=== PATIENT | female | born 1950 | race Caucasian/White ===

== ENCOUNTER → 2017-10-30 10:49 | Outpatient (CLI) | payer MEDICARE, OTHER, SELFPAY ==
[2017-10-30 11:11] LABS: Add Manual Diff / Slide Review NO; Basophils Percent Auto 0.6 % (0-2); Eosinophils Percent Auto 1.8 % (2-4); Hematocrit 43.2 % (36-46); Hemoglobin 14.2 g/dL (12.0-16.0); Lymphocytes Percent Auto 25.4 % (25-40); Mean Corpuscular HGB Conc 32.9 % (30-36); Mean Corpuscular Hemoglobin 26.5 PG (26-34); Mean Corpuscular Volume 80.7 fL (80-100); Monocytes Percent Auto 4.3 % (3-14); Neutrophils Absolute Auto 9300 /uL (3000-5900); Neutrophils Percent Auto 67.9 % (50-75); Platelet Count 244 X10^3/uL (150-400); Red Blood Cell Count 5.36 X10^6/uL (4.0-5.2); Red Cell Distribution Width 13.9 % (11.6-14.8); White Blood Cell Count 13.7 X10^3/uL (4.5-11.0)
[2017-10-30 11:20] LABS: Hemoglobin A1C% w Est Avg Glu 10.7 % (4.0-6.0)
[2017-10-30 11:24] LABS: Alanine Aminotransferase 26 IU/L (9-52); Albumin 3.9 g/dL (3.5-5.0); Albumin Globulin Ratio 1.1 (1.0-2.8); Alkaline Phosphatase 135 U/L (38-126); Aspartate Aminotransferase 17 IU/L (14-36); Bilirubin Total 0.4 mg/dL (0.2-1.3); Calcium 9.1 mg/dL (8.4-10.2); Cholesterol 207 mg/dL (140-199); Estimated Glomerular Filt Rate > 60.0 mL/min (>60); Globulin 3.6 g/dL (1.7-4.1); Glucose 328 mg/dL (80-110); HDL Cholesterol 51 mg/dL (40-60); HEMOLYSIS < 15 (0-50); LDL Cholesterol Calculated 128 mg/dL (<100); Potassium 4.1 mmol/L (3.4-5.1); Sodium 139 mmol/L (137-145); Total Protein 7.5 g/dL (6.3-8.2); Triglycerides 139 mg/dL (35-150)
== END ==
PROVIDERS: PCP Physician Assistant; Visit Provider Physician Assistant
DX: E11.9 Type 2 diabetes mellitus without complications (principal); E78.5 Hyperlipidemia, unspecified; I10 Essential (primary) hypertension
CPT/HCPCS: 36415; 80053; 80061; 83036; 85025

== ENCOUNTER → 2019-01-08 10:22 | Outpatient (CLI) | payer MEDICARE, OTHER, SELFPAY ==
[2019-01-08 11:06] LABS: Hemoglobin A1C% w Est Avg Glu 10.8 % (4.0-6.0)
[2019-01-08 11:11] LABS: Add Manual Diff / Slide Review NO; Basophils Absolute Auto 0 /uL (0-100); Basophils Percent Auto 0.3 % (0-2); Eosinophils Absolute Auto 200 /uL (0-450); Eosinophils Percent Auto 1.4 % (2-4); Hematocrit 44.5 % (36-46); Hemoglobin 14.3 g/dL (12.0-16.0); Lymphocytes Absolute Auto 3500 /uL (1100-4500); Lymphocytes Percent Auto 23.5 % (25-40); Mean Corpuscular HGB Conc 32.2 % (30-36); Mean Corpuscular Hemoglobin 26.5 PG (26-34); Mean Corpuscular Volume 82.3 fL (80-100); Monocytes Absolute Auto 600 /uL (0-900); Monocytes Percent Auto 4.2 % (3-14); Neutrophils Absolute Auto 10400 /uL (1500-7000); Neutrophils Percent Auto 70.6 % (50-75); Platelet Count 289 X10^3/uL (150-400); Red Blood Cell Count 5.41 X10^6/uL (4.0-5.2); Red Cell Distribution Width 14.1 % (11.6-14.8); White Blood Cell Count 14.7 X10^3/uL (4.5-11.0)
[2019-01-08 11:37] LABS: Alanine Aminotransferase 15 IU/L (9-52); Albumin 3.8 g/dL (3.5-5.0); Albumin Globulin Ratio 1.2 (1.0-2.8); Alkaline Phosphatase 150 U/L (38-126); Aspartate Aminotransferase 17 IU/L (14-36); Bilirubin Total 0.4 mg/dL (0.2-1.3); Blood Urea Nitrogen 18 mg/dL (7-17); Calcium 9.5 mg/dL (8.4-10.2); Carbon Dioxide 29 mmol/L (22-32); Chloride 98 mmol/L (98-107); Cholesterol 211 mg/dL (140-199); Estimated Glomerular Filt Rate > 60.0 mL/min (>60); Globulin 3.3 g/dL (1.7-4.1); Glucose 366 mg/dL (80-110); HDL Cholesterol 50 mg/dL (40-60); HEMOLYSIS < 15 (0-50); LDL Cholesterol Calculated 129 mg/dL (<100); Potassium 4.3 mmol/L (3.4-5.1); Sodium 137 mmol/L (137-145); Total Protein 7.1 g/dL (6.3-8.2); Triglycerides 159 mg/dL (35-150)
== END ==
PROVIDERS: PCP Physician Assistant; Visit Provider Physician Assistant
DX: E11.9 Type 2 diabetes mellitus without complications (principal); I10 Essential (primary) hypertension; E78.5 Hyperlipidemia, unspecified
CPT/HCPCS: 36415; 80053; 80061; 83036; 85025

== ENCOUNTER → 2019-03-15 08:24 | Outpatient (CLI) | payer MEDICARE, OTHER, SELFPAY ==
[2019-03-15 10:18] LABS: Alanine Aminotransferase 17 IU/L (9-52); Albumin 3.7 g/dL (3.5-5.0); Albumin Globulin Ratio 1.2 (1.0-2.8); Alkaline Phosphatase 125 U/L (38-126); Aspartate Aminotransferase 19 IU/L (14-36); BUN Creatinine Ratio 31.7 (6-22); Bilirubin Total 0.6 mg/dL (0.2-1.3); Blood Urea Nitrogen 19 mg/dL (7-17); Calcium 9.5 mg/dL (8.4-10.2); Carbon Dioxide 30 mmol/L (22-32); Chloride 98 mmol/L (98-107); Estimated Glomerular Filt Rate > 60.0 mL/min (>60); Globulin 3.2 g/dL (1.7-4.1); Glucose 302 mg/dL (80-110); HEMOLYSIS 27 (0-50); Potassium 4.8 mmol/L (3.4-5.1); Sodium 136 mmol/L (137-145); Total Protein 6.9 g/dL (6.3-8.2)
[2019-03-15 10:47] LABS: Cortisol AM (Before 10AM) 13.5 ug/dL (4.46-22.7)
[2019-03-17 13:48] LABS: Insulin Level Total 74.2 uIU/mL (2.0-19.6)
== END ==
PROVIDERS: PCP Physician Assistant; Visit Provider Internal Medicine
DX: E11.9 Type 2 diabetes mellitus without complications (principal); E66.01 Morbid (severe) obesity due to excess calories
CPT/HCPCS: 36415; 80053; 82533; 83525

== ENCOUNTER → 2019-03-23 08:31 | Outpatient (CLI) | payer MEDICARE, OTHER, SELFPAY ==
[2019-03-23 10:26] LABS: Cortisol Random 16.9 ug/dL
== END ==
PROVIDERS: PCP Internal Medicine; Visit Provider Internal Medicine
DX: E66.01 Morbid (severe) obesity due to excess calories (principal)
CPT/HCPCS: 36415; 82533

== ENCOUNTER → 2019-03-24 08:25 | Outpatient (CLI) | payer MEDICARE, OTHER, SELFPAY ==
[2019-03-24 09:42] LABS: Cortisol AM (Before 10AM) 1.17 ug/dL (4.46-22.7)
== END ==
PROVIDERS: PCP Internal Medicine; Visit Provider Internal Medicine
DX: E66.01 Morbid (severe) obesity due to excess calories (principal)
CPT/HCPCS: 36415; 82533

== ENCOUNTER 2019-04-30 10:46 | Emergency (ER) | payer MEDICARE, OTHER, SELFPAY ==
[2019-04-30 10:46] VITALS: BP 157/121; PULSE 181; RESP 24; TEMP 36.7; O2SAT 94
--- NOTE | 2019-04-30 10:57 | DI.RAD.S_ITS ---
PROCEDURE: XR CHEST 1V INDICATIONS: syncope TECHNIQUE: One view of the chest was acquired. COMPARISON: [facility], RG, XR CXR 2 VIEW, 08/25/2002, 7:59. [facility], CR, CHEST 1 VIEW, 11/30/2012, 14:31. [facility], , CHEST 2 VIEW, 08/10/2015, 10:30. FINDINGS: Surgical changes and devices: None. Lungs and pleura: Lungs are clear. No pleural effusions or pneumothorax. Mediastinum: The cardiac contours are within normal limits. The aorta demonstrates calcification and tortuosity. Bones and chest wall: No suspicious bony lesions. Age-appropriate bony degenerative changes are seen. Overlying soft tissues appear unremarkable. IMPRESSION: No significant portable chest abnormality is seen for age. Dictated by: Amadou Dubose M.D. on 04/30/2019 at 10:22 Approved by: Amadou Dubose M.D. on 04/30/2019 at 10:22
--- NOTE | 2019-04-30 11:01 | ED_ITS ---
HPI - Arrhythmia/Palpitations General Chief Complaint: Arrhythmia/Palpitations Stated Complaint: fainting feeling Time Seen by Provider: 04/30/19 10:46 Source: patient Mode of arrival: Ambulatory Limitations: no limitations History of Present Illness HPI narrative: 69F nonsmoker with history of anxiety in SVT presents with a chief complaint of rapid heart rate and palpitations which started this morning. She states she went to bed feeling fine and admits to being under significant stress. Patient admits to some nausea and some epigastric discomfort and pressure. She denies any significant alcohol, street drugs or nicotine use. She denies any caffeine. She denies recent travel and is otherwise well and f ree of complaint. MD complaint: rapid heart beat, skipped beats and palpitations Duration: constant Severity: moderate Context: occurred during rest Arrhythmia history: SVT Treatments prior to arrival: vagal maneuvers Related Data Home Medications Medication Instructions Recorded Confirmed ASPIRIN (Aspirin EC) 81 mg PO Q DAY #0 11/13/10 POLYETHYLENE GLYCOL 3350 17 gm PO QDAYP #0 02/28/12 ALUM HYD/MAG CARB (#GAVISCON) 1 tab PO BLD #0 09/09/12 [SHANNEN TEA] 1 - 2 Q DAY #0 09/09/12 losartan 25 mg PO QDAY #0 01/25/16 Allergies Allergy/AdvReac Type Severity Reaction Status Date / Time Penicillins Allergy Severe HIVES Verified 04/30/19 10:58 naproxen Allergy Mild HIVES Verified 04/30/19 10:58 rosuvastatin Allergy Mild Verified 04/30/19 10:58 sulfamethoxazole Allergy Unknown Verified 04/30/19 10:58 [From BACTRIM] trimethoprim [From BACTRIM] Allergy Unknown Verified 04/30/19 10:58 simvastatin AdvReac Severe MYALGIA, Verified 04/30/19 10:58 MUSCLE WEAKNESS Sulfa (Sulfonamide AdvReac Severe [place]IA, Verified 04/30/19 10:58 Antibiotics) MUSCLE WEAKNESS metoclopramide AdvReac Intermediate tremors, Verified 04/30/19 10:58 anxiety gets worse atorvastatin AdvReac Mild NAUSEA, Verified 04/30/19 10:58 FLU LIKE SYMPTOMS metoprolol [METOPROLOL] AdvReac Unknown NAUSEA Verified 04/30/19 10:58 VOMITING Review of Systems Constitutional Constitutional: Denies chills, Denies fatigue, Denies fever(s), Denies frequent falls, Denies lethargy and Denies weakness Eyes Eyes: Denies change in vision, Denies eye discharge, Denies irritation and Denies loss of vision ENT Ears, Nose, Mouth, and Throat: Denies change in voice, Denies dizziness, Denies neck pain, Denies sore throat and Denies throat swelling Cardiovascular Cardiovascular: Reports chest pain, Denies irregular heart rhythm, Denies lightheadedness, Reports palpitations, Denies dyspnea, Denies dyspnea on exertion and Denies orthopnea Respiratory Respiratory: Denies cough, Denies dyspnea, Denies dyspnea on exertion and Denies wheezing Gastrointestinal Gastrointestinal: Denies abdominal pain, Denies change in bowel habits, Denies diarrhea, Denies nausea and Denies vomiting Genitourinary Genitourinary: Denies hematuria, Denies flank pain, Denies urinary incontinence and Denies urinary urgency Musculoskeletal Musculoskeletal: Denies back pain, Denies muscle weakness, Denies neck pain, Denies numbness and Denies tingling Integumentary/Breasts Skin/Breast: Denies pruritus, Denies erythema, Denies rash and Denies wounds Neurologic Neurologic: Denies behavioral changes, Denies confusion, Denies dizziness, Denies frequent falls, Denies loss of vision, Denies numbness, Denies tingling and Denies weakness Psychiatric Psychiatric: Denies anxiety, Denies behavioral changes, Denies confusion, Denies depression, Denies homicidal ideation and Denies suicidal ideation Endocrine Endocrine: Denies fatigue, Denies flushing and Reports palpitations Hematologic/Lymphatic Hematologic/Lymphatic: Denies easy bruising Allergic/Immunologic Allergic/Immunologic: Denies urticaria, Denies throat swelling and Denies wheezing Patient History Surgical History History of third molar tooth extraction Status post hernia repair (05/14/16) Status post hysterectomy (05/14/16) Status post laparoscopic cholecystectomy Social History Smoking Status: Never smoker alcohol intake frequency: 0-2 drinks per day Substance Use Type: does not use Exam Narrative Exam Narrative: GENERAL: [69] year old patient appears stated age. Well- nourished, well-developed patient, in mild distress. Anxious HEAD: Atraumatic. Normocephalic. EYES: Pupils equal round and reactive. Extraocular motions intact. No scleral icterus. No injection or drainage. ENT: Nose without bleeding, purulent drainage. Throat without erythema, tonsillar hypertrophy or exudate. Airway patent. NECK: Trachea midline. Non tender CARDIOVASCULAR: Tachycardic and irregular rhythm without murmurs, gallops, or rubs. RESPIRATORY: Clear to auscultation. Breath sounds equal bilaterally. No wheezes, rales, or rhonchi. GASTROINTESTINAL: Abdomen soft, non-tender, nondistended. EXTREMITIES: No edema or joint tenderness. BACK: Nontender without deformity or crepitance. No flank tenderness. NEURO: AOx3. SKIN: No rash or erythema of visible areas Initial Vital Signs Initial Vital Signs: Vital Signs Temperature 98.1 F 04/30/19 10:46 Pulse Rate 181 H 04/30/19 10:46 Respiratory Rate 24 04/30/19 10:46 Blood Pressure 157/121 H 04/30/19 10:46 Pulse Oximetry 94 04/30/19 10:46 Course Orders Ordered: ED Orders 04/30/19 10:55 Complete Blood Count AUTO DIFF Stat Comprehensive Metabolic Panel Stat Lipase Stat Thyroid Stimulating Hormone Stat Troponin & CK Cardiac Panel Stat 04/30/19 10:57 XR chest 1V Stat EKG-12 Lead Stat 04/30/19 12:52 EKG-12 Lead Routine Discontinued Medications Aspirin (Aspirin Chew) 324 mg PO NOW ONE Stop: 04/30/19 10:58 Last Admin: 04/30/19 11:32 Dose: 243 mg Documented by: DAVI Diltiazem HCl (Cardizem) 10 mg IV NOW ONE Stop: 04/30/19 11:11 Last Admin: 04/30/19 12:32 Dose: 10 mg Documented by: DAVI Sodium Chloride (Normal Saline 0.9%) 1,000 mls @ 150 mls/hr IV CONT TRICIA Last Infusion: 04/30/19 13:20 Dose: 0 mls/hr Documented by: Admin: 04/30/19 11:32 Dose: 150 mls/hr Documented by: DAVI Consultations Consultation #1: Discussion with on-call Cardiology regarding the progression of this case. She requested we send her EKGs. She has reviewed them and I thinks these are likely SVT as opposed to AFib, recommends Cardizem 3 kg. Vital Signs Vital signs: Vital Signs - 8 hr 04/30/19 13:07 Pulse Rate 110 H Respiratory Rate 11 L Blood Pressure [Left Arm] 189/95 H Pulse Oximetry 99 MDM - Arrhythmia/Palpitations Lab Data Result diagrams: 04/30/19 10:55 04/30/19 10:55 Labs: Lab Results 04/30/19 04/30/19 04/30/19 Range/Units 10:55 10:55 10:55 WBC 17.5 H (4.5-11.0) X10^3/uL RBC 5.76 H (4.0-5.2) X10^6/uL Hgb 15.3 (12.0-16.0) g/dL Hct 46.7 H (36-46) % MCV 81.1 (80-100) fL MCH 26.6 (26-34) PG MCHC 32.8 (30-36) % RDW 13.9 (11.6-14.8) % Plt Count 309 (150-400) X10^3/uL Neut % (Auto) 72.0 (50-75) % Lymph % (Auto) 21.7 L (25-40) % [place] % (Auto) 4.0 (3-14) % Eos % (Auto) 1.1 L (2-4) % Baso % (Auto) 1.2 (0-2) % Neut # (Auto) 91361 H (1751-1712) /uL Lymph # (Auto) 3800 (8295-2447) /uL [place] # (Auto) 700 (0-900) /uL Eos # (Auto) 200 (0-450) /uL Baso # (Auto) 200 H (0-100) /uL Sodium 138 (137-145) mmol/L Potassium 3.6 (3.4-5.1) mmol/L Chloride 101 (98-107) mmol/L Carbon Dioxide 21 L (22-32) mmol/L BUN 17 (7-17) mg/dL Creatinine 0.70 (0.52-1.04) mg/dL Estimated GFR > 60.0 (>60) mL/min BUN/Creatinine Ratio 24.3 H (6-22) Glucose 365 H (80-110) mg/dL Calcium 9.9 (8.4-10.2) mg/dL Total Bilirubin 0.6 (0.2-1.3) mg/dL AST 24 (14-36) IU/L ALT 22 (<35) IU/L Alkaline Phosphatase 147 H (38-126) U/L Total Creatine Kinase 43 (30-135) U/L CK-MB (CK-2) TNP CK-MB (CK-2) Rel Index TNP Troponin I < 0.012 (0.01-0.034) ng/mL Total Protein 8.0 (6.3-8.2) g/dL Albumin 4.4 (3.5-5.0) g/dL Globulin 3.6 (1.7-4.1) g/dL Albumin/Globulin Ratio 1.2 (1.0-2.8) Lipase 90 (23-300) U/L TSH 2.58 (0.47-4.68) uIU/mL Urine Dip Bedside Urine Glucose 1000 mg/dl Bedside Urine Bilirubin - Negative Bedside Urine Ketone - Negative Urine Specific [place] 1.005 Bedside Urine Occult Blood - Negative Bedside Urine pH 6.0 Bedside Urine Protein + 30 Bedside Urine Urobilinogen - Negative Bedside Urine Nitrite - Negative Bedside Urine Leukocytes - Negative Esterase MDM Narrative Medical decision making narrative: 69-year-old female presents with tachycardia chest pain and anxiety that started this morning. EKGs no SVT[place] [address] and normal sinus rhythm, all symptoms resolved. Labs are very reassuring. Patient has been given return precautions and has had questions answered to her apparent satisfaction. 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 Discharge Plan Departure Patient Disposition: Home Clinical Impression: Supraventricular tachycardia Discharge Date/Time: 04/30/19 13:24 Instructions: Paroxysmal Supraventricular Tachycardia Activity Restrictions/Additional Instructions: *You have been diagnosed with [resolved tachyarrhythmia, likely SVT. 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 Let them know you were seen in the Emergency Department and that we ask that you be seen in follow up *Return to ER if you should have any new, worsening or concerning symptoms Prescriptions: No Action ASPIRIN (Aspirin EC) 81 mg PO Q DAY Qty: 0 RF: 0 POLYETHYLENE GLYCOL 3350 17 gm PO QDAYP Qty: 0 RF: 0 ALUM HYD/MAG CARB (#GAVISCON) 1 tab PO BLD Qty: 0 RF: 0 [SHANNEN TEA] 1 - 2 Q DAY Qty: 0 RF: 0 losartan 25 MG tablet 25 mg PO QDAY Qty: 0 RF: 0 Referrals: Mami David MD [Primary Care Provider] -
[2019-04-30 11:06] LABS: Add Manual Diff / Slide Review NO; Basophils Absolute Auto 200 /uL (0-100); Basophils Percent Auto 1.2 % (0-2); Eosinophils Absolute Auto 200 /uL (0-450); Eosinophils Percent Auto 1.1 % (2-4); Hematocrit 46.7 % (36-46); Hemoglobin 15.3 g/dL (12.0-16.0); Lymphocytes Absolute Auto 3800 /uL (1100-4500); Lymphocytes Percent Auto 21.7 % (25-40); Mean Corpuscular HGB Conc 32.8 % (30-36); Mean Corpuscular Hemoglobin 26.6 PG (26-34); Mean Corpuscular Volume 81.1 fL (80-100); Monocytes Absolute Auto 700 /uL (0-900); Neutrophils Absolute Auto 12600 /uL (1500-7000); Platelet Count 309 X10^3/uL (150-400); Red Blood Cell Count 5.76 X10^6/uL (4.0-5.2); Red Cell Distribution Width 13.9 % (11.6-14.8); White Blood Cell Count 17.5 X10^3/uL (4.5-11.0)
[2019-04-30 11:16] LABS: Albumin 4.4 g/dL (3.5-5.0); Albumin Globulin Ratio 1.2 (1.0-2.8); Alkaline Phosphatase 147 U/L (38-126); Aspartate Aminotransferase 24 IU/L (14-36); BUN Creatinine Ratio 24.3 (6-22); Bilirubin Total 0.6 mg/dL (0.2-1.3); Blood Urea Nitrogen 17 mg/dL (7-17); Calcium 9.9 mg/dL (8.4-10.2); Carbon Dioxide 21 mmol/L (22-32); Chloride 101 mmol/L (98-107); Creatine Kinase 43 U/L (30-135); Estimated Glomerular Filt Rate > 60.0 mL/min (>60); Globulin 3.6 g/dL (1.7-4.1); Glucose 365 mg/dL (80-110); HEMOLYSIS < 15 (0-50); Lipase 90 U/L (23-300); Potassium 3.6 mmol/L (3.4-5.1); Sodium 138 mmol/L (137-145)
[2019-04-30 11:23] LABS: Alanine Aminotransferase 22 IU/L (<35)
[2019-04-30 11:28] LABS: Troponin I < 0.012 ng/mL (0.01-0.034)
[2019-04-30] MEDS: SODIUM CHLORIDE 0.9% 1,000 ML 150 ML IV (11:32)
[2019-04-30] MEDS: ASPIRIN 81 MG CHEW TAB 324 MG PO (11:32)
--- NOTE | 2019-04-30 11:36 | PC.NURSE ---
Pt would like to speak with provider more before receiving cardizem. Dr. Diaz aware.
[2019-04-30] MEDS: dilTIAZem 5 MG/ML SDV 10 MG IV (12:32)
[2019-04-30 13:07] VITALS: BP 189/95; PULSE 110; RESP 11; O2SAT 99
[2019-04-30 13:59] LABS: Thyroid Stimulating Hormone 2.58 uIU/mL (0.47-4.68)
== END 2019-04-30 13:24 | disposition home or self-care (01) ==
PROVIDERS: Emergency Provider Emergency Medicine; PCP Internal Medicine
DX: I47.1 Supraventricular tachycardia (principal)
CPT/HCPCS: 36415; 71045; 80053; 81003; 82550; 83690; 84443; 84484; 85025; 93005; 96361; 96374; 99283; 99285

== ENCOUNTER → 2019-05-04 13:21 | Outpatient (ROUT) | payer MEDICARE, OTHER, SELFPAY ==
[2019-05-04 13:40] LABS: Add Manual Diff / Slide Review NO; Basophils Absolute Auto 0 /uL (0-100); Basophils Percent Auto 0.3 % (0-2); Eosinophils Absolute Auto 100 /uL (0-450); Eosinophils Percent Auto 0.8 % (2-4); Hematocrit 44.7 % (36-46); Hemoglobin 14.5 g/dL (12.0-16.0); Lymphocytes Absolute Auto 3100 /uL (1100-4500); Lymphocytes Percent Auto 17.8 % (25-40); Mean Corpuscular HGB Conc 32.5 % (30-36); Mean Corpuscular Hemoglobin 26.6 PG (26-34); Monocytes Absolute Auto 600 /uL (0-900); Monocytes Percent Auto 3.6 % (3-14); Neutrophils Absolute Auto 13400 /uL (1500-7000); Neutrophils Percent Auto 77.5 % (50-75); Platelet Count 296 X10^3/uL (150-400); Red Blood Cell Count 5.45 X10^6/uL (4.0-5.2); Red Cell Distribution Width 13.8 % (11.6-14.8); White Blood Cell Count 17.3 X10^3/uL (4.5-11.0)
[2019-05-04 13:44] LABS: Alanine Aminotransferase 20 IU/L (<35); Albumin Globulin Ratio 1.3 (1.0-2.8); Alkaline Phosphatase 132 U/L (38-126); Amylase 54 U/L (30-110); Aspartate Aminotransferase 22 IU/L (14-36); BUN Creatinine Ratio 26.7 (6-22); Bilirubin Total 0.4 mg/dL (0.2-1.3); Blood Urea Nitrogen 16 mg/dL (7-17); Calcium 10.1 mg/dL (8.4-10.2); Carbon Dioxide 28 mmol/L (22-32); Chloride 100 mmol/L (98-107); Estimated Glomerular Filt Rate > 60.0 mL/min (>60); Globulin 3.2 g/dL (1.7-4.1); Glucose 296 mg/dL (80-110); HEMOLYSIS < 15 (0-50); Lipase 86 U/L (23-300); Potassium 3.9 mmol/L (3.4-5.1); Sodium 140 mmol/L (137-145); Total Protein 7.2 g/dL (6.3-8.2)
== END ==
PROVIDERS: PCP Internal Medicine; Visit Provider Internal Medicine
DX: R10.9 Unspecified abdominal pain (principal); R11.2 Nausea with vomiting, unspecified
CPT/HCPCS: 80053; 82150; 83690; 85025

== ENCOUNTER → 2019-05-28 13:35 | Outpatient (CLI) | payer MEDICARE, OTHER, SELFPAY ==
[2019-05-28 14:04] LABS: Hematocrit 43.5 % (36-46); Hemoglobin 14.5 g/dL (12.0-16.0); Mean Corpuscular HGB Conc 33.2 % (30-36); Mean Corpuscular Volume 81.2 fL (80-100); Platelet Count 254 X10^3/uL (150-400); Red Blood Cell Count 5.36 X10^6/uL (4.0-5.2); Red Cell Distribution Width 14.3 % (11.6-14.8); White Blood Cell Count 16.4 X10^3/uL (4.5-11.0)
[2019-05-28 14:19] LABS: Neutrophils Absolute Manual 12136 /uL (3000-5900); Platelet Estimate Adequate on smear; Platelet Morphology Comment NOTE; Total Cells Counted 100
[2019-05-28 14:21] LABS: RBC Morphology Normal Morphology
== END ==
PROVIDERS: PCP Internal Medicine; Visit Provider Internal Medicine
DX: D72.829 Elevated white blood cell count, unspecified (principal); R10.9 Unspecified abdominal pain
CPT/HCPCS: 36415; 85025

== ENCOUNTER → 2019-06-04 11:54 | Outpatient (CLI) | payer MEDICARE, OTHER, SELFPAY | PROVIDERS: PCP Internal Medicine; Visit Provider Internal Medicine | DX: D72.829 Elevated white blood cell count, unspecified (principal); R10.9 Unspecified abdominal pain | CPT/HCPCS: 86677; 87329 ==

== ENCOUNTER → 2019-07-16 10:42 | Outpatient (CLI) | payer MEDICARE, OTHER, SELFPAY | PROVIDERS: PCP Internal Medicine; Visit Provider Internal Medicine | DX: D72.829 Elevated white blood cell count, unspecified (principal); R51 Headache; I10 Essential (primary) hypertension; E78.00 Pure hypercholesterolemia, unspecified; E11.9 Type 2 diabetes mellitus without complications ==

== ENCOUNTER → 2019-07-19 11:47 | Outpatient (CLI) | payer MEDICARE, OTHER, SELFPAY ==
[2019-07-19 13:36] LABS: Hematocrit 45.3 % (36-46); Hemoglobin 14.6 g/dL (12.0-16.0); Mean Corpuscular HGB Conc 32.3 % (30-36); Mean Corpuscular Hemoglobin 26.2 PG (26-34); Mean Corpuscular Volume 80.9 fL (80-100); Platelet Count 336 X10^3/uL (150-400); Red Cell Distribution Width 13.7 % (11.6-14.8); White Blood Cell Count 13.7 X10^3/uL (4.5-11.0)
[2019-07-19 13:47] LABS: Hemoglobin A1C% w Est Avg Glu 10.3 % (4.0-6.0)
[2019-07-19 13:55] LABS: Erythrocyte Sedimentation Rate 6 MM/HR (0-20)
[2019-07-19 14:11] LABS: Neutrophils Absolute Manual 9590 /uL (3000-5900); Total Cells Counted 100
[2019-07-19 14:12] LABS: Anisocytosis 1+; Poikilocytosis 1+
[2019-07-19 15:41] LABS: Alanine Aminotransferase 18 IU/L (<35); Albumin Globulin Ratio 1.1 (1.0-2.8); Alkaline Phosphatase 134 U/L (38-126); Aspartate Aminotransferase 19 IU/L (14-36); BUN Creatinine Ratio 28.3 (6-22); Bilirubin Total 0.3 mg/dL (0.2-1.3); Blood Urea Nitrogen 17 mg/dL (7-17); Calcium 10.1 mg/dL (8.4-10.2); Carbon Dioxide 29 mmol/L (22-32); Chloride 95 mmol/L (98-107); Cholesterol 211 mg/dL (140-199); Estimated Glomerular Filt Rate > 60.0 mL/min (>60); Globulin 3.5 g/dL (1.7-4.1); Glucose 309 mg/dL (80-110); HDL Cholesterol 50 mg/dL (40-60); HEMOLYSIS < 15 (0-50); LDL Cholesterol Calculated 133 mg/dL (<100); Potassium 5.1 mmol/L (3.4-5.1); Sodium 136 mmol/L (137-145); Total Protein 7.5 g/dL (6.3-8.2); Triglycerides 141 mg/dL (35-150)
== END ==
PROVIDERS: PCP Internal Medicine; Referring Provider Internal Medicine; Visit Provider Internal Medicine
DX: E11.9 Type 2 diabetes mellitus without complications (principal); D72.829 Elevated white blood cell count, unspecified; R51 Headache; I10 Essential (primary) hypertension; E78.00 Pure hypercholesterolemia, unspecified
CPT/HCPCS: 36415; 80053; 80061; 83036; 85025; 85651

== ENCOUNTER → 2019-08-11 15:45 | Outpatient (CLI) | payer MEDICARE, OTHER, SELFPAY ==
--- NOTE | 2019-08-11 15:47 | DI.RAD.S_ITS ---
PROCEDURE: XR HIP W PEL IF DONE RT 2V INDICATIONS: right hip pain TECHNIQUE: 2 views of the hip were acquired. COMPARISON: None. FINDINGS: Bones: No fractures or dislocations. No suspicious bony lesions. The visualized pelvic ring appears intact. Soft tissues: No suspicious soft tissue calcifications or masses. IMPRESSION: No trauma found. Slight hip joint osteoarthritis bilaterally. Dictated by: Vern Ford M.D. on 08/11/2019 at 16:17 Approved by: Vern Ford M.D. on 08/11/2019 at 16:17
== END ==
PROVIDERS: PCP Internal Medicine
DX: M25.551 Pain in right hip (principal)
CPT/HCPCS: 73502

== ENCOUNTER → 2019-08-12 10:32 | Outpatient (CLI) | payer MEDICARE, OTHER, SELFPAY ==
[2019-08-12 11:06] LABS: Albumin 4.2 g/dL (3.5-5.0); Blood Urea Nitrogen 15 mg/dL (7-17); Calcium 9.8 mg/dL (8.4-10.2); Carbon Dioxide 31 mmol/L (22-32); Chloride 98 mmol/L (98-107); Estimated Glomerular Filt Rate > 60.0 mL/min (>60); Glucose 281 mg/dL (80-110); HEMOLYSIS < 15 (0-50); Phosphorous 4.2 mg/dL (2.8-4.1); Potassium 4.1 mmol/L (3.4-5.1); Sodium 138 mmol/L (137-145)
--- NOTE | 2019-08-12 11:43 | DI.CT.S_ITS ---
PROCEDURE: CT ANGIO HEAD INDICATIONS: Third [oculomotor] nerve palsy, left eye TECHNIQUE: Precontrast 4.5 mm thick angled axial sections acquired from the foramen magnum to the vertex. After the administration of intravenous contrast, 1 mm thick sections acquired through the [place] of [place]. Postcontrast 4.5 mm thick sections then re-acquired from the foramen magnum to the vertex. 10 mm thick zyqxaoq-vhqgrdbwq-vguprizoce (MIP) reformats were acquired of the central intracranial vasculature. For radiation dose reduction, the following was used: automated exposure control, adjustment of mA and/or kV according to patient size. COMPARISON: [facility], CT, HEAD WITHOUT CONTRAST, 11/30/2012, 11:07. [facility], CT, HEAD WITHOUT CONTRAST, 08/28/2015, 11:32. FINDINGS: Image quality: Diagnostic, with note made of motion artifact. In this patient with this given history, scrutiny is given to aneurysms involving the course of the right oculomotor nerve. No aneurysms can be seen. To the limits of this CT study, no masses are seen along the course of the right oculomotor nerve. Anterior circulation: Intracranial internal carotid arteries are normal in size and flow, with note made of atherosclerotic calcification within the cavernous internal carotid arteries. There is a diminutive left A1 segment, with a corresponding robust right A1 segment. This is considered to be a normal developmental variant of the [place], of typically no clinical consequence. The flow within the paired anterior cerebral arteries is otherwise normal and symmetric. The flow within the middle cerebral arteries is normal and symmetric. The anterior communicating artery is seen. No aneurysms are seen. Posterior circulation: Visualized portions of the vertebral arteries demonstrate normal caliber, and join to form a normal appearing basilar artery. Flow within the posterior cerebral arteries is normal and symmetric. No aneurysms are seen. CSF spaces: Ventricles are normal in size and shape. Basal cisterns are patent. No extra-axial fluid collections. Brain: No midline shift. No intracranial bleeds or masses. Becker-white matter interface appears intact. Skull and face: Calvarium and facial bones appear intact, without suspicious lesions. Incidental note is made of hyperostosis frontalis. This is not considered to be pathologic in a woman of this age. Sinuses: Visualized sinuses and mastoids are clear. IMPRESSION: No masses or aneurysms can be seen along the course of the right oculomotor nerve to account for the patient's presentation. If not contraindicated, please consider a dedicated followup brain MRI with and without contrast for further evaluation. Dictated by: Amadou Dubose M.D. on 08/12/2019 at 11:12 Approved by: Amadou Dubose M.D. on 08/12/2019 at 11:16
== END ==
PROVIDERS: PCP Internal Medicine; Referring Provider Ophthalmology; Visit Provider Ophthalmology
DX: H49.02 Third [oculomotor] nerve palsy, left eye (principal); H49.22 Sixth [abducent] nerve palsy, left eye
CPT/HCPCS: 36415; 70496; 80069; Q9967

== ENCOUNTER → 2019-11-01 11:14 | Outpatient (CLI) | payer MEDICARE, OTHER, SELFPAY ==
[2019-11-01 13:13] LABS: Add Manual Diff / Slide Review NO; Basophils Absolute Auto 0 /uL (0-100); Basophils Percent Auto 0.3 % (0-2); Eosinophils Absolute Auto 200 /uL (0-450); Eosinophils Percent Auto 1.4 % (2-4); Hematocrit 43.6 % (36-46); Hemoglobin 14.5 g/dL (12.0-16.0); Lymphocytes Absolute Auto 2800 /uL (1100-4500); Lymphocytes Percent Auto 20.7 % (25-40); Mean Corpuscular HGB Conc 33.4 % (30-36); Mean Corpuscular Hemoglobin 26.7 PG (26-34); Mean Corpuscular Volume 80.1 fL (80-100); Monocytes Absolute Auto 500 /uL (0-900); Monocytes Percent Auto 3.5 % (3-14); Neutrophils Absolute Auto 10000 /uL (1500-7000); Neutrophils Percent Auto 74.1 % (50-75); Platelet Count 278 X10^3/uL (150-400); Red Blood Cell Count 5.44 X10^6/uL (4.0-5.2); Red Cell Distribution Width 14.6 % (11.6-14.8); White Blood Cell Count 13.5 X10^3/uL (4.5-11.0)
[2019-11-01 14:19] LABS: Thyroid Stimulating Hormone 2.68 uIU/mL (0.47-4.68)
[2019-11-03 11:21] LABS: Acetylcholine Receptor Bind AB 0.14 nmol/L (0.00-0.24)
[2019-11-04 18:53] LABS: TPMT Genotype *1/*1 (.)
[2019-11-07 13:36] LABS: MuSK Antibodies <1.0 U/mL (.)
[2019-11-11 09:36] LABS: Acetylcholine Rec Blocking AB 24 % (0-25)
== END ==
PROVIDERS: PCP Internal Medicine; Referring Provider Psychiatry & Neurology Neurology; Visit Provider Psychiatry & Neurology Neurology
DX: H53.2 Diplopia (principal)
CPT/HCPCS: 36415; 81335; 83519; 84443; 85025

== ENCOUNTER → 2020-01-31 14:06 | Outpatient (CLI) | payer MEDICARE, OTHER, SELFPAY ==
[2020-01-31 14:41] LABS: Hemoglobin A1C% w Est Avg Glu 9.6 % (4.0-6.0)
[2020-01-31 14:43] LABS: Alanine Aminotransferase 28 IU/L (<35); Albumin 3.9 g/dL (3.5-5.0); Albumin Globulin Ratio 1.1 (1.0-2.8); Alkaline Phosphatase 124 U/L (38-126); Aspartate Aminotransferase 29 IU/L (14-36); Bilirubin Total 0.5 mg/dL (0.2-1.3); Blood Urea Nitrogen 13 mg/dL (7-17); C-Reactive Protein Quant 3.7 mg/dL (<1.0); Calcium 9.9 mg/dL (8.4-10.2); Carbon Dioxide 29 mmol/L (22-32); Chloride 101 mmol/L (98-107); Estimated Glomerular Filt Rate > 60.0 mL/min (>60); Globulin 3.7 g/dL (1.7-4.1); Glucose 235 mg/dL (80-110); HEMOLYSIS < 15 (0-50); Potassium 4.1 mmol/L (3.4-5.1); Sodium 138 mmol/L (137-145); Total Protein 7.6 g/dL (6.3-8.2)
[2020-01-31 14:45] LABS: Erythrocyte Sedimentation Rate 19 MM/HR (0-20)
[2020-01-31 15:22] LABS: Free T4, Direct Thyroxine 1.45 ng/dL (0.78-2.19)
[2020-01-31 15:36] LABS: Thyroid Stimulating Hormone 2.36 uIU/mL (0.47-4.68)
== END ==
PROVIDERS: PCP Internal Medicine; Referring Provider Internal Medicine; Visit Provider Internal Medicine
DX: E11.65 Type 2 diabetes mellitus with hyperglycemia (principal); E78.2 Mixed hyperlipidemia; G70.00 Myasthenia gravis without (acute) exacerbation; I10 Essential (primary) hypertension
CPT/HCPCS: 36415; 80053; 83036; 84439; 84443; 85651; 86140

== ENCOUNTER → 2020-04-01 12:17 | Outpatient (CLI) | payer MEDICARE, OTHER, SELFPAY ==
[2020-04-12 06:36] LABS: Acetylcholine Blocking AB 29 % (0-25); Acetylcholine Modulating AB <12 % (0-20)
[2020-04-17 18:36] LABS: MuSK Antibodies <1.0 U/mL (.)
== END ==
PROVIDERS: PCP Internal Medicine; Referring Provider Internal Medicine; Visit Provider Internal Medicine
DX: H53.2 Diplopia (principal)
CPT/HCPCS: 36415; 83519

== ENCOUNTER → 2020-06-21 13:37 | Outpatient (CLI) | payer MEDICARE, OTHER, SELFPAY ==
[2020-06-21 15:04] LABS: Add Manual Diff / Slide Review NO; Basophils Absolute Auto 100 /uL (0-100); Basophils Percent Auto 0.3 % (0-2); Eosinophils Absolute Auto 100 /uL (0-450); Eosinophils Percent Auto 0.2 % (2-4); Hemoglobin 14.4 g/dL (12.0-16.0); Lymphocytes Absolute Auto 2500 /uL (1100-4500); Lymphocytes Percent Auto 9.9 % (25-40); Mean Corpuscular HGB Conc 32.8 % (30-36); Mean Corpuscular Hemoglobin 27.2 PG (26-34); Mean Corpuscular Volume 82.9 fL (80-100); Monocytes Absolute Auto 600 /uL (0-900); Monocytes Percent Auto 2.2 % (3-14); Neutrophils Absolute Auto 21800 /uL (1500-7000); Neutrophils Percent Auto 87.4 % (50-75); Platelet Count 263 X10^3/uL (150-400); Red Cell Distribution Width 14.2 % (11.6-14.8); White Blood Cell Count 24.9 X10^3/uL (4.5-11.0)
[2020-06-21 15:39] LABS: Alanine Aminotransferase 23 IU/L (<35); Albumin 3.7 g/dL (3.5-5.0); Albumin Globulin Ratio 1.4 (1.0-2.8); Alkaline Phosphatase 130 U/L (38-126); Aspartate Aminotransferase 20 IU/L (14-36); BUN Creatinine Ratio 31.1 (6-22); Bilirubin Total 0.2 mg/dL (0.2-1.3); Blood Urea Nitrogen 23 mg/dL (7-17); Calcium 9.5 mg/dL (8.4-10.2); Carbon Dioxide 32 mmol/L (22-32); Chloride 96 mmol/L (98-107); Estimated Glomerular Filt Rate > 60.0 mL/min (>60); Globulin 2.6 g/dL (1.7-4.1); Glucose 304 mg/dL (80-110); HEMOLYSIS < 15 (0-50); Potassium 4.1 mmol/L (3.4-5.1); Sodium 135 mmol/L (137-145); Total Protein 6.3 g/dL (6.3-8.2)
== END ==
PROVIDERS: PCP Internal Medicine; Referring Provider Internal Medicine; Visit Provider Internal Medicine
DX: Z51.81 Encounter for therapeutic drug level monitoring (principal); G70.00 Myasthenia gravis without (acute) exacerbation
CPT/HCPCS: 36415; 80053; 85025

== ENCOUNTER → 2020-06-29 14:41 | Outpatient (CLI) | payer MEDICARE, OTHER, SELFPAY ==
[2020-06-29 15:44] LABS: Add Manual Diff / Slide Review NO; Basophils Absolute Auto 100 /uL (0-100); Basophils Percent Auto 0.3 % (0-2); Eosinophils Absolute Auto 0 /uL (0-450); Eosinophils Percent Auto 0.1 % (2-4); Hematocrit 44.4 % (36-46); Hemoglobin 14.2 g/dL (12.0-16.0); Lymphocytes Absolute Auto 1200 /uL (1100-4500); Lymphocytes Percent Auto 5.5 % (25-40); Mean Corpuscular HGB Conc 31.9 % (30-36); Mean Corpuscular Hemoglobin 26.7 PG (26-34); Mean Corpuscular Volume 83.7 fL (80-100); Monocytes Absolute Auto 300 /uL (0-900); Monocytes Percent Auto 1.4 % (3-14); Neutrophils Absolute Auto 19900 /uL (1500-7000); Neutrophils Percent Auto 92.7 % (50-75); Platelet Count 277 X10^3/uL (150-400); Red Blood Cell Count 5.31 X10^6/uL (4.0-5.2); Red Cell Distribution Width 14.6 % (11.6-14.8); White Blood Cell Count 21.5 X10^3/uL (4.5-11.0)
[2020-06-30 05:13] LABS: Immunoglobulin A 275 mg/dL (87-352)
== END ==
PROVIDERS: PCP Internal Medicine; Referring Provider Internal Medicine; Visit Provider Internal Medicine
DX: G70.00 Myasthenia gravis without (acute) exacerbation (principal); D72.829 Elevated white blood cell count, unspecified
CPT/HCPCS: 36415; 82784; 85025

== ENCOUNTER → 2020-08-25 11:47 | Outpatient (CLI) | payer MEDICARE, OTHER, SELFPAY ==
[2020-08-25 12:14] LABS: Add Manual Diff / Slide Review NO; Basophils Absolute Auto 200 /uL (0-100); Basophils Percent Auto 0.8 % (0-2); Eosinophils Absolute Auto 100 /uL (0-450); Eosinophils Percent Auto 0.3 % (2-4); Hematocrit 43.1 % (36-46); Hemoglobin 13.9 g/dL (12.0-16.0); Lymphocytes Absolute Auto 2600 /uL (1100-4500); Lymphocytes Percent Auto 11.4 % (25-40); Mean Corpuscular HGB Conc 32.3 % (30-36); Mean Corpuscular Hemoglobin 27.2 PG (26-34); Mean Corpuscular Volume 84.3 fL (80-100); Monocytes Absolute Auto 700 /uL (0-900); Monocytes Percent Auto 3.1 % (3-14); Neutrophils Absolute Auto 19000 /uL (1500-7000); Neutrophils Percent Auto 84.4 % (50-75); Platelet Count 268 X10^3/uL (150-400); Red Blood Cell Count 5.12 X10^6/uL (4.0-5.2); White Blood Cell Count 22.6 X10^3/uL (4.5-11.0)
[2020-08-25 12:22] LABS: Alanine Aminotransferase 23 IU/L (<35); Albumin 3.8 g/dL (3.5-5.0); Albumin Globulin Ratio 1.3 (1.0-2.8); Alkaline Phosphatase 103 U/L (38-126); Aspartate Aminotransferase 20 IU/L (14-36); BUN Creatinine Ratio 25.3 (6-22); Bilirubin Total 0.3 mg/dL (0.2-1.3); Blood Urea Nitrogen 20 mg/dL (7-17); Calcium 9.5 mg/dL (8.4-10.2); Carbon Dioxide 31 mmol/L (22-32); Chloride 100 mmol/L (98-107); Estimated Glomerular Filt Rate > 60.0 mL/min (>60); Globulin 2.9 g/dL (1.7-4.1); Glucose 261 mg/dL (80-110); HEMOLYSIS < 15 (0-50); Potassium 3.9 mmol/L (3.4-5.1); Sodium 135 mmol/L (137-145); Total Protein 6.7 g/dL (6.3-8.2)
== END ==
PROVIDERS: PCP Internal Medicine; Referring Provider Internal Medicine; Visit Provider Internal Medicine
DX: Z51.81 Encounter for therapeutic drug level monitoring (principal)
CPT/HCPCS: 36415; 80053; 85025

== ENCOUNTER → 2020-08-25 12:30 | Outpatient (CLI) | payer MEDICARE, OTHER, SELFPAY ==
[2020-08-25] MEDS: COVID-19 VACC, Ad26(JANSSEN)/PF 0.5 ML IM (12:47)
== END ==
PROVIDERS: PCP Internal Medicine; Visit Provider Internal Medicine
DX: Z23 Encounter for immunization (principal)
CPT/HCPCS: 0031A; 91303

== ENCOUNTER → 2020-09-14 15:05 | Outpatient (CLI) | payer MEDICARE, OTHER, SELFPAY ==
[2020-09-14 15:33] LABS: COVID19 -Nasal RAPID Negative (Negative)
== END ==
PROVIDERS: PCP Internal Medicine; Visit Provider Family Medicine
DX: R06.02 Shortness of breath (principal); Z20.822 Contact with and (suspected) exposure to COVID-19
CPT/HCPCS: 87635

== ENCOUNTER → 2020-09-20 14:02 | Outpatient (CLI) | payer MEDICARE, OTHER, SELFPAY ==
[2020-09-20 15:02] LABS: Add Manual Diff / Slide Review NO; Basophils Absolute Auto 100 /uL (0-100); Basophils Percent Auto 0.3 % (0-2); Eosinophils Absolute Auto 0 /uL (0-450); Eosinophils Percent Auto 0.2 % (2-4); Hematocrit 45.1 % (36-46); Lymphocytes Absolute Auto 2000 /uL (1100-4500); Mean Corpuscular HGB Conc 33.2 % (30-36); Mean Corpuscular Volume 84.3 fL (80-100); Monocytes Absolute Auto 500 /uL (0-900); Monocytes Percent Auto 1.9 % (3-14); Neutrophils Absolute Auto 21900 /uL (1500-7000); Neutrophils Percent Auto 89.6 % (50-75); Platelet Count 262 X10^3/uL (150-400); Red Blood Cell Count 5.35 X10^6/uL (4.0-5.2); White Blood Cell Count 24.4 X10^3/uL (4.5-11.0)
[2020-09-20 15:47] LABS: Hemoglobin A1C% w Est Avg Glu 11.1 % (4.0-6.0)
[2020-09-20 18:01] LABS: Alanine Aminotransferase 26 IU/L (<35); Albumin 3.7 g/dL (3.5-5.0); Albumin Globulin Ratio 1.2 (1.0-2.8); Alkaline Phosphatase 122 U/L (38-126); Aspartate Aminotransferase 24 IU/L (14-36); Bilirubin Total 0.3 mg/dL (0.2-1.3); Blood Urea Nitrogen 24 mg/dL (7-17); Calcium 9.6 mg/dL (8.4-10.2); Carbon Dioxide 25 mmol/L (22-32); Chloride 98 mmol/L (98-107); Estimated Glomerular Filt Rate > 60.0 mL/min (>60); Globulin 3.1 g/dL (1.7-4.1); Glucose 344 mg/dL (80-110); HEMOLYSIS 16 (0-50); Potassium 4.3 mmol/L (3.4-5.1); Sodium 133 mmol/L (137-145); Total Protein 6.8 g/dL (6.3-8.2)
[2020-09-20 18:09] LABS: NT-proBNP (BNP-Adult 18+) 68 pg/mL (<125)
== END ==
PROVIDERS: Family Medicine; PCP Internal Medicine; Referring Provider Internal Medicine; Visit Provider Internal Medicine
DX: Z51.81 Encounter for therapeutic drug level monitoring (principal); R06.02 Shortness of breath; E11.65 Type 2 diabetes mellitus with hyperglycemia; G70.00 Myasthenia gravis without (acute) exacerbation
CPT/HCPCS: 36415; 80053; 83036; 83880; 85025

== ENCOUNTER → 2020-09-26 14:37 | Outpatient (CLI) | payer MEDICARE, OTHER, SELFPAY ==
--- NOTE | 2020-09-26 14:40 | DI.RAD.S_ITS ---
PROCEDURE: XR CHEST 2V INDICATIONS: Shortness of breath TECHNIQUE: 2 views of the chest were acquired. COMPARISON: [facility], MYA, XR CHEST 1V, 04/30/2019, 11:02. [facility], MYA, CHEST 2 VIEW, 08/10/2015, 10:30. FINDINGS: Surgical changes and devices: None. Lungs and pleura: Lungs are clear. No pleural effusions or pneumothorax. Mediastinum: Mediastinal contours are normal. Heart size is normal. Bones and chest wall: No suspicious bony abnormalities. Soft tissues appear unremarkable. IMPRESSION: Normal for age, source of current shortness of breath symptoms is not seen. Dictated by: Vern Ford M.D. on 09/26/2020 at 15:31 Approved by: Vern Ford M.D. on 09/26/2020 at 15:32
== END ==
PROVIDERS: PCP Family Medicine; Referring Provider Family Medicine; Visit Provider Family Medicine
DX: R06.02 Shortness of breath (principal)
CPT/HCPCS: 71046

== ENCOUNTER → 2020-10-05 12:17 | Outpatient (CLI) | payer MEDICARE, OTHER, SELFPAY ==
--- NOTE | 2020-10-05 12:19 | DI.ECHO.S_ITS ---
[facility] +---------+ : : [address] : [place] : : : : [id number] : : : : Phone: [phone] Echocardiogram Report + + :Name: VÍCTOR GRAF Study Date: 10/05/2020 Height: 65 in : :[facility] ReadingLocation: Weight: 240 lb : : Gender: Female BSA: 2.1 m2 : :: 1950 Age: 70 yrs BP: 172/87 mmHg: :Reason For Study: SOB : :Ordering Physician: BROOKE, : :SEPIDEH Performed By: Cleve Adhikari : :Referring: SEPIDEH COX : + + Interpretation Summary Technically difficult study. 1) Grossly, normal left ventricular size, wall motion, and systolic function (EF 65-70%). 2) Grossly, normal right ventricular size and function. 3) There is mild aortic stenosis (valve area 1.9cm2, mean gradient 18mmHg). 4) Hypertension present during the study (BP 172/87mmHg). 5) Compared to the Echo done 05/11/2019, no significant change. Procedure: A two-dimensional transthoracic echocardiogram with color flow and Doppler was performed. The study quality was technically difficult. Comparison is made with the echocardiogram of 05/11/2019. Pt. refused definity. The patient was in sinus rhythm with heart rates between 93-101 bpm during the exam. Left Ventricle: The left ventricle is not well visualized. The left ventricle is grossly normal size. The left ventricular ejection fraction is grossly normal. The ejection fraction is estimated to be 65-70%. There are no obvious focal wall motion abnormalities noted but poor endocardial definition reduces the sensitivity for the detection of such. Diastolic function could not be accurately assessed due to unobtainable data. Right Ventricle: The right ventricle is normal in size and function. Atria: Both atria are normal in size. There is no Doppler evidence for an interatrial shunt. Mitral Valve: There is mild mitral annular calcification. There is no mitral regurgitation noted. Aortic Valve: The aortic valve is not well visualized. There is mild aortic stenosis. The calculated aortic valve area is 1.9 cm2. The aortic valve mean gradient is 18 mmHg. No aortic regurgitation is present. Tricuspid Valve: The tricuspid valve is not well visualized. There is a trace or physiologic amount of tricuspid regurgitation. Pulmonary artery pressures cannot be estimated because of the lack of a measurable TR jet velocity but the IVC suggests a CVP of around 3 mmHg. Pulmonic Valve: The pulmonic valve is not well visualized. Great Vessels: The aortic root is normal size. The IVC is of normal diameter and collapses greater than 50% with a sniff. This suggests a low right atrial pressure of 3 mm Hg. Pericardium/ Pleura There is no pericardial effusion. There is no pleural effusion. MMode/2D Measurements & Calculations LVIDd: 4.6 cm LVOT diam: 1.9 cm LVIDs: 2.9 cm Ao root diam: 2.7 cm FS: 37.5 % asc Aorta Diam: 3.3 cm IVSd: 1.1 cm LVPWd: 1.1 cm LV [place]. diameter/BSA (cm/m^2): 2.1 LV sys. diameter/BSA (cm/m^2): 1.3 LA A2 area: 11.2 cm2 RA area: 13.4 cm2 LA A4 area: 15.4 cm2 LA length (vol): 4.8 cm LA vol: 30.3 ml LA vol index: 14.2 ml/m2 RVD1 (basal): 3.5 cm TAPSE: 2.1 cm Doppler Measurements & Calculations Ao V2 max: 287.7 cm/sec LVOT Max Yordan: 163.6 cm/sec Ao V2 mean: 197.9 cm/sec LV V1 max P.7 mmHg Ao max P.1 mmHg LV V1 VTI: 29.4 cm Ao mean P.9 mmHg TERRY(I,D): 1.9 cm2 Ao V2 VTI: 44.3 cm TERRY(V,D): 1.7 cm2 sev ratio: 0.66 TERRY indexed to BSA (cm^2/m^2): 0.91 MV E max yordan: 76.1 cm/sec SV(LVOT): 85.8 ml MV A max yordan: 116.3 cm/sec MV E/A: 0.65 Med Peak E' Yordan: 5.7 cm/sec E/E' med: 13.4 Lat Peak E' Yordan: 8.2 cm/sec E/E' lat: 9.3 E/e' average: 11.3 MV dec time: 0.33 sec Reading Physician:02:56 PM
== END ==
PROVIDERS: PCP Family Medicine; Referring Provider Family Medicine; Visit Provider Family Medicine
DX: I35.0 Nonrheumatic aortic (valve) stenosis (principal); R06.02 Shortness of breath; E11.65 Type 2 diabetes mellitus with hyperglycemia
CPT/HCPCS: 93306

== ENCOUNTER → 2021-05-23 12:37 | Outpatient (CLI) | payer MEDICARE, OTHER, SELFPAY ==
[2021-05-23 13:11] LABS: Add Manual Diff / Slide Review NO; Basophils Absolute Auto 100 /uL (0-100); Basophils Percent Auto 0.4 % (0-2); Eosinophils Absolute Auto 0 /uL (0-450); Eosinophils Percent Auto 0.2 % (2-4); Hematocrit 43.2 % (36-46); Hemoglobin 14.1 g/dL (12.0-16.0); Lymphocytes Absolute Auto 1700 /uL (1100-4500); Lymphocytes Percent Auto 7.2 % (25-40); Mean Corpuscular HGB Conc 32.6 % (30-36); Mean Corpuscular Hemoglobin 27.3 PG (26-34); Mean Corpuscular Volume 83.5 fL (80-100); Monocytes Absolute Auto 800 /uL (0-900); Monocytes Percent Auto 3.4 % (3-14); Neutrophils Absolute Auto 21500 /uL (1500-7000); Neutrophils Percent Auto 88.8 % (50-75); Platelet Count 254 X10^3/uL (150-400); Red Blood Cell Count 5.18 X10^6/uL (4.0-5.2); Red Cell Distribution Width 14.6 % (11.6-14.8); White Blood Cell Count 24.2 X10^3/uL (4.5-11.0)
[2021-05-23 14:33] LABS: Alanine Aminotransferase 25 IU/L (<35); Albumin 3.7 g/dL (3.5-5.0); Albumin Globulin Ratio 1.5 (1.0-2.8); Alkaline Phosphatase 115 U/L (38-126); Aspartate Aminotransferase 21 IU/L (14-36); BUN Creatinine Ratio 30.5 (6-22); Bilirubin Total 0.4 mg/dL (0.2-1.3); Blood Urea Nitrogen 25 mg/dL (7-17); Calcium 9.8 mg/dL (8.4-10.2); Carbon Dioxide 28 mmol/L (22-32); Chloride 98 mmol/L (98-107); Estimated Glomerular Filt Rate > 60.0 mL/min (>60); Globulin 2.5 g/dL (1.7-4.1); Glucose 320 mg/dL (80-110); HEMOLYSIS < 15 (0-50); Potassium 4.1 mmol/L (3.4-5.1); Sodium 136 mmol/L (137-145); Total Protein 6.2 g/dL (6.3-8.2)
[2021-06-03 10:07] LABS: TPMT Genotype *1/*1 (.)
== END ==
PROVIDERS: PCP Family Medicine; Referring Provider Psychiatry & Neurology Neurology; Visit Provider Psychiatry & Neurology Neurology
DX: G70.00 Myasthenia gravis without (acute) exacerbation (principal)
CPT/HCPCS: 36415; 80053; 81335; 85025

== ENCOUNTER 2022-03-03 13:56 | Emergency (ER) | payer MEDICARE, OTHER, SELFPAY ==
[2022-03-03 14:36] VITALS: BP 207/83; PULSE 120; RESP 18; TEMP 36.8; O2SAT 97; BMI 46.5
--- NOTE | 2022-03-03 15:29 | ED.GENADULT ---
HPI - General Adult General Chief complaint: Dental/Oral Stated complaint: Infection in Face, Myasthenia Gravis Time Seen by Provider: 03/03/22 15:00 Source: patient Mode of arrival: Family Vehicle History of Present Illness HPI narrative: Patient is a 71-year-old female. She does have a history of myasthenia gravis. Also has a history of anxiety and also SVT. Is here for evaluation of approximately 1 week of discomfort to the left side of her face. She states that she thought maybe was a dental infection has it does seem to get worse when she is chewing and also specifically chewing with the left side of her mouth. She also states that she can reproduce the pain occasionally when she hits the teeth in the left side of her mouth with a metal fork. She is switched to using plastic utensils because of this. She does have some baseline myasthenia gravis symptoms to include swelling around her left eye and some breathing issues specifically when she lays down but she feels that all of her known myasthenia symptoms have not changed. She was concerned that the discomfort that she was having was either a dental infection or maybe worsening of her myasthenia. She is no ear pain. No sore throat. Related Data Home Medications Medication Instructions Recorded Confirmed ASPIRIN (Aspirin EC) 81 mg PO Q DAY ##0 11/13/10 08/02/21 [SHANNEN TEA] 1 - 2 Q DAY ##0 09/09/12 08/02/21 ALUM HYD/MAG CARB (#GAVISCON) See Rx Instructions PO DAILY PRN 07/30/19 08/02/21 diltiazem HCl 120 mg tablet 120 mg PO DAILY PRN 08/20/19 02/13/21 prednisone 20 mg tablet 40 mg PO DAILY 09/29/20 08/02/21 Previous Rx's Medication Instructions Recorded Disabled Parking #1 ea 01/31/20 NovaFine Pen Tips 32G x 6mm #3 ea 11/29/20 lancets (Lancets,Thin) #200 ea 11/29/20 losartan 100 mg tablet 50 mg PO BID #90 tabs 03/28/21 metoprolol succinate 100 mg 100 mg PO BID #180 tabs 11/12/21 tablet,extended release 24 hr (Toprol XL) insulin aspart U-100 100 unit/mL 10 - 30 unit (0.1 - 0.3 mL) SUBCUT 12/20/21 (3 mL) subcutaneous pen (Novolog TIDWMEAL #15 mL Flexpen U-100 Insulin aspart) insulin glargine 100 unit/mL (3 See Rx Instructions .Route 01/09/22 mL) subcutaneous pen (Lantus .COMPLEX #15 mL Solostar U-100 Insulin) alprazolam 0.5 mg tablet See Rx Instructions .Route 02/12/22 .COMPLEX #60 tabs blood sugar diagnostic (Blood #800 ea 02/28/22 Glucose Test strips) gabapentin 600 mg tablet 600 mg PO Q8H PRN nerve pain #90 02/28/22 tabs clindamycin HCl 300 mg capsule 300 mg PO QID 7 days #28 caps 03/03/22 Allergies Allergy/AdvReac Type Severity Reaction Status Date / Time Penicillins Allergy Severe HIVES Verified 02/13/21 15:01 naproxen Allergy Mild HIVES Verified 02/13/21 15:01 rosuvastatin Allergy Mild Verified 02/13/21 15:01 sulfamethoxazole Allergy Unknown Verified 02/13/21 15:01 [From BACTRIM] trimethoprim [From BACTRIM] Allergy Unknown Verified 02/13/21 15:01 simvastatin AdvReac Severe MYALGIA, Verified 02/13/21 15:01 MUSCLE WEAKNESS Sulfa (Sulfonamide AdvReac Severe MYALGIA, Verified 02/13/21 15:01 Antibiotics) MUSCLE WEAKNESS citalopram AdvReac Intermediate Tachycardia Verified 02/13/21 15:01 at night metoclopramide AdvReac Intermediate tremors, Verified 02/13/21 15:01 anxiety gets worse atorvastatin AdvReac Mild NAUSEA, Verified 02/13/21 15:01 FLU LIKE SYMPTOMS metoprolol [METOPROLOL] AdvReac Unknown NAUSEA Verified 02/13/21 15:01 VOMITING Review of Systems Review of Systems ROS Unobtainable: All systems reviewed & are unremarkable except as noted in HPI and below 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) Hyperlipidemia, mixed (11/13/10) Morbid obesity (11/13/10) Myasthenia gravis Panic disorder (11/13/10) SVT (supraventricular tachycardia) Tachycardia Unspecified essential hypertension (11/13/10) Surgical History History of third molar tooth extraction Status post hernia repair (05/14/16) Status post hysterectomy (05/14/16) Status post laparoscopic cholecystectomy Social History Smoking Status: Former smoker Smoking Status: Former smoker tobacco type: cigarettes alcohol intake frequency: 0-2 drinks per day Substance Use Type: does not use Exam Initial Vital Signs Initial Vital Signs: Vital Signs Temperature 98.2 F 03/03/22 14:36 Pulse Rate 120 H 03/03/22 14:36 Respiratory Rate 18 03/03/22 14:36 Blood Pressure 207/83 H 03/03/22 14:36 Pulse Oximetry 97 03/03/22 14:36 Oxygen Delivery Method 03/03/22 14:36 Const General: cooperative, healthy appearing and comfortable HENMT Ears: TM's normal bilaterally and EAC's normal Face and sinus: no crepitus, no erythema, no fluctuance and tenderness on the left mandible Mouth: oral mucosae normal Teeth and gingiva: poor dentition and other (Has a fractured left upper premolar no definitive drainable abscess seen) Throat: posterior oropharynx normal Neck Lymphatic: No lymphadenopathy Resp Effort & Inspection: normal respiratory effort Cardio Rate: tachycardic Skin General: no rashes or lesions noted Extrem General: normal to inspection and capillary refill normal Course Orders Ordered: ED Orders 03/03/22 14:43 EKG-12 Lead Stat Vital Signs Vital signs: Vital Signs - 8 hr 03/03/22 14:36 Temperature 98.2 F Pulse Rate 120 H Respiratory Rate 18 Blood Pressure 207/83 H Pulse Oximetry 97 Oxygen Delivery Method Room Air Medical Decision Making ECG Data Attestation: I personally reviewed and interpreted this ECG as follows: Prior ECG tracings: available for review Interpretation: Sinus tachycardia Ventricular rate 111 Normal axis Normal QRS Normal QTC No ST T wave changes MDM Narrative Medical decision making narrative: She certainly does have a potential source of infection that she does have a cracked left upper premolar. There is no definitive drainable abscess seen on the exam today. She is no respiratory distress. She is tachycardic but does have a history of SVT and she is a sinus tachycardia on her EKG. No respiratory distress. We discussed the possibility of myasthenia symptoms however if this is myasthenia related this would be a brand new symptom for her she states that all of her known symptoms have not changed. We will send her home with antibiotics. She has multiple allergies so will send her home with clindamycin. Review of up-to-date has no indication that this medicine should be avoided in myasthenia. Patient will contact her neurologist for follow-up. She expressed understanding and agreement. Discharge Plan Departure Patient Disposition: Home Clinical Impression: Pain, dental Instructions: DI for Dental Pain Activity Restrictions/Additional Instructions: A prescription for a medicine called clindamycin was electronically transmitted to [facility] per your request. I do recommend that you take it as directed. I recommend that tomorrow you contact your primary doctor and also your neurologist. If your symptoms worsen please return to the emergency department for further evaluation. Prescriptions: New clindamycin HCl 300 mg capsule 300 mg PO QID 7 Days Qty: 28 0RF No Action ASPIRIN (Aspirin EC) 81 mg PO Q DAY Qty: 0 [SHANNEN TEA] 1 - 2 Q DAY Qty: 0 ALUM HYD/MAG CARB (#GAVISCON) See Rx Instructions PO DAILY PRN Rx Instructions: 3 to 4 tabs PO daily PRN; prednisone 20 mg tablet 40 mg PO DAILY Label Comments: per neurologist at [facility] (dose will vary, titrating 09/29/20) losartan 100 mg tablet 50 mg PO BID Qty: 90 3RF metoprolol succinate [Toprol XL] 100 mg tablet extended release 24 hr 100 mg PO BID Qty: 180 3RF Rx Instructions: Patient had reaction to generic medication. needs brand name insulin aspart U-100 [Novolog Flexpen U-100 Insulin] 100 unit/mL (3 mL) insulin pen 10 - 30 unit SUBCUT TIDWMEAL Qty: 15 3RF Lantus Solostar U-100 Insulin 100 unit/mL (3 mL) insulin pen See Rx Instructions .ROUTE .COMPLEX Qty: 15 3RF Dose Instruction: INJECT 60 UNITS SUBCUTANEOUSLY DAILY Rx Instructions: INJECT 35 UNITS SUBCUTANEOUSLY BID alprazolam 0.5 mg tablet See Rx Instructions .ROUTE .COMPLEX Qty: 60 0RF Dose Instruction: TAKE 1 TO 2 TABLETS BY MOUTH THREE TIMES DAILY NEEDED FOR ANXIETY Rx Instructions: TAKE 1 TO 2 TABLETS BY MOUTH THREE TIMES DAILY NEEDED FOR ANXIETY gabapentin 600 mg tablet 600 mg PO Q8H PRN (Reason: nerve pain) Qty: 90 3RF (DME) Blood Glucose Test Strip See Rx Instructions .ROUTE .MEDSUPPLY Qty: 800 11RF Rx Instructions: Use Accucheck Guide Test Strips to check blood sugar 10x a day, in conjunction with insulin injections 7-10x a day diltiazem HCl 120 mg tablet 120 mg PO DAILY PRN Hold Instructions: pt has on hand, but has never used it. Label Comments: has not used, ever,....Rx'd for SVT by cardiology Rx Instructions: Take 1 tab by mouth every evening. (Take 1/2 tablet as needed for palpitations per day as needed) (DME) Disabled Parking Qty: 1 0RF Rx Instructions: Patient qualifies for disabled parking as per the attached form. (DME) lancets [Lancets,Thin] Misc See Rx Instructions .ROUTE .MEDSUPPLY Qty: 200 5RF Rx Instructions: use to check blood sugar 7x a day in conjunction w insulin admin 7x a day- generic please (DME) NovaFine Pen Tips 32G x 6mm 100 package See Rx Instructions .ROUTE .MEDSUPPLY Qty: 3 2RF Rx Instructions: Use to test blood glucose 4 times daily Referrals: Jose Clement MD [Primary Care Provider] -
[2022-03-03 15:54] VITALS: BP 181/85; PULSE 108; RESP 16; O2SAT 99
== END 2022-03-03 15:55 | disposition home or self-care (01) ==
PROVIDERS: Emergency Provider Emergency Medicine; PCP Family Medicine
DX: K08.89 Other specified disorders of teeth and supporting structures (principal); R00.0 Tachycardia, unspecified
CPT/HCPCS: 93005; 93010; 99281; 99283

== ENCOUNTER 2022-05-22 17:11 | Inpatient (IN) | payer MEDICARE, OTHER, SELFPAY ==
[2022-05-22] VITALS (44 sets, daily range): BP systolic 142–208; BP diastolic 65–137; PULSE 101–190; RESP 0–57; TEMP 37.3–38; O2SAT 90–96; BMI 51.3
--- NOTE | 2022-05-22 17:24 | DI.CT.S_ITS ---
PROCEDURE: CT ANGIO HEAD AND NECK INDICATIONS: CODE STROKE TECHNIQUE: Pre-contrast 4.5 mm thick sections acquired from the foramen magnum to the vertex. After the administration of intravenous contrast, 1 mm thick sections acquired from the aortic arch through the [place]. Post-contrast 4.5 mm thick sections then re-acquired from the foramen magnum to the vertex. 3-dimensional tkrxllp-[id number]-[id number] (MIP) and/or volume rendering reformats were acquired of the central intracranial vasculature and neck separately. For radiation dose reduction, the following was used: automated exposure control, adjustment of mA and/or kV according to patient size. COMPARISON: CT angiogram of head dated 08/12/2019. FINDINGS: Image quality: Excellent. BRAIN: CSF spaces: Ventricles are normal in size and shape. Basal cisterns are patent. No extra-axial fluid collections. Brain: No midline shift. No intracranial bleeds or masses. Age related volume loss is seen. Periventricular and deep white matter chronic small vessel ischemic changes are also seen. Becker-white matter interface appears intact. No area of enhancement. Skull and face: Calvarium and facial bones appear intact, without suspicious lesions. Orbits appear normal. Sinuses: Sinuses and mastoids are clear. HEAD CT ANGIOGRAPHY: Anterior circulation: Intracranial internal carotid arteries are normal in size and flow. The flow within the paired anterior cerebral arteries is normal . Smaller left A1 segment is again noted compared to the right side which is a normal variant unchanged from prior study. The flow within the middle cerebral arteries is normal and symmetric. The anterior communicating artery is seen. No aneurysms are seen. Posterior circulation: Visualized portions of the vertebral arteries demonstrate normal caliber, and join to form a normal appearing basilar artery. Flow within the posterior cerebral arteries is normal and symmetric. No aneurysms are seen. NECK CT ANGIOGRAPHY: Carotid system: The great vessels demonstrate a conventional anatomy as they arise from the aortic arch. The origins of the common carotid arteries appear patent. The common carotid arteries demonstrate normal caliber and courses. The bifurcation regions are both widely patent. The internal carotid arteries demonstrate normal calibers and courses. Posterior circulation: The origins of the vertebral arteries both appear widely patent. The more superior extracranial portions of both vertebral arteries also demonstrate normal courses and calibers. They join to form a normal appearing basilar artery. Soft tissues: Visualized neck soft tissues demonstrate no suspicious abnormalities. Bones: No suspicious bony lesions. Visualized cervical spine appears normally aligned. IMPRESSION: 1. No CT evidence of acute intracranial abnormalities. No area of abnormal intracranial enhancement. 2. No hemodynamically significant stenosis or aneurysm is seen in intracranial circulation. No significant changes from previous study. 3. No hemodynamically significant stenosis is seen in bilateral neck arteries. Any quantitative measurements of stenosis were performed using NASCET criteria. Dictated by: Rikki Hughes M.D. on 05/22/2022 at 17:33 Approved by: Rikki Hughes M.D. on 05/22/2022 at 17:40
--- NOTE | 2022-05-22 17:24 | DI.CT.S_ITS ---
PROCEDURE: CT STROKE INDICATIONS: CODE STROKE TECHNIQUE: Noncontrast 4.5 mm thick angled axial sections acquired from the foramen magnum to the vertex, with coronal reformats. For radiation dose reduction, the following was used: automated exposure control, adjustment of mA and/or kV according to patient size. COMPARISON: None. FINDINGS: Image quality: Excellent. CSF spaces: Basal cisterns are patent. No extra-axial fluid collections. The ventricles are symmetric in size and shape. Brain: No intracranial bleeds or masses. There is cerebral volume loss for age, with resultant ventricular and sulcal prominence. There are periventricular and deep white matter chronic small vessel ischemic changes. There is intracranial internal carotid artery atherosclerosis. Skull and face: Calvarium and visualized facial bones appear intact, without suspicious lesions. Sinuses: Visualized sinuses and mastoids are clear. IMPRESSION: 1. No CT evidence of acute intracranial abnormalities. No contraindication for tPA therapy. New 2. Age related volume loss and mild to moderate periventricular and deep white matter chronic small vessel ischemic changes. This study fulfills neurological imaging criteria for inclusion or exclusion of acute stroke therapies based on available published neurological guidelines. Dictated by: Rikki Hughes M.D. on 05/22/2022 at 17:32 Approved by: Rikki Hughes M.D. on 05/22/2022 at 17:33
--- NOTE | 2022-05-22 17:45 | ED_ITS ---
HPI - Neuro Symptoms/Deficit General Chief Complaint: Neuro Symptoms/Deficit Stated Complaint: Code stroke Time Seen by Provider: 05/22/22 17:34 Source: EMS Mode of arrival: Ambulatory Limitations: altered mental status History of Present Illness HPI Narrative: History is primarily from paramedics. They were called her home about 4:30 p.m., the patient had developed garbled speech about 1 hour earlier, 3:30 p.m. apparently she would totally resolved prior to arrival. Quickly after arrival she developed garbled speech once again and apparent bilateral lower extremity weakness. It was unclear if she had visual changes. She did not complain of headache. She was not complain of chest pain. Upper arm arrival, patient continues to have garbled speech. She is oriented to name only. She can not identify time or place. She can not follow commands. She is diabetic. Paramedics checked her glucose twice, greater than 200 both times. I contacted her sister, Lillian, about onset of symptoms. Her sister was out of town, but was in contact with friends with her. Apparently the patient injured room, complaining coherently about not been able to do something she needs to do. At this time she developed dysarthria. There were 2 friends in and out the household during onset of initial symptoms. The patient is on high- dose prednisone due to myasthenia gravis. She is suffering from anxiety. She h as low doses of alprazolam, her sister thinks it is highly improbable she took an excessive dose. She is no history of stroke or TIA. Related Data Home Medications Medication Instructions Recorded Confirmed ASPIRIN (Aspirin EC) 81 mg PO Q DAY ##0 11/13/10 04/23/22 [SHANNEN TEA] 1 - 2 Q DAY ##0 09/09/12 04/23/22 ALUM HYD/MAG CARB (#GAVISCON) See Rx Instructions PO DAILY PRN 07/30/19 04/23/22 diltiazem HCl 120 mg tablet 120 mg PO DAILY PRN 08/20/19 04/23/22 prednisone 20 mg tablet 40 mg PO DAILY 09/29/20 04/23/22 Previous Rx's Medication Instructions Recorded Disabled Parking #1 ea 01/31/20 NovaFine Pen Tips 32G x 6mm #3 ea 11/29/20 lancets (Lancets,Thin) #200 ea 11/29/20 blood sugar diagnostic (Blood #800 ea 02/28/22 Glucose Test strips) gabapentin 600 mg tablet 600 mg PO Q8H PRN nerve pain #90 02/28/22 tabs insulin aspart U-100 100 unit/mL 10 - 30 unit (0.1 - 0.3 mL) SUBCUT 03/25/22 (3 mL) subcutaneous pen (Novolog TIDWMEAL #15 mL Flexpen U-100 Insulin aspart) losartan 100 mg tablet 100 mg PO BID #180 tabs 04/23/22 alprazolam 0.5 mg tablet See Rx Instructions .Route 05/07/22 .COMPLEX #60 tabs insulin glargine 100 unit/mL (3 See Rx Instructions .Route 05/22/22 mL) subcutaneous pen (Lantus .COMPLEX #15 mL Solostar U-100 Insulin) Allergies Allergy/AdvReac Type Severity Reaction Status Date / Time Penicillins Allergy Severe HIVES Verified 03/15/22 14:14 naproxen Allergy Mild HIVES Verified 03/15/22 14:14 rosuvastatin Allergy Mild Verified 03/15/22 14:14 sulfamethoxazole Allergy Unknown Verified 03/15/22 14:14 [From BACTRIM] trimethoprim [From BACTRIM] Allergy Unknown Verified 03/15/22 14:14 simvastatin AdvReac Severe MYALGIA, Verified 03/15/22 14:14 MUSCLE WEAKNESS Sulfa (Sulfonamide AdvReac Severe MYALGIA, Verified 03/15/22 14:14 Antibiotics) MUSCLE WEAKNESS citalopram AdvReac Intermediate Tachycardia Verified 03/15/22 14:14 at night metoclopramide AdvReac Intermediate tremors, Verified 03/15/22 14:14 anxiety gets worse atorvastatin AdvReac Mild NAUSEA, Verified 03/15/22 14:14 FLU LIKE SYMPTOMS metoprolol [METOPROLOL] AdvReac Unknown NAUSEA Verified 03/15/22 14:14 VOMITING Review of Systems Review of Systems ROS Unobtainable: Other (Unavailable due to the patient's current medical condition.) Patient History Medical History Diabetes type 2, uncontrolled (07/15/11) Gastroparesis due to DM (11/13/10) 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) Hyperlipidemia, mixed (11/13/10) Hypertension Morbid obesity (11/13/10) Myasthenia gravis Panic disorder (11/13/10) SVT (supraventricular tachycardia) Tachycardia Unspecified essential hypertension (11/13/10) Surgical History History of third molar tooth extraction Status post hernia repair (05/14/16) Status post hysterectomy (05/14/16) Status post laparoscopic cholecystectomy Social History Smoking Status: Former smoker Smoking Status: Former smoker tobacco type: cigarettes alcohol intake frequency: 0-2 drinks per day Substance Use Type: does not use Exam Initial Vital Signs Initial Vital Signs: Vital Signs Temperature 99.2 F 05/22/22 17:32 Pulse Rate 122 H 05/22/22 17:32 Respiratory Rate 20 05/22/22 17:32 Blood Pressure 208/88 H 05/22/22 17:32 Pulse Oximetry 96 05/22/22 17:32 Oxygen Delivery Method 05/22/22 17:32 Const Other: Patient is awake, interaction is intermittent. She is not seem to understand questions clearly, she can not obeys commands. She appears anxious. [facility] Head: normocephalic and atraumatic Face and sinus: normal facial exam Mouth: oral mucosae normal and other (No oral injuries.) Eyes Pupils: PERRL and other (Can not assess extraocular movements and visual kingsley.) Neck Neck: full ROM and No JVD Resp Effort & Inspection: normal respiratory effort Auscultation: clear to auscultation bilaterally Cardio Rate: tachycardic Heart Sounds: S1 normal, S2 normal and no murmurs GI Palpation: soft Other: Obese. Nontender. Normal bowel sounds. Back/Spine/Pelvis Back: normal to inspection Skin General: no rashes or lesions noted Neuro General: patient awake and oriented (Person only.) Other: She is limited motion all extremities. FR raise her hands, she can hold position. She can not lift her legs. She can move her feet. She does not r espond regarding sensory testing. She can not follow commands for cerebellar testing. Extrem General: normal to inspection and no pedal edema Scores NIH Stroke Scale Level of Conciousness: Not alert, requires repeated stimulation to attend, or is obtunded Ask month/age: Answers neither question correctly, aphasic, stuporous, coma Open/close eyes, close hand: Performs neither task correctly Best gaze horizontal: Normal Visual kingsley: No visual loss Facial palsy: Normal symetrical movement Left arm drift: No drift for full 10 sec Right arm drift: No drift for full 10 sec Left leg drift: Drifts down, not to bed Right leg drift: Drifts down, not to bed Limb ataxia: Absent Sensory on face/arms/legs: Normal, no sensory loss Best language: Severe aphasia, not much is understood, fragmented Dysarthria: Mild to mod,some slurring Extinction or inattention: No abnormality Total NIH Stroke scale score: 11 Course Orders Ordered: ED Orders 05/22/22 17:20 Complete Blood Count AUTO DIFF Stat Comprehensive Metabolic Panel Stat Ethanol (ETOH) Stat Partial Thromboplastin Time Stat Prothrombin Time INR Stat Troponin & CK Cardiac Panel Stat 05/22/22 17:[address] angio head and neck Stat 05/22/22 17:38 EKG-12 Lead Stat 05/22/22 18:16 Urinalysis and Microscopic Stat Urine Drug Screen, Rapid Stat 05/22/22 18:28 Urinalysis and Microscopic Stat 05/22/22 19:50 COVID19 -Nasal RAPID/Pre-Proc Stat 05/22/22 20:30 Respiratory Panel (Film Array) Stat 05/22/22 20:31 XR chest 2V Stat Blood Culture Stat Sodium Chloride (Normal Saline 0.9%) 1,000 mls @ 150 mls/hr IV CONT TRICIA Last Admin: 05/22/22 20:00 Dose: Not Given Documented By: JANNET Discontinued Medications Aspirin (Aspirin 81 Mg Chew Tab) 324 mg PO NOW ONE Stop: 05/22/22 17:42 Last Admin: 05/22/22 18:18 Dose: Not Given Documented By: JANNET Aspirin (Aspirin 300 Mg Supp) 300 mg MI NOW ONE Stop: 05/22/22 17:59 Last Admin: 05/22/22 18:01 Dose: 300 mg Documented By: JANNET Labetalol HCl (Labetalol 20 Mg/4 Ml Syringe) 10 mg IV NOW ONE Stop: 05/22/22 17:39 Last Admin: 05/22/22 17:47 Dose: 10 mg Documented By: JANNET Labetalol HCl (Labetalol 20 Mg/4 Ml Syringe) 10 mg IV NOW ONE Stop: 05/22/22 18:38 Last Admin: 05/22/22 18:41 Dose: 10 mg Documented By: JANNET Vital Signs Vital signs: Vital Signs - 8 hr 05/22/22 17:32 05/22/22 17:47 05/22/22 18:33 Temperature 99.2 F Pulse Rate 122 H 180 H 117 H Respiratory Rate 20 Blood Pressure 208/88 H 208/88 H Pulse Oximetry 96 Oxygen Delivery Method Room Air 05/22/22 18:41 05/22/22 17:45 05/22/22 17:54 Temperature Pulse Rate 190 H 132 H Respiratory Rate 31 H Blood Pressure 179/137 H Pulse Oximetry 94 Oxygen Delivery Method 05/22/22 17:54 05/22/22 17:56 05/22/22 17:56 Temperature Pulse Rate 166 H 112 H Respiratory Rate 26 H 27 H Blood Pressure 173/77 H Pulse Oximetry 95 93 Oxygen Delivery Method 05/22/22 18:00 05/22/22 18:00 05/22/22 18:05 Temperature Pulse Rate 107 H 111 H Respiratory Rate 0 L 33 H Blood Pressure 173/78 H Pulse Oximetry 92 93 Oxygen Delivery Method 05/22/22 18:05 05/22/22 18:15 05/22/22 18:15 Temperature Pulse Rate 114 H Respiratory Rate 25 H Blood Pressure 148/66 H 166/81 H Pulse Oximetry 95 Oxygen Delivery Method 05/22/22 18:20 05/22/22 18:20 05/22/22 18:25 Temperature Pulse Rate 111 H Respiratory Rate 19 Blood Pressure 173/81 H 184/77 H Pulse Oximetry 93 Oxygen Delivery Method 05/22/22 18:25 05/22/22 18:30 05/22/22 18:31 Temperature Pulse Rate 113 H 185 H Respiratory Rate Blood Pressure 191/89 H Pulse Oximetry 92 93 Oxygen Delivery Method 05/22/22 18:31 05/22/22 18:35 05/22/22 18:35 Temperature Pulse Rate 102 H 120 H Respiratory Rate 7 L Blood Pressure 189/111 H Pulse Oximetry 95 94 Oxygen Delivery Method 05/22/22 18:45 05/22/22 18:45 05/22/22 18:50 Temperature Pulse Rate 121 H 107 H Respiratory Rate 24 30 H Blood Pressure 142/65 H Pulse Oximetry 95 91 Oxygen Delivery Method 05/22/22 18:50 05/22/22 18:55 05/22/22 18:55 Temperature Pulse Rate 107 H Respiratory Rate 26 H Blood Pressure 144/67 H 150/72 H Pulse Oximetry 92 Oxygen Delivery Method 05/22/22 19:00 05/22/22 19:00 05/22/22 19:05 Temperature Pulse Rate 108 H Respiratory Rate 27 H Blood Pressure 161/72 H 152/71 H Pulse Oximetry 92 Oxygen Delivery Method 05/22/22 19:05 05/22/22 19:48 05/22/22 19:15 Temperature 100.4 F H Pulse Rate 108 H 111 H Respiratory Rate 25 H Blood Pressure 160/70 H Pulse Oximetry 93 Oxygen Delivery Method 05/22/22 19:15 05/22/22 19:21 05/22/22 19:21 Temperature 100.4 F H 100.4 F H Pulse Rate 110 H 113 H Respiratory Rate 23 28 H Blood Pressure 170/73 H Pulse Oximetry 96 95 Oxygen Delivery Method 05/22/22 19:25 05/22/22 19:25 05/22/22 19:30 Temperature 100.4 F H Pulse Rate 113 H Respiratory Rate 27 H Blood Pressure 176/81 H 176/78 H Pulse Oximetry 93 Oxygen Delivery Method 05/22/22 19:30 05/22/22 19:35 05/22/22 19:35 Temperature 100.4 F H 100.4 F H Pulse Rate 113 H 117 H Respiratory Rate 29 H 26 H Blood Pressure 185/85 H Pulse Oximetry 94 95 Oxygen Delivery Method 05/22/22 19:40 05/22/22 19:40 05/22/22 19:45 Temperature 100.4 F H Pulse Rate 112 H Respiratory Rate 23 Blood Pressure 175/83 H 177/85 H Pulse Oximetry 94 Oxygen Delivery Method 05/22/22 19:45 05/22/22 19:50 05/22/22 19:50 Temperature 100.4 F H 100.4 F H Pulse Rate 113 H 111 H Respiratory Rate 27 H 26 H Blood Pressure 150/80 H Pulse Oximetry 95 95 Oxygen Delivery Method 05/22/22 19:55 05/22/22 19:55 05/22/22 20:00 Temperature 100.4 F H Pulse Rate 109 H Respiratory Rate 3 L Blood Pressure 171/79 H 171/80 H Pulse Oximetry 94 Oxygen Delivery Method 05/22/22 20:00 05/22/22 20:05 05/22/22 20:05 Temperature 100.2 F H 100.2 F H Pulse Rate 109 H 104 H Respiratory Rate 10 L 23 Blood Pressure 157/69 H Pulse Oximetry 95 Oxygen Delivery Method 05/22/22 20:10 05/22/22 20:10 05/22/22 20:15 Temperature 100.2 F H Pulse Rate 102 H Respiratory Rate 22 Blood Pressure 152/72 H 148/70 H Pulse Oximetry 91 Oxygen Delivery Method 05/22/22 20:15 05/22/22 20:30 05/22/22 20:30 Temperature 100.2 F H 100.0 F H Pulse Rate 101 H 105 H Respiratory Rate 20 28 H Blood Pressure 154/79 H Pulse Oximetry 90 L 94 Oxygen Delivery Method MDM - Neuro Symptoms/Deficit Lab Data Result diagrams: 05/22/22 17:20 05/22/22 17:20 Labs: Lab Results 05/22/22 05/22/22 05/22/22 Range/Units 17:20 17:20 17:20 WBC 23.1 H (4.5-11.0) X10^3/uL RBC 5.63 H (4.0-5.2) X10^6/uL Hgb 15.2 (12.0-16.0) g/dL Hct 47.0 H (36-46) % MCV 83.4 (80-100) fL MCH 27.0 (26-34) PG MCHC 32.4 (30-36) % RDW 14.5 (11.6-14.8) % Plt Count 260 (150-400) X10^3/uL Neut % (Auto) 90.3 H (50-75) % Lymph % (Auto) 7.2 L (25-40) % Edwards % (Auto) 2.3 L (3-14) % Eos % (Auto) 0.0 L (2-4) % Baso % (Auto) 0.2 (0-2) % Neut # (Auto) 10860 H (0498-1585) /uL Lymph # (Auto) 1700 (8895-2467) /uL Edwards # (Auto) 500 (0-900) /uL Eos # (Auto) 0 (0-450) /uL Baso # (Auto) 0 (0-100) /uL PT 10.5 (10.1-12.7) SECONDS INR 0.9 (0.9-1.3) APTT 20 L (26-36) SECONDS Sodium 136 L (137-145) mmol/L Potassium 4.6 (3.4-5.1) mmol/L Chloride 100 (98-107) mmol/L Carbon Dioxide 23 (22-32) mmol/L BUN 21 H (7-17) mg/dL Creatinine 0.82 (0.52-1.04) mg/dL Estimated GFR > 60 (>60) mL/min BUN/Creatinine Ratio 25.6 H (6-22) Glucose 390 H (80-110) mg/dL Calcium 9.3 (8.4-10.2) mg/dL Total Bilirubin 0.6 (0.2-1.3) mg/dL AST 35 (14-36) IU/L ALT 34 (<35) IU/L Alkaline Phosphatase 152 H (38-126) U/L Total Creatine Kinase 71 (30-135) U/L CK-MB (CK-2) TNP CK-MB (CK-2) Rel Index TNP Troponin I 0.012 (0.01-0.034) ng/mL Total Protein 7.4 (6.3-8.2) g/dL Albumin 3.9 (3.5-5.0) g/dL Globulin 3.5 (1.7-4.1) g/dL Albumin/Globulin Ratio 1.1 (1.0-2.8) Urine Color Urine Appearance Urine pH (4.5-8.0) Ur Specific Gans (1.000-1.035) Urine Protein (Negative) Urine Glucose (UA) (Negative) g/dL Urine Ketones (NEGATIVE) Urine Occult Blood (Negative) Urine Nitrate (Negative) Urine Bilirubin (NEGATIVE) Urine Urobilinogen (0.2) E.U./dL Ur Leukocyte Esterase (NEGATIVE) Urine RBC (0-5/HPF) Urine WBC (0-5/HPF) Ur Squamous Epith Cells (0-5/HPF) Urine Bacteria (None) Ur Culture Indicated? U Opiates 300ng/mL cut (Negative) Ur Oxycodone Screen (Negative) Urine Methadone Screen (Negative) Ur Barbiturates Screen (Negative) U Tricyclic Antidepress (Negative) Ur Phencyclidine Scrn (Negative) Ur Amphetamines Screen (Negative) U Methamphetamines Scrn (Negative) Ur MDMA Scrn (Ecstasy) (Negative) U Benzodiazepines Scrn (Negative) Urine Cocaine Screen (Negative) U Marijuana (THC) Screen (Negative) Ethyl Alcohol < 10 ( - 10) mg/dL SARS-CoV-2 (PCR) (Negative) 05/22/22 05/22/22 05/22/22 Range/Units 18:16 18:16 19:50 WBC (4.5-11.0) X10^3/uL RBC (4.0-5.2) X10^6/uL Hgb (12.0-16.0) g/dL Hct (36-46) % MCV (80-100) fL MCH (26-34) PG MCHC (30-36) % RDW (11.6-14.8) % Plt Count (150-400) X10^3/uL Neut % (Auto) (50-75) % Lymph % (Auto) (25-40) % Edwards % (Auto) (3-14) % Eos % (Auto) (2-4) % Baso % (Auto) (0-2) % Neut # (Auto) (4394-1579) /uL Lymph # (Auto) (1225-4114) /uL Edwards # (Auto) (0-900) /uL Eos # (Auto) (0-450) /uL Baso # (Auto) (0-100) /uL PT (10.1-12.7) SECONDS INR (0.9-1.3) APTT (26-36) SECONDS Sodium (137-145) mmol/L Potassium (3.4-5.1) mmol/L Chloride (98-107) mmol/L Carbon Dioxide (22-32) mmol/L BUN (7-17) mg/dL Creatinine (0.52-1.04) mg/dL Estimated GFR (>60) mL/min BUN/Creatinine Ratio (6-22) Glucose (80-110) mg/dL Calcium (8.4-10.2) mg/dL Total Bilirubin (0.2-1.3) mg/dL AST (14-36) IU/L ALT (<35) IU/L Alkaline Phosphatase (38-126) U/L Total Creatine Kinase (30-135) U/L CK-MB (CK-2) CK-MB (CK-2) Rel Index Troponin I (0.01-0.034) ng/mL Total Protein (6.3-8.2) g/dL Albumin (3.5-5.0) g/dL Globulin (1.7-4.1) g/dL Albumin/Globulin Ratio (1.0-2.8) Urine Color Yellow Urine Appearance Clear Urine pH 5.0 (4.5-8.0) Ur Specific Gans <=1.005 (1.000-1.035) Urine Protein 1+ H (Negative) Urine Glucose (UA) 2+ H (Negative) g/dL Urine Ketones 1+ H (NEGATIVE) Urine Occult Blood Trace-intact (Negative) Urine Nitrate Negative (Negative) Urine Bilirubin Negative (NEGATIVE) Urine Urobilinogen 0.2 (0.2) E.U./dL Ur Leukocyte Esterase Negative (NEGATIVE) Urine RBC 0-1/hpf (0-5/HPF) Urine WBC 0-1/hpf (0-5/HPF) Ur Squamous Epith Cells 0-1 /hpf (0-5/HPF) Urine Bacteria None seen (None) Ur Culture Indicated? Cult not indicated U Opiates 300ng/mL cut Negative (Negative) Ur Oxycodone Screen Negative (Negative) Urine Methadone Screen Negative (Negative) Ur Barbiturates Screen Negative (Negative) U Tricyclic Antidepress Negative (Negative) Ur Phencyclidine Scrn Negative (Negative) Ur Amphetamines Screen Negative (Negative) U Methamphetamines Scrn Negative (Negative) Ur MDMA Scrn (Ecstasy) Negative (Negative) U Benzodiazepines Scrn Negative (Negative) Urine Cocaine Screen Negative (Negative) U Marijuana (THC) Screen Negative (Negative) Ethyl Alcohol ( - 10) mg/dL SARS-CoV-2 (PCR) Negative (Negative) Imaging Data CT scan - head: Radiologist's Impression: No acute process. CTA head/neck.: Radiologist's Impression: 1. No CT evidence of acute intracranial abnormalities.? No area of abnormal intracranial enhancement.? 2. No hemodynamically significant stenosis or aneurysm is seen in intracranial circulation.? No significant changes from previous study. 3. No hemodynamically significant stenosis is seen in bilateral neck arteries. ? ECG Data Attestation: I personally reviewed and interpreted this ECG as follows: (Sinus tachycardia rate 125 beats per minute. Low-voltage QRS. No ectopy. Nonspeci fic ST T wave changes. Motion artifact.) MDM Narrative Medical decision making narrative: Multiple calls were made between myself and Dr. Martinez, [facility] Stroke Neurology. Scans and labs reviewed. Labetalol was given for blood pressure control. Inclusion and exclusion criteria reviewed. The patient has NIHSS of 11 by my initial assessment, 12 by neurology assessment. TPA was discussed repeatedly. Encephalopathy was discussed. I talked to her sister and her multiple times, concern is the lack of clear onset of symptom timeline. Direct witnesses are unavailable. Is determined that she is not a candidate for tPA cause the onset time he is not clear. The patient received aspirin after the noncontrast CT. Once the decision was made not to give tPA, further management of blood pressure was not pursued at this time. Case was discussed with hospitalist, Dr. Mckenna. Patient will be admitted at this facility Stroke Core Measures Exclusion Criteria TPA in CVA: Unknown Onset of Symptoms Critical Care Time Critical Care Time Critical Care Time: Yes Total Critical Care Time: 70 Attestation: Critical care time includes initial patient assessment, and repeated assessments. Medical records, radiology, lab and EKG data reviewed. Multiple calls were made to family members, consultants, and eventually the hospitalist. Discharge Plan Departure Patient Disposition: Admitted As Inpatient Prescriptions: No Action ASPIRIN (Aspirin EC) 81 mg PO Q DAY Qty: 0 [SHANNEN TEA] 1 - 2 Q DAY Qty: 0 ALUM HYD/MAG CARB (#GAVISCON) See Rx Instructions PO DAILY PRN Rx Instructions: 3 to 4 tabs PO daily PRN; prednisone 20 mg tablet 40 mg PO DAILY Label Comments: per neurologist at [facility] (dose will vary, titrating 09/29/20) gabapentin 600 mg tablet 600 mg PO Q8H PRN (Reason: nerve pain) Qty: 90 3RF (DME) Blood Glucose Test Strip See Rx Instructions .ROUTE .MEDSUPPLY Qty: 800 11RF Rx Instructions: Use Accucheck Guide Test Strips to check blood sugar 10x a day, in conjun ction with insulin injections 7-10x a day insulin aspart U-100 [Novolog Flexpen U-100 Insulin] 100 unit/mL (3 mL) insulin pen 10 - 30 unit SUBCUT TIDWMEAL Qty: 15 3RF alprazolam 0.5 mg tablet See Rx Instructions .ROUTE .COMPLEX Qty: 60 0RF Dose Instruction: TAKE 1 TO 2 TABLETS BY MOUTH THREE TIMES DAILY NEEDED FOR ANXIETY Rx Instructions: TAKE 1 TO 2 TABLETS BY MOUTH THREE TIMES DAILY NEEDED FOR ANXIETY Lantus Solostar U-100 Insulin 100 unit/mL (3 mL) insulin pen See Rx Instructions .ROUTE .COMPLEX Qty: 15 3RF Dose Instruction: INJECT 60 UNITS SUBCUTANEOUSLY DAILY Rx Instructions: INJECT 35 UNITS SUBCUTANEOUSLY BID diltiazem HCl 120 mg tablet 120 mg PO DAILY PRN Hold Instructions: pt has on hand, but has never used it. Label Comments: has not used, ever,....Rx'd for SVT by cardiology Rx Instructions: Take 1 tab by mouth every evening. (Take 1/2 tablet as needed for palpitations per day as needed) (DME) Disabled Parking Qty: 1 0RF Rx Instructions: Patient qualifies for disabled parking as per the attached form. (DME) lancets [Lancets,Thin] Misc See Rx Instructions .ROUTE .MEDSUPPLY Qty: 200 5RF Rx Instructions: use to check blood sugar 7x a day in conjunction w insulin admin 7x a day- generic please (DME) NovaFine Pen Tips 32G x 6mm 100 package See Rx Instructions .ROUTE .MEDSUPPLY Qty: 3 2RF Rx Instructions: Use to test blood glucose 4 times daily losartan 100 mg tablet 100 mg PO BID Qty: 180 3RF Referrals: Jose Clement MD [Primary Care Provider] - Admit Date/Time: 05/22/22 20:59
[2022-05-22] MEDS: LABETALOL 20 MG/4 ML SYRINGE 10 MG IV ×2 (17:47→18:41)
[2022-05-22 17:48] LABS: INR 0.9 (0.9-1.3); Prothrombin Time 10.5 SECONDS (10.1-12.7)
[2022-05-22 17:51] LABS: PTT Partial Thromboplastin Tim 20 SECONDS (26-36)
[2022-05-22 17:52] LABS: Add Manual Diff / Slide Review NO; Basophils Absolute Auto 0 /uL (0-100); Basophils Percent Auto 0.2 % (0-2); Eosinophils Absolute Auto 0 /uL (0-450); Hemoglobin 15.2 g/dL (12.0-16.0); Lymphocytes Absolute Auto 1700 /uL (1100-4500); Lymphocytes Percent Auto 7.2 % (25-40); Mean Corpuscular HGB Conc 32.4 % (30-36); Mean Corpuscular Volume 83.4 fL (80-100); Monocytes Absolute Auto 500 /uL (0-900); Monocytes Percent Auto 2.3 % (3-14); Neutrophils Absolute Auto 20900 /uL (1500-7000); Neutrophils Percent Auto 90.3 % (50-75); Platelet Count 260 X10^3/uL (150-400); Red Blood Cell Count 5.63 X10^6/uL (4.0-5.2); Red Cell Distribution Width 14.5 % (11.6-14.8); White Blood Cell Count 23.1 X10^3/uL (4.5-11.0)
[2022-05-22 17:54] LABS: Alanine Aminotransferase 34 IU/L (<35); Albumin 3.9 g/dL (3.5-5.0); Albumin Globulin Ratio 1.1 (1.0-2.8); Alkaline Phosphatase 152 U/L (38-126); Aspartate Aminotransferase 35 IU/L (14-36); BUN Creatinine Ratio 25.6 (6-22); Bilirubin Total 0.6 mg/dL (0.2-1.3); Blood Urea Nitrogen 21 mg/dL (7-17); Calcium 9.3 mg/dL (8.4-10.2); Carbon Dioxide 23 mmol/L (22-32); Chloride 100 mmol/L (98-107); Creatine Kinase 71 U/L (30-135); Estimated Glomerular Filt Rate > 60 mL/min (>60); Ethanol (ETOH) < 10 mg/dL; Globulin 3.5 g/dL (1.7-4.1); Glucose 390 mg/dL (80-110); Sodium 136 mmol/L (137-145); Total Protein 7.4 g/dL (6.3-8.2)
[2022-05-22 17:59] LABS: HEMOLYSIS 85 (0-50)
[2022-05-22 18:00] LABS: Potassium 4.6 mmol/L (3.4-5.1)
[2022-05-22] MEDS: ASPIRIN 300 MG SUPP PR (18:01)
[2022-05-22 18:05] LABS: Troponin I 0.012 ng/mL (0.01-0.034)
[2022-05-22 18:27] LABS: Appearance Urine UA CLEAR; Bilirubin Urine UA NEGATIVE (NEGATIVE); Color Urine UA YELLOW; Glucose Urine UA 2+ g/dL (Negative); Ketones Urine UA 1+ (NEGATIVE); Leukocyte Esterase Urine UA NEGATIVE (NEGATIVE); Nitrite Urine UA NEGATIVE (Negative); Occult Blood Urine UA TRACE-INTACT (Negative); Protein Urine UA 1+ (Negative); Specific Gravity Urine UA <=1.005 (1.000-1.035); Urobilinogen Urine UA 0.2 E.U./dL (0.2)
[2022-05-22 18:35] LABS: UR Morphine/Opiate cutoff 300 Negative (Negative); Ur Creatinine Normal (Normal); Ur Specific Gravity Normal (Normal); Urine Amphetamines Negative (Negative); Urine Barbiturates Negative (Negative); Urine Benzodiazepines Negative (Negative); Urine Cocaine Negative (Negative); Urine MDMA Negative (Negative); Urine Methadone Negative (Negative); Urine Methamphetamines Negative (Negative); Urine Oxycodone Negative (Negative); Urine Phencyclidine Negative (Negative); Urine Tetrahydrocannabinol Negative (Negative); Urine Tricyclic Antidepressant Negative (Negative); Urine pH Normal (Normal)
[2022-05-22 18:52] LABS: Bacteria Urine None Seen; Culture Indicated Urine Cult Not Indicated; RBC Urine 0-1/HPF (0-5/HPF); Squamous Epithelial Cell Urine 0-1 /HPF (0-5/HPF); WBC Urine 0-1/HPF (0-5/HPF)
[2022-05-22 20:22] LABS: COVID19 -Nasal RAPID Negative (Negative)
--- NOTE | 2022-05-22 20:31 | DI.RAD.S_ITS ---
PROCEDURE: XR CHEST 1V INDICATIONS: AMS TECHNIQUE: One view of the chest was acquired. COMPARISON: [facility], CR, XR CHEST 2V, 09/26/2020, 14:46. FINDINGS: Surgical changes and devices: None. Lungs and pleura: There is pulmonary vascular prominence consistent with pulmonary edema. There are low lung volumes. No pleural effusions or pneumothorax. Mediastinum: Heart size appears enlarged. Bones and chest wall: No suspicious bony lesions. Overlying soft tissues appear unremarkable. IMPRESSION: 1. Pulmonary edema and cardiomegaly suggestive of congestive heart failure. However, evaluation is limited by low lung volumes and the findings may reflect a component of vascular crowding. Dictated by: Arnoldo Wise M.D. on 05/22/2022 at 22:50 Approved by: Arnoldo Wise M.D. on 05/22/2022 at 22:51
[2022-05-22 21:33] LABS: Procalcitonin 0.06 ng/mL (<0.5)
[2022-05-22 21:42] LABS: Adenovirus Not Detected (Not Detect); B. parapertussis Not Detected (Not Detecte); Bordetella pertussis Not Detected (Not Detecte); Chlamydophila pneumoniae Not Detected (Not Detect); Coronavirus 229E Not Detected (Not Detect); Coronavirus HKU1 Not Detected (Not Detect); Coronavirus NL 63 Not Detected (Not Detect); Coronavirus OC43 Not Detected (Not Detect); Human Metapneumovirus Not Detected (Not Detect); Human Rhinovirus/Enterovirus Not Detected (Not Detect); Influenza A Not Detected (Not Detect); Influenza B Not Detected (Not Detect); Mycoplasma pneumoniae Not Detected (Not Detect); Parainfluenza Virus 1 Not Detected (Not Detect); Parainfluenza Virus 2 Not Detected (Not Detect); Parainfluenza Virus 3 Not Detected (Not Detect); Parainfluenza Virus 4 Not Detected (Not Detect); Respiratory Syncytial Virus Not Detected (Not Detect); SARS- CoV-2 Not Detected (Not Detecte)
--- NOTE | 2022-05-22 21:44 | DI.CT.S_ITS ---
PROCEDURE: CT ABDOMEN PELVIS W CON INDICATIONS: abdominal pain TECHNIQUE: After the administration of IV contrast, axial sections were acquired from the lung bases to the pubic symphysis. Coronal and sagittal reformats were performed. For radiation dose reduction, the following was used: automated exposure control, adjustment of mA and/or kV according to patient size. COMPARISON: [facility], CT, ABDOMEN/PELVIS WITH CONTRAST, 02/23/2016, 9:45. FINDINGS: Image quality: There is motion artifact limiting evaluation. Lung bases: There is mild dependent atelectasis. Heart: Heart is normal in size. ABDOMEN: Liver: There is diffuse hypoattenuation of the liver compatible with fatty infiltration. Gallbladder: Surgically absent. Biliary ducts: No biliary ductal dilatation. Pancreas: Unremarkable. Spleen: Normal in size. Adrenal Glands: No adrenal nodules. Kidneys and Ureters: No hydronephrosis. There is a small amount of early excreted contrast within the renal collecting systems and ureters. Stomach and Bowel: Stomach, small bowel loops, and colon are normal in caliber and wall thickness. No pericecal inflammatory changes to suggest appendicitis. Peritoneum: No abnormal intraperitoneal fluid. No free air. Ventral Wall: There is a fat-containing ventral abdominal hernia along the midline in the upper abdomen redemonstrated. There is also a small fat-containing umbilical hernia again noted. Abdominal Nodes: No retroperitoneal or mesenteric adenopathy by size criteria. Vessels: Aorta and inferior vena cava are normal in size. PELVIS: Pelvic Organs: Unremarkable. Bladder: There is a Cleary catheter within a partially distended urinary bladder. Excreted contrast is demonstrated within the bladder. There is suggestion of mild bladder wall thickening but evaluation is limited due to incomplete distention. Pelvic Nodes: No enlarged lymph nodes. Miscellaneous: No inguinal hernias are seen. Bones: Visualized osseous structures demonstrate no suspicious focal lesions. IMPRESSION: 1. No definite acute intra-abdominal abnormality. 2. Fat-containing ventral abdominal hernia is redemonstrated. No herniated bowel loops. 3. Cleary catheter within a partially distended urinary bladder. Evaluation for wall thickness is limited due to incomplete distention and correlation is recommended with urinalysis for possible cystitis. Dictated by: Arnoldo Wise M.D. on 05/22/2022 at 23:45 Approved by: Arnoldo Wise M.D. on 05/22/2022 at 23:49
[2022-05-22 21:51] LABS: Lipase 134 U/L (23-300)
--- NOTE | 2022-05-22 22:15 | PM.HP.1 ---
History of Present Illness History of Present Illness Date Patient Seen: 05/22/22 Time Patient Seen: 22:00 Chief complaint: Code stroke Narrative: Mr. Brown is a 72W with PMH DM, gastroparesis, HTN, HL, myasthenia gravis on chronic steroids who presents to the hospital with altered mental status and difficulty with speaking. Per reports she began to have garbled speech at unclear time but possibly at approximately 3:30pm on 05/23, EMS was called to her house about one hour later. She had apparently had waxing and waning symptoms in that period, with episodes of improved speech and then worsening, with some noted lower extremity weakness. Since arriving to the ED she has had persistent garbled speech. She is clearly able to follow commands but has difficulty with speaking words and can only say yes/no and her name clearly. There has been some concern from staff about some mild confusion. There was some question about taking additional benzos accidentally that may have cause encephalopathy, but after ED physician discussion with family this was thought to be quite unlikely. In the ED workup was done, vitals notable for tachycardia and elevated blood pressure. Tmax 100.4. Labs notable for WBC 23.1, hgb 15.2, plts 260, creatinine 0.82. UA negative. Urine drug screen negative. COVID negative. CT head with no acute process. CTA head neck shows diminutive left M2 branch compared to 2020 concerning for stenosis. Initial NIH score of 14. Per the ED physician there were multiple discussions had between himself and the stroke physician about TPA, and ultimately it was decided that she was not a candidate for TPA due to uncertain time of onset and improving symptoms. She was ordered for aspirin and admitted for further treatment. When I saw her she was indicating possible pain in her abdomen and had CT scan for further evaluation. 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) Hyperlipidemia, mixed (11/13/10) Hypertension Morbid obesity (11/13/10) Myasthenia gravis Panic disorder (11/13/10) SVT (supraventricular tachycardia) Tachycardia Unspecified essential hypertension (11/13/10) Surgical History History of third molar tooth extraction Status post hernia repair (05/14/16) Status post hysterectomy (05/14/16) Status post laparoscopic cholecystectomy Family & Social History Social History: household members spouse Safety & Behavioral: Feels Safe in Current Yes Environment Tobacco & Substance use: Smoking Status Former smoker alcohol intake frequency 0-2 drinks per day Substance Use Type does not use Meds Home Medications and Allergies Home Medications Medication Instructions Recorded Confirmed Type ASPIRIN (Aspirin EC) 81 mg PO Q DAY ##0 11/13/10 04/23/22 History [SHANNEN TEA] 1 - 2 Q DAY ##0 09/09/12 04/23/22 History ALUM HYD/MAG CARB (#GAVISCON) See Rx Instructions PO DAILY PRN 07/30/19 04/23/22 History diltiazem HCl 120 mg tablet 120 mg PO DAILY PRN 08/20/19 04/23/22 History Disabled Parking #1 ea 01/31/20 04/23/22 Rx prednisone 20 mg tablet 40 mg PO DAILY 09/29/20 05/22/22 History NovaFine Pen Tips 32G x 6mm #3 ea 11/29/20 04/23/22 Rx lancets (Lancets,Thin) #200 ea 11/29/20 04/23/22 Rx blood sugar diagnostic (Blood #800 ea 02/28/22 04/23/22 Rx Glucose Test strips) gabapentin 600 mg tablet 600 mg PO Q8H PRN nerve pain #90 02/28/22 05/22/22 Rx tabs insulin aspart U-100 100 unit/mL 10 - 30 unit (0.1 - 0.3 mL) SUBCUT 03/25/22 04/23/22 Rx (3 mL) subcutaneous pen (Novolog TIDWMEAL #15 mL Flexpen U-100 Insulin aspart) losartan 100 mg tablet 100 mg PO BID #180 tabs 04/23/22 05/22/22 Rx alprazolam 0.5 mg tablet See Rx Instructions .Route 05/07/22 05/22/22 Rx .COMPLEX #60 tabs insulin glargine 100 unit/mL (3 See Rx Instructions .Route 05/22/22 Rx mL) subcutaneous pen (Lantus .COMPLEX #15 mL Solostar U-100 Insulin) Allergies Allergy/AdvReac Type Severity Reaction Status Date / Time Penicillins Allergy Severe HIVES Verified 03/15/22 14:14 naproxen Allergy Mild HIVES Verified 03/15/22 14:14 rosuvastatin Allergy Mild Verified 03/15/22 14:14 sulfamethoxazole Allergy Unknown Verified 03/15/22 14:14 [From BACTRIM] trimethoprim [From BACTRIM] Allergy Unknown Verified 03/15/22 14:14 simvastatin AdvReac Severe MYALGIA, Verified 03/15/22 14:14 MUSCLE WEAKNESS Sulfa (Sulfonamide AdvReac Severe MYALGIA, Verified 03/15/22 14:14 Antibiotics) MUSCLE WEAKNESS citalopram AdvReac Intermediate Tachycardia Verified 03/15/22 14:14 at night metoclopramide AdvReac Intermediate tremors, Verified 03/15/22 14:14 anxiety gets worse atorvastatin AdvReac Mild NAUSEA, Verified 03/15/22 14:14 FLU LIKE SYMPTOMS metoprolol [METOPROLOL] AdvReac Unknown NAUSEA Verified 03/15/22 14:14 VOMITING Review of Systems Review of Systems Narrative: 14 systems reviewed and negative aside from what is noted in HPI Exam Vital Signs (past 8 hours): - 05/22/22 22:04 05/22/22 22:05 05/22/22 22:05 Temperature Pulse Rate 104 H 104 H Respiratory Rate 17 Blood Pressure 185/78 H Pulse Oximetry 95 95 Oxygen Flow Rate 05/22/22 22:30 05/22/22 23:00 05/22/22 23:30 Temperature 100.2 F H 100.4 F H 100.2 F H Pulse Rate 103 H 116 H 101 H Respiratory Rate 24 22 29 H Blood Pressure Pulse Oximetry 93 93 Oxygen Flow Rate 05/23/22 00:25 05/23/22 00:00 05/23/22 04:42 Temperature 98.8 F 98.2 F Pulse Rate 104 H 102 H 95 H Respiratory Rate 24 24 Blood Pressure 176/81 H 176/81 H 165/60 H Pulse Oximetry 95 95 Oxygen Flow Rate 0 0 Oxygen Delivery Method Room Air Oxygen Flow Rate 0 Narrative Exam Narrative: GEN: appears in distress due to pain HEENT: moist mucous membranes, PERRL NECK: trachea midline, no JVD PULM: crackles bilaterally CV: tacycardic, regular, no murmurs ABD: soft, nontender, nondistended, no organomegaly EXT: warm and well perfused with edema NEURO: awaek, alert, only able to speak yes, no, and name clearly, able to follow commands, Objective Labs Result Diagrams: 05/22/22 17:20 05/22/22 17:20 Labs: Laboratory Results - last 24 hr 05/22/22 05/22/22 05/22/22 17:20 17:20 17:20 WBC 23.1 H RBC 5.63 H Hgb 15.2 Hct 47.0 H MCV 83.4 MCH 27.0 MCHC 32.4 RDW 14.5 Plt Count 260 Neut % (Auto) 90.3 H Lymph % (Auto) 7.2 L [place] % (Auto) 2.3 L Eos % (Auto) 0.0 L Baso % (Auto) 0.2 Neut # (Auto) 82915 H Lymph # (Auto) 1700 [place] # (Auto) 500 Eos # (Auto) 0 Baso # (Auto) 0 PT 10.5 INR 0.9 APTT 20 L Sodium 136 L Potassium 4.6 Chloride 100 Carbon Dioxide 23 BUN 21 H Creatinine 0.82 Estimated GFR > 60 BUN/Creatinine Ratio 25.6 H Glucose 390 H Calcium 9.3 Total Bilirubin 0.6 AST 35 ALT 34 Alkaline Phosphatase 152 H Total Creatine Kinase 71 CK-MB (CK-2) TNP CK-MB (CK-2) Rel Index TNP Troponin I 0.012 NT-Pro-B Natriuret Pep Total Protein 7.4 Albumin 3.9 Globulin 3.5 Albumin/Globulin Ratio 1.1 Lipase Procalcitonin Urine Color Urine Appearance Urine pH Ur Specific [place] Urine Protein Urine Glucose (UA) Urine Ketones Urine Occult Blood Urine Nitrate Urine Bilirubin Urine Urobilinogen Ur Leukocyte Esterase Urine RBC Urine WBC Ur Squamous Epith Cells Urine Bacteria Ur Culture Indicated? U Opiates 300ng/mL cut Ur Oxycodone Screen Urine Methadone Screen Ur Barbiturates Screen U Tricyclic Antidepress Ur Phencyclidine Scrn Ur Amphetamines Screen U Methamphetamines Scrn Ur MDMA Scrn (Ecstasy) U Benzodiazepines Scrn Urine Cocaine Screen U Marijuana (THC) Screen Ethyl Alcohol < 10 Chlamy pneumoniae PCR Adenovirus (PCR) B. pertussis DNA (PCR) B.parapertussis DNA PCR Coronavirus OC43 (PCR) Coronavirus HKU1 (PCR) Coronavirus 229E (PCR) SARS-CoV-2 (PCR) Coronavirus NL63 (PCR) Human Metapneumovir PCR Influenza Type A (PCR) Influenza Type B (PCR) M. pneumoniae (PCR) Parainfluenza 1 (PCR) Parainfluenza 2 (PCR) Parainfluenza 3 (PCR) Parainfluenza 4 (PCR) RSV (PCR) Entero/Rhino (PCR) 05/22/22 05/22/22 05/22/22 17:20 17:20 17:43 WBC RBC Hgb Hct MCV MCH MCHC RDW Plt Count Neut % (Auto) Lymph % (Auto) [place] % (Auto) Eos % (Auto) Baso % (Auto) Neut # (Auto) Lymph # (Auto) [place] # (Auto) Eos # (Auto) Baso # (Auto) PT INR APTT Sodium Potassium Chloride Carbon Dioxide BUN Creatinine Estimated GFR BUN/Creatinine Ratio Glucose Calcium Total Bilirubin AST ALT Alkaline Phosphatase Total Creatine Kinase CK-MB (CK-2) CK-MB (CK-2) Rel Index Troponin I NT-Pro-B Natriuret Pep 342 H Total Protein Albumin Globulin Albumin/Globulin Ratio Lipase 134 Procalcitonin 0.06 Urine Color Urine Appearance Urine pH Ur Specific [place] Urine Protein Urine Glucose (UA) Urine Ketones Urine Occult Blood Urine Nitrate Urine Bilirubin Urine Urobilinogen Ur Leukocyte Esterase Urine RBC Urine WBC Ur Squamous Epith Cells Urine Bacteria Ur Culture Indicated? U Opiates 300ng/mL cut Ur Oxycodone Screen Urine Methadone Screen Ur Barbiturates Screen U Tricyclic Antidepress Ur Phencyclidine Scrn Ur Amphetamines Screen U Methamphetamines Scrn Ur MDMA Scrn (Ecstasy) U Benzodiazepines Scrn Urine Cocaine Screen U Marijuana (THC) Screen Ethyl Alcohol Chlamy pneumoniae PCR Adenovirus (PCR) B. pertussis DNA (PCR) B.parapertussis DNA PCR Coronavirus OC43 (PCR) Coronavirus HKU1 (PCR) Coronavirus 229E (PCR) SARS-CoV-2 (PCR) Coronavirus NL63 (PCR) Human Metapneumovir PCR Influenza Type A (PCR) Influenza Type B (PCR) M. pneumoniae (PCR) Parainfluenza 1 (PCR) Parainfluenza 2 (PCR) Parainfluenza 3 (PCR) Parainfluenza 4 (PCR) RSV (PCR) Entero/Rhino (PCR) 05/22/22 05/22/22 05/22/22 18:16 18:16 19:50 WBC RBC Hgb Hct MCV MCH MCHC RDW Plt Count Neut % (Auto) Lymph % (Auto) [place] % (Auto) Eos % (Auto) Baso % (Auto) Neut # (Auto) Lymph # (Auto) [place] # (Auto) Eos # (Auto) Baso # (Auto) PT INR APTT Sodium Potassium Chloride Carbon Dioxide BUN Creatinine Estimated GFR BUN/Creatinine Ratio Glucose Calcium Total Bilirubin AST ALT Alkaline Phosphatase Total Creatine Kinase CK-MB (CK-2) CK-MB (CK-2) Rel Index Troponin I NT-Pro-B Natriuret Pep Total Protein Albumin Globulin Albumin/Globulin Ratio Lipase Procalcitonin Urine Color Yellow Urine Appearance Clear Urine pH 5.0 Ur Specific [place] <=1.005 Urine Protein 1+ H Urine Glucose (UA) 2+ H Urine Ketones 1+ H Urine Occult Blood Trace-intact Urine Nitrate Negative Urine Bilirubin Negative Urine Urobilinogen 0.2 Ur Leukocyte Esterase Negative Urine RBC 0-1/hpf Urine WBC 0-1/hpf Ur Squamous Epith Cells 0-1 /hpf Urine Bacteria None seen Ur Culture Indicated? Cult not indicated U Opiates 300ng/mL cut Negative Ur Oxycodone Screen Negative Urine Methadone Screen Negative Ur Barbiturates Screen Negative U Tricyclic Antidepress Negative Ur Phencyclidine Scrn Negative Ur Amphetamines Screen Negative U Methamphetamines Scrn Negative Ur MDMA Scrn (Ecstasy) Negative U Benzodiazepines Scrn Negative Urine Cocaine Screen Negative U Marijuana (THC) Screen Negative Ethyl Alcohol Chlamy pneumoniae PCR Adenovirus (PCR) B. pertussis DNA (PCR) B.parapertussis DNA PCR Coronavirus OC43 (PCR) Coronavirus HKU1 (PCR) Coronavirus 229E (PCR) SARS-CoV-2 (PCR) Negative Coronavirus NL63 (PCR) Human Metapneumovir PCR Influenza Type A (PCR) Influenza Type B (PCR) M. pneumoniae (PCR) Parainfluenza 1 (PCR) Parainfluenza 2 (PCR) Parainfluenza 3 (PCR) Parainfluenza 4 (PCR) RSV (PCR) Entero/Rhino (PCR) 05/22/22 20:30 WBC RBC Hgb Hct MCV MCH MCHC RDW Plt Count Neut % (Auto) Lymph % (Auto) [place] % (Auto) Eos % (Auto) Baso % (Auto) Neut # (Auto) Lymph # (Auto) [place] # (Auto) Eos # (Auto) Baso # (Auto) PT INR APTT Sodium Potassium Chloride Carbon Dioxide BUN Creatinine Estimated GFR BUN/Creatinine Ratio Glucose Calcium Total Bilirubin AST ALT Alkaline Phosphatase Total Creatine Kinase CK-MB (CK-2) CK-MB (CK-2) Rel Index Troponin I NT-Pro-B Natriuret Pep Total Protein Albumin Globulin Albumin/Globulin Ratio Lipase Procalcitonin Urine Color Urine Appearance Urine pH Ur Specific [place] Urine Protein Urine Glucose (UA) Urine Ketones Urine Occult Blood Urine Nitrate Urine Bilirubin Urine Urobilinogen Ur Leukocyte Esterase Urine RBC Urine WBC Ur Squamous Epith Cells Urine Bacteria Ur Culture Indicated? U Opiates 300ng/mL cut Ur Oxycodone Screen Urine Methadone Screen Ur Barbiturates Screen U Tricyclic Antidepress Ur Phencyclidine Scrn Ur Amphetamines Screen U Methamphetamines Scrn Ur MDMA Scrn (Ecstasy) U Benzodiazepines Scrn Urine Cocaine Screen U Marijuana (THC) Screen Ethyl Alcohol Chlamy pneumoniae PCR Not detected Adenovirus (PCR) Not detected B. pertussis DNA (PCR) Not detected B.parapertussis DNA PCR Not detected Coronavirus OC43 (PCR) Not detected Coronavirus HKU1 (PCR) Not detected Coronavirus 229E (PCR) Not detected SARS-CoV-2 (PCR) Not detected Coronavirus NL63 (PCR) Not detected Human Metapneumovir PCR Not detected Influenza Type A (PCR) Not detected Influenza Type B (PCR) Not detected M. pneumoniae (PCR) Not detected Parainfluenza 1 (PCR) Not detected Parainfluenza 2 (PCR) Not detected Parainfluenza 3 (PCR) Not detected Parainfluenza 4 (PCR) Not detected RSV (PCR) Not detected Entero/Rhino (PCR) Not detected Assessment & Plan Assessment & Plan narrative: 1. Probable Acute CVA -initial NIH of 14, remains elevated on recheck once admitted at 15 -patient with notable severe speech difficulties, aphasia that is expressive -CT head showed no acute process -CT angio head/neck showed concern for stenosis of M2 branch, suspect this may be etiology -for now will order dual antiplatelet with aspirin/plavix -has multiple reactions to different statin, hold off ordering for now -check NIH q4 -MRI brain ordered -ECHO with bubble ordered -check lipids, a1c -she passed swallow screen in the ED -ordered PT/OT and speech evaluation 2. Possible encephalopathy -possibly secondary to stroke -doubt encephalitis or meningitis as has no headache, neck pain -monitor closely for worsening encephalopathy and consider possible infectious cause if not improving 3. Probable congestive heart failure -she has evidence of pulmonary edema, and lower extremity edema -BNP only mildly elevated, but likely lowered in setting of morbid obesity -ordered a dose of IV lasix on admit, consider continuining based on workup -ECHO ordered 4. Type 2 Diabetes on insulin -continue home dose insulin and sliding scale 5. Myasthenia gravis -continue prednisone 40mg daily -has previous notes indicating she was on cellcept, will need to confirm if she takes this or not 6. Fever -temp in ED of 100.4 -noted to have chronic leukocytosis, likely from prednisone -UA negative -chest xray with no consolidation -procalcitonin low -suspect fever is secondary to possible stroke -monitor closely and low threshold to start antibiotics 7. Abdominal pain, improving -CT abdomen in ED showed no acute process 8. Morbid obesity -BMI 49.4 -will affect and compromise healing from stroke -follow up PCP CODE: unknown, unable to state Proxy: Syed Kevin, I have utilized all available resources to reconcile the patient's home medications Time Spent With Patient Critical Care time: I spent a total of [] minutes of critical care time on this patient's care today; this time is exclusive of procedural time. Quality VTE Deep Vein Thrombosis/Pulmonary Embolism Present on Admission: No
[2022-05-22 22:56] LABS: NT-proBNP (BNP-Adult 18+) 342 pg/mL (<125)
--- NOTE | 2022-05-22 22:57 | DI.ECHO.S_ITS ---
[place] +---------+ [facility] +---------+ : : [address] : : : : [id number] : : : : Phone: [phone]+ Echocardiogram Report + + :Name: VÍCTOR GRAF Study Date: 05/23/2022 : [id number] ReadingLocation: Weight: 299 lb: : Gender: Female : :: 1950 Age: 72 yrs : :Reason For Study: CVA : :Ordering Physician: BERTIN : :ASHLEY Performed By: Cleve Adhikari : :Referring: ASHLEY DENTON : + + Interpretation Summary The study quality was technically difficult. The ejection fraction is estimated to be 60-65%. The right ventricle is normal in size and function. Pulmonary artery pressures cannot be estimated because of the lack of a measurable TR jet velocity. Injection of contrast documented no interatrial shunt. There is moderate aortic stenosis- New finding, when compared to prior study in 09/2020. Procedure: A two-dimensional transthoracic echocardiogram with color flow and Doppler was performed. The study quality was technically difficult. There is no prior echocardiogram noted for this patient. A saline contrast injection was performed to assess for cardiac shunting. A contrast injection of Definity was performed to improve assessment of LV function. The patient was in sinus tachycardia with heart rates between 94-107 bpm during the exam. Left Ventricle: The left ventricle is normal in size and wall thickness. Left ventricular systolic function is normal. The ejection fraction is estimated to be 60-65%. There are no focal wall motion abnormalities. Diastolic function could not be accurately assessed due to unobtainable data. Right Ventricle: The right ventricle is normal in size and function. Atria: The left atrium grossly appears normal in size. Right atrial size is normal. The interatrial septum grossly appears intact with no obvious evidence for an atrial septal defect. Injection of contrast documented no interatrial shunt. Mitral Valve: There is mild mitral annular calcification. There is no mitral regurgitation noted. Aortic Valve: There is mildly reduced leaflet mobility. The aortic valve is not well visualized. There is moderate aortic stenosis. The aortic valve mean gradient is 30 mmHg. No aortic regurgitation is present. Tricuspid Valve: The tricuspid valve is normal in structure and function. No tricuspid regurgitation. Pulmonary artery pressures cannot be estimated because of the lack of a measurable TR jet velocity. Pulmonic Valve: The pulmonic valve is not well visualized. Great Vessels: The aortic root is not well visualized. The ascending aorta could not be visualized. The inferior vena cava was not visualized. Pericardium/ Pleura There is no pericardial effusion. There is no pleural effusion. MMode/2D Measurements & Calculations LVIDd: 4.6 cm LVOT diam: 2.0 cm LVIDs: 3.0 cm FS: 34.3 % IVSd: 1.1 cm LVPWd: 1.0 cm LA A2 area: 18.1 cm2 RA long axis: 4.8 cm LA A4 area: 20.6 cm2 RA area: 13.0 cm2 LA length (vol): 5.9 cm RA vol: 29.9 ml LA vol: 53.3 ml TAPSE: 2.5 cm Doppler Measurements & Calculations Ao V2 max: 346.1 cm/sec LVOT Max Yordan: 121.8 cm/sec Ao V2 mean: 264.0 cm/sec LV V1 max P.9 mmHg Ao max P.9 mmHg LV V1 VTI: 23.3 cm Ao mean P.9 mmHg TERRY(I,D): 1.0 cm2 Ao V2 VTI: 71.1 cm TERRY(V,D): 1.1 cm2 sev ratio: 0.33 MV E max yordan: 112.5 cm/sec SV(LVOT): 73.5 ml MV A max yordan: 147.1 cm/sec MV E/A: 0.77 Med Peak E' Yordan: 3.9 cm/sec E/E' med: 28.8 Lat Peak E' Yordan: 5.3 cm/sec E/E' lat: 21.2 E/e' average: 25.0 MV dec time: 0.16 sec Reading Physician:BRAYDON
[2022-05-22] MEDS: METOPROLOL ER 50 MG TABLET 100 MG PO (23:27)
[2022-05-22] MEDS: INSULIN GLARGINE 100 UNIT/ML 3ML PEN 35 UNIT SUBCUT (23:28)
[2022-05-23] VITALS (9 sets, daily range): BP systolic 150–176; BP diastolic 59–81; PULSE 88–104; RESP 20–24; TEMP 36.8–37.2; O2SAT 92–96
[2022-05-23] MEDS: FUROSEMIDE 20 MG/2 ML VIAL IV (00:43)
--- NOTE | 2022-05-23 06:09 | PC.NURSE ---
Per tele, patient having runs of SVT, frquency increasing. BP 162/65, POX 94% on RA. Patient appears comfortable. Does not answer when asked if in pain, did answer yes when asked if SOB with activity. Patient is arousable to voice, aphasic, answers some simple questions, seldom follows commands. It was very difficult to get an accurate NIHSS due to patient not following commands. Dr Mckenna notified of SVT and difficulty assessing NIHSS. Orders received.
--- NOTE | 2022-05-23 06:35 | P.PN_ITS ---
Subjective Subjective Date Patient Seen: 05/23/22 Time Patient Seen: 08:00 Interval history: She has no significant change in her speech difficulties. Overnight she had runs of brief SVT that resolved in seconds. She did get lasix and diuresed very briskly. She has been notably short of breath per nursing. She has no pain currently. Exam Vital Signs (past 8 hours): - 05/22/22 23:00 05/22/22 23:30 05/23/22 00:25 Temperature 100.4 F H 100.2 F H Pulse Rate 116 H 101 H 104 H Respiratory Rate 22 29 H Blood Pressure 176/81 H Pulse Oximetry 93 93 Oxygen Flow Rate 05/23/22 00:00 05/23/22 04:42 05/23/22 05:30 Temperature 98.8 F 98.2 F Pulse Rate 102 H 95 H 93 H Respiratory Rate 24 24 22 Blood Pressure 176/81 H 165/60 H 162/65 H Pulse Oximetry 95 95 94 Oxygen Flow Rate 0 0 0 Oxygen Delivery Method Room Air Oxygen Flow Rate 0 Narrative Exam Narrative: GEN: no acute distress HEENT: moist mucous membranes, PERRL NECK: trachea midline, no JVD PULM: crackles bilaterally CV: tacycardic, regular, no murmurs ABD: soft, nontender, nondistended, no organomegaly EXT: warm and well perfused with edema NEURO: awaek, alert, only able to speak yes, no, and name clearly, able to follow commands, Objective Labs Result Diagrams: 05/22/22 17:20 05/22/22 17:20 Labs: Laboratory Results - last 24 hr 05/22/22 05/22/22 05/22/22 17:20 17:20 17:20 WBC 23.1 H RBC 5.63 H Hgb 15.2 Hct 47.0 H MCV 83.4 MCH 27.0 MCHC 32.4 RDW 14.5 Plt Count 260 Neut % (Auto) 90.3 H Lymph % (Auto) 7.2 L [place] % (Auto) 2.3 L Eos % (Auto) 0.0 L Baso % (Auto) 0.2 Neut # (Auto) 43627 H Lymph # (Auto) 1700 [place] # (Auto) 500 Eos # (Auto) 0 Baso # (Auto) 0 PT 10.5 INR 0.9 APTT 20 L Sodium 136 L Potassium 4.6 Chloride 100 Carbon Dioxide 23 BUN 21 H Creatinine 0.82 Estimated GFR > 60 BUN/Creatinine Ratio 25.6 H Glucose 390 H Calcium 9.3 Total Bilirubin 0.6 AST 35 ALT 34 Alkaline Phosphatase 152 H Total Creatine Kinase 71 CK-MB (CK-2) TNP CK-MB (CK-2) Rel Index TNP Troponin I 0.012 NT-Pro-B Natriuret Pep Total Protein 7.4 Albumin 3.9 Globulin 3.5 Albumin/Globulin Ratio 1.1 Lipase Procalcitonin Urine Color Urine Appearance Urine pH Ur Specific [place] Urine Protein Urine Glucose (UA) Urine Ketones Urine Occult Blood Urine Nitrate Urine Bilirubin Urine Urobilinogen Ur Leukocyte Esterase Urine RBC Urine WBC Ur Squamous Epith Cells Urine Bacteria Ur Culture Indicated? U Opiates 300ng/mL cut Ur Oxycodone Screen Urine Methadone Screen Ur Barbiturates Screen U Tricyclic Antidepress Ur Phencyclidine Scrn Ur Amphetamines Screen U Methamphetamines Scrn Ur MDMA Scrn (Ecstasy) U Benzodiazepines Scrn Urine Cocaine Screen U Marijuana (THC) Screen Ethyl Alcohol < 10 Chlamy pneumoniae PCR Adenovirus (PCR) B. pertussis DNA (PCR) B.parapertussis DNA PCR Coronavirus OC43 (PCR) Coronavirus HKU1 (PCR) Coronavirus 229E (PCR) SARS-CoV-2 (PCR) Coronavirus NL63 (PCR) Human Metapneumovir PCR Influenza Type A (PCR) Influenza Type B (PCR) M. pneumoniae (PCR) Parainfluenza 1 (PCR) Parainfluenza 2 (PCR) Parainfluenza 3 (PCR) Parainfluenza 4 (PCR) RSV (PCR) Entero/Rhino (PCR) 05/22/22 05/22/22 05/22/22 17:20 17:20 17:43 WBC RBC Hgb Hct MCV MCH MCHC RDW Plt Count Neut % (Auto) Lymph % (Auto) [place] % (Auto) Eos % (Auto) Baso % (Auto) Neut # (Auto) Lymph # (Auto) [place] # (Auto) Eos # (Auto) Baso # (Auto) PT INR APTT Sodium Potassium Chloride Carbon Dioxide BUN Creatinine Estimated GFR BUN/Creatinine Ratio Glucose Calcium Total Bilirubin AST ALT Alkaline Phosphatase Total Creatine Kinase CK-MB (CK-2) CK-MB (CK-2) Rel Index Troponin I NT-Pro-B Natriuret Pep 342 H Total Protein Albumin Globulin Albumin/Globulin Ratio Lipase 134 Procalcitonin 0.06 Urine Color Urine Appearance Urine pH Ur Specific [place] Urine Protein Urine Glucose (UA) Urine Ketones Urine Occult Blood Urine Nitrate Urine Bilirubin Urine Urobilinogen Ur Leukocyte Esterase Urine RBC Urine WBC Ur Squamous Epith Cells Urine Bacteria Ur Culture Indicated? U Opiates 300ng/mL cut Ur Oxycodone Screen Urine Methadone Screen Ur Barbiturates Screen U Tricyclic Antidepress Ur Phencyclidine Scrn Ur Amphetamines Screen U Methamphetamines Scrn Ur MDMA Scrn (Ecstasy) U Benzodiazepines Scrn Urine Cocaine Screen U Marijuana (THC) Screen Ethyl Alcohol Chlamy pneumoniae PCR Adenovirus (PCR) B. pertussis DNA (PCR) B.parapertussis DNA PCR Coronavirus OC43 (PCR) Coronavirus HKU1 (PCR) Coronavirus 229E (PCR) SARS-CoV-2 (PCR) Coronavirus NL63 (PCR) Human Metapneumovir PCR Influenza Type A (PCR) Influenza Type B (PCR) M. pneumoniae (PCR) Parainfluenza 1 (PCR) Parainfluenza 2 (PCR) Parainfluenza 3 (PCR) Parainfluenza 4 (PCR) RSV (PCR) Entero/Rhino (PCR) 05/22/22 05/22/22 05/22/22 18:16 18:16 19:50 WBC RBC Hgb Hct MCV MCH MCHC RDW Plt Count Neut % (Auto) Lymph % (Auto) [place] % (Auto) Eos % (Auto) Baso % (Auto) Neut # (Auto) Lymph # (Auto) [place] # (Auto) Eos # (Auto) Baso # (Auto) PT INR APTT Sodium Potassium Chloride Carbon Dioxide BUN Creatinine Estimated GFR BUN/Creatinine Ratio Glucose Calcium Total Bilirubin AST ALT Alkaline Phosphatase Total Creatine Kinase CK-MB (CK-2) CK-MB (CK-2) Rel Index Troponin I NT-Pro-B Natriuret Pep Total Protein Albumin Globulin Albumin/Globulin Ratio Lipase Procalcitonin Urine Color Yellow Urine Appearance Clear Urine pH 5.0 Ur Specific [place] <=1.005 Urine Protein 1+ H Urine Glucose (UA) 2+ H Urine Ketones 1+ H Urine Occult Blood Trace-intact Urine Nitrate Negative Urine Bilirubin Negative Urine Urobilinogen 0.2 Ur Leukocyte Esterase Negative Urine RBC 0-1/hpf Urine WBC 0-1/hpf Ur Squamous Epith Cells 0-1 /hpf Urine Bacteria None seen Ur Culture Indicated? Cult not indicated U Opiates 300ng/mL cut Negative Ur Oxycodone Screen Negative Urine Methadone Screen Negative Ur Barbiturates Screen Negative U Tricyclic Antidepress Negative Ur Phencyclidine Scrn Negative Ur Amphetamines Screen Negative U Methamphetamines Scrn Negative Ur MDMA Scrn (Ecstasy) Negative U Benzodiazepines Scrn Negative Urine Cocaine Screen Negative U Marijuana (THC) Screen Negative Ethyl Alcohol Chlamy pneumoniae PCR Adenovirus (PCR) B. pertussis DNA (PCR) B.parapertussis DNA PCR Coronavirus OC43 (PCR) Coronavirus HKU1 (PCR) Coronavirus 229E (PCR) SARS-CoV-2 (PCR) Negative Coronavirus NL63 (PCR) Human Metapneumovir PCR Influenza Type A (PCR) Influenza Type B (PCR) M. pneumoniae (PCR) Parainfluenza 1 (PCR) Parainfluenza 2 (PCR) Parainfluenza 3 (PCR) Parainfluenza 4 (PCR) RSV (PCR) Entero/Rhino (PCR) 05/22/22 20:30 WBC RBC Hgb Hct MCV MCH MCHC RDW Plt Count Neut % (Auto) Lymph % (Auto) [place] % (Auto) Eos % (Auto) Baso % (Auto) Neut # (Auto) Lymph # (Auto) [place] # (Auto) Eos # (Auto) Baso # (Auto) PT INR APTT Sodium Potassium Chloride Carbon Dioxide BUN Creatinine Estimated GFR BUN/Creatinine Ratio Glucose Calcium Total Bilirubin AST ALT Alkaline Phosphatase Total Creatine Kinase CK-MB (CK-2) CK-MB (CK-2) Rel Index Troponin I NT-Pro-B Natriuret Pep Total Protein Albumin Globulin Albumin/Globulin Ratio Lipase Procalcitonin Urine Color Urine Appearance Urine pH Ur Specific [place] Urine Protein Urine Glucose (UA) Urine Ketones Urine Occult Blood Urine Nitrate Urine Bilirubin Urine Urobilinogen Ur Leukocyte Esterase Urine RBC Urine WBC Ur Squamous Epith Cells Urine Bacteria Ur Culture Indicated? U Opiates 300ng/mL cut Ur Oxycodone Screen Urine Methadone Screen Ur Barbiturates Screen U Tricyclic Antidepress Ur Phencyclidine Scrn Ur Amphetamines Screen U Methamphetamines Scrn Ur MDMA Scrn (Ecstasy) U Benzodiazepines Scrn Urine Cocaine Screen U Marijuana (THC) Screen Ethyl Alcohol Chlamy pneumoniae PCR Not detected Adenovirus (PCR) Not detected B. pertussis DNA (PCR) Not detected B.parapertussis DNA PCR Not detected Coronavirus OC43 (PCR) Not detected Coronavirus HKU1 (PCR) Not detected Coronavirus 229E (PCR) Not detected SARS-CoV-2 (PCR) Not detected Coronavirus NL63 (PCR) Not detected Human Metapneumovir PCR Not detected Influenza Type A (PCR) Not detected Influenza Type B (PCR) Not detected M. 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 Probable Acute CVA -initial NIH of 14, remains elevated on recheck once admitted at 15 -patient with notable severe speech difficulties, aphasia that is expressive -CT head showed no acute process -CT angio head/neck showed concern for stenosis of M2 branch, suspect this may be etiology -for now will order dual antiplatelet with aspirin/plavix -has multiple reactions to different statin, hold off ordering for now -check NIH q4 -MRI brain ordered -ECHO with bubble ordered -check lipids, a1c -she passed swallow screen in the ED -ordered PT/OT and speech evaluation 2. Possible encephalopathy -possibly secondary to stroke -doubt encephalitis or meningitis as has no headache, neck pain -monitor closely for worsening encephalopathy and consider possible infectious cause if not improving 3. Probable congestive heart failure -she has evidence of pulmonary edema, and lower extremity edema -BNP only mildly elevated, but likely lowered in setting of morbid obesity -ordered a dose of IV lasix on admit, consider continuining based on workup -ECHO ordered 4. Type 2 Diabetes on insulin -continue home dose insulin and sliding scale 5. Myasthenia gravis -continue prednisone 40mg daily -has previous notes indicating she was on cellcept, will need to confirm if she takes this or not 6. Fever -temp in ED of 100.4 -noted to have chronic leukocytosis, likely from prednisone -UA negative -chest xray with no consolidation -procalcitonin low -suspect fever is secondary to possible stroke -monitor closely and low threshold to start antibiotics 7. Abdominal pain, improving -CT abdomen in ED showed no acute process 8. Morbid obesity -BMI 49.4 -will affect and compromise healing from stroke -follow up PCP CODE: unknown, unable to state Proxy: Syed Brown, I have utilized all available resources to reconcile the patient's home medications Time Spent With Patient Critical Care time: I spent a total of [] minutes of critical care time on this patient's care today; this time is exclusive of procedural time. Quality VTE Deep Vein Thrombosis/Pulmonary Embolism Present on Admission: No
[2022-05-23 06:55] LABS: Add Manual Diff / Slide Review NO; Basophils Absolute Auto 100 /uL (0-100); Basophils Percent Auto 0.4 % (0-2); Eosinophils Absolute Auto 0 /uL (0-450); Eosinophils Percent Auto 0.2 % (2-4); Hematocrit 42.6 % (36-46); Lymphocytes Absolute Auto 3000 /uL (1100-4500); Lymphocytes Percent Auto 13.3 % (25-40); Mean Corpuscular HGB Conc 32.7 % (30-36); Mean Corpuscular Hemoglobin 26.8 PG (26-34); Mean Corpuscular Volume 81.8 fL (80-100); Monocytes Absolute Auto 1600 /uL (0-900); Monocytes Percent Auto 7.2 % (3-14); Neutrophils Absolute Auto 17800 /uL (1500-7000); Neutrophils Percent Auto 78.9 % (50-75); Platelet Count 217 X10^3/uL (150-400); Red Blood Cell Count 5.21 X10^6/uL (4.0-5.2); Red Cell Distribution Width 14.9 % (11.6-14.8); White Blood Cell Count 22.5 X10^3/uL (4.5-11.0)
[2022-05-23 06:57] LABS: D Dimer 518 ng/ml (<500)
[2022-05-23 07:05] LABS: BUN Creatinine Ratio 24.7 (6-22); Blood Urea Nitrogen 18 mg/dL (7-17); Calcium 8.8 mg/dL (8.4-10.2); Carbon Dioxide 29 mmol/L (22-32); Chloride 100 mmol/L (98-107); Cholesterol 205 mg/dL (140-199); Estimated Glomerular Filt Rate > 60 mL/min (>60); Glucose 272 mg/dL (80-110); HDL Cholesterol 47 mg/dL (40-60); HEMOLYSIS < 15 (0-50); LDL Cholesterol Calculated 127 mg/dL (<100); Magnesium 1.8 mg/dL (1.6-2.3); Phosphorous 4.1 mg/dL (2.8-4.1); Potassium 3.6 mmol/L (3.4-5.1); Sodium 137 mmol/L (137-145); Triglycerides 156 mg/dL (35-150)
[2022-05-23 07:32] LABS: Hemoglobin A1C% w Est Avg Glu 11.6 % (4.0-6.0)
[2022-05-23 09:34] LABS: C-Reactive Protein Quant 3.3 mg/dL (<1.0)
[2022-05-23] MEDS: cefTRIAXone 2,000 MG in SODIUM CHLORIDE 0.9% 100 ML 200 MG IV ×2 (10:19→21:45)
[2022-05-23] MEDS: ENOXAPARIN 40 MG/0.4 ML SYRINGE SUBCUT ×2 (10:33→21:49)
--- NOTE | 2022-05-23 10:47 | SLP.IPNOTE ---
Attempted clinical swallow evaluation with pt at 10:00, but pt was getting an MRI. Attempted again at 10:30 when pt returned from MRI, but pt was too fatigued to participate after repositioning and transportation to and from MRI. Will attempt later today to see if pt's energy improves.
--- NOTE | 2022-05-23 10:50 | PT.IIE ---
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) Hyperlipidemia, mixed (11/13/10) Hypertension Morbid obesity (11/13/10) Myasthenia gravis Panic disorder (11/13/10) SVT (supraventricular tachycardia) Tachycardia Unspecified essential hypertension (11/13/10) Physical Therapy Inpatient Evaluation/Re-Eval M1 PT/OT-IP Prior Functional Status Start: 05/23/22 13:13 Freq: NEEDED Status: Active Protocol: Document 05/23/22 10:50 AB (Rec: 05/23/22 13:26 AB [email or web address]) Medical Review Prior Functional Status Medical History Reviewed Yes Communication inconsistent with anwering questions and decrease ability making eye contact Mobility and Gait spouse in room and provided PLOF and home set up infor: spouse stated that pt is limited with mobility and the maximum ambulation is ~ 20 ft (toilet transfer) using s FWW ; uses a w/c for long distance mobility. spouse stated that he assists pt at home when needed Activities of Daily Living and IADL's spouse stated that pt does not take showers and just sponge bathe due to inability to walk and tolerate showering due to weakness/fatigue but also stated that pt was able to ambulate and use the toilet independently Social History Household Members spouse Number of Floors (Floors) Two Floors Number of Stairs To Enter/Railing? pt stays on main level of the house Home Environment Standard Height Toilet,Walk in Shower Home Equipment Front Wheel Walker,Manual Wheelchair,Power Wheelchair/ Scooter,Shower Seat without Backrest M2 PT-IP Current Condition Start: 05/23/22 13:13 Freq: NEEDED Status: Active Protocol: Document 05/23/22 10:50 AB (Rec: 05/23/22 13:[email or web address] Physical Therapy Current Condition Current Condition Evaluation Date 05/23/22 Treatment Diagnosis r/o CVA; MG; difficulty in walking Onset Date 05/22/22 M3 PT-IP Subjective Start: 05/23/22 13:13 Freq: NEEDED Status: Active Protocol: Document 05/23/22 10:50 AB (Rec: 05/23/22 13:26 [email or web address] Subjective Physical Therapy Visit Type Type Initial Evaluation Visit Start Time 10:50 Visit Stop Time 11:25 Total Visit Minutes 35 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 0 M4 PT-IP Mobility and Gait Start: 05/23/22 13:13 Freq: NEEDED Status: Active Protocol: Document 05/23/22 10:50 AB (Rec: 05/23/22 13:26 [email or web address] PT-Bed Mobility Assessment Supine to Sit Supine to Sit Total Assistance,2 Person Assistance,Head of Bed Elevated,Bedrails Sit to Supine Sit to Supine Maximum Assistance,Total Assistance,2 Person Assistance ,Head of Bed Elevated,Bedrails Scooting Scooting to Edge of Bed Dependent Scooting Up and Down in Bed Dependent PT-Transfer Assessment Comments Mobility Comments pt requiring total A x 2 with supine to sit. total A x 2-3 for scooting to EOB. able to sit on EOB min A. only tolerated ~ 5 min of sitting on EOB and requested to go back to bed. completed sit to supine max A x 2-3 to total A x 2-3. total A x 2-3 for positioning in bed. call light and table placed within reach. PT-Balance Assessment Sitting Balance and Reactions Static Sitting Balance Ability Poor Dynamic Sitting Balance Ability Poor M5 PT-IP Objective Assessments Start: 05/23/22 13:13 Freq: NEEDED Status: Active Protocol: Document 05/23/22 10:50 AB (Rec: 05/23/22 13:26 AB [email or web address]) Orientation Orientation/Cognition Level of Alertness Confusional State Safety Awareness Decreased Safety Awareness Memory Description 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 Strength Lower Extremity Strength Assessment Bilaterally Impaired Comments Strength Comments RLE: 2+/5 LLE: 3-/5 Muscle Tone Muscle Tone WNL No Other Assessments Other Other Assessments RUE flexor tone noted during sitting M6 PT-IP Treatment Start: 05/23/22 13:13 Freq: NEEDED Status: Active Protocol: Document 05/23/22 10:50 AB (Rec: 05/23/22 13:26 AB [email or web address]) Physical Therapy Treatment Education Education Provided Safety M7 PT-IP Assessment and Plan Start: 05/23/22 13:13 Freq: NEEDED Status: Active Protocol: Document 05/23/22 10:50 AB (Rec: 05/23/22 13:26 AB [email or web address]) PT Summary Assessment and Plan Potential Rehabilitation Potential Fair Status of Condition at Evaluation Evolving Summary Impairments Pain,ROM,Strength,Balance, Coordination,Sensation,Tone, Cognition,Bed Mobility, Transfers,Gait,Activity Tolerance Assessment Summary pt requiring total A x 2-3 with mobility and unable to tolerate much activity. pt in the hospital due to possibility of CVA but also has MG affecting weakness and function. will continue to assess progress. Goals Bed Mobility Goal Moderate Assistance Transfer Goal Moderate Assistance,Front Wheeled Walker Gait Goal Moderate Assistance,Front Wheel Walker Gait Distance 20 Other Goals improve bed mobility, transfers using FWW and ambulation using FWW 20 ft CGA Days to Meet Goals 10 Frequency of Treatment Frequency Of Treatment Once a Day Treatment Plan Physical Therapy Treatment Plan Bed Mobility Training,Transfer Training,Gait Training, Therapeutic Exercise,Balance Retraining,Discharge Planning, Hot or Cold Pack,Neuromuscular Re-ed,Coordination Retraining ,Manual Therapy Recommendations To Nursing Amount of Assist Needed Mechanical Lift Discharge Recommendations PT Discharge Recommendations SNF Rehab Transportation Needs at Discharge Stretcher/Ambulance
[2022-05-23 11:28] LABS: Erythrocyte Sedimentation Rate 28 MM/HR (0-20)
[2022-05-23] MEDS: INSULIN GLARGINE 100 UNIT/ML 3ML PEN 35 UNIT SUBCUT ×2 (11:37→22:16)
[2022-05-23] MEDS: NYSTATIN POWDER 15GM 1 APPLIC TOP (11:37)
--- NOTE | 2022-05-23 11:40 | OT.IP.EVAL ---
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) Hyperlipidemia, mixed (11/13/10) Hypertension Morbid obesity (11/13/10) Myasthenia gravis Panic disorder (11/13/10) SVT (supraventricular tachycardia) Tachycardia Unspecified essential hypertension (11/13/10) Surgical History (Last Reviewed 05/23/22 @ 05:13 by Ayan Mckenna MD) History of third molar tooth extraction Status post hernia repair (05/14/16) Status post hysterectomy (05/14/16) Status post laparoscopic cholecystectomy Occupational Therapy Inpatient Evaluation/Re-Eval M1 PT/OT-IP Prior Functional Status Start: 05/23/22 13:13 Freq: NEEDED Status: Active Protocol: Document 05/23/22 11:13 [facility] (Rec: 05/23/22 16:53 [facility] [id number]) Medical Review Prior Functional Status Medical History Reviewed Yes Communication inconsistent with answering questions and decrease ability making eye contact Mobility and Gait spouse in room and provided PLOF and home set up infor: spouse stated that pt is limited with mobility and the maximum ambulation is ~ 20 ft (toilet transfer) using s FWW ; uses a w/c for long distance mobility. spouse stated that he assists pt at home when needed Activities of Daily Living and IADL's spouse stated that pt does not take showers and just sponge bathe due to inability to walk and tolerate showering due to weakness/fatigue but also stated that pt was able to ambulate and use the toilet independently Social History Household Members spouse Living Arrangements House Number of Floors (Floors) Two Floors Number of Stairs To Enter/Railing? pt stays on main level of the house Home Environment Standard Height Toilet,Walk in Shower Home Equipment Front Wheel Walker,Manual Wheelchair,Power Wheelchair/ Scooter,Shower Seat without Backrest M2 OT-IP Current Condition Start: 05/23/22 13:55 Freq: Status: Active Protocol: Document 05/23/22 11:13 [facility] (Rec: 05/23/22 16:53 [facility] [id number]) Occupational Therapy Current Condition Current Condition Evaluation Date 05/23/22 Treatment Diagnosis possible encephalopathy/CVA Diagnosis Onset Date 05/22/22 M3 OT- IP Subjective and Pain Start: 05/23/22 13:55 Freq: Status: Active Protocol: Document 05/23/22 11:13 [facility] (Rec: 05/23/22 16:53 [facility] [id number]) OT- Subjective Occupational Therapy Visit Type Type Initial Evaluation Visit Start Time 11:13 Visit Stop Time 11:40 Total Visit Minutes 27 Occupational Therapy Visit Comments Patient Comments PT already in the room when OT came to see the pt. Patient/Caregiver Goals Pt unable to state. M4 OT- IP ADL's Start: 05/23/22 13:55 Freq: Status: Active Protocol: Document 05/23/22 11:13 [facility] (Rec: 05/23/22 16:53 [facility] [id number]) OT FWM-Hmuw-Nxbonys Comments OT Self-Feeding Comments NOt at meal time, per [employer] note , pt still NPO. OT ADL-Grooming Comments OT Grooming Comments Pt needing hand over hand assist to use her left hand to wash her face. OT ADL-Oral Care Comments Oral Care Comments Not performed. OT ADL-Dressing Comments OT Dressing Comments Pt dependent for all needs. OT ADL-Toileting General Evaluation Toileting Ability Total Assistance Comments OT Toileting Comments Total assist for all needs. OT ADL-Bathing Comments OT Bathing Comments Sponge bath more appropriate at this time. M5 OT- IP IADL's Start: 05/23/22 13:55 Freq: Status: Active Protocol: Document 05/23/22 11:13 [facility] (Rec: 05/23/22 16:53 [facility] [id number]) OT-Instrumental Activities of Daily Living Home Safety Awareness Home Safety Comments Pt very confused and at this time will be dependent for all needs. Medication Management Medication Management Comments Prior pt' s states prior pt able to take her own pills and do her own insulin. M6 OT- IP Functional Cognition Start: 05/23/22 13:55 Freq: Status: Active Protocol: Document 05/23/22 11:13 [facility] (Rec: 05/23/22 16:53 [facility] [id number]) Cognitive Factors Limiting Selfcare Function Cognitive Ability Level of Alertness Confusional State,Drowsy Patient Orientation Name Ability to Follow Commands Able to Follow One Step Commands with Increased Time, Able to Follow One Step Commands with Repetition Memory Description 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,Halfway Impaired,Working Impaired Problem Solving Ability Unable to Identify Errors, Needs Assist to Identify Solutions Cognitive Comments Cognitive Assessment Comments Pt mainly just orientated to her name. M7 OT- IP Mobility and Balance Start: 05/23/22 13:55 Freq: Status: Active Protocol: Document 05/23/22 11:13 [facility] (Rec: 05/23/22 16:53 [facility] [id number]) OT- Bed Mobility Assessment Rolling Level of Assistance Total Assistance,2 Person Assistance Supine to Sit Supine to Sit Assist Total Assistance,2 Person Assistance Sit to Supine Sit to Supine Assist Total Assistance,2 Person Assistance OT-Transfer Assessment Comments Mobility Comments Pt needing total assist 2-3 for all bed mobility needs. BRIJESH for balance while sitting on the EOB. OT- Balance Assessment Sitting Balance and Reactions Static Sitting Balance Ability Poor Dynamic Sitting Balance Ability Poor M8 OT- IP Objective Assessments Start: 05/23/22 13:55 Freq: Status: Active Protocol: Document 05/23/22 11:13 [facility] (Rec: 05/23/22 16:53 [facility] [id number]) OT Gross Range of Motion Upper Extremity Range of Motion Assessment Bilaterally Impaired OT Strength Comments Strength Comments LUE 3-/5, RUE 2-/5 OT- Coordination Assessment Upper Extremity Finger to Nose Test Bilateral UE Impaired Finger Tapping Test Bilateral UE Impaired OT-Muscle Tone Assessment Muscle Tone WNL No Comments Muscle Tone Comments Hypertonicity with RUE M9 OT- IP Assessment and Plan Start: 05/23/22 13:55 Freq: Status: Active Protocol: Document 05/23/22 11:13 [facility] (Rec: 05/23/22 16:53 [facility] [id number]) OT Summary Assessment and Plan Potential Rehabilitation Potential Fair Analytic Complexity at Evaluation High Summary OT Impairments Pain,Range of Motion,Strength, Balance,Coordination,Tone, Functional Cognition, Functional Mobility,Self- Feeding,Grooming,Dressing, Toileting,Bathing,Toilet Transfers,Shower Transfers, Activity Tolerance Progress Towards Goals Slow Progress due to Medical Issues,Slow Progress due to Activity Tolerance,Slow Progress due to Cognition Assessment Summary Pt High complexity and needing extensive 2-3 total assist for bed mobility needs. Pt dependent for all her needs at this time. Pt having increased tone in RUE. Pt will benefit from skilled rehab. Goals Grooming Goal Standby Assistance Dressing Goal Minimal Assistance Toileting Goal Minimal Assistance Bathing Goal Moderate Assistance Toilet Transfer Goal Minimal Assistance Shower Transfer Goal Moderate Assistance Days to Meet Goals 30 Frequency of Treatment Frequency Of Treatment Once a Day Treatment Plan OT Treatment Plan ADL Training,Functional Cognition Training,Functional Mobility,Neuromuscular Re- education,Patient/Family Education,Discharge Planning Discharge Recommendations OT Discharge Recommendations SNF Rehab Transportation Needs at Discharge Stretcher/Ambulance
--- NOTE | 2022-05-23 12:09 | SLP.IPNOTE ---
Attempted clinical swallow evaluation with pt at 11:50. Pt expressed that she is still fatigued and refused to participate in OME or PO trials of any kind. Provided education that pt will remain NPO until her swallow is assessed and YARN MAN will not be able to return until tomorrow. Pt expressed understanding and maintained refusal to participate at this time. Recommend continued NPO diet until swallow assessment is completed, will attempt again tomorrow.
--- NOTE | 2022-05-23 13:14 | CM.DANOTE ---
DCP Assessment: Payor confirmed: Medicare & [facility] PCP confirmed: Jose Clement MD Pt is a 72 y.o. F who presented to the hospital with symptoms of a stroke. Pt brought up to the floor for further workup and evaluation of symptoms and diagnosis. DCP met with the pt spouse and daughter at the bedside this afternoon. Pt unable to provide DCP with any information. Pt laying in bed with eyes closed. DCP introduced herself and role. Per spouse, pt lives with him on [address] in a house where he states that they live on the main floor. He states that she uses a wheelchair and walker at baseline. Denies home O2. Pt spouse wondering what the plan is moving forward due to the fact that the pt could not get her MRI this morning. DCP verbalized that the MD will need to make that decision. White board was updated and instructed to call if any questions arise. Pt spouse thankful for discussion. P: Unclear needs at this time. Awaiting further plan from MD. DCP to continue to follow case. Ariadna Coppola RN/JAILENE Discharge Planning/Care Management CM Discharge Assessment Start: 05/23/22 13:10 Freq: Status: Active Protocol: Document 05/23/22 13:11 [facility] (Rec: 05/23/22 13:14 [id number]) Discharge Planning Assessment Assigned Information Clerk Ariadna Coppola RN/JAILENE Advance Directives? No History Provided By Medical Record Prior Living Arrangements House Household Members spouse Type of transporation used prior to Relies on Others admit Independent with ADL's Yes Is patient alert and oriented? No Caregiver for Another No DME Already Rented / Owned Wheelchair,FWW / Walker Transportation Arrangement Unknown at this time Referrals Initiated Other Additional Comment Awaiting further plan Whiteboard Updated in Patient Room with Yes name and ext. # of Information Clerk Comment Instructed to call Review Status In Process Please Provide Date Initial DC 05/23/22 Assessment Was Performed Next Review Type Continued Stay Review
--- NOTE | 2022-05-23 14:08 | PC.NURSE ---
Day shift note: Patient off floor to MRI. MRI not performed due to size of MRI. Speech at bedside for evaluation x 2, both times patient refused therapy. Patient continue NPO due to safety and aspiration risk. Dr. Myers notified regarding MRI and speech eval not performed. Also notified regarding the need of PO home medication route may need to be changed (Metropolol, Prednisone).
[2022-05-23] MEDS: INSULIN REGULAR 100 UNIT/ML 3 ML VIAL SUBCUT ×2 (17:51→22:20)
[2022-05-24] MEDS: NYSTATIN POWDER 15GM 1 APPLIC TOP (00:22)
[2022-05-24 02:00] VITALS: BP 167/78; PULSE 92; RESP 20; TEMP 36.8; O2SAT 96
[2022-05-24] MEDS: INSULIN REGULAR 100 UNIT/ML 3 ML VIAL SUBCUT ×4 (04:06→20:25)
[2022-05-24 06:00] VITALS: BP 160/79; PULSE 90; RESP 18; TEMP 36.4; O2SAT 95
[2022-05-24 06:32] LABS: BUN Creatinine Ratio 29.3 (6-22); Blood Urea Nitrogen 22 mg/dL (7-17); Calcium 8.7 mg/dL (8.4-10.2); Carbon Dioxide 28 mmol/L (22-32); Chloride 102 mmol/L (98-107); Estimated Glomerular Filt Rate > 60 mL/min (>60); Glucose 236 mg/dL (80-110); HEMOLYSIS < 15 (0-50); Potassium 4.2 mmol/L (3.4-5.1); Sodium 137 mmol/L (137-145)
[2022-05-24 06:45] LABS: Add Manual Diff / Slide Review NO; Basophils Absolute Auto 100 /uL (0-100); Basophils Percent Auto 0.3 % (0-2); Eosinophils Absolute Auto 0 /uL (0-450); Eosinophils Percent Auto 0.1 % (2-4); Hematocrit 42.9 % (36-46); Hemoglobin 13.7 g/dL (12.0-16.0); Lymphocytes Absolute Auto 1200 /uL (1100-4500); Lymphocytes Percent Auto 6.7 % (25-40); Mean Corpuscular Hemoglobin 26.6 PG (26-34); Mean Corpuscular Volume 83.1 fL (80-100); Monocytes Absolute Auto 800 /uL (0-900); Monocytes Percent Auto 4.3 % (3-14); Neutrophils Absolute Auto 15900 /uL (1500-7000); Neutrophils Percent Auto 88.6 % (50-75); Platelet Count 213 X10^3/uL (150-400); Red Blood Cell Count 5.16 X10^6/uL (4.0-5.2); Red Cell Distribution Width 14.6 % (11.6-14.8)
--- NOTE | 2022-05-24 08:27 | P.PN_ITS ---
Subjective Subjective Date Patient Seen: 05/24/22 Interval history: Patient improving in terms of speech and aphasia. She is having more pain in her legs today and requesting her home gabapentin and xanax. She passed swallow eval and is now on dysphagia diet. Exam Vital Signs (past 8 hours): - 05/24/22 02:00 05/24/22 06:00 Temperature 98.3 F 97.5 F L Pulse Rate 92 H 90 Respiratory Rate 20 18 Blood Pressure 167/78 H 160/79 H Pulse Oximetry 96 95 Oxygen Flow Rate 0 0 Oxygen Delivery Method Room Air Oxygen Flow Rate 0 Narrative Exam Narrative: GEN: no acute distress, appears uncomfortable HEENT: moist mucous membranes, PERRL NECK: trachea midline, no JVD PULM: crackles bilaterally CV: tacycardic, regular, no murmurs ABD: soft, nontender, nondistended, no organomegaly EXT: warm and well perfused with edema NEURO: awake, alert, and able to follow commands. Still with some aphasia and getting words out. Objective Labs Result Diagrams: 05/24/22 05:40 05/24/22 05:40 Labs: Laboratory Results - last 24 hr 05/23/22 05/23/22 05/24/22 06:35 Unknown 05:40 WBC 18.0 H RBC 5.16 Hgb 13.7 Hct 42.9 MCV 83.1 MCH 26.6 MCHC 32.0 RDW 14.6 Plt Count 213 Neut % (Auto) 88.6 H Lymph % (Auto) 6.7 L [place] % (Auto) 4.3 Eos % (Auto) 0.1 L Baso % (Auto) 0.3 Neut # (Auto) 21467 H Lymph # (Auto) 1200 [place] # (Auto) 800 Eos # (Auto) 0 Baso # (Auto) 100 ESR 28 H Sodium Potassium Chloride Carbon Dioxide BUN Creatinine Estimated GFR BUN/Creatinine Ratio Glucose Calcium C-Reactive Protein 3.3 H 05/24/22 05:40 WBC RBC Hgb Hct MCV MCH MCHC RDW Plt Count Neut % (Auto) Lymph % (Auto) [place] % (Auto) Eos % (Auto) Baso % (Auto) Neut # (Auto) Lymph # (Auto) [place] # (Auto) Eos # (Auto) Baso # (Auto) ESR Sodium 137 Potassium 4.2 Chloride 102 Carbon Dioxide 28 BUN 22 H Creatinine 0.75 Estimated GFR > 60 BUN/Creatinine Ratio 29.3 H Glucose 236 H Calcium 8.7 C-Reactive Protein [facility] Medical History Diabetes type 2, uncontrolled (07/15/11) Gastroparesis due to DM (11/13/10) 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 Probable acute CVA -initial NIH of 14, remains elevated on recheck once admitted at 15 -patient with notable severe speech difficulties, aphasia that is expressive -CT head showed no acute process -CT angio head/neck showed concern for stenosis of M2 branch, suspect this may be etiology -for now will order dual antiplatelet with aspirin/plavix -has multiple reactions to different statin, hold off ordering for now -check NIH q4 -MRI brain ordered, but pt too large to fit in MRI scanner -attempting transfer for MRI to then come back here -ECHO with bubble showed EF 60-65% and no intraatrial shunt, new mod -check lipids, a1c 11.6% -ordered PT/OT and speech evaluation 2. Possible encephalopathy, improving -possibly secondary to stroke -doubt encephalitis or meningitis as has no headache, neck pain -monitor closely for worsening encephalopathy and consider possible infectious cause if not improving 3. Probable congestive heart failure -she has evidence of pulmonary edema, and lower extremity edema -BNP only mildly elevated, but likely lowered in setting of morbid obesity -ordered a dose of IV lasix on admit, consider continuining based on workup -ECHO ordered 4. Type 2 Diabetes on insulin -continue home dose insulin and sliding scale -A1c 11.6%, likely due to chronic steroids -dietary consult 5. Myasthenia gravis -continue prednisone 40mg daily -has previous notes indicating she was on cellcept, will need to confirm if she takes this or not 6. Fever, resolved -temp in ED of 100.4 -noted to have chronic leukocytosis, likely from prednisone -UA negative -chest xray with no consolidation -procalcitonin low -suspect fever is secondary to possible stroke -monitor closely and low threshold to start antibiotics 7. Abdominal pain, improving -CT abdomen in ED showed no acute process 8. Morbid obesity -BMI 49.4 -will affect and compromise healing from stroke -follow up PCP CODE: DNR Proxy: Syed Kevin, I have utilized all available resources to reconcile the patient's home medications Time Spent With Patient Critical Care time: I spent a total of [] minutes of critical care time on this patient's care today; this time is exclusive of procedural time. Quality VTE Deep Vein Thrombosis/Pulmonary Embolism Present on Admission: No
[2022-05-24] MEDS: cefTRIAXone 2,000 MG in SODIUM CHLORIDE 0.9% 100 ML 200 MG IV (10:08)
[2022-05-24] MEDS: INSULIN GLARGINE 100 UNIT/ML 3ML PEN 35 UNIT SUBCUT ×2 (10:09→20:25)
[2022-05-24] MEDS: ENOXAPARIN 40 MG/0.4 ML SYRINGE SUBCUT ×2 (10:10→20:26)
[2022-05-24] MEDS: HYDROMORPHONE 0.5 MG INJ IV ×2 (11:50→20:13)
[2022-05-24] MEDS: METOPROLOL ER 50 MG TABLET 100 MG PO ×2 (11:51→20:24)
[2022-05-24] MEDS: CLOPIDOGREL 75 MG TABLET PO (11:51)
[2022-05-24] MEDS: GABAPENTIN 600 MG TABLET PO ×2 (11:51→20:13)
[2022-05-24] MEDS: predniSONE 20 MG TABLET 40 MG PO (11:52)
[2022-05-24] MEDS: ASPIRIN EC 81 MG TABLET PO (11:54)
--- NOTE | 2022-05-24 11:57 | PT-IP ANOTE ---
Checked on pt 11:57. Nursing just administered pain meds. Will check back later.
[2022-05-24 12:00] VITALS: BP 192/82; PULSE 98; RESP 18; TEMP 36.6; O2SAT 92
--- NOTE | 2022-05-24 12:21 | ST.IPCSEOM ---
Visit Care Team Role Provider Type Jose Clement MD Primary Care Provider Physician Specialty: Family Practice Address: [address] [place] [address], [id number] Email: [email or web address] Capo Young MD Emergency Provider Physician Referring Provider Specialty: Emergency Medicine Address: [address] [place] [address], [address] Email: [email or web address] Mckenna MD Admit Provider Physician Attending Provider Specialty: Hospitalist Address: [address] [place] [address], [address] Fax: Email: [email or web address] Current Diagnoses Cerebral infarction, unspecified (05/22/22) Past Medical History (Last Reviewed 05/23/22 @ 05:13 by Ayan Mckenna MD) Diabetes type 2, uncontrolled (Medical 07/15/11) Gastroparesis due to DM (Medical 11/13/10) Grade 1 malignant neoplasm of endometrium (Medical 09/24/16) Hyperlipidemia, mixed (Medical 11/13/10) Hypertension (Medical) Morbid obesity (Medical 11/13/10) Myasthenia gravis (Medical) Panic disorder (Medical 11/13/10) SVT (supraventricular tachycardia) (Medical) Tachycardia (Medical) Unspecified essential hypertension (Medical 11/13/10) Speech-Language Pathology Swallow Evaluation [employer] Clinical Swallow Evaluation Start: 05/24/22 11:09 Freq: Status: Active Protocol: Document 05/24/22 11:09 [facility] (Rec: 05/24/22 11:21 [facility] [id number]) Clinical Swallow Evaluation Session Time Visit Start Time 09:30 Visit Stop Time 10:10 Total Visit Minutes 40 Visit Information Visit Number 1 Setting Assessment Location Acute Care Visit Type Note Type Initial evaluation Next Note Type Next Note Type Treatment Note Patient Information Identification Type Name History Per H&P: Pt is a 72W with PMH DM, gastroparesis, HTN, HL, myasthenia gravis on chronic steroids who presents to the hospital with altered mental status and difficulty with speaking. Per reports she began to have garbled speech at unclear time but possibly at approximately 3:30pm on 05/23, EMS was called to her house about one hour later. She had apparently had waxing and waning symptoms in that period , with episodes of improved speech and then worsening, with some noted lower extremity weakness. Since arriving to the ED she has had persistent garbled speech. She is clearly able to follow commands but has difficulty with speaking words and can only say yes/no and her name clearly. There has been some concern from staff about some mild confusion. There was some question about taking additional benzos accidentally that may have cause encephalopathy, but after ED physician discussion with family this was thought to be quite unlikely. In the ED workup was done, vitals notable for tachycardia and elevated blood pressure. Tmax 100.4. Labs notable for WBC 23.1, hgb 15.2, plts 260, creatinine 0.82. UA negative. Urine drug screen negative. COVID negative. CT head with no acute process. CTA head neck shows diminutive left M2 branch compared to 2020 concerning for stenosis. Initial NIH score of 14. Per the ED physician there were multiple discussions had between himself and the stroke physician about TPA, and ultimately it was decided that she was not a candidate for TPA due to uncertain time of onset and improving symptoms. She was ordered for aspirin and admitted for further treatment. When I saw her she was indicating possible pain in her abdomen and had CT scan for further evaluation. Pt passed NSG swallow screening in ED and per NSG, another swallow screen was performed when pt was admitted to acute care, on which she did not perform well. Pt was NPO yesterday and refused to participate in swallow assessment due to high levels of fatigue. Subjective Observations Pt was semi-reclined in bed with relative at bedside when [employer] arrived. She presented with significantly improved speech, communicating in complete sentences with mild word finding difficulty and semantic paraphasias. Pt agreed to participate in swallow evaluation and was repositioned to mostly upright position to accommodate upper back pain. Reported by Patient Location Upper Back Current Diet Nothing by mouth Baseline Feeding Method Independent in self-feeding Objective Assessment Mental Status Alert,Responsive,Cooperative Oral Integrity WFL Dentition Within normal limits,Missing teeth Lip Function Moderate impairment Observation of Lips at Rest Symmetrical Comment Completed oral motor exam with pt. Pt and relative indicated current medications to treat myasthenia gravis negatively impact pt's ability to move her face. All labial movements were performed as a smile (e. g., when prompted to pucker lips or puff cheeks with air, pt repeated smile motion) and significantly reduced tongue strength and ROM were observed for protrusion, elevation, and depression. Pt and relative stated smile has reduced ROM as well. Pt was missing 2 lower teeth and relative reported one had fallen out just prior to admission to and pt stated she is still experiencing pain from missing tooth. Food and Liquid Trials Position During Assessment Slightly reclined,In bed Liquids Trialed Thin Solids Trialed Puree Administration Type Straw,Self-feeding,Needs some assistance Oral Impairment Within normal limits Oral Phase Comments Pt exhibited no anterior loss of bolus. Mastication and a/p propulsion appeared WNL, though bite sizes were very small. Pt exhibited no residue following oral intake. She reported mild pain with intake of applesauce and stated smaller quantities are easier. Did not complete textures beyond puree due to tooth pain with oral intake. Pharyngeal Impairment Within normal limits Pharyngeal Phase Comments Pt coughed on 1/3 trials of thin liquids through straw cup . Cough was dry and pt reported no difficulty swallowing. Otherwise, no overt signs or symptoms of aspiration were observed across all PO trials. Comment Minimal trials completed, though fatigue may be a factor with a larger meal. Likely pt will experience pain prior to reaching point of fatigue, though continued monitoring/ assessment is required to determine this. Findings Swallowing Function Oral phase dysphagia Swallowing Function Comments Secondary to pain related to missing tooth. Contributing Factors to Swallow Mastication inefficiency Impairment Prognosis Fair Based on Comorbidities Comment The pt presents with oral dysphagia secondary to tooth pain that interferes with oral intake. Additionally, upright positioning is challenging given pt's upper back pain. Recommend continued monitoring of oral intake and pain with advancement of diet as indicated. In addition to dysphagia, pt presents with some word finding difficulty and paraphasias when communicating. Recommend assessment and treatment of communication deficits in future session. Impact on Safety and Functioning Risk for inadequate nutrition/ hydration Recommendations Instrumental Assessment No Swallowing Treatment Yes Recommended Solids Puree Recommended Liquids Thin Safety Precautions/Swallowing Feed only when alert,Reduce Recommendations distractions,Remain upright ( 90 degrees) during all oral intake,Upright position at least 30 minutes after meals Medication Recommendations Crushed in Carrier Education Patient/Caregiver Education Described results of evaluation,Patient expressed understanding of evaluation, Patient expressed agreement with goals & treatment plans, Patient expressed understanding of safety precautions,Patient expressed understanding of feeding recommendations,Patient requires further education/ training Goals Short-term Goals 1. Pt will participate in speech/language assessment due to concerns for word finding difficulty. 2. Pt will perform safe swallow strategies with oral intake independently to reduce risk of aspiration. Long-term Goals Pt will safely tolerate least restrictive diet to meet her nutrition and hydration needs.
--- NOTE | 2022-05-24 12:24 | PC.NURSE ---
Assess- Patient is alert and oriented x3, she is having some expressive aphagia which is upsetting to her. Patients NIH was a 13 at this time. She cannot lift her arms out of weakness, not necessarily deficit from CVA. She is able to lift both of her legs s any problems. Blood sugar 241, given insulin. Patient only wanted 20u of her glargine instead of 35. She was also given 4u of regular insulin. Patient has some issues with her skin that can be seen under physical assessment. Patient was shaking earlier and she was given 0.5mg of iv dilaudid and this was helpful to her. She also seen speech and she is a dysphagia diet with thin liquids and crushed medication. She was given her gabapentin, which is also helpful with her soar legs.
--- NOTE | 2022-05-24 13:06 | PT-IP ANOTE ---
Checked with pt 1258. Stated she was too nauseated and fatigued for therapy. Will check back tomorrow.
--- NOTE | 2022-05-24 13:11 | OT.IPNOTE ---
Attempted to see pt a second time as first time pt just getting pain medications. Pt now feeling nauseous and pt not wanting to do therapy at this time, nursing aware.
[2022-05-24] MEDS: LOSARTAN 50 MG TABLET 100 MG PO ×2 (15:28→20:24)
[2022-05-24 18:00] VITALS: BP 157/64; PULSE 95; RESP 22; TEMP 36.2; O2SAT 93
[2022-05-24] MEDS: ONDANSETRON 4 MG/2 ML INJ IV (20:13)
[2022-05-24 23:59] VITALS: BP 147/75; PULSE 88
[2022-05-25] VITALS (8 sets, daily range): BP systolic 106–156; BP diastolic 50–75; PULSE 64–90; RESP 20–22; TEMP 35.9–36.6; O2SAT 92–98
[2022-05-25] MEDS: HYDROMORPHONE 0.5 MG INJ IV (02:27)
[2022-05-25] MEDS: ALPRAZolam 0.5 MG TABLET 0.25 MG PO (02:28)
[2022-05-25 05:39] LABS: Add Manual Diff / Slide Review NO; Basophils Absolute Auto 100 /uL (0-100); Basophils Percent Auto 0.3 % (0-2); Eosinophils Absolute Auto 100 /uL (0-450); Eosinophils Percent Auto 0.3 % (2-4); Hematocrit 41.8 % (36-46); Hemoglobin 13.6 g/dL (12.0-16.0); Lymphocytes Absolute Auto 2200 /uL (1100-4500); Lymphocytes Percent Auto 10.6 % (25-40); Mean Corpuscular HGB Conc 32.6 % (30-36); Mean Corpuscular Hemoglobin 26.9 PG (26-34); Mean Corpuscular Volume 82.6 fL (80-100); Monocytes Absolute Auto 1200 /uL (0-900); Monocytes Percent Auto 5.8 % (3-14); Neutrophils Absolute Auto 17600 /uL (1500-7000); Platelet Count 214 X10^3/uL (150-400); Red Blood Cell Count 5.06 X10^6/uL (4.0-5.2); Red Cell Distribution Width 14.4 % (11.6-14.8); White Blood Cell Count 21.1 X10^3/uL (4.5-11.0)
[2022-05-25 05:48] LABS: BUN Creatinine Ratio 39.3 (6-22); Blood Urea Nitrogen 35 mg/dL (7-17); Calcium 8.6 mg/dL (8.4-10.2); Carbon Dioxide 28 mmol/L (22-32); Chloride 100 mmol/L (98-107); Estimated Glomerular Filt Rate > 60 mL/min (>60); Glucose 224 mg/dL (80-110); HEMOLYSIS < 15 (0-50); Potassium 3.9 mmol/L (3.4-5.1); Sodium 134 mmol/L (137-145)
--- NOTE | 2022-05-25 06:29 | PC.NURSE ---
Patient resting in bed all shift. Repositioned few times. pain meds effective for pain. NIH was 1 d/t slurring of speech. Patient has been A&O, calm and cooperative.
[2022-05-25] MEDS: INSULIN GLARGINE 100 UNIT/ML 3ML PEN 35 UNIT SUBCUT ×2 (07:56→21:52)
[2022-05-25] MEDS: INSULIN REGULAR 100 UNIT/ML 3 ML VIAL SUBCUT ×4 (07:56→21:28)
--- NOTE | 2022-05-25 08:21 | PC.NURSE ---
Patient is more alert and oriented x3 today. She is eating her cream of wheat. Blood sugar is 199, 20u of lantus given at patients request. She states that 35u is to much for her. She was also given 4u or regular insulin. Patient has some skin issues that can be seen under physical assessment, she is getting nystatin under her folds for redness. She denies any pain or discomfort at this time.
--- NOTE | 2022-05-25 09:19 | CM.DPC ---
DCP Cont: Called Shirley at [facility] and asked her to review patient, as notes indicate, patient may need residential. Will discuss with patient further, and will consult with P.T. Patient is Medicare, and has been inpatient since 05-22. [facility] has no beds until Friday, and have calls out to both [facility] and [facility] to see if there are beds available. P: DCP to continue to follow. Will see how patient does with P.T. today. Nancy Norton RN/Order Booker
[2022-05-25] MEDS: ENOXAPARIN 40 MG/0.4 ML SYRINGE SUBCUT ×2 (10:13→21:25)
[2022-05-25] MEDS: predniSONE 20 MG TABLET 40 MG PO (10:14)
[2022-05-25] MEDS: ASPIRIN EC 81 MG TABLET PO (10:14)
[2022-05-25] MEDS: NYSTATIN POWDER 15GM 1 APPLIC TOP (10:15)
[2022-05-25] MEDS: CLOPIDOGREL 75 MG TABLET PO (10:19)
--- NOTE | 2022-05-25 10:59 | CM.DPC ---
Addendum entered by Nancy Norton R.N. 05/25/22 14:58: Patient's sister, Myrna, marked on Medicare Choice list, 2nd choice is [facility], and third choice is [facility]. Have already sent these referrals. Left Sendy at [facility] a message, and spoke to Leona at [facility]. She does have bariatric bed. She will review, for possible admission on Friday. Addendum entered by Nancy Norton R.N. 05/25/22 14:38: As back ups, sent referral to [facility], [facility], and [facility]. Sister is still looking over the Medicare Choice List, and have already gone over the reviews. Will plan on meeting with them again tomorrow, sister goes back to [place]. Addendum entered by Nanyc Norton R.N. 05/25/22 11:56: Met with spouse, Syed. He is hopeful that [facility] can accept, but there is no confirmation that they can accept. Patient's sister is hopeful she can go down to the [facility] as second choice. This DC Typing Bookkeeper is not familiar with these facilities. Asked daughter if she can research and give this DC Typing Bookkeeper numbers. Did meet again with spouse and sister. Shirley at [facility] indicated, she does not currently have a bariatric bed, she stated, may not have until Friday or Friday. She will continue to update this DC Typing Bookkeeper. Brought in ipad with reviews. Encouraged spouse to look at the [facility] option of facilities, for if there is a place down in the [facility], uncertain as to availabilities, and transport most likely would be private, thousands of dollars. Spouse and sister will look at other options, locally. They stated, are you just going to boot her out, have already received a call from Medicare. Let them know that hospitalist will discharge patient when medically stable and has a facility of acceptance. Original Note: DCP Cont: Met with patient in her room, sister was at bedside. Discussed custodial possibility, has been recommended by therapy. Gave Medicare Choice List, and reviewed some facilities. Sister indicated, she lives in [place], but her most likely would want her here in town, but there's one facility that he does not want her to go to. Encouraged patient/spouse, to make three choices. [facility] is already reviewing. P: DCP to follow up with patient and spouse today regarding facilities. Nancy Norton RN/Upset Welding Machine Operator
[2022-05-25] MEDS: MORPHINE 2 MG/ML INJ IV (11:37)
--- NOTE | 2022-05-25 14:00 | PT.IPTN ---
Current Diagnoses Cerebral infarction, unspecified (05/22/22) Physical Therapy Treatment Note M2 PT-IP Current Condition Start: 05/23/22 13:13 Freq: NEEDED Status: Active Protocol: Document 05/23/22 10:50 AB (Rec: 05/23/22 13:26 AB [id number]) Physical Therapy Current Condition Current Condition Evaluation Date 05/23/22 Treatment Diagnosis r/o CVA; MG; difficulty in walking Onset Date 05/22/22 M3 PT-IP Subjective Start: 05/23/22 13:13 Freq: NEEDED Status: Active Protocol: Document 05/25/22 13:33 LJ (Rec: 05/25/22 14:00 LJ [id number]) Subjective Physical Therapy Visit Type Type Treatment Note Visit Start Time 13:02 Visit Stop Time 13:26 Total Visit Minutes 24 Number of BOTTLE CAPPER Visits 1 Physical Therapy Visit Comments Patient Comments Willing to get out of bed and sit in chair M4 PT-IP Mobility and Gait Start: 05/23/22 13:13 Freq: NEEDED Status: Active Protocol: Document 05/25/22 13:33 LJ (Rec: 05/25/22 14:00 LJ [id number]) PT-Bed Mobility Assessment Supine to Sit Supine to Sit Minimal Assistance,2 Person Assistance,Head of Bed Elevated,Bedrails Scooting Scooting to Edge of Bed Maximum Assistance PT-Transfer Assessment Sit to and From Stand Sit to and from Stand Contact Guard Assistance, Minimal Assistance,1 Person Assistance,2 Person Assistance ,Use of Upper Extremities Equipment Transfer Assistive Device Gait Belt,4 Wheeled Walker Transfers Transfer Destination Chair Transfer Technique ambulated several steps Comments Mobility Comments Pt requiring Kayden x1 for moving to sitting position from minimally reclined position with HOB elevated as much as possible. Kayden x1 to move LEs to side of bed. MaxA x2 to scoot to side of bed in order to get feet on floor. Sit>stand from bed Kayden x2 and FWW. Pt then took several small steps with FWW to transfer to standing in front of chair. Pt stood in front of chair roughly 5 seconds then lost her balance and sat down in chair. She rested for ~5 min then stood from chair using arm rests CGA x1 with cues to extend trunk fully. Pt then began walking toward the bed but this therapist instructed her to stay in the chair for nursing to change bedding. She was able to remain standing ~30sec then reached back for the arm rests and lowered herself down into the chair plopping at the end of lowering her buttocks. She was instructed that she not attempt to get out of the chair withut assistance. Given all needs within reach. Gait Assessment Gait Gait Assistance Required: Minimum Assistance,1 Person Assist Distance (Feet) 3 Assistive Devices Assistive Device Gait Belt,Front Wheeled Walker Gait Deviations General Gait Pattern Antalgic,Decreased Stride Length,Decreased Feet Clearance,Step-to Gait Factors Limiting Gait Function Factors Limiting Gait Function Decreased Activity Tolerance, Decreased Sensation,Decreased Strength,Incoordination, Limited Range of Motion,Pain, Poor Balance,Poor Safety Awareness Comments Gait Comments see mobility section PT-Balance Assessment Sitting Balance and Reactions Static Sitting Balance Ability Good Dynamic Sitting Balance Ability Good M5 PT-IP Objective Assessments Start: 05/23/22 13:13 Freq: NEEDED Status: Active Protocol: Document 05/23/22 10:50 AB (Rec: 05/23/22 13:26 AB [id number]) Orientation Orientation/Cognition Level of Alertness Confusional State Safety Awareness Decreased Safety Awareness Memory Description 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 Strength Lower Extremity Strength Assessment Bilaterally Impaired Comments Strength Comments RLE: 2+/5 LLE: 3-/5 Muscle Tone Muscle Tone WNL No Other Assessments Other Other Assessments RUE flexor tone noted during sitting M6 PT-IP Treatment Start: 05/23/22 13:13 Freq: NEEDED Status: Active Protocol: Document 05/25/22 13:33 LJ (Rec: 05/25/22 14:00 [id number]) Physical Therapy Treatment Exercises Exercises Ankle Pumps,Heel Slides, Straight Leg Raises Education Education Provided Safety M7 PT-IP Assessment and Plan Start: 05/23/22 13:13 Freq: NEEDED Status: Active Protocol: Document 05/25/22 13:33 LJ (Rec: 05/25/22 14:00 [id number]) PT Summary Assessment and Plan Potential Rehabilitation Potential Fair Status of Condition at Evaluation Evolving Summary Impairments Pain,ROM,Strength,Balance, Coordination,Sensation,Tone, Cognition,Bed Mobility, Transfers,Gait,Activity Tolerance Progress Towards Goals Slow Progress due to Medical Issues,Slow Progress due to Activity Tolerance Assessment Summary Pt much improved with mobility this session. Transfering from HOB upright she required Kayden x1 to sitting fully upright position in bed. Required VC and assist with RLE to move to sitting on side of bed. Kayden x2 for sit>stand from bed. Pt did not need 2 persons but due to being unsurehow stable she would be 2 people assisted. Pt stood then immediately began walking to chair 3 feet away. She was able to position herself in front of the chair with VCs and she sat down using arm rests and CGA. Pt then rested for 5 minutes and stood from chair pushing off arm rests with KAYDEN -CGA. She stood for 30 seconds then lowered herself down into the chair with arm rests. Left in chair with all needs within reach. She will require SNF to improve her strength, mobility , transfers, and ambulation to be able to return home with 06/01 assist Goals Bed Mobility Goal Moderate Assistance Transfer Goal Moderate Assistance,Front Wheeled Walker Gait Goal Moderate Assistance,Front Wheel Walker Gait Distance 20 Other Goals improve bed mobility, transfers using FWW and ambulation using FWW 20 ft CGA Days to Meet Goals 10 Frequency of Treatment Frequency Of Treatment Once a Day Treatment Plan Physical Therapy Treatment Plan Bed Mobility Training,Transfer Training,Gait Training, Therapeutic Exercise,Balance Retraining,Discharge Planning, Hot or Cold Pack,Neuromuscular Re-ed,Coordination Retraining ,Manual Therapy Recommendations To Nursing Amount of Assist Needed 2 Person Assist Discharge Recommendations PT Discharge Recommendations SNF Rehab Transportation Needs at Discharge Stretcher/Ambulance
[2022-05-25] MEDS: TRAMADOL 50 MG TABLET PO (15:51)
[2022-05-25] MEDS: GABAPENTIN 600 MG TABLET PO (15:51)
[2022-05-25] MEDS: ONDANSETRON 4 MG ODT SL (15:51)
--- NOTE | 2022-05-25 18:51 | PM.PN.1 ---
Subjective Subjective Date Patient Seen: 05/25/22 Interval history: 72yo female with DM2, class 3 obesity, gastroparesis, HTN, HL, myasthenia gravis on chronic steroids who presents to the hospital with altered mental status and probable acute CVA. She also had brief self-limited runs of SVT. Patient reports she was feeling pretty good this morning. This afternoon she is feeling more fatigued. She is receptive to the need to go to nursing home for rehab. She does complain that she has been steroid dependent for her myasthenia for the past couple of years and has gained significant amounts of weight. She states she had been on immunotherapy in the past but did not tolerate it. Her sister who is at bedside notes that there had been discussions about IVIG as an option for her but the insurance would not approve it. Exam Vital Signs (past 8 hours): - 05/24/22 12:00 05/24/22 18:00 Temperature 97.9 F 97.2 F L Pulse Rate 98 H 95 H Respiratory Rate 18 22 Blood Pressure 192/82 H 157/64 H Pulse Oximetry 92 93 Oxygen Flow Rate 0 0 Oxygen Delivery Method Room Air Oxygen Flow Rate 0 Narrative Exam Narrative: GEN: Middle-aged female, Alert and oriented x 3, mildly dysarthric NAD HEENT:NC, Face symmetric CHEST: Respiratory excursions symmetric, CTAB CV: RRR, no M/R/G ABD: Soft, NT/ND, BT present in all 4 quadrants, body habitus limits exam EXTR: warm, well perfused, no C/C/E SKIN: warm and dry, no rash NEURO: Alert and oriented x 3, mild dysarthria, very mildly diminished strength to the right upper extremity compared to the left Objective Labs Result Diagrams: 05/25/22 05:01 05/25/22 05:01 Labs: Laboratory Results - last 24 hr 05/24/22 05/24/22 05:40 05:40 WBC 18.0 H RBC 5.16 Hgb 13.7 Hct 42.9 MCV 83.1 MCH 26.6 MCHC 32.0 RDW 14.6 Plt Count 213 Neut % (Auto) 88.6 H Lymph % (Auto) 6.7 L [place] % (Auto) 4.3 Eos % (Auto) 0.1 L Baso % (Auto) 0.3 Neut # (Auto) 29817 H Lymph # (Auto) 1200 [place] # (Auto) 800 Eos # (Auto) 0 Baso # (Auto) 100 Sodium 137 Potassium 4.2 Chloride 102 Carbon Dioxide 28 BUN 22 H Creatinine 0.75 Estimated GFR > 60 BUN/Creatinine Ratio 29.3 H Glucose 236 H Calcium 8.7 PFSH Medical History Diabetes type 2, uncontrolled (07/15/11) Gastroparesis due to DM (11/13/10) 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 Probable Acute CVA Initial GCS 14, up to [address] was negative. MRI could not be done here d/t her BMI. Patient/family elected not to proceed with efforts to obtain an MRI in the [facility]. Pt reportedly had significant expressive aphasia. Continues DAPT with asa/plavix, statin therapy. A1C very elevated at 11.6%. Lipids not at goal w/TG 156, T chol 205, LDL 127 (goal <70). Will need high-intensity statin therapy and aggressive DM control. ST rec'd pureed solids w/thin liquids. PT assessment done and patient was noted to be a 2 person assist. detention facility is recommended for rehab. 2. Acute metabolic encephalopathy Likely d/t CVA. She did have initial fever/leukocytosis. She has had no evidence of acute infection. Remains on empiric Rocephin. 3. Probable congestive heart failure Echo showed normal EF 60-65%. No focal wall motion abnormalities. RV systolic function normal. Moderate aortic stenosis. 4. DM2 BGs remain in the 200s. Continues Lantus 35 units BID. Will add controlled carb features to diet 5. Myasthenia gravis Continue prednisone 40 mg daily. Discussed with patient's sister that now that she is on dual antiplatelet therapy in the setting of chronic prednisone dependence and risk for GI bleeding as a result of it, they may have a better case to appeal to the insurance for coverage of IVIG 6. Leukocytosis Appears to be chronic. May be d/t steroids. RN noted abnormal appearing UA and some migratory pain symptoms today. Patient does have a Cleary catheter in place. UA was sent. 7. Abdominal pain CT was reassuring. 8. Class 3 obesity BMI 49.4. Would greatly benefit from weight loss. Code status DNR Prophy On lovenox BID Dispo Pending. Time Spent With Patient Critical Care time: I spent a total of [] minutes of critical care time on this patient's care today; this time is exclusive of procedural time. Quality VTE Deep Vein Thrombosis/Pulmonary Embolism Present on Admission: No
[2022-05-25] MEDS: ATORVASTATIN 20 MG TABLET 80 MG PO (21:23)
[2022-05-25] MEDS: LOSARTAN 50 MG TABLET 100 MG PO (21:24)
[2022-05-26] VITALS (8 sets, daily range): BP systolic 111–140; BP diastolic 54–72; PULSE 70–87; RESP 16–19; TEMP 36.1–36.6; O2SAT 94–96
[2022-05-26] MEDS: NYSTATIN POWDER 15GM 1 APPLIC TOP ×3 (00:33→21:24)
[2022-05-26 05:36] LABS: Add Manual Diff / Slide Review NO; Basophils Absolute Auto 100 /uL (0-100); Basophils Percent Auto 0.3 % (0-2); Eosinophils Absolute Auto 100 /uL (0-450); Eosinophils Percent Auto 0.5 % (2-4); Hematocrit 42.1 % (36-46); Hemoglobin 13.5 g/dL (12.0-16.0); Lymphocytes Absolute Auto 2600 /uL (1100-4500); Lymphocytes Percent Auto 14.2 % (25-40); Mean Corpuscular Hemoglobin 26.6 PG (26-34); Monocytes Absolute Auto 1100 /uL (0-900); Monocytes Percent Auto 6.2 % (3-14); Neutrophils Absolute Auto 14400 /uL (1500-7000); Neutrophils Percent Auto 78.8 % (50-75); Platelet Count 221 X10^3/uL (150-400); Red Blood Cell Count 5.06 X10^6/uL (4.0-5.2); Red Cell Distribution Width 14.7 % (11.6-14.8); White Blood Cell Count 18.4 X10^3/uL (4.5-11.0)
--- NOTE | 2022-05-26 05:43 | P.PN_ITS ---
Subjective Subjective Interval history: 72yo female with DM2, class 3 obesity, gastroparesis, HTN, HL, myasthenia gravis on chronic steroids who presents to the hospital with altered mental status and probable acute CVA.? She also had brief self-limited runs of SVT. Patient complains of having chest pain this morning. She describes it as being central radiating down to her abdomen. She does complain of feeling lightheaded, nauseated, and somewhat short of breath. Exam Vital Signs (past 8 hours): - 05/26/22 00:00 Temperature 97.2 F L Pulse Rate 87 Respiratory Rate 19 Blood Pressure 140/72 Pulse Oximetry 96 Oxygen Delivery Method Room Air Oxygen Flow Rate 0 Narrative Exam Narrative: GEN:? Middle-aged female, Alert and oriented x 3, mild expressive aphasia HEENT:NC, Face symmetric CHEST: Respiratory excursions symmetric, CTAB CV: RRR, 2/6 systolic murmur, no rubs or gallops ABD: Soft, NT/ND, BT present in all 4 quadrants, body habitus limits exam EXTR: warm, well perfused, no C/C/E SKIN: warm and dry, no rash NEURO: Alert and oriented x 3, mild dysarthria, mild expressive aphasia, very mildly diminished strength to the right upper extremity compared to the left Objective Labs Result Diagrams: 05/26/22 05:08 05/26/22 05:08 Labs: Laboratory Results - last 24 hr 05/25/22 05:01 Sodium 134 L Potassium 3.9 Chloride 100 Carbon Dioxide 28 BUN 35 H Creatinine 0.89 Estimated GFR > 60 BUN/Creatinine Ratio 39.3 H Glucose 224 H Calcium 8.6 PFSH Medical History Diabetes type 2, uncontrolled (07/15/11) Gastroparesis due to DM (11/13/10) 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 Probable Acute CVA Initial GCS 14, up to [address] was negative.? MRI could not be done here d/t her BMI.? Patient/family elected not to proceed with efforts to obtain an MRI in the [facility].? Pt reportedly had significant expressive aphasia.? Continues DAPT with asa/plavix, statin therapy.? A1C very elevated at 11.6%.? Lipids not at goal w/TG 156, T chol 205, LDL 127 (goal <70).? Will need high-intensity statin therapy and aggressive DM control.? ST rec'd pureed solids w/thin liquids.? PT assessment done and patient was noted to be a 2 person assist.? retirement facility is recommended for rehab. 2. Chest pain Acute onset. Certainly she does have risk for cardiac disease, inclusive of diabetes mellitus which is uncontrolled, obesity, probable congestive heart failure, and vasculopathy as evidenced by stroke. Will stat EKG, cardiac enzymes, and give nitroglycerin. 3. Acute metabolic encephalopathy Likely d/t CVA.? She did have initial fever/leukocytosis.? She has had no evidence of acute infection.? Clarification of yesterday's note. There were plans to initiate Rocephin, but that was discontinued prior to being given. 3. Probable congestive heart failure Echo showed normal EF 60-65%. No focal wall motion abnormalities.? RV systolic function normal.? Moderate aortic stenosis. ? 4.? DM2 BGs ranged from 230-398 in the past 24 hours.? Continues Lantus 35 units BID.? Added controlled carb features to her diet yesterday without much improvement. Will increase Lantus to 40 units b.i.d.. 5.? Myasthenia gravis Continue prednisone 40 mg daily.? Discussed with patient's sister that now that she is on dual antiplatelet therapy in the setting of chronic prednisone dependence and risk for GI bleeding as a result of it, they may have a better case to appeal to the insurance for coverage of IVIG ? 6. Leukocytosis Appears to be chronic.? May be d/t steroids.? Blood sugar is down from 21.1 yesterday to 18.4 today. UA was done yesterday due to concerns per nursing about foul-smelling urine. It revealed no evidence of infection but there was evidence of hematuria. May need follow-up on this once catheter has been discontinued. 7. Abdominal pain CT was reassuring. 8.? Class 3 obesity BMI 49.4.? Would greatly benefit from weight loss. ? Code status DNR Prophy On lovenox BID Dispo Awaiting placement in a [facility] facility. Possibility of acceptance to [facility] hopefully in the next 24-48 hours. Time Spent With Patient Critical Care time: I spent a total of [] minutes of critical care time on this patient's care today; this time is exclusive of procedural time. Quality VTE Deep Vein Thrombosis/Pulmonary Embolism Present on Admission: No
[2022-05-26 05:45] LABS: BUN Creatinine Ratio 37.9 (6-22); Blood Urea Nitrogen 39 mg/dL (7-17); Calcium 8.8 mg/dL (8.4-10.2); Carbon Dioxide 30 mmol/L (22-32); Chloride 98 mmol/L (98-107); Estimated Glomerular Filt Rate 58 mL/min (>60); Glucose 259 mg/dL (80-110); HEMOLYSIS < 15 (0-50); Potassium 3.9 mmol/L (3.4-5.1); Sodium 133 mmol/L (137-145)
[2022-05-26] MEDS: ALPRAZolam 0.5 MG TABLET 0.25 MG PO ×2 (08:28→21:30)
[2022-05-26 08:31] LABS: Appearance Urine UA CLEAR; Bilirubin Urine UA NEGATIVE (NEGATIVE); Color Urine UA YELLOW; Glucose Urine UA 3+ g/dL (Negative); Ketones Urine UA TRACE (NEGATIVE); Leukocyte Esterase Urine UA NEGATIVE (NEGATIVE); Nitrite Urine UA NEGATIVE (Negative); Occult Blood Urine UA 3+ (Negative); Protein Urine UA TRACE (Negative); Urobilinogen Urine UA 0.2 E.U./dL (0.2)
[2022-05-26 08:34] LABS: Creatine Kinase 1192 U/L (30-135)
[2022-05-26 08:44] LABS: RBC Urine 10-30/HPF (0-5/HPF); WBC Urine 1-5/HPF (0-5/HPF)
[2022-05-26 08:47] LABS: Troponin I 0.019 ng/mL (0.01-0.034)
[2022-05-26 08:50] LABS: CKMB % Relative Index 0.1 % (1.5-5.0)
[2022-05-26 08:53] LABS: Bacteria Urine None Seen; Culture Indicated Urine Cult Not Indicated; Uric Acid Crystals Urine Few
[2022-05-26] MEDS: ASPIRIN EC 81 MG TABLET PO (09:49)
[2022-05-26] MEDS: ENOXAPARIN 40 MG/0.4 ML SYRINGE SUBCUT ×2 (09:49→20:57)
[2022-05-26] MEDS: CLOPIDOGREL 75 MG TABLET PO (09:49)
[2022-05-26] MEDS: INSULIN GLARGINE 100 UNIT/ML 3ML PEN 35 UNIT SUBCUT (09:50)
[2022-05-26] MEDS: LOSARTAN 50 MG TABLET 100 MG PO ×2 (09:51→21:00)
[2022-05-26] MEDS: predniSONE 20 MG TABLET 40 MG PO (09:51)
[2022-05-26] MEDS: TRAMADOL 50 MG TABLET PO ×3 (09:51→21:30)
[2022-05-26] MEDS: GABAPENTIN 600 MG TABLET PO (09:52)
[2022-05-26] MEDS: TOPROL 100 MG 1 EACH PO ×2 (09:52→21:09)
--- NOTE | 2022-05-26 13:21 | PT-IP ANOTE ---
Checked on pt 1250. Stated she was too groggy and she just want to stay in bed all day and watch the game.
[2022-05-26] MEDS: INSULIN REGULAR 100 UNIT/ML 3 ML VIAL SUBCUT ×2 (17:02→20:59)
[2022-05-26] MEDS: INSULIN GLARGINE 100 UNIT/ML 3ML PEN 40 UNIT SUBCUT (21:00)
[2022-05-27 00:46] VITALS: BP 108/58; PULSE 76; RESP 20; TEMP 36.6; O2SAT 94
[2022-05-27] MEDS: GABAPENTIN 600 MG TABLET PO (01:07)
[2022-05-27 06:00] VITALS: BP 105/66; PULSE 72; RESP 19; TEMP 35.8; O2SAT 98
[2022-05-27 06:06] LABS: Creatine Kinase 559 U/L (30-135)
[2022-05-27 06:07] LABS: BUN Creatinine Ratio 40.2 (6-22); Blood Urea Nitrogen 35 mg/dL (7-17); Calcium 8.7 mg/dL (8.4-10.2); Carbon Dioxide 26 mmol/L (22-32); Chloride 102 mmol/L (98-107); Estimated Glomerular Filt Rate > 60 mL/min (>60); Glucose 115 mg/dL (80-110); HEMOLYSIS < 15 (0-50); Potassium 3.9 mmol/L (3.4-5.1); Sodium 135 mmol/L (137-145)
[2022-05-27 06:10] LABS: Add Manual Diff / Slide Review NO; Basophils Absolute Auto 100 /uL (0-100); Basophils Percent Auto 0.3 % (0-2); Eosinophils Absolute Auto 100 /uL (0-450); Eosinophils Percent Auto 0.7 % (2-4); Hematocrit 42.6 % (36-46); Hemoglobin 13.5 g/dL (12.0-16.0); Lymphocytes Absolute Auto 3000 /uL (1100-4500); Lymphocytes Percent Auto 14.1 % (25-40); Mean Corpuscular HGB Conc 31.8 % (30-36); Mean Corpuscular Hemoglobin 26.5 PG (26-34); Mean Corpuscular Volume 83.3 fL (80-100); Monocytes Absolute Auto 1500 /uL (0-900); Monocytes Percent Auto 6.9 % (3-14); Neutrophils Absolute Auto 16800 /uL (1500-7000); Platelet Count 244 X10^3/uL (150-400); Red Blood Cell Count 5.11 X10^6/uL (4.0-5.2); Red Cell Distribution Width 14.3 % (11.6-14.8); White Blood Cell Count 21.6 X10^3/uL (4.5-11.0)
[2022-05-27] MEDS: ENOXAPARIN 40 MG/0.4 ML SYRINGE SUBCUT (08:37)
--- NOTE | 2022-05-27 08:56 | CM.DPC ---
Addendum entered by Nancy Norton R.N. 05/27/22 12:36: Leona confirmed that she can accept patient with pick up worker between [phone]. Updated nurse, Salvador, and spent some time in the room with patient and spouse. Patient continued to be concerned about going to [facility]. Explained that there are no other facilities that can accept at this time. Spouse was calling sister. Brought in Clary, database administration project manager, to assist in explaining that patient is medically stable for discharge at lower level of care. By the time that this DC Take Away Man returned with Clary, patient was ok with discharge. Originally mentioned possible ambulance, patient stated, they can't afford it if it's too expensive. Will plan on wheel chair transport at this time. Received signed med orders, Carly is faxing over to [facility] , COVID swab order placed, and PASSR is also being faxed over. Updated white board at main nurses station. Addendum entered by Nancy Norton R.N. 05/27/22 10:33: Called Leona at [facility] back, and let her know that patient needs to be discharged today, and if she can possibly accept. She stated that she does have a bariatric bed, will check with her staff and call back. Original Note: DCP Cont: Amrita from [facility] indicated that she has no bariatric beds. Left a message with [facility], have not faxed referral, just wanted to inquire if they have bariatric beds. Left a message with Sendy at [facility] to see if they have beds, for potential acceptance. Will also follow up with [facility] today, as well as [facility] . Nancy Norton, RN/Pharmacist Technician
[2022-05-27 09:05] VITALS: BP 120/58; PULSE 75; RESP 16; TEMP 36.1; O2SAT 96
[2022-05-27] MEDS: CLOPIDOGREL 75 MG TABLET PO (09:21)
[2022-05-27] MEDS: predniSONE 20 MG TABLET 40 MG PO (09:21)
[2022-05-27] MEDS: TRAMADOL 50 MG TABLET PO ×2 (09:22→13:31)
[2022-05-27] MEDS: ASPIRIN EC 81 MG TABLET PO (09:22)
[2022-05-27] MEDS: LOSARTAN 50 MG TABLET 100 MG PO (09:23)
[2022-05-27] MEDS: TOPROL 100 MG 1 EACH PO (09:24)
[2022-05-27] MEDS: INSULIN GLARGINE 100 UNIT/ML 3ML PEN 40 UNIT SUBCUT (09:24)
[2022-05-27] MEDS: NYSTATIN POWDER 15GM 1 APPLIC TOP (09:25)
--- NOTE | 2022-05-27 09:35 | PM.PN.1 ---
Exam Vital Signs (past 8 hours): - 05/27/22 06:00 05/27/22 09:05 Temperature 96.4 F L 97.0 F L Pulse Rate 72 75 Respiratory Rate 19 16 Blood Pressure 105/66 120/58 L Pulse Oximetry 98 96 Oxygen Flow Rate 0 Oxygen Delivery Method Room Air Oxygen Flow Rate 0 Narrative Exam Narrative: GEN:? Middle-aged female, Alert and oriented x 3, mild expressive aphasia HEENT:NC, Face symmetric CHEST: Respiratory excursions symmetric, CTAB CV: RRR, 2/6 systolic murmur, no rubs or gallops ABD: Soft, NT/ND, BT present in all 4 quadrants, body habitus limits exam EXTR: warm, well perfused, no C/C/E SKIN: warm and dry, no rash NEURO: Alert and oriented x 3, mild dysarthria, mild expressive aphasia, very mildly diminished strength to the right upper extremity compared to the left Objective Labs Result Diagrams: 05/27/22 05:34 05/27/22 05:34 Labs: Laboratory Results - last 24 hr 05/27/22 05/27/22 05/27/22 05:34 05:34 05:34 WBC 21.6 H RBC 5.11 Hgb 13.5 Hct 42.6 MCV 83.3 MCH 26.5 MCHC 31.8 RDW 14.3 Plt Count 244 Neut % (Auto) 78.0 H Lymph % (Auto) 14.1 L [place] % (Auto) 6.9 Eos % (Auto) 0.7 L Baso % (Auto) 0.3 Neut # (Auto) 75034 H Lymph # (Auto) 3000 [place] # (Auto) 1500 H Eos # (Auto) 100 Baso # (Auto) 100 Sodium 135 L Potassium 3.9 Chloride 102 Carbon Dioxide 26 BUN 35 H Creatinine 0.87 Estimated GFR > 60 BUN/Creatinine Ratio 40.2 H Glucose 115 H D Calcium 8.7 Total Creatine Kinase 559 H D [facility] Medical History Diabetes type 2, uncontrolled (07/15/11) Gastroparesis due to DM (11/13/10) 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 Probable Acute CVA Initial GCS 14, up to [address] was negative.? MRI could not be done here d/t her BMI.? Patient/family elected not to proceed with efforts to obtain an MRI in the [facility].? Pt reportedly had significant expressive aphasia.? Continues DAPT with asa/plavix, statin therapy.? A1C very elevated at 11.6%.? Lipids not at goal w/TG 156, T chol 205, LDL 127 (goal <70).? Will need high-intensity statin therapy and aggressive DM control.? ST rec'd pureed solids w/thin liquids.? PT assessment done and patient was noted to be a 2 person assist.? [facility] facility is recommended for rehab. 2. Chest pain Acute onset. Certainly she does have risk for cardiac disease, inclusive of diabetes mellitus which is uncontrolled, obesity, probable congestive heart failure, and vasculopathy as evidenced by stroke. Will stat EKG, cardiac enzymes, and give nitroglycerin. 3. Acute metabolic encephalopathy Likely d/t CVA.? She did have initial fever/leukocytosis.? She has had no evidence of acute infection.? Clarification of yesterday's note. There were plans to initiate Rocephin, but that was discontinued prior to being given. 3. Probable congestive heart failure Echo showed normal EF 60-65%. No focal wall motion abnormalities.? RV systolic function normal.? Moderate aortic stenosis. ? 4.? DM2 BGs ranged from 230-398 in the past 24 hours.? Continues Lantus 35 units BID.? Added controlled carb features to her diet yesterday without much improvement. Will increase Lantus to 40 units b.i.d.. 5.? Myasthenia gravis Continue prednisone 40 mg daily.? Discussed with patient's sister that now that she is on dual antiplatelet therapy in the setting of chronic prednisone dependence and risk for GI bleeding as a result of it, they may have a better case to appeal to the insurance for coverage of IVIG ? 6. Leukocytosis Appears to be chronic.? May be d/t steroids.? Blood sugar is down from 21.1 yesterday to 18.4 today. UA was done yesterday due to concerns per nursing about foul-smelling urine. It revealed no evidence of infection but there was evidence of hematuria. May need follow-up on this once catheter has been discontinued. 7. Abdominal pain CT was reassuring. 8.? Class 3 obesity BMI 49.4.? Would greatly benefit from weight loss. ? Code status DNR Prophy On lovenox BID Dispo Awaiting placement in a retirement facility. Possibility of acceptance to [facility] hopefully in the next 24-48 hours. Time Spent With Patient Critical Care time: I spent a total of [] minutes of critical care time on this patient's care today; this time is exclusive of procedural time. Quality VTE Deep Vein Thrombosis/Pulmonary Embolism Present on Admission: No
[2022-05-27] MEDS: MAG HYDROX/ALUMINUM/SIMETH SUS 20 ML, LIDOCAINE VISCOUS 2% 15 ML PO (10:58)
--- NOTE | 2022-05-27 11:20 | ST.IPCSEOM ---
Visit Care Team Role Provider Type Jose Clement MD Primary Care Provider Physician Specialty: Family Practice Address: [address] [place] [address], [id number] Email: [email or web address] Capo Young MD Emergency Provider Physician Referring Provider Specialty: Emergency Medicine Address: [address] [place] [address], [id number] Email: [email or web address] Ayan Mckenna MD Admit Provider Physician Attending Provider Specialty: Hospitalist Address: [address] [place] [address], [id number] Fax: Email: [email or web address] Diagnoses Cerebral infarction, unspecified (05/22/22) Past Medical History (Last Reviewed 05/23/22 @ 05:13 by Ayan Mckenna MD) Diabetes type 2, uncontrolled (Medical 07/15/11) Gastroparesis due to DM (Medical 11/13/10) Grade 1 malignant neoplasm of endometrium (Medical 09/24/16) Hyperlipidemia, mixed (Medical 11/13/10) Hypertension (Medical) Morbid obesity (Medical 11/13/10) Myasthenia gravis (Medical) Panic disorder (Medical 11/13/10) SVT (supraventricular tachycardia) (Medical) Tachycardia (Medical) Unspecified essential hypertension (Medical 11/13/10) Speech-Language Pathology Swallow Evaluation INDIVIDUAL PENSION ADVISER Clinical Swallow Evaluation Start: 05/24/22 11:09 Freq: Status: Active Protocol: Document 05/27/22 10:55 LNK (Rec: 05/27/22 11:20 LNK [id number]) Clinical Swallow Evaluation Session Time Visit Start Time 09:30 Visit Stop Time 10:15 Total Visit Minutes 45 Visit Information Visit Number 2 Visit Type Note Type Re-evaluation Next Note Type Next Note Type Treatment Note Patient Information History Per H&P: Pt is a 72W with PMH DM, gastroparesis, HTN, HL, myasthenia gravis on chronic steroids who presents to the hospital with altered mental status and difficulty with speaking. Per reports she began to have garbled speech at unclear time but possibly at approximately 3:30pm on 05/23, EMS was called to her house about one hour later. She had apparently had waxing and waning symptoms in that period , with episodes of improved speech and then worsening, with some noted lower extremity weakness. Since arriving to the ED she has had persistent garbled speech. She is clearly able to follow commands but has difficulty with speaking words and can only say yes/no and her name clearly. There has been some concern from staff about some mild confusion. Subjective Observations Pt was in bed needing to be repositioned. The pt was positioned more appropriately for swallowing assessment. Pt noted that her mouth pain had significantly reduced. She was given a mechanical soft breakfast tray that nursing removed after it was discovered. Reported by Patient Location Upper Back Current Diet Pureed Baseline Feeding Method Independent in self-feeding Objective Assessment Mental Status Alert,Responsive,Cooperative Oral Integrity WFL Dentition Missing teeth Lip Function Within normal limits Observation of Lips at Rest Symmetrical Pucker Within normal limits Lip Retraction Within normal limits Alternating Pucker/Lip Retraction Reduced range of motion Tongue Function Mild impairment Observations of Tongue at Rest Within normal limits Tongue Protrusion Reduced range of motion, Reduced strength Tongue Lateralization Reduced range of motion Observations of Jaw at Rest Within normal limits Hard/Soft Palate Function Within normal limits Observations of Hard/Soft Palate Within normal limits Respiratory Sufficiency Moderate impairment Comment OME demonstrated improvement in ROM and strength overall. Tongue function continued to be mildly impaired. Speech was clear and articulate. Pt reported difficulty with oral management of mechanical soft at breakfast. Food and Liquid Trials Position During Assessment Slightly reclined Liquids Trialed Thin Solids Trialed Dysphagia Mechanical,Dysphagia Advanced Administration Type Tea spoon,Straw,Self-feeding Oral Impairment Within functional limits Pharyngeal Impairment Within functional limits Pharyngeal Phase Comments Hyolaryngeal elevation was difficult to determine given pt's position and size. However, consecutive swallows of solids and liquids appeared to be safely tolerated. No audible swallow, no wet voicing, no cough/choke observed. Pt did get SOB when eating Fatigue/Endurance Mild fatigue Strategies Attempted Supraglottic swallow Response/Comments Pt is concerned about aspiration. Recommendation made to hold breath prior to swallow (purposefully), swallow hard and then breath. Pt practiced strategy and indicated she would give it a try. Findings Swallowing Function Dysphagia unspecified Severity of Swallow Impairment Within functional limits Contributing Factors to Swallow Impaired airway protection Impairment Comments Increased SOB increases aspiration risk Prognosis Fair Based on Family support,Bed bound, Comorbidities Impact on Safety and Functioning Risk for aspiration Recommendations Instrumental Assessment No Swallowing Treatment Yes Frequency Continue to monitor/re- evaluate as pt's condition dictates Recommended Solids Dysphagia Advanced Recommended Liquids Thin Safety Precautions/Swallowing Reduce distractions,Remain Recommendations upright (90 degrees) during all oral intake,Upright position at least 30 minutes after meals,Small bites and sips when eating,Slow rate; swallow between bites, Alternate liquids and solids, Check for pocketing Medication Recommendations As Tolerated,Whole in Carrier, Crushed in Carrier Discharge Recommendations Home,long-term facility, Home with Home Health Education Patient/Caregiver Education Described results of evaluation,Patient expressed understanding of evaluation, Patient expressed agreement with goals & treatment plans, Patient expressed understanding of safety precautions,Patient requires further education/training, Family/caregivers require further education/training Goals Long-term Goals Pt will safely tolerate the least restrictive diet to maintain hydration and nutritional needs without s/sx aspiration
--- NOTE | 2022-05-27 12:45 | DIET.CONS ---
Dietary Consultation Note Admission Date: 05/22/2022 20:59 Assessment: 72y F admitted for probable acute CVA referred to nutrition for DM education (A1c 11.[address] met c pt and spouse at bedside. Pt states she is too overwhelmed to talk at this time r/t feeling anxiety over transferring to skilled facility. Briefly discussed pts chronically elevated A1c (>10 since 2017 except short time in 2019 when was 9.6). Upon chart review, pt states she feels hypoglycemic if under 140 (indicating chronic hyperglycemia) and that her myasthenia gravis steroid use makes her DM out of control. Pt getting endocrinology care at [facility], however, pt would absolutely benefit from referral to DM ed at for closer monitoring and to drive A1c under 8. Pt lives on [facility] and would benefit from in person vs. virtual visits. Pt agreed local support would be beneficial and is open to scheduling in June when this acute health occurrence has settled down. During this hospitalization pts BGs have been in 200-300 range. Pts home meds do not include diabetic agents, though previous Rx list includes both Novolog and Lantus. Ht: 162.56 cm Wt: 130.5 kg BMI: 51.3 Last BM: 05/23/22 (05/23/22 10:54) MNA: Tyler Score: 15 Diet: 05/24/22 Lunch Dysphagia Diet Diet Modifications: controlled carb Liquid consistency: Normal/Thin Food texture: Dysphagia Advanced Nutrition Percent Meal Consumed 25% 05/26/22 18:00 Percent Meal Consumed 75% 05/26/22 17:16 Percent Meal Consumed 0% 05/26/22 13:17 Percent Meal Consumed 75% 05/25/22 18:00 Labs: RBC 5.11 X10^6/uL (4.0-5.2) 05/27/22 05:34 Hgb 13.5 g/dL (12.0-16.0) 05/27/22 05:34 Hct 42.6 % (36-46) 05/27/22 05:34 Creatinine 0.87 mg/dL (0.52-1.04) 05/27/22 05:34 Hemoglobin A1c 11.6 % (4.0-6.0) H 05/23/22 06:35 NT-Pro-B Natriuret Pep 342 pg/mL (<125) H 05/22/22 17:20 Nutrition Diagnosis: altered nutrition related laboratory values (BG, A1c) r/t endocrine dysfunction, chronic steroid use, and inadequate knowledge of DM interventions aeb pts A1c >9.5x5y currently 11.6, pts BGs this hospitalization 200-300 range, pt using prednisone chronically for autoimmune condition, pt reports hypoglycemia sx with BG 140s. Interventions: 1. Strongly recc initiation with DM educator at . RD to put in referral request to PCP [place]. Pt agrees to referral. 2. Continue CCD diet with insulin coverage to BG range 140-180. Electronically Signed by: Radha Cazares 05/27/22 12:45 Clinical Dietitian [address] [address]
--- NOTE | 2022-05-27 13:15 | PM.DS.1 ---
History of Present Illness History of Present Illness Date Patient Seen: 05/27/22 Time Patient Seen: 22:00 Chief complaint: Code stroke Narrative: Mr. Brown is a 72W with PMH DM, gastroparesis, HTN, HL, myasthenia gravis on chronic steroids who presents to the hospital with altered mental status and difficulty with speaking. Per reports she began to have garbled speech at unclear time but possibly at approximately 3:30pm on 05/23, EMS was called to her house about one hour later. She had apparently had waxing and waning symptoms in that period, with episodes of improved speech and then worsening, with some noted lower extremity weakness. Since arriving to the ED she has had persistent garbled speech. She is clearly able to follow commands but has difficulty with speaking words and can only say yes/no and her name clearly. There has been some concern from staff about some mild confusion. There was some question about taking additional benzos accidentally that may have cause encephalopathy, but after ED physician discussion with family this was thought to be quite unlikely. In the ED workup was done, vitals notable for tachycardia and elevated blood pressure. Tmax 100.4. Labs notable for WBC 23.1, hgb 15.2, plts 260, creatinine 0.82. UA negative. Urine drug screen negative. COVID negative. CT head with no acute process. CTA head neck shows diminutive left M2 branch compared to 2020 concerning for stenosis. Initial NIH score of 14. Per the ED physician there were multiple discussions had between himself and the stroke physician about TPA, and ultimately it was decided that she was not a candidate for TPA due to uncertain time of onset and improving symptoms. She was ordered for aspirin and admitted for further treatment. When I saw her she was indicating possible pain in her abdomen and had CT scan for further evaluation. Discharge Providers Provider Date of admission: 05/22/22 20:59 Discharge Date: 05/27/22 Primary care physician: Jose Clement MD Consults: 05/22/22 22:57 Consult to Discharge Planning Routine Comment: Consult to Occupational Therapy Evaluate & Treat Comment: Physician Instructions: Evaluate and treat Consult to Physical Therapy Evaluate & Treat Comment: Physician Instructions: Evaluate and Treat Consult to Speech Therapy Evaluate & Treat Comment: Physician Instructions: Evaluate and treat 05/24/22 18:40 Consult to Dietitian, Adult Routine Comment: Reason For Exam: A1c 11.6% Discharge provider: Kristopher Myers, Summary Hospital Course Discharge Diagnosis: 1. Probable Acute CVA Initial NIH 11 due to garbled speech and extremity weakness.? CT was negative.? MRI could not be done here d/t her BMI.? Patient/family elected not to proceed with efforts to obtain an MRI in the [place] region.? Pt reportedly had significant expressive aphasia.? Continues DAPT with asa/plavix.?Weakness was global and felt to be more due to her MG. A1C very elevated at 11.6%.? Lipids not at goal w/TG 156, T chol 205, LDL 127 (goal <70).? Will need high-intensity statin therapy and aggressive DM control.? ST rec'd pureed solids w/thin liquids.? PT assessment done and patient was noted to be a 2 person assist.? assisted facility is recommended for rehab. 2. Chest pain Acute onset. Certainly she does have risk for cardiac disease, inclusive of diabetes mellitus which is uncontrolled, obesity, probable congestive heart failure, and vasculopathy as evidenced by stroke. EKG, trops were reassuring. [place] not to be cardiac. 3. Acute metabolic encephalopathy Likely d/t CVA.? She did have initial fever/leukocytosis.? She has had no evidence of acute infection. Mentation improved back to baseline. 3. Probable diastolic congestive heart failure Echo showed normal EF 60-65%. No focal wall motion abnormalities.? RV systolic function normal.? Moderate aortic stenosis. ? 4.? DM2 BGs ranged from 230-398 in the past 24 hours.? Continues Lantus 35 units BID.? Added controlled carb features to her diet yesterday without much improvement. Will increase Lantus to 40 units b.i.d.. 5.? Myasthenia gravis Continue prednisone 40 mg daily.? Discussed with patient's sister that now that she is on dual antiplatelet therapy in the setting of chronic prednisone dependence and risk for GI bleeding as a result of it, they may have a better case to appeal to the insurance for coverage of IVIG. I did review her worse with Neurology to ensure it is not consistent with a myasthenia exacerbation. Based on the symptomatology, neurology felt this was not likely. We did discuss options for myasthenia given her steroid dependence and worsening diabetes and vasculopathy. There are evidently 2 new medications available that have become available recently, one is Ultomaris which is given every 8 weeks, the other is Solirus which is given every 2 weeks for maintenance. He reports both medications are quite effective. ? 6. Leukocytosis Appears to be chronic.? May be d/t steroids.? Blood sugar is down from 21.1 yesterday to 18.4 today. UA was done yesterday due to concerns per nursing about foul-smelling urine. It revealed no evidence of infection but there was evidence of hematuria. May need follow-up on this once catheter has been discontinued. 7. Abdominal pain CT was reassuring. 8.? Class 3 obesity BMI 49.4.? Would greatly benefit from weight loss. ? Code status DNR Hospital Course: 72yo female with DM2, class 3 obesity, gastroparesis, HTN, HL, myasthenia gravis on chronic steroids who presents to the hospital with altered mental status and probable acute CVA.?Patient had speech difficulty which improved slowly. Unable to obtain MR brain due to patient's body habitus. Attempted to transfer for MR brain at outside facility but patient preferred to not do the MRI. She was treated with speech, PT/OT and was deemed SNF appropriate. She was placed on DAPT and statin was deferred due to allergy history. Time Spent with Patient Time spent: Greater than 30 minutes Exam Vital Signs (past 8 hours): - 05/27/22 06:00 05/27/22 09:05 05/27/22 08:00 Temperature 96.4 F L 97.0 F L Pulse Rate 72 75 Respiratory Rate 19 16 Blood Pressure 105/66 120/58 L Pulse Oximetry 98 96 Oxygen Delivery Method Room Air Oxygen Flow Rate 0 Oxygen Delivery Method Room Air Oxygen Flow Rate 0 Narrative Exam Narrative: GEN:? Middle-aged female, Alert and oriented x 3, mild expressive aphasia HEENT:NC, Face symmetric CHEST: Respiratory excursions symmetric, CTAB CV: RRR, 2/6 systolic murmur, no rubs or gallops ABD: Soft, NT/ND, BT present in all 4 quadrants, body habitus limits exam EXTR: warm, well perfused, no C/C/E SKIN: warm and dry, no rash NEURO: Alert and oriented x 3, mild dysarthria, mild expressive aphasia, very mildly diminished strength to the right upper extremity compared to the left Objective Labs Result Diagrams: 05/27/22 05:34 12/12/22 05:34 Labs: Laboratory Results - last 24 hr 05/27/22 05/27/22 05/27/22 05:34 05:34 05:34 WBC 21.6 H RBC 5.11 Hgb 13.5 Hct 42.6 MCV 83.3 MCH 26.5 MCHC 31.8 RDW 14.3 Plt Count 244 Neut % (Auto) 78.0 H Lymph % (Auto) 14.1 L [place] % (Auto) 6.9 Eos % (Auto) 0.7 L Baso % (Auto) 0.3 Neut # (Auto) 14559 H Lymph # (Auto) 3000 [place] # (Auto) 1500 H Eos # (Auto) 100 Baso # (Auto) 100 Sodium 135 L Potassium 3.9 Chloride 102 Carbon Dioxide 26 BUN 35 H Creatinine 0.87 Estimated GFR > 60 BUN/Creatinine Ratio 40.2 H Glucose 115 H D Calcium 8.7 Total Creatine Kinase 559 H D PFSH Medical History Diabetes type 2, uncontrolled (07/15/11) Gastroparesis due to DM (11/13/10) 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) Hyperlipidemia, mixed (11/13/10) Hypertension Morbid obesity (11/13/10) Myasthenia gravis Panic disorder (11/13/10) SVT (supraventricular tachycardia) Tachycardia Unspecified essential hypertension (11/13/10) Surgical History History of third molar tooth extraction Status post hernia repair (05/14/16) Status post hysterectomy (05/14/16) Status post laparoscopic cholecystectomy Social History household members: spouse Smoking Status: Former smoker Discharge Plan Discharge Plan Patient Disposition: SNF Transfer to: [facility] Discharge orders & Medications Prescriptions: New clopidogrel 75 mg Tablet 75 mg PO DAILY 16 Days Qty: 16 0RF Rx Instructions: start on 05/28 tramadol 50 mg Tablet 50 mg PO Q4H PRN (Reason: Pain, Moderate (4-6)) Qty: 30 0RF metoprolol succinate 100 mg tablet extended release 24 hr 100 mg PO BID Qty: 60 0RF Continued prednisone 20 mg tablet 40 mg PO DAILY Label Comments: per neurologist at [facility] (dose will vary, titrating 09/29/20) gabapentin 600 mg tablet 600 mg PO Q8H PRN (Reason: nerve pain) Qty: 90 3RF (DME) Blood Glucose Test Strip See Rx Instructions .ROUTE .MEDSUPPLY Qty: 800 11RF Rx Instructions: Use Accucheck Guide Test Strips to check blood sugar 10x a day, in conjunction with insulin injections 7-10x a day insulin aspart U-100 [Novolog Flexpen U-100 Insulin] 100 unit/mL (3 mL) insulin pen 10 - 30 unit SUBCUT TIDWMEAL Qty: 15 3RF Lantus Solostar U-100 Insulin 100 unit/mL (3 mL) insulin pen See Rx Instructions .ROUTE .COMPLEX Qty: 15 3RF Dose Instruction: INJECT 60 UNITS SUBCUTANEOUSLY DAILY Rx Instructions: INJECT 35 UNITS SUBCUTANEOUSLY BID (DME) Disabled Parking Qty: 1 0RF Rx Instructions: Patient qualifies for disabled parking as per the attached form. (DME) lancets [Lancets,Thin] Misc See Rx Instructions .ROUTE .MEDSUPPLY Qty: 200 5RF Rx Instructions: use to check blood sugar 7x a day in conjunction w insulin admin 7x a day- generic please (DME) NovaFine Pen Tips 32G x 6mm 100 package See Rx Instructions .ROUTE .MEDSUPPLY Qty: 3 2RF Rx Instructions: Use to test blood glucose 4 times daily losartan 100 mg tablet 100 mg PO BID Qty: 180 3RF alprazolam 0.5 mg tablet See Rx Instructions .ROUTE .COMPLEX Qty: 60 0RF Dose Instruction: TAKE 1 TO 2 TABLETS BY MOUTH THREE TIMES DAILY NEEDED FOR ANXIETY Rx Instructions: TAKE 1 TO 2 TABLETS BY MOUTH THREE TIMES DAILY NEEDED FOR ANXIETY Follow up/Referrals: Jose Clement MD [Primary Care Provider] - 2 Weeks Discharge Data Primary Care Provider: Jose Clement Quality VTE Deep Vein Thrombosis/Pulmonary Embolism Present on Admission: No
[2022-05-27] MEDS: ACETAMINOPHEN 325 MG TABLET 650 MG PO (13:32)
[2022-05-27 13:47] LABS: COVID19 -Nasal RAPID Negative (Negative)
--- NOTE | 2022-05-27 13:53 | PC.NURSE ---
Gave report to Linda at [facility] [place].
--- NOTE | 2022-05-27 13:57 | PC.NURSE ---
Abrasion to right forearm noted under bandaid. Area cleansed and allevyn gentle foam dressing applied. Blanchable redness to buttocks and bilateral elbows (dry, red, blanchable) noted and reported to Linda at [facility]. Cleary was discontinued by [employer] approx [id number], brief placed for history of incontinence per patient. Patient is sitting up in chair at this time waiting for crab picker by transporter. at bedside.
[2022-05-27 14:46] LABS: Myoglobin 280 ng/mL (25-58)
== END 2022-05-27 14:00 | DRG 64 ==
LOC: ED 18:13 → AC 20:59
PROVIDERS: Family Medicine; Student in an Organized Health Care Education/Training Program; Admitting Provider Internal Medicine; Emergency Provider Emergency Medicine; PCP Family Medicine; Referring Provider Emergency Medicine; Visit Provider Internal Medicine
DX: I63.9 Cerebral infarction, unspecified (principal); G93.41 Metabolic encephalopathy; Z68.42 Body mass index [BMI] 45.0-49.9, adult; I50.30 Unspecified diastolic (congestive) heart failure; G70.00 Myasthenia gravis without (acute) exacerbation; E66.01 Morbid (severe) obesity due to excess calories; R29.715 NIHSS score 15; R10.9 Unspecified abdominal pain; E11.9 Type 2 diabetes mellitus without complications; R29.711 NIHSS score 11; I11.0 Hypertensive heart disease with heart failure; Z79.4 Long term (current) use of insulin; Z79.52 Long term (current) use of systemic steroids; Z66 Do not resuscitate; Z20.822 Contact with and (suspected) exposure to COVID-19; Z87.891 Personal history of nicotine dependence
CPT/HCPCS: 36415; 70450; 70496; 70498; 71045; 74177; 80048; 80053; 80061; 80305; 80320; 81001; 82550; 82553; 82962; 83036; 83690; 83735; 83874; 83880; 84100; 84145; 84484; 85025; 85379; 85610; 85651; 85730; 86140; 87040; 87086; 87633; 87635; 92610; 93005; 93010; 96374; 96376; 97116; 97163; 97167; 97530; 99285; 99291; C9803; C8929; J0696; J1170; J1650; J1940; J2270; J2405; J2920; Q9957; Q9967

== ENCOUNTER → 2022-08-05 15:58 | Outpatient (ROUT) | payer MEDICARE, OTHER, SELFPAY ==
[2022-05-22 21:33] VITALS: BMI 51.3
[2022-08-05 16:13] LABS: Appearance Urine UA CLEAR; Bilirubin Urine UA NEGATIVE (NEGATIVE); Color Urine UA YELLOW; Glucose Urine UA 1+ g/dL (Negative); Ketones Urine UA NEGATIVE (NEGATIVE); Leukocyte Esterase Urine UA NEGATIVE (NEGATIVE); Nitrite Urine UA NEGATIVE (Negative); Occult Blood Urine UA NEGATIVE (Negative); Protein Urine UA NEGATIVE (Negative); Specific Gravity Urine UA 1.025 (1.000-1.035); Urobilinogen Urine UA 0.2 E.U./dL (0.2)
[2022-08-05 16:14] LABS: Add Manual Diff / Slide Review NO; Basophils Absolute Auto 100 /uL (0-100); Basophils Percent Auto 0.3 % (0-2); Eosinophils Absolute Auto 100 /uL (0-450); Eosinophils Percent Auto 0.3 % (2-4); Hematocrit 43.1 % (36-46); Hemoglobin 13.9 g/dL (12.0-16.0); Lymphocytes Absolute Auto 1500 /uL (1100-4500); Lymphocytes Percent Auto 7.7 % (25-40); Mean Corpuscular HGB Conc 32.3 % (30-36); Mean Corpuscular Hemoglobin 27.4 PG (26-34); Mean Corpuscular Volume 84.8 fL (80-100); Monocytes Absolute Auto 600 /uL (0-900); Monocytes Percent Auto 3.1 % (3-14); Neutrophils Absolute Auto 17200 /uL (1500-7000); Neutrophils Percent Auto 88.6 % (50-75); Platelet Count 178 X10^3/uL (150-400); Red Blood Cell Count 5.09 X10^6/uL (4.0-5.2); Red Cell Distribution Width 15.7 % (11.6-14.8); White Blood Cell Count 19.5 X10^3/uL (4.5-11.0)
[2022-08-05 16:27] LABS: Bacteria Urine None Seen; Culture Indicated Urine Cult Not Indicated; RBC Urine None Seen (0-5/HPF); WBC Urine None Seen (0-5/HPF)
[2022-08-05 16:33] LABS: Alanine Aminotransferase 37 IU/L (<35); Albumin 3.3 g/dL (3.5-5.0); Albumin Globulin Ratio 1.3 (1.0-2.8); Alkaline Phosphatase 85 U/L (38-126); Aspartate Aminotransferase 27 IU/L (14-36); BUN Creatinine Ratio 29.6 (6-22); Bilirubin Total 0.5 mg/dL (0.2-1.3); Blood Urea Nitrogen 24 mg/dL (7-17); Calcium 8.7 mg/dL (8.4-10.2); Carbon Dioxide 26 mmol/L (22-32); Chloride 104 mmol/L (98-107); Estimated Glomerular Filt Rate > 60 mL/min (>60); Globulin 2.6 g/dL (1.7-4.1); Glucose 226 mg/dL (80-110); HEMOLYSIS 15 (0-50); Potassium 4.1 mmol/L (3.4-5.1); Sodium 139 mmol/L (137-145); Total Protein 5.9 g/dL (6.3-8.2)
[2022-08-05 17:09] LABS: Thyroid Stimulating Hormone 1.18 uIU/mL (0.47-4.68)
== END ==
PROVIDERS: PCP Family Medicine; Visit Provider Family Medicine
DX: E11.65 Type 2 diabetes mellitus with hyperglycemia (principal); E66.01 Morbid (severe) obesity due to excess calories; E78.2 Mixed hyperlipidemia; I10 Essential (primary) hypertension; I63.9 Cerebral infarction, unspecified; R39.9 Unspecified symptoms and signs involving the genitourinary system; R46.0 Very low level of personal hygiene; R46.89 Other symptoms and signs involving appearance and behavior
CPT/HCPCS: 80053; 81001; 84443; 85025

== ENCOUNTER → 2022-12-10 14:24 | Outpatient (ROUT) | payer MEDICARE, OTHER, SELFPAY ==
[2022-05-22 21:33] VITALS: BMI 51.3
[2022-12-10 14:31] LABS: Add Manual Diff / Slide Review NO; Basophils Absolute Auto 100 /uL (0-100); Basophils Percent Auto 0.4 % (0-2); Eosinophils Absolute Auto 200 /uL (0-450); Eosinophils Percent Auto 1.2 % (2-4); Hematocrit 41.7 % (36-46); Hemoglobin 13.2 g/dL (12.0-16.0); Lymphocytes Absolute Auto 3400 /uL (1100-4500); Lymphocytes Percent Auto 17.1 % (25-40); Mean Corpuscular HGB Conc 31.6 % (30-36); Mean Corpuscular Hemoglobin 25.4 PG (26-34); Mean Corpuscular Volume 80.4 fL (80-100); Monocytes Absolute Auto 1000 /uL (0-900); Monocytes Percent Auto 4.9 % (3-14); Neutrophils Absolute Auto 15200 /uL (1500-7000); Neutrophils Percent Auto 76.4 % (50-75); Platelet Count 226 X10^3/uL (150-400); Red Blood Cell Count 5.19 X10^6/uL (4.0-5.2); Red Cell Distribution Width 15.7 % (11.6-14.8); White Blood Cell Count 19.9 X10^3/uL (4.5-11.0)
[2022-12-10 16:19] LABS: BUN Creatinine Ratio 27.4 (6-22); Blood Urea Nitrogen 23 mg/dL (7-17); Calcium 8.9 mg/dL (8.4-10.2); Carbon Dioxide 27 mmol/L (22-32); Chloride 101 mmol/L (98-107); Creatinine Urine Random 116.3 mg/dL; Estimated Glomerular Filt Rate > 60 mL/min (>60); Glucose 132 mg/dL (80-110); HEMOLYSIS < 15 (0-50); Potassium 4.2 mmol/L (3.4-5.1); Sodium 139 mmol/L (137-145)
[2022-12-10 16:23] LABS: Microalbumi Creatinin Ratio Ur 35.2 ug/mg CR (<30); Microalbumin Urine Random 4.1 mg/dL (0-1.6)
[2022-12-10 16:50] LABS: Thyroid Stimulating Hormone 3.91 uIU/mL (0.47-4.68)
[2022-12-11 06:21] LABS: x Labcorp Estim. Avg Glu (eAG) 209 mg/dL (.); x Labcorp Hemoglobin A1c 8.9 % (4.8-5.6)
== END ==
PROVIDERS: PCP Family Medicine; Visit Provider Family Medicine
DX: E11.65 Type 2 diabetes mellitus with hyperglycemia (principal); G70.9 Myoneural disorder, unspecified
CPT/HCPCS: 80048; 82043; 82570; 83036; 84443; 85025

== ENCOUNTER → 2022-12-25 16:06 | Outpatient (ROUT) | payer MEDICARE, OTHER, SELFPAY ==
[2022-12-13 09:55] VITALS: BMI 51.3
[2022-12-25 16:19] LABS: Appearance Urine UA CLEAR; Bilirubin Urine UA NEGATIVE (NEGATIVE); Color Urine UA YELLOW; Glucose Urine UA 1+ g/dL (Negative); Ketones Urine UA NEGATIVE (NEGATIVE); Leukocyte Esterase Urine UA TRACE (NEGATIVE); Nitrite Urine UA NEGATIVE (Negative); Occult Blood Urine UA NEGATIVE (Negative); Protein Urine UA NEGATIVE (Negative); Urobilinogen Urine UA 0.2 E.U./dL (0.2)
[2022-12-25 16:33] LABS: pH Urine UA 5.5 (4.5-8.0)
[2022-12-25 16:48] LABS: Bacteria Urine None Seen; RBC Urine None Seen (0-5/HPF); Squamous Epithelial Cell Urine 0-1 /HPF (0-5/HPF); Transitional Epi Cells Urine 0-1/HPF (0-5/HPF); WBC Urine 0-1/HPF (0-5/HPF)
[2022-12-25 16:49] LABS: Culture Indicated Urine Cult Not Indicated
== END ==
PROVIDERS: PCP Family Medicine; Visit Provider Family Medicine
DX: R41.0 Disorientation, unspecified (principal); R30.0 Dysuria
CPT/HCPCS: 81001

== ENCOUNTER 2023-04-22 07:34 | Emergency (ER) | payer MEDICARE, OTHER, SELFPAY ==
[2022-12-13 09:55] VITALS: BMI 51.3
[2023-04-22] VITALS (81 sets, daily range): BP systolic 120–246; BP diastolic 58–123; PULSE 65–88; RESP 9–34; TEMP 36.9–38; O2SAT 88–99; BMI 44.4
[2023-04-22] MEDS: ONDANSETRON 4 MG/2 ML INJ IV ×2 (07:50→16:00)
[2023-04-22 08:03] LABS: Add Manual Diff / Slide Review NO; Basophils Absolute Auto 200 /uL (0-100); Basophils Percent Auto 0.8 % (0-2); Eosinophils Absolute Auto 300 /uL (0-450); Eosinophils Percent Auto 1.6 % (2-4); Hematocrit 44.6 % (36-46); Hemoglobin 14.4 g/dL (12.0-16.0); Lymphocytes Absolute Auto 4000 /uL (1100-4500); Lymphocytes Percent Auto 21.6 % (25-40); Mean Corpuscular HGB Conc 32.2 % (30-36); Mean Corpuscular Hemoglobin 24.5 PG (26-34); Mean Corpuscular Volume 76.3 fL (80-100); Monocytes Absolute Auto 1100 /uL (0-900); Neutrophils Absolute Auto 13000 /uL (1500-7000); Platelet Count 255 X10^3/uL (150-400); Red Blood Cell Count 5.85 X10^6/uL (4.0-5.2); Red Cell Distribution Width 15.5 % (11.6-14.8); White Blood Cell Count 18.5 X10^3/uL (4.5-11.0)
[2023-04-22 08:08] LABS: Alanine Aminotransferase 25 IU/L (<35); Albumin 3.8 g/dL (3.5-5.0); Albumin Globulin Ratio 1.1 (1.0-2.8); Alkaline Phosphatase 102 U/L (38-126); Aspartate Aminotransferase 27 IU/L (14-36); BUN Creatinine Ratio 25.6 (6-22); Bilirubin Total 0.7 mg/dL (0.2-1.3); Blood Urea Nitrogen 22 mg/dL (7-17); Carbon Dioxide 25 mmol/L (22-32); Chloride 101 mmol/L (98-107); Estimated Glomerular Filt Rate > 60 mL/min (>60); Globulin 3.6 g/dL (1.7-4.1); Glucose 187 mg/dL (80-110); HEMOLYSIS < 15 (0-50); Lipase 106 U/L (23-300); Sodium 136 mmol/L (137-145); Total Protein 7.4 g/dL (6.3-8.2)
--- NOTE | 2023-04-22 08:20 | PC.NURSE ---
called for additional info, in car on the way over via rayo messer unable to have discussion, reports will be here around 9am. Dr. Erwin aware; at bedside for primary eval
--- NOTE | 2023-04-22 08:22 | DI.CT.S_ITS ---
PROCEDURE: CT ABDOMEN PELVIS W CON INDICATIONS: abd pain, started today TECHNIQUE: After the administration of intravenous contrast, axial sections acquired from the lung bases to the pubic symphysis. Coronal and sagittal reformats were performed. For radiation dose reduction, the following was used: automated exposure control, adjustment of mA and/or kV according to patient size. COMPARISON: [facility], CT, CT ABDOMEN PELVIS W CON, 05/22/2022, 21:53. [facility], CT, CT CHEST ABDOMEN PELVIS WITH CONTRAST, 05/27/2022, 22:39. FINDINGS: Image quality: Good Lower chest: Scattered mild scarring/atelectasis. Lipomatous hypertrophy of the interatrial septum. Annular cardiac calcifications. Borderline heart size. Small hiatal hernia. Solid organs: The liver appears unremarkable. Gallbladder is absent. No pathologic dilation of the biliary system or pancreatic duct allowing for post cholecystectomy state. Moderate pancreatic parenchymal atrophy. No splenomegaly. No adrenal nodules. There are renal cysts and subcentimeter lesions. 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 Mild left delayed nephrogram and [id number] fat stranding. There is a obstructing left proximal ureter stone measuring 4 mm. Mild upstream pelvocaliectasis. Pelvic phleboliths are also present. Vessels and lymph nodes: The main portal vein is patent. No abdominal aortic aneurysm. No pathologic lymph nodes by size criteria. Bowel and peritoneum: No evidence of small bowel obstruction. No drainable fluid collection or pathologic ascites. Body wall: Moderate-sized periumbilical hernia is present with neck measuring about 1.1 cm on this non dynamic study. This probably contains some omentum. Pelvis: Bladder is unremarkable. Hysterectomy. Bones: There are degenerative changes, no acute or suspicious osseous finding. IMPRESSION: Mild left renal edema and delayed enhancement secondary to an obstructing 4 mm left proximal ureter stone. Mild left pelvocaliectasis. Moderate fat containing periumbilical hernia. No bowel obstruction. Other incidental and nonacute findings are described above. Dictated by: Man Dickson M.D. on 04/22/2023 at 8:59 Approved by: Man Dickson M.D. on 04/22/2023 at 9:05
--- NOTE | 2023-04-22 08:24 | ED.ABDPAIN ---
HPI - Abdominal Pain <Julisa Erwin, - Last Filed: 04/23/23 11:45> General Chief Complaint: Abdominal Pain Stated Complaint: Upper Right Abd. Pain Time Seen by Provider: 04/22/23 08:09 Source: patient and EMS Mode of arrival: EMS Limitations: no limitations History of Present Illness HPI narrative: 73-year-old female with history of myasthenia gravis, prior stroke, hypertension, SVT, dyslipidemia, diabetes type 2 with gastroparesis. Patient presents this morning reportedly had a low blood sugar upon awakening at 65 drank orange juice and had immediate abdominal pain EMS indicated seemed to be right upper quadrant patient indicates overall abdominal. No vomiting was reported. Patient has had persistent pain since then. In the field glucose was 190 on recheck. Patient has some known difficulties with speech she is able to yes no to questions but has a hard time with some expressive aphasia that is reported to be her normal. And patient indicates is her normal as well. No reported fevers, no chest pain no shortness of breath no back pain. Patient indicates pain throughout the abdomen. Indicates has not had a bowel movement in at least today and no black or bloody stools. Patient has been urinating regularly and no difficulty with urination, painful. Patient does appear quite uncomfortable. She can indicates she has allergies but not tell me what they are. She was with her this morning, he is EN route but has not arrived. Related Data Home Medications Medication Instructions Recorded Confirmed aspirin 81 mg tablet,delayed 81 mg PO DAILY 06/28/22 04/22/23 release clopidogrel 75 mg tablet 75 mg PO DAILY 06/28/22 06/28/22 insulin glargine 100 unit/mL (3 55 unit SUBCUT QAM 04/22/23 04/22/23 mL) subcutaneous pen (Lantus Solostar U-100 Insulin) Previous Rx's Medication Instructions Recorded Disabled Parking #1 ea 01/31/20 NovaFine Pen Tips 32G x 6mm #3 ea 11/29/20 lancets (Lancets,Thin) #200 ea 11/29/20 losartan 100 mg tablet 100 mg PO BID #180 tabs 04/23/22 pantoprazole 40 mg tablet,delayed 40 mg PO DAILY PRN heartburn #180 06/28/22 release tabs prednisone 20 mg tablet 20 mg PO DAILY #90 tabs 09/26/22 blood sugar diagnostic (Blood #800 ea 11/01/22 Glucose Test strips) metoprolol succinate 100 mg See Rx Instructions .Route 12/13/22 tablet,extended release 24 hr .COMPLEX #180 tabs gabapentin 600 mg tablet 600 mg PO Q8H PRN for neuropathic 01/03/23 pain #90 tabs sertraline 100 mg tablet (Zoloft) 200 mg (2 x 100 mg) PO DAILY #180 01/10/23 tabs insulin aspart U-100 100 unit/mL 10 - 30 unit (0.1 - 0.3 mL) SUBCUT 01/20/23 (3 mL) subcutaneous pen (Novolog 3XD #15 mL FlexPen U-100 Insulin aspart) insulin glargine 100 unit/mL (3 See Rx Instructions .Route 01/28/23 mL) subcutaneous pen (Lantus .COMPLEX #33 mL Solostar U-100 Insulin) nystatin 100,000 unit/gram topical 1 applic topical BID #30 grams 02/03/23 powder alprazolam 0.5 mg tablet See Rx Instructions .Route 04/10/23 .COMPLEX #75 tabs Allergies Allergy/AdvReac Type Severity Reaction Status Date / Time Penicillins Allergy Severe HIVES Verified 03/15/22 14:14 naproxen Allergy Mild HIVES Verified 03/15/22 14:14 rosuvastatin Allergy Mild Verified 03/15/22 14:14 sulfamethoxazole Allergy Unknown Verified 03/15/22 14:14 [From BACTRIM] trimethoprim [From BACTRIM] Allergy Unknown Verified 03/15/22 14:14 simvastatin AdvReac Severe MYALGIA, Verified 03/15/22 14:14 MUSCLE WEAKNESS Sulfa (Sulfonamide AdvReac Severe MYALGIA, Verified 03/15/22 14:14 Antibiotics) MUSCLE WEAKNESS citalopram AdvReac Intermediate Tachycardia Verified 03/15/22 14:14 at night metoclopramide AdvReac Intermediate tremors, Verified 03/15/22 14:14 anxiety gets worse atorvastatin AdvReac Mild NAUSEA, Verified 03/15/22 14:14 FLU LIKE SYMPTOMS metoprolol [METOPROLOL] AdvReac Unknown NAUSEA Verified 03/15/22 14:14 VOMITING Review of Systems <Julisa Erwin, - Last Filed: 04/23/23 11:45> Review of Systems ROS Unobtainable: All systems reviewed & are unremarkable except as noted in HPI and below Patient History <Julisa Erwin DO - Last Filed: 04/23/23 11:45> Medical History CVA (cerebral vascular accident) Hypertension Tachycardia Myasthenia gravis SVT (supraventricular tachycardia) Diabetes type 2, uncontrolled (07/15/11) Gastroparesis due to DM (11/13/10) Hyperlipidemia, mixed (11/13/10) Unspecified essential hypertension (11/13/10) Morbid obesity (11/13/10) Panic disorder (11/13/10) 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 HEENT: Atraumatic, pupils are equal round reactive to light, extraocular movements are intact, nares are clear, Tthere is no conjunctival pallor. Throat is clear without any exudates, erythema, tonsillar enlargement or uvular deviation HEART: Regular rate and rhythm without murmur, clicks, rubs. pulses are equal in upper and lower extremities LUNGS:Lungs clear to auscultation, no wheezes, rales, crackles, chest moves symmetrically, no tachypnea accessory muscle use ABD:bowel sounds normal, soft, distended, patient has generalized tenderness but seems worse in the left lower quadrant, no guarding, rebound, rigidity, no masses noted, no hepatosplenomegaly :No CVA tenderness MSCL: Non-tender, no muscle atrophy, full range of motion of the upper extremities. NEURO:CN 2-12 intact, sensation normal SKIN: No rash, erythema or other skin changes noted Initial Vital Signs Initial Vital Signs: Vital Signs Temperature 98.4 F 04/22/23 07:39 Pulse Rate 68 04/22/23 07:39 Respiratory Rate 20 04/22/23 07:39 Blood Pressure 226/94 H 04/22/23 07:39 Pulse Oximetry 97 04/22/23 07:39 Oxygen Delivery Method Room Air 04/22/23 07:39 <Delilah Obando, DO - Last Filed: 04/23/23 01:46> Initial Vital Signs Initial Vital Signs: Vital Signs Temperature 98.4 F 04/22/23 07:39 Pulse Rate 68 04/22/23 07:39 Respiratory Rate 20 04/22/23 07:39 Blood Pressure 226/94 H 04/22/23 07:39 Pulse Oximetry 97 04/22/23 07:39 Oxygen Delivery Method Room Air 04/22/23 07:39 Course <Julisa Erwin, DO - Last Filed: 04/23/23 11:45> Orders Ordered: Discontinued Medications Sodium Chloride (Normal Saline 0.9%) 1,000 mls @ 1,000 mls/hr IV BOLUS ONE Stop: 04/22/23 09:21 Last Infusion: 04/22/23 09:55 Dose: Infused Documented By: Admin: 04/22/23 08:40 Dose: 1,000 mls/hr Documented By: ROSALIND Levofloxacin (Levaquin) 750 mg in 150 mls @ 100 mls/hr IV NOW ONE Stop: 04/22/23 12:53 Last Admin: 04/22/23 14:00 Dose: Not Given Documented By: HUGO Levetiracetam 1,000 mg/ Sodium (Chloride) 110 mls @ 440 mls/hr IV NOW ONE Stop: 04/22/23 11:59 Last Infusion: 04/22/23 12:17 Dose: Infused Documented By: Admin: 04/22/23 12:02 Dose: 440 mls/hr Documented By: JESSY Sodium Chloride (Normal Saline 0.9%) 1,000 mls @ 1,000 mls/hr IV BOLUS ONE Stop: 04/22/23 12:43 Last Admin: 04/22/23 12:41 Dose: Not Given Documented By: JESSY Levetiracetam 1,000 mg/ Sodium (Chloride) 110 mls @ 440 mls/hr IV NOW ONE Stop: 04/22/23 19:38 Last Admin: 04/22/23 20:29 Dose: Not Given Documented By: HUGO Levetiracetam 1,000 mg/ Sodium (Chloride) 110 mls @ 440 mls/hr IV NOW ONE Stop: 04/23/23 00:14 Last Infusion: 04/23/23 00:15 Dose: Infused Documented By: Admin: 04/22/23 23:59 Dose: 440 mls/hr Documented By: HUGO Lorazepam (Lorazepam 2 Mg/Ml Inj) 1 mg IV NOW ONE Stop: 04/22/23 11:45 Last Admin: 04/22/23 12:41 Dose: Not Given Documented By: JESSY Morphine Sulfate (Morphine 4 Mg/Ml Inj) 4 mg IV NOW ONE Stop: 04/22/23 08:23 Last Admin: 04/22/23 08:33 Dose: 4 mg Documented By: ROSALIND Ondansetron HCl (Ondansetron 4 Mg Odt) 4 mg PO NOW PRN PRN Reason: Nausea And Vomiting Ondansetron HCl (Ondansetron 4 Mg/2 Ml Inj) 4 mg IV NOW PRN PRN Reason: Nausea And Vomiting Last Admin: 04/22/23 07:50 Dose: 4 mg Documented By: JESSY Ondansetron HCl (Ondansetron 4 Mg/2 Ml Inj) 4 mg IV Q4H PRN PRN Reason: Nausea And Vomiting Last Admin: 04/22/23 16:00 Dose: 4 mg Documented By: NANDA Vital Signs Vital signs: Vital Signs - 8 hr 04/22/23 18:00 04/22/23 18:00 04/22/23 18:15 Temperature Pulse Rate 84 83 Respiratory Rate 23 19 Blood Pressure 152/61 H Pulse Oximetry 89 L 89 L Oxygen Delivery Method Room Air Oxygen Flow Rate 04/22/23 18:15 04/22/23 18:30 04/22/23 18:30 Temperature Pulse Rate 88 Respiratory Rate 24 Blood Pressure 137/64 180/77 H Pulse Oximetry 94 Oxygen Delivery Method Oxygen Flow Rate 04/22/23 18:31 04/22/23 18:45 04/22/23 18:45 Temperature 100.4 F H Pulse Rate 83 Respiratory Rate 23 Blood Pressure 161/60 H Pulse Oximetry 93 91 Oxygen Delivery Method Nasal Cannula Nasal Cannula Oxygen Flow Rate 2 2 04/22/23 18:52 04/22/23 19:00 04/22/23 19:00 Temperature 99.0 F Pulse Rate 83 Respiratory Rate 23 Blood Pressure 162/72 H Pulse Oximetry 95 Oxygen Delivery Method Oxygen Flow Rate 04/22/23 19:15 04/22/23 19:15 04/22/23 19:30 Temperature Pulse Rate 86 Respiratory Rate 26 H Blood Pressure 140/58 L 183/81 H Pulse Oximetry 95 Oxygen Delivery Method Nasal Cannula Oxygen Flow Rate 2 04/22/23 19:30 04/22/23 19:45 04/22/23 19:45 Temperature Pulse Rate 87 82 Respiratory Rate 32 H Blood Pressure 180/82 H Pulse Oximetry 93 91 Oxygen Delivery Method Oxygen Flow Rate 04/22/23 20:00 04/22/23 20:00 04/22/23 20:15 Temperature Pulse Rate 82 80 Respiratory Rate 20 Blood Pressure 166/80 H Pulse Oximetry 96 93 Oxygen Delivery Method Oximask Oxygen Flow Rate 2 04/22/23 20:15 04/22/23 20:30 04/22/23 20:30 Temperature Pulse Rate 81 Respiratory Rate 21 Blood Pressure 152/66 H 152/69 H Pulse Oximetry 94 Oxygen Delivery Method Oxygen Flow Rate 04/22/23 20:45 04/22/23 20:45 04/22/23 21:00 Temperature Pulse Rate 83 80 Respiratory Rate 23 21 Blood Pressure 151/69 H Pulse Oximetry 95 94 Oxygen Delivery Method Oxygen Flow Rate 04/22/23 21:00 04/22/23 21:15 04/22/23 21:15 Temperature Pulse Rate 82 Respiratory Rate 24 Blood Pressure 145/64 H 145/69 H Pulse Oximetry 95 Oxygen Delivery Method Oximask Oxygen Flow Rate 2 04/22/23 21:30 04/22/23 21:30 04/22/23 21:41 Temperature Pulse Rate 81 Respiratory Rate 34 H Blood Pressure 135/64 Pulse Oximetry 88 L 96 Oxygen Delivery Method Oximask Oxygen Flow Rate 2 04/22/23 21:46 04/22/23 21:46 04/22/23 22:00 Temperature Pulse Rate 84 81 Respiratory Rate 22 33 H Blood Pressure 157/123 H Pulse Oximetry 95 88 L Oxygen Delivery Method Oximask Room Air Oxygen Flow Rate 2 04/22/23 22:00 04/22/23 22:15 04/22/23 22:15 Temperature Pulse Rate 80 Respiratory Rate 23 Blood Pressure 140/68 160/74 H Pulse Oximetry 93 Oxygen Delivery Method Oximask Oxygen Flow Rate 2 04/22/23 22:30 04/22/23 22:30 04/22/23 22:46 Temperature Pulse Rate 80 Respiratory Rate 20 Blood Pressure 167/77 H 165/70 H Pulse Oximetry 93 Oxygen Delivery Method Oxygen Flow Rate 04/22/23 22:46 04/22/23 23:00 04/22/23 23:01 Temperature Pulse Rate 81 74 Respiratory Rate 21 19 Blood Pressure 120/59 L Pulse Oximetry 96 88 L Oxygen Delivery Method Oxygen Flow Rate 04/22/23 23:01 04/22/23 23:15 04/22/23 23:15 Temperature Pulse Rate 73 73 Respiratory Rate 20 21 Blood Pressure 147/63 H Pulse Oximetry 91 90 L Oxygen Delivery Method Oxygen Flow Rate 04/22/23 23:30 04/22/23 23:30 04/22/23 23:45 Temperature Pulse Rate 73 Respiratory Rate Blood Pressure 147/67 H 155/70 H Pulse Oximetry 92 Oxygen Delivery Method Oximask Oxygen Flow Rate 2 04/22/23 23:45 04/23/23 00:00 04/23/23 00:00 Temperature Pulse Rate 73 71 Respiratory Rate 9 L 23 Blood Pressure 156/66 H Pulse Oximetry 89 L 93 Oxygen Delivery Method Room Air Oxygen Flow Rate 04/23/23 00:15 04/23/23 00:15 04/23/23 00:30 Temperature Pulse Rate 72 Respiratory Rate 18 Blood Pressure 153/68 H 158/67 H Pulse Oximetry 93 Oxygen Delivery Method Oxygen Flow Rate 04/23/23 00:30 04/23/23 00:45 04/23/23 00:45 Temperature Pulse Rate 75 73 Respiratory Rate 15 9 L Blood Pressure 153/69 H Pulse Oximetry 97 96 Oxygen Delivery Method Oxygen Flow Rate 04/23/23 00:56 04/23/23 00:56 04/23/23 01:00 Temperature Pulse Rate 75 73 Respiratory Rate 17 20 Blood Pressure 156/70 H Pulse Oximetry 96 93 Oxygen Delivery Method Oximask Oxygen Flow Rate 2 04/23/23 01:00 Temperature Pulse Rate Respiratory Rate Blood Pressure 155/70 H Pulse Oximetry Oxygen Delivery Method Oxygen Flow Rate <Delilah Obando, - Last Filed: 04/23/23 01:46> Orders Ordered: Discontinued Medications Sodium Chloride (Normal Saline 0.9%) 1,000 mls @ 1,000 mls/hr IV BOLUS ONE Stop: 04/22/23 09:21 Last Infusion: 04/22/23 09:55 Dose: Infused Documented By: Admin: 04/22/23 08:40 Dose: 1,000 mls/hr Documented By: ROSALIND Levofloxacin (Levaquin) 750 mg in 150 mls @ 100 mls/hr IV NOW ONE Stop: 04/22/23 12:53 Last Admin: 04/22/23 14:00 Dose: Not Given Documented By: HUGO Levetiracetam 1,000 mg/ Sodium (Chloride) 110 mls @ 440 mls/hr IV NOW ONE Stop: 04/22/23 11:59 Last Infusion: 04/22/23 12:17 Dose: Infused Documented By: Admin: 04/22/23 12:02 Dose: 440 mls/hr Documented By: JESSY Sodium Chloride (Normal Saline 0.9%) 1,000 mls @ 1,000 mls/hr IV BOLUS ONE Stop: 04/22/23 12:43 Last Admin: 04/22/23 12:41 Dose: Not Given Documented By: JESSY Levetiracetam 1,000 mg/ Sodium (Chloride) 110 mls @ 440 mls/hr IV NOW ONE Stop: 04/22/23 19:38 Last Admin: 04/22/23 20:29 Dose: Not Given Documented By: HUGO Levetiracetam 1,000 mg/ Sodium (Chloride) 110 mls @ 440 mls/hr IV NOW ONE Stop: 04/23/23 00:14 Last Infusion: 04/23/23 00:15 Dose: Infused Documented By: Admin: 04/22/23 23:59 Dose: 440 mls/hr Documented By: HUGO Lorazepam (Lorazepam 2 Mg/Ml Inj) 1 mg IV NOW ONE Stop: 04/22/23 11:45 Last Admin: 04/22/23 12:41 Dose: Not Given Documented By: JESSY Morphine Sulfate (Morphine 4 Mg/Ml Inj) 4 mg IV NOW ONE Stop: 04/22/23 08:23 Last Admin: 04/22/23 08:33 Dose: 4 mg Documented By: ROSALIND Ondansetron HCl (Ondansetron 4 Mg Odt) 4 mg PO NOW PRN PRN Reason: Nausea And Vomiting Ondansetron HCl (Ondansetron 4 Mg/2 Ml Inj) 4 mg IV NOW PRN PRN Reason: Nausea And Vomiting Last Admin: 04/22/23 07:50 Dose: 4 mg Documented By: JESSY Ondansetron HCl (Ondansetron 4 Mg/2 Ml Inj) 4 mg IV Q4H PRN PRN Reason: Nausea And Vomiting Last Admin: 04/22/23 16:00 Dose: 4 mg Documented By: NANDA Vital Signs Vital signs: Vital Signs - 8 hr 04/22/23 18:00 04/22/23 18:00 04/22/23 18:15 Temperature Pulse Rate 84 83 Respiratory Rate 23 19 Blood Pressure 152/61 H Pulse Oximetry 89 L 89 L Oxygen Delivery Method Room Air Oxygen Flow Rate 04/22/23 18:15 04/22/23 18:30 04/22/23 18:30 Temperature Pulse Rate 88 Respiratory Rate 24 Blood Pressure 137/64 180/77 H Pulse Oximetry 94 Oxygen Delivery Method Oxygen Flow Rate 04/22/23 18:31 04/22/23 18:45 04/22/23 18:45 Temperature 100.4 F H Pulse Rate 83 Respiratory Rate 23 Blood Pressure 161/60 H Pulse Oximetry 93 91 Oxygen Delivery Method Nasal Cannula Nasal Cannula Oxygen Flow Rate 2 2 04/22/23 18:52 04/22/23 19:00 04/22/23 19:00 Temperature 99.0 F Pulse Rate 83 Respiratory Rate 23 Blood Pressure 162/72 H Pulse Oximetry 95 Oxygen Delivery Method Oxygen Flow Rate 04/22/23 19:15 04/22/23 19:15 04/22/23 19:30 Temperature Pulse Rate 86 Respiratory Rate 26 H Blood Pressure 140/58 L 183/81 H Pulse Oximetry 95 Oxygen Delivery Method Nasal Cannula Oxygen Flow Rate 2 04/22/23 19:30 04/22/23 19:45 04/22/23 19:45 Temperature Pulse Rate 87 82 Respiratory Rate 32 H Blood Pressure 180/82 H Pulse Oximetry 93 91 Oxygen Delivery Method Oxygen Flow Rate 04/22/23 20:00 04/22/23 20:00 04/22/23 20:15 Temperature Pulse Rate 82 80 Respiratory Rate 20 Blood Pressure 166/80 H Pulse Oximetry 96 93 Oxygen Delivery Method Oximask Oxygen Flow Rate 2 04/22/23 20:15 04/22/23 20:30 04/22/23 20:30 Temperature Pulse Rate 81 Respiratory Rate 21 Blood Pressure 152/66 H 152/69 H Pulse Oximetry 94 Oxygen Delivery Method Oxygen Flow Rate 04/22/23 20:45 04/22/23 20:45 04/22/23 21:00 Temperature Pulse Rate 83 80 Respiratory Rate 23 21 Blood Pressure 151/69 H Pulse Oximetry 95 94 Oxygen Delivery Method Oxygen Flow Rate 04/22/23 21:00 04/22/23 21:15 04/22/23 21:15 Temperature Pulse Rate 82 Respiratory Rate 24 Blood Pressure 145/64 H 145/69 H Pulse Oximetry 95 Oxygen Delivery Method Oximask Oxygen Flow Rate 2 04/22/23 21:30 04/22/23 21:30 04/22/23 21:41 Temperature Pulse Rate 81 Respiratory Rate 34 H Blood Pressure 135/64 Pulse Oximetry 88 L 96 Oxygen Delivery Method Oximask Oxygen Flow Rate 2 04/22/23 21:46 04/22/23 21:46 04/22/23 22:00 Temperature Pulse Rate 84 81 Respiratory Rate 22 33 H Blood Pressure 157/123 H Pulse Oximetry 95 88 L Oxygen Delivery Method Oximask Room Air Oxygen Flow Rate 2 04/22/23 22:00 04/22/23 22:15 04/22/23 22:15 Temperature Pulse Rate 80 Respiratory Rate 23 Blood Pressure 140/68 160/74 H Pulse Oximetry 93 Oxygen Delivery Method Oximask Oxygen Flow Rate 2 04/22/23 22:30 04/22/23 22:30 04/22/23 22:46 Temperature Pulse Rate 80 Respiratory Rate 20 Blood Pressure 167/77 H 165/70 H Pulse Oximetry 93 Oxygen Delivery Method Oxygen Flow Rate 04/22/23 22:46 04/22/23 23:00 04/22/23 23:01 Temperature Pulse Rate 81 74 Respiratory Rate 21 19 Blood Pressure 120/59 L Pulse Oximetry 96 88 L Oxygen Delivery Method Oxygen Flow Rate 04/22/23 23:01 04/22/23 23:15 04/22/23 23:15 Temperature Pulse Rate 73 73 Respiratory Rate 20 21 Blood Pressure 147/63 H Pulse Oximetry 91 90 L Oxygen Delivery Method Oxygen Flow Rate 04/22/23 23:30 04/22/23 23:30 04/22/23 23:45 Temperature Pulse Rate 73 Respiratory Rate Blood Pressure 147/67 H 155/70 H Pulse Oximetry 92 Oxygen Delivery Method Oximask Oxygen Flow Rate 2 04/22/23 23:45 04/23/23 00:00 04/23/23 00:00 Temperature Pulse Rate 73 71 Respiratory Rate 9 L 23 Blood Pressure 156/66 H Pulse Oximetry 89 L 93 Oxygen Delivery Method Room Air Oxygen Flow Rate 04/23/23 00:15 04/23/23 00:15 04/23/23 00:30 Temperature Pulse Rate 72 Respiratory Rate 18 Blood Pressure 153/68 H 158/67 H Pulse Oximetry 93 Oxygen Delivery Method Oxygen Flow Rate 04/23/23 00:30 04/23/23 00:45 04/23/23 00:45 Temperature Pulse Rate 75 73 Respiratory Rate 15 9 L Blood Pressure 153/69 H Pulse Oximetry 97 96 Oxygen Delivery Method Oxygen Flow Rate 04/23/23 00:56 04/23/23 00:56 04/23/23 01:00 Temperature Pulse Rate 75 73 Respiratory Rate 17 20 Blood Pressure 156/70 H Pulse Oximetry 96 93 Oxygen Delivery Method Oximask Oxygen Flow Rate 2 04/23/23 01:00 Temperature Pulse Rate Respiratory Rate Blood Pressure 155/70 H Pulse Oximetry Oxygen Delivery Method Oxygen Flow Rate MDM - Abdominal Pain <Julisa Erwin, DO - Last Filed: 04/23/23 11:45> Lab Data 04/22/23 07:38 04/22/23 07:38 Labs: Lab Results 04/22/23 04/22/23 04/22/23 Range/Units 07:38 08:22 09:56 WBC 18.5 H (4.5-11.0) X10^3/uL RBC 5.85 H (4.0-5.2) X10^6/uL Hgb 14.4 (12.0-16.0) g/dL Hct 44.6 (36-46) % MCV 76.3 L (80-100) fL MCH 24.5 L (26-34) PG MCHC 32.2 (30-36) % RDW 15.5 H (11.6-14.8) % Plt Count 255 (150-400) X10^3/uL Neut % (Auto) 70.0 (50-75) % Lymph % (Auto) 21.6 L (25-40) % [place] % (Auto) 6.0 (3-14) % Eos % (Auto) 1.6 L (2-4) % Baso % (Auto) 0.8 (0-2) % Neut # (Auto) 83661 H (9943-9380) /uL Lymph # (Auto) 4000 (9408-7428) /uL [place] # (Auto) 1100 H (0-900) /uL Eos # (Auto) 300 (0-450) /uL Baso # (Auto) 200 H (0-100) /uL Sodium 136 L (137-145) mmol/L Potassium 4.0 (3.4-5.1) mmol/L Chloride 101 (98-107) mmol/L Carbon Dioxide 25 (22-32) mmol/L BUN 22 H (7-17) mg/dL Creatinine 0.86 (0.52-1.04) mg/dL Estimated GFR > 60 (>60) mL/min BUN/Creatinine Ratio 25.6 H (6-22) Glucose 187 H (80-110) mg/dL Lactate 3.2 H (0.7-2.1) mmol/L Calcium 10.0 (8.4-10.2) mg/dL Total Bilirubin 0.7 (0.2-1.3) mg/dL AST 27 (14-36) IU/L ALT 25 (<35) IU/L Alkaline Phosphatase 102 (38-126) U/L Total Protein 7.4 (6.3-8.2) g/dL Albumin 3.8 (3.5-5.0) g/dL Globulin 3.6 (1.7-4.1) g/dL Albumin/Globulin Ratio 1.1 (1.0-2.8) Lipase 106 (23-300) U/L Procalcitonin 0.06 (<0.5) ng/mL Urine Color Yellow Urine Appearance Clear Urine pH 6.5 (4.5-8.0) Ur Specific [place] 1.010 (1.000-1.035) Urine Protein Negative (Negative) Urine Glucose (UA) 1+ H (Negative) g/dL Urine Ketones Negative (NEGATIVE) Urine Occult Blood 3+ H (Negative) Urine Nitrate Negative (Negative) Urine Bilirubin Negative (NEGATIVE) Urine Urobilinogen 0.2 (0.2) E.U./dL Ur Leukocyte Esterase Negative (NEGATIVE) Urine RBC 5-10/hpf H (0-5/HPF) Urine WBC None seen (0-5/HPF) Ur Squamous Epith Cells None seen (0-5/HPF) Urine Bacteria None seen (None) Ur Culture Indicated? Cult not indicated 04/22/23 Range/Units 10:36 WBC (4.5-11.0) X10^3/uL RBC (4.0-5.2) X10^6/uL Hgb (12.0-16.0) g/dL Hct (36-46) % MCV (80-100) fL MCH (26-34) PG MCHC (30-36) % RDW (11.6-14.8) % Plt Count (150-400) X10^3/uL Neut % (Auto) (50-75) % Lymph % (Auto) (25-40) % [place] % (Auto) (3-14) % Eos % (Auto) (2-4) % Baso % (Auto) (0-2) % Neut # (Auto) (5428-9512) /uL Lymph # (Auto) (2513-4525) /uL [place] # (Auto) (0-900) /uL Eos # (Auto) (0-450) /uL Baso # (Auto) (0-100) /uL Sodium (137-145) mmol/L Potassium (3.4-5.1) mmol/L Chloride (98-107) mmol/L Carbon Dioxide (22-32) mmol/L BUN (7-17) mg/dL Creatinine (0.52-1.04) mg/dL Estimated GFR (>60) mL/min BUN/Creatinine Ratio (6-22) Glucose (80-110) mg/dL Lactate 1.2 (0.7-2.1) mmol/L Calcium (8.4-10.2) mg/dL Total Bilirubin (0.2-1.3) mg/dL AST (14-36) IU/L ALT (<35) IU/L Alkaline Phosphatase (38-126) U/L Total Protein (6.3-8.2) g/dL Albumin (3.5-5.0) g/dL Globulin (1.7-4.1) g/dL Albumin/Globulin Ratio (1.0-2.8) Lipase (23-300) U/L Procalcitonin (<0.5) ng/mL Urine Color Urine Appearance Urine pH (4.5-8.0) Ur Specific [place] (1.000-1.035) Urine Protein (Negative) Urine Glucose (UA) (Negative) g/dL Urine Ketones (NEGATIVE) Urine Occult Blood (Negative) Urine Nitrate (Negative) Urine Bilirubin (NEGATIVE) Urine Urobilinogen (0.2) E.U./dL Ur Leukocyte Esterase (NEGATIVE) Urine RBC (0-5/HPF) Urine WBC (0-5/HPF) Ur Squamous Epith Cells (0-5/HPF) Urine Bacteria (None) Ur Culture Indicated? Point of care testing: Point of Care Testing Glucose POC [address] scan - head: Radiologist's Impression: [address] [id number] [address] Scan Report Signed Patient: Oksana Brown MR#: [id number] : 1950 Acct:[id number] Age/Sex: 73 / F Date of Service: 04/22/23 Loc: ED Accession Number: [id number] Procedure: CT head/brain wo con Ordering Provider: Julisa Erwin D.O. and in the ROCEDURE: CT HEAD/BRAIN WO CON INDICATIONS: confusion TECHNIQUE: Noncontrast 4.5 mm thick angled axial sections acquired from the foramen magnum to the vertex, with coronal and sagittal reformats. For radiation dose reduction, the following was used: automated exposure control, adjustment of mA and/or kV according to patient size. COMPARISON: [facility], CT, HEAD WITHOUT CONTRAST, 08/28/2015, 11:32. FINDINGS: Image quality: Excellent. CSF spaces: Basal cisterns are patent. No extra-axial fluid collections. The ventricles are symmetric in size and shape. Brain: No intracranial bleeds or masses. There is cerebral volume loss for age, with resultant ventricular and sulcal prominence. There are periventricular and deep white matter chronic small vessel ischemic changes. There is intracranial internal carotid artery atherosclerosis. Skull and face: Calvarium and visualized facial bones appear intact, without suspicious lesions. Sinuses: Visualized sinuses and mastoids are clear. IMPRESSION: No acute intracranial process. Dictated by: Migue Sharpe M.D. on 04/22/2023 at 12:16 Approved by: Migue Sharpe M.D. on 04/22/2023 at 12:17 MDM Narrative Medical decision making narrative: Patient has a white count 18 appears to be elevated chronically in the 19-20 range, hemoglobin is appropriate 14 with normal platelets. Chemistry shows a sodium 136 appropriate potassium, CO2 BUN 22 with normal renal function LFTs are negative lipase is negative with a glucose of 187. Patient is quite uncomfortable, hypertensive was given medication for pain, CT abdomen pelvis as she is diffusely tender but seems more tender in the left lower quadrant. She does have some difficulty giving history in his reported have some expressive aphasia from prior stroke along with myasthenia gravis. Patient does seem alert, appropriate she can yes no to questions just has difficulty giving full answers and indicates that this is normal for her. Spoke with Dr. Call Neurology at [facility] covering for patient's prior neurologist Dr. Doherty. Discussed patient's findings, reviewed patient had what sounds like a stroke a year ago but never really recovered. She has a history of myasthenia did not have an MRI at that time but did have CT head and CT angio. Repeat head CT today does not show any obvious stroke new or old or other acute changes. Afebrile but does have a kidney stone and had noted hallucinations altered mental status it has been intermittent over time. She is still on prednisone daily for her myasthenia. Discussed this could be new seizure disorder versus progressive neurologic disorder, she is less suspicious for stroke at this time. She recommends MR brain if able to obtain. She recommends no additional prednisone keep it current dosing. She did recommend and agree with the 1000 mg Keppra load and a 1000 mg p.o. b.i.d. could be increased to 1500 mg p.o. b.i.d. as needed. She recommends EEG and transferred to a larger facility for further workup. I discussed with patient is DNR/DNI but not comfort measures. They did not wish to transfer. Spoke with our MR sacha. Patient does not fit in our MR. Spoke with Dr. Del Castillo, hospitalist he came down and met with the patient and family after discussion they agreed to transfer for further evaluation for better answers and final decision about steps. Spoke with Neurology it is we would a shows well as Allegra Harris. Spoke with Neurology Allegra harris agrees with plan for transfer, plan for 1 g Keppra q.12 hours next dose would be at midnight. Plan for observation, and additional workup. Spoke with Dr. Storm hospitalist at [facility], reviewed patient's past medical history, CT imaging, labs, imaging workup today. Patient had noted kidney stone consistent with the abdominal pain has been noted she seemed a little bit off when he arrived she shortly thereafter had seizure activity is never really returned to her baseline and per was still far from her baseline afterwards and was not at baseline prior to. She did receive fluids, morphine before the seizure. Then received Keppra IV. Did not receive Ativan or other medications it has been at least 6 hours since her seizure activity. She is now opening her eyes will sort of mumble but does not have sentences and is not interactive in the same way as she was when she 1st arrived this morning for myself. Accepts for transfer. Patient accepted for transfer. Has not axillary 100.4 but checked immediately orally is 99 F. <Delilah Obando, - Last Filed: 04/23/23 01:46> Lab Data Labs: Lab Results 04/22/23 04/22/23 04/22/23 Range/Units 07:38 08:22 09:56 WBC 18.5 H (4.5-11.0) X10^3/uL RBC 5.85 H (4.0-5.2) X10^6/uL Hgb 14.4 (12.0-16.0) g/dL Hct 44.6 (36-46) % MCV 76.3 L (80-100) fL MCH 24.5 L (26-34) PG MCHC 32.2 (30-36) % RDW 15.5 H (11.6-14.8) % Plt Count 255 (150-400) X10^3/uL Neut % (Auto) 70.0 (50-75) % Lymph % (Auto) 21.6 L (25-40) % [place] % (Auto) 6.0 (3-14) % Eos % (Auto) 1.6 L (2-4) % Baso % (Auto) 0.8 (0-2) % Neut # (Auto) 11792 H (8609-9617) /uL Lymph # (Auto) 4000 (2033-1964) /uL [place] # (Auto) 1100 H (0-900) /uL Eos # (Auto) 300 (0-450) /uL Baso # (Auto) 200 H (0-100) /uL Sodium 136 L (137-145) mmol/L Potassium 4.0 (3.4-5.1) mmol/L Chloride 101 (98-107) mmol/L Carbon Dioxide 25 (22-32) mmol/L BUN 22 H (7-17) mg/dL Creatinine 0.86 (0.52-1.04) mg/dL Estimated GFR > 60 (>60) mL/min BUN/Creatinine Ratio 25.6 H (6-22) Glucose 187 H (80-110) mg/dL Lactate 3.2 H (0.7-2.1) mmol/L Calcium 10.0 (8.4-10.2) mg/dL Total Bilirubin 0.7 (0.2-1.3) mg/dL AST 27 (14-36) IU/L ALT 25 (<35) IU/L Alkaline Phosphatase 102 (38-126) U/L Total Protein 7.4 (6.3-8.2) g/dL Albumin 3.8 (3.5-5.0) g/dL Globulin 3.6 (1.7-4.1) g/dL Albumin/Globulin Ratio 1.1 (1.0-2.8) Lipase 106 (23-300) U/L Procalcitonin 0.06 (<0.5) ng/mL Urine Color Yellow Urine Appearance Clear Urine pH 6.5 (4.5-8.0) Ur Specific [place] 1.010 (1.000-1.035) Urine Protein Negative (Negative) Urine Glucose (UA) 1+ H (Negative) g/dL Urine Ketones Negative (NEGATIVE) Urine Occult Blood 3+ H (Negative) Urine Nitrate Negative (Negative) Urine Bilirubin Negative (NEGATIVE) Urine Urobilinogen 0.2 (0.2) E.U./dL Ur Leukocyte Esterase Negative (NEGATIVE) Urine RBC 5-10/hpf H (0-5/HPF) Urine WBC None seen (0-5/HPF) Ur Squamous Epith Cells None seen (0-5/HPF) Urine Bacteria None seen (None) Ur Culture Indicated? Cult not indicated 04/22/23 Range/Units 10:36 WBC (4.5-11.0) X10^3/uL RBC (4.0-5.2) X10^6/uL Hgb (12.0-16.0) g/dL Hct (36-46) % MCV (80-100) fL MCH (26-34) PG MCHC (30-36) % RDW (11.6-14.8) % Plt Count (150-400) X10^3/uL Neut % (Auto) (50-75) % Lymph % (Auto) (25-40) % [place] % (Auto) (3-14) % Eos % (Auto) (2-4) % Baso % (Auto) (0-2) % Neut # (Auto) (4785-4467) /uL Lymph # (Auto) (7600-6366) /uL [place] # (Auto) (0-900) /uL Eos # (Auto) (0-450) /uL Baso # (Auto) (0-100) /uL Sodium (137-145) mmol/L Potassium (3.4-5.1) mmol/L Chloride (98-107) mmol/L Carbon Dioxide (22-32) mmol/L BUN (7-17) mg/dL Creatinine (0.52-1.04) mg/dL Estimated GFR (>60) mL/min BUN/Creatinine Ratio (6-22) Glucose (80-110) mg/dL Lactate 1.2 (0.7-2.1) mmol/L Calcium (8.4-10.2) mg/dL Total Bilirubin (0.2-1.3) mg/dL AST (14-36) IU/L ALT (<35) IU/L Alkaline Phosphatase (38-126) U/L Total Protein (6.3-8.2) g/dL Albumin (3.5-5.0) g/dL Globulin (1.7-4.1) g/dL Albumin/Globulin Ratio (1.0-2.8) Lipase (23-300) U/L Procalcitonin (<0.5) ng/mL Urine Color Urine Appearance Urine pH (4.5-8.0) Ur Specific [place] (1.000-1.035) Urine Protein (Negative) Urine Glucose (UA) (Negative) g/dL Urine Ketones (NEGATIVE) Urine Occult Blood (Negative) Urine Nitrate (Negative) Urine Bilirubin (NEGATIVE) Urine Urobilinogen (0.2) E.U./dL Ur Leukocyte Esterase (NEGATIVE) Urine RBC (0-5/HPF) Urine WBC (0-5/HPF) Ur Squamous Epith Cells (0-5/HPF) Urine Bacteria (None) Ur Culture Indicated? Point of care testing: Point of Care Testing Glucose POC 175 MDM Narrative Medical decision making narrative: Patient has a white count 18 appears to be elevated chronically in the 19-20 range, hemoglobin is appropriate 14 with normal platelets. Chemistry shows a sodium 136 appropriate potassium, CO2 BUN 22 with normal renal function LFTs are negative lipase is negative with a glucose of 187. Patient is quite uncomfortable, hypertensive was given medication for pain, CT abdomen pelvis as she is diffusely tender but seems more tender in the left lower quadrant. She does have some difficulty giving history in his reported have some expressive aphasia from prior stroke along with myasthenia gravis. Patient does seem alert, appropriate she can yes no to questions just has difficulty giving full answers and indicates that this is normal for her. Spoke with Dr. Call Neurology at [facility] covering for patient's prior neurologist Dr. Doherty. Discussed patient's findings, reviewed patient had what sounds like a stroke a year ago but never really recovered. She has a history of myasthenia did not have an MRI at that time but did have CT head and CT angio. Repeat head CT today does not show any obvious stroke new or old or other acute changes. Afebrile but does have a kidney stone and had noted hallucinations altered mental status it has been intermittent over time. She is still on prednisone daily for her myasthenia. Discussed this could be new seizure disorder versus progressive neurologic disorder, she is less suspicious for stroke at this time. She recommends MR brain if able to obtain. She recommends no additional prednisone keep it current dosing. She did recommend and agree with the 1000 mg Keppra load and a 1000 mg p.o. b.i.d. could be increased to 1500 mg p.o. b.i.d. as needed. She recommends EEG and transferred to a larger facility for further workup. I discussed with patient is DNR/DNI but not comfort measures. They did not wish to transfer. Spoke with our MR techs. Patient does not fit in our MR. Spoke with Dr. Del Castillo, hospitalist he came down and met with the patient and family after discussion they agreed to transfer for further evaluation for better answers and final decision about steps. Spoke with Neurology it is we would a shows well as Allegra Harris. Spoke with Neurology Allegra harris agrees with plan for transfer, plan for 1 g Keppra q.12 hours next dose would be at midnight. Plan for observation, and additional workup. Spoke with Dr. Storm hospitalist at [facility], reviewed patient's past medical history, CT imaging, labs, imaging workup today. Patient had noted kidney stone consistent with the abdominal pain has been noted she seemed a little bit off when he arrived she shortly thereafter had seizure activity is never really returned to her baseline and per was still far from her baseline afterwards and was not at baseline prior to. She did receive fluids, morphine before the seizure. Then received Keppra IV. Did not receive Ativan or other medications it has been at least 6 hours since her seizure activity. She is now opening her eyes will sort of mumble but does not have sentences and is not interactive in the same way as she was when she 1st arrived this morning for myself. Accepts for transfer. Patient accepted for transfer. Has not axillary 100.4 but checked immediately orally is [address] Obando Patient signed out to me by Dr. Erwin. I have seen evaluated patient myself. She is awake alert definitely confused. No further seizure activity. Accepted at [facility] transferred without any issue. Critical Care Time <Julisa Erwin, DO - Last Filed: 04/23/23 11:45> Critical Care Time Critical Care Time: Yes Total Critical Care Time: 45 Attestation: The high probability of a clinically significant, sudden or life threatening deterioration of the [] system(s) required my full and direct attention, intervention and personal management. The aggregate critical care time was [] minutes. This time is in addition to time spent performing reported procedures but includes the following: [] Data Review and interpretation [] Patient assessment and monitoring of vital signs [] Documentation [] Medication orders and management Discharge Plan Departure Patient Disposition: Admitted As Inpatient Clinical Impression: Seizure, Kidney stone on left side, Myasthenia gravis
[2023-04-22] MEDS: MORPHINE 4 MG/ML INJ IV (08:33)
[2023-04-22] MEDS: SODIUM CHLORIDE 0.9% 1,000 ML 1000 ML IV (08:40)
[2023-04-22 09:05] LABS: Lactate (Lactic Acid) 3.2 mmol/L (0.7-2.1)
[2023-04-22 09:21] LABS: Procalcitonin 0.06 ng/mL (<0.5)
--- NOTE | 2023-04-22 09:37 | PC.NURSE ---
Addendum entered by Sissy Alexander R.N. 04/22/23 11:31: , Syed has been looking for care center for pt. He states,it's been getting more difficult to care for her Notified Dr. Erwin Addendum entered by Sissy Alexander R.N. 04/22/23 09:38: Dr. Erwin notified of CT results Original Note: at bedside. straight cath done for urine sample. Urine clear, pale yellow. UA sent
[2023-04-22 09:59] LABS: Appearance Urine UA CLEAR; Bilirubin Urine UA NEGATIVE (NEGATIVE); Color Urine UA YELLOW; Glucose Urine UA 1+ g/dL (Negative); Ketones Urine UA NEGATIVE (NEGATIVE); Leukocyte Esterase Urine UA NEGATIVE (NEGATIVE); Nitrite Urine UA NEGATIVE (Negative); Occult Blood Urine UA 3+ (Negative); Protein Urine UA NEGATIVE (Negative); Urobilinogen Urine UA 0.2 E.U./dL (0.2); pH Urine UA 6.5 (4.5-8.0)
[2023-04-22 10:04] LABS: Bacteria Urine None Seen; Culture Indicated Urine Cult Not Indicated; RBC Urine 5-10/HPF (0-5/HPF); Squamous Epithelial Cell Urine None Seen (0-5/HPF); WBC Urine None Seen (0-5/HPF)
[2023-04-22 10:36] LABS: Reflexed Lactate in 2 Hours Y
[2023-04-22 10:51] LABS: Lactate 2HR (Lactic Acid Rflx) 1.2 mmol/L (0.7-2.1)
--- NOTE | 2023-04-22 11:24 | DI.CT.S_ITS ---
P and in the ROCEDURE: CT HEAD/BRAIN WO CON INDICATIONS: confusion TECHNIQUE: Noncontrast 4.5 mm thick angled axial sections acquired from the foramen magnum to the vertex, with coronal and sagittal reformats. For radiation dose reduction, the following was used: automated exposure control, adjustment of mA and/or kV according to patient size. COMPARISON: [facility], CT, HEAD WITHOUT CONTRAST, 08/28/2015, 11:32. FINDINGS: Image quality: Excellent. CSF spaces: Basal cisterns are patent. No extra-axial fluid collections. The ventricles are symmetric in size and shape. Brain: No intracranial bleeds or masses. There is cerebral volume loss for age, with resultant ventricular and sulcal prominence. There are periventricular and deep white matter chronic small vessel ischemic changes. There is intracranial internal carotid artery atherosclerosis. Skull and face: Calvarium and visualized facial bones appear intact, without suspicious lesions. Sinuses: Visualized sinuses and mastoids are clear. IMPRESSION: No acute intracranial process. Dictated by: Migue Sharpe M.D. on 04/22/2023 at 12:16 Approved by: Migue Sharpe M.D. on 04/22/2023 at 12:17
--- NOTE | 2023-04-22 11:49 | DI.RAD.S_ITS ---
PROCEDURE: XR CHEST 1V INDICATIONS: seizure TECHNIQUE: One view of the chest was acquired. COMPARISON: [facility], CR, XR CHEST 1V, 05/22/2022, 21:18. [facility], CR, XR CHEST 2V, 09/26/2020, 14:46. [facility], CR, XR CHEST 1 VIEW, 05/27/2022, 21:26. FINDINGS: Surgical changes and devices: None. Lungs and pleura: Very low lung volumes. Mildly prominent interstitium. Mediastinum: Aortic calcifications. Suspected cardiomegaly even allowing for low lung volumes. Bones and chest wall: Degenerative changes. IMPRESSION: Very low lung volumes on this single view study, limiting evaluation. Prominent interstitium may represent edema or artifact of low lung volumes. Cardiomegaly. Dictated by: Man Dickson M.D. on 04/22/2023 at 12:15 Approved by: Man Dickson M.D. on 04/22/2023 at 12:16
--- NOTE | 2023-04-22 11:54 | PC.NURSE ---
pt had seizure about 45 sec; turned on her left side. RT called. Prior to seizure, O2 at 3L/NC and sats would dip to 80%. is not in the room at time of Seizure
[2023-04-22] MEDS: levETIRAcetam 1,000 MG in SODIUM CHLORIDE 0.9% 100 ML 440 MG IV ×2 (12:02→23:59)
--- NOTE | 2023-04-22 12:38 | PC.NURSE ---
pt to and from CT with this RN s/p seizure; transported on monitoring equipment on 3L NC; no issues during transport, CT complete without issue. Bob completed. called by former RN Sissy. and Dr. trivedi at bedside upon return. all VSS. on 2 L NC. Pt minimally responsive to painful stimuli, appears post-ictal. airway patent. secretions maintained on own at this time.
--- NOTE | 2023-04-22 12:50 | PC.NURSE ---
levofloxacin not given by this RN, not hanging when care assumed; charted by previous RN. confirmed with Dr. Erwin, not giving this medication to this patient at this time.
--- NOTE | 2023-04-22 15:17 | PC.NURSE ---
Addendum entered by Viktoriya Saldaña R.N. 04/22/23 15:33: New verbal order for IV 4mg zofran from provider Rip. Addendum entered by Viktoriya Saldaña R.N. 04/22/23 15:20: Provider Rip to be made aware of patient vital signs and home medications. Original Note: This RN walks by room and notices hospitalist suctioning patient. Patient has vomit on her gown. Pt is responsive to voice and follow commands. Provider Mank to be made aware.
--- NOTE | 2023-04-22 16:17 | PC.NURSE ---
skin tear LFA occurred during seizure; 2 areas, bleeding. two 2x2 applied and wrapped in [place]
--- NOTE | 2023-04-22 16:20 | PC.NURSE ---
Addendum entered by Lorene Murray CNA 04/22/23 17:53: 1751- [facility], spoke with Duran, on waitlist Addendum entered by Lorene Murray CNA 04/22/23 16:42: 1640- [facility], spoke with Augustine, on waitlist Original Note: Calling hospitals for patients transfer 1543- [facility], spoke with Svitlana, on waitlist 1623- [facility], spoke with Jo-Ann, on waitlist
--- NOTE | 2023-04-22 16:50 | CM.SWNOTE ---
ED SWITCH CLEANER Note Patient is 73 y/o female who presents to ED via EMS due to concern for abdominal pain, patient has seizure in ED as well. Patient's PCP is Dr. Clement, patient has [employer] and [facility] insurance. Patient had recent telehealth appt with Dr. Clement. Patient has hx of stroke in May 2022 and transferred to SNF rehab afterwards with HH as well. Patient has hx of kidney stone, CVA, SVT, Mayasthenia gravis, Panic disorder, Diabetes Type 2 uncontrolled. SWITCH CLEANER receives consult from ED provider due to concern for patient's possible need for Hospice, patient is DNR/DNI, not comfort care at this time per . It is reported that patient has been declining since stroke last year. Hospitalist reviews patient per ED provider for admission and recommends patient transfer due to patient's comorbidities. ED team attempting to transfer patient for higher level of care. SWITCH CLEANER calls [facility] and confirms that they serve patients who reside on [facility]. Plan: Patient to transfer for higher level of care. Loretta Langford, [facility]
--- NOTE | 2023-04-22 17:11 | PM.CALLCOV.1 ---
Call Coverage Note Note Date of Patient Contact: 04/22/23 Narrative of Care Provided: 73 F, medicine was asked to evaluate for admission as family initially refusing transfer. Discussed with patient's spouse and sister on the phone. Given the unclear etiology of this patient's current condition, including possible seizure, neurological disorder, etc I discussed my recommendation for transfer to higher level facility as recommended by neurologist per ER physician. Their concern was ultimately related to medical necessity given her decline over the past year, but when discussing the benefits including neurological evaluation for more definitive workup as to her underlying pathology, they were in agreement for transfer for further evaluation including possible MRI, EEG, and neurology evaluation in the hopes of at least more certainty with regards to medical decision making with focus on quality of life. Full consult to follow.
--- NOTE | 2023-04-22 17:25 | PM.CN ---
History of Present Illness Consult details Date Patient Seen: 04/22/23 Chief complaint: Upper Right Abd. Pain Meds Home Medications and Allergies Home Medications Medication Instructions Recorded Confirmed Type Disabled Parking #1 ea 01/31/20 05/23/22 Rx NovaFine Pen Tips 32G x 6mm #3 ea 11/29/20 05/23/22 Rx lancets (Lancets,Thin) #200 ea 11/29/20 05/23/22 Rx losartan 100 mg tablet 100 mg PO BID #180 tabs 04/23/22 04/22/23 Rx aspirin 81 mg tablet,delayed 81 mg PO DAILY 06/28/22 04/22/23 History release clopidogrel 75 mg tablet 75 mg PO DAILY 06/28/22 06/28/22 History pantoprazole 40 mg tablet,delayed 40 mg PO DAILY PRN heartburn #180 06/28/22 06/28/22 Rx release tabs prednisone 20 mg tablet 20 mg PO DAILY #90 tabs 09/26/22 04/22/23 Rx blood sugar diagnostic (Blood #800 ea 11/01/22 Rx Glucose Test strips) metoprolol succinate 100 mg See Rx Instructions .Route 12/13/22 04/22/23 Rx tablet,extended release 24 hr .COMPLEX #180 tabs gabapentin 600 mg tablet 600 mg PO Q8H PRN for neuropathic 01/03/23 04/22/23 Rx pain #90 tabs sertraline 100 mg tablet (Zoloft) 200 mg (2 x 100 mg) PO DAILY #180 01/10/23 04/22/23 Rx tabs insulin aspart U-100 100 unit/mL 10 - 30 unit (0.1 - 0.3 mL) SUBCUT 01/20/23 Rx (3 mL) subcutaneous pen (Novolog 3XD #15 mL FlexPen U-100 Insulin aspart) insulin glargine 100 unit/mL (3 See Rx Instructions .Route 01/28/23 Rx mL) subcutaneous pen (Lantus .COMPLEX #33 mL Solostar U-100 Insulin) nystatin 100,000 unit/gram topical 1 applic topical BID #30 grams 02/03/23 Rx powder alprazolam 0.5 mg tablet See Rx Instructions .Route 04/10/23 04/22/23 Rx .COMPLEX #75 tabs insulin glargine 100 unit/mL (3 55 unit SUBCUT QAM 04/22/23 04/22/23 History mL) subcutaneous pen (Lantus Solostar U-100 Insulin) Allergies Allergy/AdvReac Type Severity Reaction Status Date / Time Penicillins Allergy Severe HIVES Verified 03/15/22 14:14 naproxen Allergy Mild HIVES Verified 03/15/22 14:14 rosuvastatin Allergy Mild Verified 03/15/22 14:14 sulfamethoxazole Allergy Unknown Verified 03/15/22 14:14 [From BACTRIM] trimethoprim [From BACTRIM] Allergy Unknown Verified 03/15/22 14:14 simvastatin AdvReac Severe MYALGIA, Verified 03/15/22 14:14 MUSCLE WEAKNESS Sulfa (Sulfonamide AdvReac Severe MYALGIA, Verified 03/15/22 14:14 Antibiotics) MUSCLE WEAKNESS citalopram AdvReac Intermediate Tachycardia Verified 03/15/22 14:14 at night metoclopramide AdvReac Intermediate tremors, Verified 03/15/22 14:14 anxiety gets worse atorvastatin AdvReac Mild NAUSEA, Verified 03/15/22 14:14 FLU LIKE SYMPTOMS metoprolol [METOPROLOL] AdvReac Unknown NAUSEA Verified 03/15/22 14:14 VOMITING Exam Vital Signs (past 8 hours): - 04/22/23 09:30 04/22/23 10:00 04/22/23 10:30 Pulse Rate 66 68 66 Respiratory Rate 16 16 18 Blood Pressure Pulse Oximetry 97 95 95 Oxygen Delivery Method Oxygen Flow Rate 04/22/23 10:43 04/22/23 10:43 04/22/23 11:00 Pulse Rate 65 71 Respiratory Rate 16 22 Blood Pressure 169/73 H Pulse Oximetry 91 92 Oxygen Delivery Method Oxygen Flow Rate 04/22/23 11:01 04/22/23 11:01 04/22/23 11:30 Pulse Rate 71 69 Respiratory Rate 21 16 Blood Pressure 169/67 H Pulse Oximetry 93 93 Oxygen Delivery Method Oxygen Flow Rate 04/22/23 11:30 04/22/23 11:57 04/22/23 11:57 Pulse Rate 79 Respiratory Rate 19 Blood Pressure 169/84 H 122/58 L Pulse Oximetry 95 Oxygen Delivery Method Oxygen Flow Rate 04/22/23 12:00 04/22/23 12:00 04/22/23 12:12 Pulse Rate 79 81 Respiratory Rate 16 19 Blood Pressure 123/60 Pulse Oximetry 98 98 Oxygen Delivery Method Oxygen Flow Rate 04/22/23 12:12 04/22/23 12:15 04/22/23 12:15 Pulse Rate 79 Respiratory Rate 20 Blood Pressure 164/77 H 150/59 H Pulse Oximetry 96 Oxygen Delivery Method Oxygen Flow Rate 04/22/23 12:20 04/22/23 12:20 04/22/23 12:25 Pulse Rate 78 76 Respiratory Rate 18 18 Blood Pressure 165/72 H Pulse Oximetry 95 95 Oxygen Delivery Method Oxygen Flow Rate 04/22/23 12:25 04/22/23 12:30 04/22/23 12:30 Pulse Rate 75 Respiratory Rate 18 Blood Pressure 171/76 H 165/74 H Pulse Oximetry 95 Oxygen Delivery Method Oxygen Flow Rate 04/22/23 12:35 04/22/23 12:35 04/22/23 12:40 Pulse Rate 76 Respiratory Rate 18 Blood Pressure 182/77 H 176/77 H Pulse Oximetry 95 Oxygen Delivery Method Oxygen Flow Rate 04/22/23 12:40 04/22/23 12:45 04/22/23 12:45 Pulse Rate 78 75 Respiratory Rate 18 18 Blood Pressure 178/79 H Pulse Oximetry 96 95 Oxygen Delivery Method Oxygen Flow Rate 04/22/23 12:50 04/22/23 12:50 04/22/23 12:56 Pulse Rate 76 Respiratory Rate 17 Blood Pressure 197/85 H 178/79 H Pulse Oximetry 96 Oxygen Delivery Method Oxygen Flow Rate 04/22/23 13:10 04/22/23 13:30 04/22/23 13:31 Pulse Rate 75 83 81 Respiratory Rate 18 21 25 H Blood Pressure Pulse Oximetry 95 94 94 Oxygen Delivery Method Nasal Cannula Oxygen Flow Rate 2 04/22/23 13:32 04/22/23 13:32 04/22/23 13:39 Pulse Rate 79 78 Respiratory Rate 20 20 Blood Pressure 215/98 H Pulse Oximetry 94 93 Oxygen Delivery Method Oxygen Flow Rate 04/22/23 13:39 04/22/23 13:45 04/22/23 13:45 Pulse Rate 75 Respiratory Rate 18 Blood Pressure 200/88 H 202/91 H Pulse Oximetry 94 Oxygen Delivery Method Nasal Cannula Oxygen Flow Rate 2 04/22/23 14:00 04/22/23 14:00 04/22/23 14:15 Pulse Rate 74 75 Respiratory Rate 18 18 Blood Pressure 199/90 H Pulse Oximetry 96 95 Oxygen Delivery Method Nasal Cannula Nasal Cannula Oxygen Flow Rate 2 2 04/22/23 14:15 04/22/23 14:30 04/22/23 14:30 Pulse Rate 76 Respiratory Rate 20 Blood Pressure 196/88 H 195/88 H Pulse Oximetry 96 Oxygen Delivery Method Oxygen Flow Rate 04/22/23 14:45 04/22/23 14:45 04/22/23 15:00 Pulse Rate 79 75 Respiratory Rate 18 19 Blood Pressure 217/97 H Pulse Oximetry 95 95 Oxygen Delivery Method Nasal Cannula Oxygen Flow Rate 2 04/22/23 15:00 04/22/23 15:15 04/22/23 15:15 Pulse Rate 80 Respiratory Rate 21 Blood Pressure 200/89 H 185/60 H Pulse Oximetry 95 Oxygen Delivery Method Nasal Cannula Oxygen Flow Rate 2 04/22/23 15:30 04/22/23 15:30 04/22/23 15:45 Pulse Rate 80 80 Respiratory Rate 20 19 Blood Pressure 162/70 H Pulse Oximetry 94 95 Oxygen Delivery Method Nasal Cannula Oxygen Flow Rate 2 04/22/23 15:45 04/22/23 16:00 04/22/23 16:00 Pulse Rate 83 Respiratory Rate 18 Blood Pressure 146/67 H 184/81 H Pulse Oximetry 96 Oxygen Delivery Method Nasal Cannula Oxygen Flow Rate 2 04/22/23 16:15 04/22/23 16:15 04/22/23 16:30 Pulse Rate 80 80 Respiratory Rate 20 20 Blood Pressure 185/84 H Pulse Oximetry 94 94 Oxygen Delivery Method Nasal Cannula Oxygen Flow Rate 2 04/22/23 16:30 Pulse Rate Respiratory Rate Blood Pressure 165/76 H Pulse Oximetry Oxygen Delivery Method Oxygen Flow Rate Oxygen Delivery Method Nasal Cannula Oxygen Flow Rate 2 Objective Labs 04/22/23 07:38 04/22/23 07:38 Labs: Laboratory Results - last 24 hr 04/22/23 04/22/23 04/22/23 07:38 08:22 09:56 WBC 18.5 H RBC 5.85 H Hgb 14.4 Hct 44.6 MCV 76.3 L MCH 24.5 L MCHC 32.2 RDW 15.5 H Plt Count 255 Neut % (Auto) 70.0 Lymph % (Auto) 21.6 L [place] % (Auto) 6.0 Eos % (Auto) 1.6 L Baso % (Auto) 0.8 Neut # (Auto) 70684 H Lymph # (Auto) 4000 [place] # (Auto) 1100 H Eos # (Auto) 300 Baso # (Auto) 200 H Sodium 136 L Potassium 4.0 Chloride 101 Carbon Dioxide 25 BUN 22 H Creatinine 0.86 Estimated GFR > 60 BUN/Creatinine Ratio 25.6 H Glucose 187 H Lactate 3.2 H Calcium 10.0 Total Bilirubin 0.7 AST 27 ALT 25 Alkaline Phosphatase 102 Total Protein 7.4 Albumin 3.8 Globulin 3.6 Albumin/Globulin Ratio 1.1 Lipase 106 Procalcitonin 0.06 Urine Color Yellow Urine Appearance Clear Urine pH 6.5 Ur Specific [place] 1.010 Urine Protein Negative Urine Glucose (UA) 1+ H Urine Ketones Negative Urine Occult Blood 3+ H Urine Nitrate Negative Urine Bilirubin Negative Urine Urobilinogen 0.2 Ur Leukocyte Esterase Negative Urine RBC 5-10/hpf H Urine WBC None seen Ur Squamous Epith Cells None seen Urine Bacteria None seen Ur Culture Indicated? Cult not indicated 04/22/23 10:36 WBC RBC Hgb Hct MCV MCH MCHC RDW Plt Count Neut % (Auto) Lymph % (Auto) [place] % (Auto) Eos % (Auto) Baso % (Auto) Neut # (Auto) Lymph # (Auto) [place] # (Auto) Eos # (Auto) Baso # (Auto) Sodium Potassium Chloride Carbon Dioxide BUN Creatinine Estimated GFR BUN/Creatinine Ratio Glucose Lactate 1.2 Calcium Total Bilirubin AST ALT Alkaline Phosphatase Total Protein Albumin Globulin Albumin/Globulin Ratio Lipase Procalcitonin Urine Color Urine Appearance Urine pH Ur Specific [place] Urine Protein Urine Glucose (UA) Urine Ketones Urine Occult Blood Urine Nitrate Urine Bilirubin Urine Urobilinogen Ur Leukocyte Esterase Urine RBC Urine WBC Ur Squamous Epith Cells Urine Bacteria Ur Culture Indicated? 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
--- NOTE | 2023-04-22 20:56 | PC.NURSE ---
MEDIA SPECIALIST note: Spoke to Capo at [facility]. Said patient was accepted, got RN report from Lorene Gaspar. Waiting for a call back regarding bed placement before I work on transport. 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
[2023-04-23] VITALS: BP 156/66; PULSE 71; RESP 23; O2SAT 93
[2023-04-23 00:15] VITALS: BP 153/68; PULSE 72; RESP 18; O2SAT 93
[2023-04-23 00:30] VITALS: BP 158/67; PULSE 75; RESP 15; O2SAT 97
[2023-04-23 00:45] VITALS: BP 153/69; PULSE 73; RESP 9; O2SAT 96
[2023-04-23 00:56] VITALS: BP 156/70; PULSE 75; RESP 17; O2SAT 96
[2023-04-23 01:00] VITALS: BP 155/70; PULSE 73; RESP 20; O2SAT 93
--- NOTE | 2023-04-25 17:04 | P.CONS_ITS ---
History of Present Illness Consult details Date Patient Seen: 04/22/23 Time Patient Seen: 17:11 Chief complaint: Upper Right Abd. Pain Narrative: Oksana Brown is a 72F with PMH DM, gastroparesis, HTN, HL, myasthenia gravis on chronic steroids who presents to the hospital with a multitude of complaints including abdominal pain initially. She was brought in with abdominal pain and n/v per records. She was also confused and hypoglycemic with EMS, but improved with juice. Family reported that patient has been having more difficulties with ambulation, intermittent hallucinations and waxing and waning mentation. The patient was unable to provide much to history at this time as seen after witnessed seizure in the emergency room that lasted for about 45 seconds. She had never had a seizure before. Denied recent fever or chills. Medicine was asked to evaluate for admission as family initially refusing transfer. Discussed with patient's spouse at bedside in the ER and sister on the phone. Given the unclear etiology of this patient's current condition, including possible seizure, neurological disorder, etc I discussed my recommendation for transfer to higher level facility as recommended by neurologist per ER physician. Their concern was ultimately related to medical necessity given her decline over the past year, but when discussing the benefits including neurological evaluation for more definitive workup as to her underlying pathology, they were in agreement for transfer for further evaluation including possible MRI, EEG, and neurology evaluation in the hopes of at least more certainty with regards to medical decision making with focus on quality of life. Meds Home Medications and Allergies Home Medications Medication Instructions Recorded Confirmed Type Disabled Parking #1 ea 01/31/20 05/23/22 Rx NovaFine Pen Tips 32G x 6mm #3 ea 11/29/20 05/23/22 Rx lancets (Lancets,Thin) #200 ea 11/29/20 05/23/22 Rx losartan 100 mg tablet 100 mg PO BID #180 tabs 04/23/22 04/22/23 Rx aspirin 81 mg tablet,delayed 81 mg PO DAILY 06/28/22 04/22/23 History release clopidogrel 75 mg tablet 75 mg PO DAILY 06/28/22 06/28/22 History pantoprazole 40 mg tablet,delayed 40 mg PO DAILY PRN heartburn #180 06/28/22 06/28/22 Rx release tabs prednisone 20 mg tablet 20 mg PO DAILY #90 tabs 09/26/22 04/22/23 Rx blood sugar diagnostic (Blood #800 ea 11/01/22 Rx Glucose Test strips) metoprolol succinate 100 mg See Rx Instructions .Route 12/13/22 04/22/23 Rx tablet,extended release 24 hr .COMPLEX #180 tabs gabapentin 600 mg tablet 600 mg PO Q8H PRN for neuropathic 01/03/23 04/22/23 Rx pain #90 tabs sertraline 100 mg tablet (Zoloft) 200 mg (2 x 100 mg) PO DAILY #180 01/10/23 04/22/23 Rx tabs insulin aspart U-100 100 unit/mL 10 - 30 unit (0.1 - 0.3 mL) SUBCUT 01/20/23 Rx (3 mL) subcutaneous pen (Novolog 3XD #15 mL FlexPen U-100 Insulin aspart) insulin glargine 100 unit/mL (3 See Rx Instructions .Route 01/28/23 Rx mL) subcutaneous pen (Lantus .COMPLEX #33 mL Solostar U-100 Insulin) nystatin 100,000 unit/gram topical 1 applic topical BID #30 grams 02/03/23 Rx powder alprazolam 0.5 mg tablet See Rx Instructions .Route 04/10/23 04/22/23 Rx .COMPLEX #75 tabs insulin glargine 100 unit/mL (3 55 unit SUBCUT QAM 04/22/23 04/22/23 History mL) subcutaneous pen (Lantus Solostar U-100 Insulin) Allergies Allergy/AdvReac Type Severity Reaction Status Date / Time Penicillins Allergy Severe HIVES Verified 03/15/22 14:14 naproxen Allergy Mild HIVES Verified 03/15/22 14:14 rosuvastatin Allergy Mild Verified 03/15/22 14:14 sulfamethoxazole Allergy Unknown Verified 03/15/22 14:14 [From BACTRIM] trimethoprim [From BACTRIM] Allergy Unknown Verified 03/15/22 14:14 simvastatin AdvReac Severe MYALGIA, Verified 03/15/22 14:14 MUSCLE WEAKNESS Sulfa (Sulfonamide AdvReac Severe MYALGIA, Verified 03/15/22 14:14 Antibiotics) MUSCLE WEAKNESS citalopram AdvReac Intermediate Tachycardia Verified 03/15/22 14:14 at night metoclopramide AdvReac Intermediate tremors, Verified 03/15/22 14:14 anxiety gets worse atorvastatin AdvReac Mild NAUSEA, Verified 03/15/22 14:14 FLU LIKE SYMPTOMS metoprolol [METOPROLOL] AdvReac Unknown NAUSEA Verified 03/15/22 14:14 VOMITING Review of Systems Review of Systems Narrative: All other systems reviewed with the patient and family and are negative unless otherwise stated. Exam Vital Signs (past 8 hours): Oxygen Delivery Method Oximask Oxygen Flow Rate 2 Narrative Exam Narrative: Gen: lethargic, ill appearing obese female in NAD Pulm: CTA b/l CV: RRR Abd: S NT ND Objective ECG Impression: NSR, prolonged QT Labs 04/22/23 07:38 04/22/23 07:38 [facility] Medical History CVA (cerebral vascular accident) Hypertension Tachycardia Myasthenia gravis SVT (supraventricular tachycardia) Diabetes type 2, uncontrolled (07/15/11) Gastroparesis due to DM (11/13/10) Hyperlipidemia, mixed (11/13/10) Unspecified essential hypertension (11/13/10) Morbid obesity (11/13/10) Panic disorder (11/13/10) 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 She was brought in with abdominal pain and n/v per records. She was also confused and hypoglycemic with EMS, but improved with juice. Family reported that patient has been having more difficulties with ambulation, intermittent hallucinations and waxing and waning mentation. The patient was unable to provide much to history at this time as seen after witnessed seizure in the emergency room that lasted for about 45 seconds. She had never had a seizure before. Denied recent fever or chills. Medicine was asked to evaluate for admission as family initially refusing transfer. Discussed with patient's spouse at bedside in the ER and sister on the phone. Given the unclear etiology of this patient's current condition, including possible seizure, neurological disorder, etc I discussed my recommendation for transfer to higher level facility as recommended by neurologist per ER physician. Their concern was ultimately related to medical necessity given her decline over the past year, but when discussing the benefits including neurological evaluation for more definitive workup as to her underlying pathology, they were in agreement for transfer for further evaluation including MRI, possible EEG, and neurology evaluation in the hopes of at least more certainty with regards to medical decision making with focus on quality of life. As well as further management with urology for the L ureteral stone. While underlying metabolic source given her kidney stone cannot be excluded, given seizure and progressive decline this is more suggestive of a neurological source and I believe transfer for higher level of care is indicated as discussed with the patient's family. Diagnoses: 1. New seizure - patient received Keppra here, recommend transfer for higher level of care. 2. History of prior CVA 3. L obstructive ureteral stone 4. Toxic and / or metabolic encephalopathy 5. Chronic leukocytosis 6. DM with gastroparesis 7. HTN, chronic 8. HLD, chronic I have utilized all available immediate resources to obtain, update, or review the patient's current medications. Code: DNR, surrogate is patient's spouse
== END 2023-04-23 01:14 | disposition admitted as inpatient to this hospital (09) ==
PROVIDERS: Emergency Medicine; Emergency Provider Emergency Medicine; PCP Family Medicine
DX: N20.0 Calculus of kidney (principal); G40.909 Epilepsy, unspecified, not intractable, without status epilepticus; G70.00 Myasthenia gravis without (acute) exacerbation; Z79.899 Other long term (current) drug therapy
CPT/HCPCS: 36415; 51701; 70450; 71045; 74177; 80053; 81001; 82962; 83605; 83690; 84145; 85025; 87040; 87086; 93005; 99284; J1953; J1956; J2270; J2405; Q9967

== ENCOUNTER 2023-07-02 08:44 | Inpatient (IN) | payer MEDICARE, OTHER, SELFPAY ==
[2022-12-13 09:55] VITALS: BMI 51.3
[2023-07-02] VITALS (26 sets, daily range): BP systolic 115–192; BP diastolic 56–81; PULSE 63–82; RESP 18–24; TEMP 36.5–37; O2SAT 95–99; BMI 33.3; BMI 35.2
--- NOTE | 2023-07-02 08:48 | DI.RAD.S_ITS ---
PROCEDURE: XR CHEST 1V INDICATIONS: GEN WEAKNESS TECHNIQUE: One view of the chest was acquired. COMPARISON: [facility], CR, XR CHEST 1V, 04/22/2023, 11:53. FINDINGS: Surgical changes and devices: None. Lungs and pleura: Lungs are clear. No pleural effusions or pneumothorax. Mediastinum: Mediastinal contours appear normal. Heart size is normal. Bones and chest wall: No suspicious bony lesions. Overlying soft tissues appear unremarkable. IMPRESSION: No acute cardiopulmonary abnormality is seen. Dictated by: Juan Farooq M.D. on 07/02/2023 at 9:08 Approved by: Juan Farooq M.D. on 07/02/2023 at 9:10
--- NOTE | 2023-07-02 08:55 | ED_ITS ---
HPI - General Adult General Chief complaint: Altered Mental Status Stated complaint: Increased Weakness Time Seen by Provider: 07/02/23 08:48 History of Present Illness HPI narrative: 73-year-old female with history of myasthenia gravis, insulin-dependent diabetes, previous history of TIA without residual deficits presents by EMS from home for generalized weakness and confusion. History is obtained from EMS as well as Syed and sister Lynsey via phone call. Per Syed patient is normally very weak but is able to ambulate with a walker. Today the patient was unable to get out of bed and medics were called to assist the patient in getting up, but no transport was done at that time. Later in the morning the patient was unable to get up off the toilet at all and so they decided to call medics back for transfer to the emergency department. Sister Lynsey states that patient has not followed up with neurology for her myasthenia gravis in some time, she is currently medically managed by her primary care physician. She has been on 20 mg of prednisone daily. Patient denies complaints but is very confused and unreliable historian. Related Data Home Medications Medication Instructions Recorded Confirmed aspirin 81 mg tablet,delayed 81 mg PO DAILY 06/28/22 04/22/23 release clopidogrel 75 mg tablet 75 mg PO DAILY 06/28/22 06/28/22 insulin glargine 100 unit/mL (3 55 unit SUBCUT QAM 04/22/23 04/22/23 mL) subcutaneous pen (Lantus Solostar U-100 Insulin) levetiracetam 750 mg tablet 750 mg PO BID 07/02/23 07/02/23 Previous Rx's Medication Instructions Recorded Disabled Parking #1 ea 01/31/20 NovaFine Pen Tips 32G x 6mm #3 ea 11/29/20 lancets (Lancets,Thin) #200 ea 11/29/20 pantoprazole 40 mg tablet,delayed 40 mg PO DAILY PRN heartburn #180 06/28/22 release tabs prednisone 20 mg tablet 20 mg PO DAILY #90 tabs 09/26/22 blood sugar diagnostic (Blood #800 ea 11/01/22 Glucose Test strips) metoprolol succinate 100 mg See Rx Instructions .Route 12/13/22 tablet,extended release 24 hr .COMPLEX #180 tabs sertraline 100 mg tablet (Zoloft) 200 mg (2 x 100 mg) PO DAILY #180 01/10/23 tabs insulin aspart U-100 100 unit/mL 10 - 30 unit (0.1 - 0.3 mL) SUBCUT 01/20/23 (3 mL) subcutaneous pen (Novolog 3XD #15 mL FlexPen U-100 Insulin aspart) insulin glargine 100 unit/mL (3 See Rx Instructions .Route 01/28/23 mL) subcutaneous pen (Lantus .COMPLEX #33 mL Solostar U-100 Insulin) nystatin 100,000 unit/gram topical 1 applic topical BID #30 grams 02/03/23 powder alprazolam 0.5 mg tablet See Rx Instructions .Route 05/22/23 .COMPLEX #75 tabs gabapentin 600 mg tablet 600 mg PO Q8H PRN for neuropathic 06/24/23 pain #90 tabs losartan 100 mg tablet 100 mg PO BID #180 tabs 06/27/23 Allergies Allergy/AdvReac Type Severity Reaction Status Date / Time Penicillins Allergy Severe HIVES Verified 03/15/22 14:14 naproxen Allergy Mild HIVES Verified 03/15/22 14:14 rosuvastatin Allergy Mild Verified 03/15/22 14:14 sulfamethoxazole Allergy Unknown Verified 03/15/22 14:14 [From BACTRIM] trimethoprim [From BACTRIM] Allergy Unknown Verified 03/15/22 14:14 simvastatin AdvReac Severe MYALGIA, Verified 03/15/22 14:14 MUSCLE WEAKNESS Sulfa (Sulfonamide AdvReac Severe MYALGIA, Verified 03/15/22 14:14 Antibiotics) MUSCLE WEAKNESS citalopram AdvReac Intermediate Tachycardia Verified 03/15/22 14:14 at night metoclopramide AdvReac Intermediate tremors, Verified 03/15/22 14:14 anxiety gets worse atorvastatin AdvReac Mild NAUSEA, Verified 03/15/22 14:14 FLU LIKE SYMPTOMS metoprolol [METOPROLOL] AdvReac Unknown NAUSEA Verified 03/15/22 14:14 VOMITING Review of Systems Review of Systems Narrative: Unable to assess, confusion Patient History Medical History CVA (cerebral vascular accident) Hypertension Tachycardia Myasthenia gravis SVT (supraventricular tachycardia) Diabetes type 2, uncontrolled (07/15/11) Gastroparesis due to DM (11/13/10) Hyperlipidemia, mixed (11/13/10) Unspecified essential hypertension (11/13/10) Morbid obesity (11/13/10) Panic disorder (11/13/10) 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) Surgical History Status post hernia repair (05/14/16) Status post hysterectomy (05/14/16) Status post laparoscopic cholecystectomy History of third molar tooth extraction Social History household members: spouse Smoking Status: Former smoker Smoking Status: Former smoker tobacco type: cigarettes alcohol intake frequency: 0-2 drinks per day Substance Use Type: does not use Exam Initial Vital Signs Initial Vital Signs: Vital Signs Pulse Rate 82 07/02/23 08:47 Pulse Oximetry 95 07/02/23 08:47 Const: Awake, alert, debilitated, frail, morbidly obese Cardiac: regular rate, regular rhythm RESP: unlabored, clear bilaterally, no wheezing GI: Atraumatic, soft, nontende Skin: Warm, Dry, intact, no rashes Neuro: AO x2, word finding issues, CN II-XII grossly intact, moves all extremities equally, no focal deficit Course Orders Ordered: ED Orders 07/02/23 08:48 Chest [XR chest 1V] Stat EKG-12 Lead Stat 07/02/23 08:58 BNP [NT-proBNP (BNP-Adult 18+)] Stat CBC Auto Diff [Complete Blood Count AUTO DIFF] Stat CMP [Comprehensive Metabolic Panel] Stat PT [Prothrombin Time INR] Stat TSH [Thyroid Stimulating Hormone] Stat Troponin & CK Cardiac Panel Stat 07/02/23 09:03 CT head/brain wo con Stat 07/02/23 09:25 UA Complete [Urinalysis and Microscopic] Stat 07/02/23 10:15 Ammonia (NH3) Stat 07/02/23 10:50 Respiratory Panel (Film Array) Stat 07/02/23 11:46 MR head/brain wo con Stat 07/02/23 13:04 RT Consult Eval and Treat NOW Discontinued Medications Sodium Chloride (Normal Saline 0.9%) 1,000 mls @ 1,000 mls/hr IV BOLUS ONE Stop: 07/02/23 09:47 Last Infusion: 07/02/23 10:33 Dose: Infused Documented By: Admin: 07/02/23 09:11 Dose: 1,000 mls/hr Documented By: JOSI Immune Globulin (Immune Globulin 10% 1 Gm/10 Ml (Octagam)) 40 gm IV NOW ONE Stop: 07/02/23 10:41 Last Admin: 07/02/23 10:58 Dose: 40 gm Documented By: JOSI Lorazepam (Lorazepam 2 Mg/Ml Inj) 1 mg IV NOW ONE Stop: 07/02/23 12:01 Last Admin: 07/02/23 12:06 Dose: 1 mg Documented By: JOSI Vital Signs Vital signs: Vital Signs - 8 hr 07/02/23 08:47 07/02/23 08:51 07/02/23 08:51 Temperature Pulse Rate 82 75 Respiratory Rate 24 Blood Pressure 147/62 H Pulse Oximetry 95 98 Oxygen Delivery Method 07/02/23 08:56 07/02/23 09:00 07/02/23 09:12 Temperature 98.6 F Pulse Rate 75 74 Respiratory Rate 22 24 Blood Pressure 147/62 H 122/56 L Pulse Oximetry 99 98 Oxygen Delivery Method Room Air 07/02/23 09:12 07/02/23 09:30 07/02/23 09:30 Temperature Pulse Rate 74 73 Respiratory Rate 20 19 Blood Pressure 115/56 L Pulse Oximetry 98 95 Oxygen Delivery Method 07/02/23 10:00 07/02/23 10:00 07/02/23 10:30 Temperature Pulse Rate 70 68 Respiratory Rate 20 20 Blood Pressure 123/60 Pulse Oximetry 98 96 Oxygen Delivery Method 07/02/23 10:30 07/02/23 11:00 07/02/23 11:01 Temperature Pulse Rate 67 Respiratory Rate 22 Blood Pressure 131/60 136/61 Pulse Oximetry 97 Oxygen Delivery Method 07/02/23 11:01 07/02/23 11:30 07/02/23 11:30 Temperature Pulse Rate 68 67 Respiratory Rate 19 20 Blood Pressure 135/63 Pulse Oximetry 97 96 Oxygen Delivery Method 07/02/23 11:45 07/02/23 12:00 07/02/23 12:00 Temperature Pulse Rate 72 70 Respiratory Rate 20 21 Blood Pressure 147/69 H Pulse Oximetry 98 99 Oxygen Delivery Method 07/02/23 12:15 07/02/23 12:47 07/02/23 12:48 Temperature Pulse Rate 66 66 Respiratory Rate 19 Blood Pressure 161/68 H Pulse Oximetry 96 95 Oxygen Delivery Method 07/02/23 12:48 Temperature Pulse Rate 64 Respiratory Rate Blood Pressure Pulse Oximetry 99 Oxygen Delivery Method Medical Decision Making Differential Diagnosis Differential Diagnosis: UTI, altered mental status, CVA Lab Data 07/02/23 08:58 07/02/23 08:58 Labs: Lab Results 07/02/23 07/02/23 07/02/23 Range/Units 08:58 09:25 10:15 WBC 17.5 H (4.5-11.0) X10^3/uL RBC 5.22 H (4.0-5.2) X10^6/uL Hgb 13.3 (12.0-16.0) g/dL Hct 41.0 (36-46) % MCV 78.4 L (80-100) fL MCH 25.4 L (26-34) PG MCHC 32.4 (30-36) % RDW 16.8 H (11.6-14.8) % Plt Count 201 (150-400) X10^3/uL Neut % (Auto) 78.6 H (50-75) % Lymph % (Auto) 13.1 L (25-40) % Larue % (Auto) 5.6 (3-14) % Eos % (Auto) 2.0 (2-4) % Baso % (Auto) 0.7 (0-2) % Neut # (Auto) 39748 H (3663-1099) /uL Lymph # (Auto) 2300 (1099-1222) /uL Larue # (Auto) 1000 H (0-900) /uL Eos # (Auto) 300 (0-450) /uL Baso # (Auto) 100 (0-100) /uL PT 13.2 H (9.4-12.5) SECONDS INR 1.2 (0.9-1.3) Sodium 136 L (137-145) mmol/L Potassium 4.3 (3.4-5.1) mmol/L Chloride 102 (98-107) mmol/L Carbon Dioxide 25 (22-32) mmol/L BUN 27 H (7-17) mg/dL Creatinine 0.73 (0.52-1.04) mg/dL Estimated GFR > 60 (>60) mL/min BUN/Creatinine Ratio 37.0 H (6-22) Glucose 254 H (80-110) mg/dL Calcium 9.0 (8.4-10.2) mg/dL Total Bilirubin 0.8 (0.2-1.3) mg/dL AST 31 (14-36) IU/L ALT 25 (<35) IU/L Alkaline Phosphatase 79 (38-126) U/L Ammonia < 9 L (9-30) umol/L Total Creatine Kinase 70 (30-135) U/L Troponin I 0.017 (0.01-0.034) ng/mL NT-Pro-B Natriuret Pep 509 H (<125) pg/mL Total Protein 6.8 (6.3-8.2) g/dL Albumin 3.4 L (3.5-5.0) g/dL Globulin 3.4 (1.7-4.1) g/dL Albumin/Globulin Ratio 1.0 (1.0-2.8) TSH 4.63 (0.47-4.68) uIU/mL Urine Color Yellow Urine Appearance Clear Urine pH 5.0 (4.5-8.0) Ur Specific [place] 1.025 (1.000-1.035) Urine Protein Negative (Negative) Urine Glucose (UA) 2+ H (Negative) g/dL Urine Ketones Negative (NEGATIVE) Urine Occult Blood Negative (Negative) Urine Nitrate Negative (Negative) Urine Bilirubin Negative (NEGATIVE) Urine Urobilinogen 0.2 (0.2) E.U./dL Ur Leukocyte Esterase Negative (NEGATIVE) Urine RBC None seen (0-5/HPF) Urine WBC 0-1/hpf (0-5/HPF) Ur Squamous Epith Cells 0-1 /hpf (0-5/HPF) Urine Bacteria Occasional (0-1) (None) Hyaline Casts 1-5/lpf (None) Urine Mucus 1+ H (Negative) Ur Culture Indicated? Cult not indicated Point of Care Testing Glucose POC 261 Point of care testing: Point of Care Testing Glucose POC 261 MDM Narrative Medical decision making narrative: Generalized weakness and altered mental status x1 day. on phone reports concern that patient has had a stroke leading to her weakness, however there is no focal deficit on exam - in addition symptoms have been ongoing since yesterday. Sister Lay states that patient has seen numerous neurologists over the years, however currently the patient's myasthenia is managed by her PCP and is on daily prednisone. Last PCP note shows [facility] neurology - will call for recommendations. Patient's labs show chronic leukocytosis, at baseline, likely from prednisone. Noncontrast CT brain negative for acute process. Chest x-ray negative for acute findings. Electrolytes within normal limits, ammonia level negative. [facility] neurology states that patient has been referred out to [facility]. I spoke with Dr. Ngo about the possibility of myasthenic crisis. Symptoms are slightly incongruent for myasthenic crisis, in addition it is uncertain if patient has myasthenia is strictly vulvar or if it involves more muscle groups, however he stated that while undergoing investigation it would be prudent to treat with IVIG. Multiple surrounding facilities are at capacity and unable to take patient in their hospital. Discussed case with hospitalist Dr. Myers, who requested a brain MRI and we will re-evaluate to see if patient can be managed at [facility]. Brain MRI read as without acute abnormalities. No change in patient's symptoms. Rediscussed with Dr. Myers, who graciously agrees to admit the patient to his service. Discharge Plan Departure Patient Disposition: Admitted As Inpatient Clinical Impression: Generalized muscle weakness, Myasthenia gravis Altered mental state Qualifiers: Altered mental status type: unspecified Qualified Code(s): R41.82 - Altered mental status, unspecified Admit Date/Time: 07/02/23 13:10 Admit Provider: Kristopher Myers
--- NOTE | 2023-07-02 09:03 | DI.CT.S_ITS ---
PROCEDURE: CT HEAD/BRAIN WO CON INDICATIONS: CONFUSION, WORSENING GEN WEAKNESS TECHNIQUE: Noncontrast 4.5 mm thick angled axial sections acquired from the foramen magnum to the vertex, with coronal and sagittal reformats. For radiation dose reduction, the following was used: automated exposure control, adjustment of mA and/or kV according to patient size. COMPARISON: [facility], CT, CT HEAD/BRAIN WO CON, 04/22/2023, 12:08. FINDINGS: Image quality: Diagnostic. CSF spaces: Basal cisterns are patent. No extra-axial fluid collections. The ventricles are symmetric in size and shape. Brain: No intracranial bleeds or masses. There is cerebral volume loss for age, with resultant ventricular and sulcal prominence. There are periventricular and deep white matter chronic small vessel ischemic changes. There is intracranial internal carotid artery atherosclerosis. Skull and face: Calvarium and visualized facial bones appear intact, without suspicious lesions. Sinuses: Visualized sinuses and mastoids are clear. IMPRESSION: No acute intracranial pathology. Dictated by: Juan Farooq M.D. on 07/02/2023 at 9:26 Approved by: Juan Farooq M.D. on 07/02/2023 at 9:27
[2023-07-02 09:05] LABS: Add Manual Diff / Slide Review NO; Basophils Absolute Auto 100 /uL (0-100); Basophils Percent Auto 0.7 % (0-2); Eosinophils Absolute Auto 300 /uL (0-450); Hemoglobin 13.3 g/dL (12.0-16.0); Lymphocytes Absolute Auto 2300 /uL (1100-4500); Lymphocytes Percent Auto 13.1 % (25-40); Mean Corpuscular HGB Conc 32.4 % (30-36); Mean Corpuscular Hemoglobin 25.4 PG (26-34); Mean Corpuscular Volume 78.4 fL (80-100); Monocytes Absolute Auto 1000 /uL (0-900); Monocytes Percent Auto 5.6 % (3-14); Neutrophils Absolute Auto 13700 /uL (1500-7000); Neutrophils Percent Auto 78.6 % (50-75); Platelet Count 201 X10^3/uL (150-400); Red Blood Cell Count 5.22 X10^6/uL (4.0-5.2); Red Cell Distribution Width 16.8 % (11.6-14.8); White Blood Cell Count 17.5 X10^3/uL (4.5-11.0)
--- NOTE | 2023-07-02 09:08 | PC.NURSE ---
Pt was brought to ED via EMS because she has been having increasing generalized weakness over the past few days. Today, pt rolled out of her chair and called EMS. According to medics, pt has positive orthostatics at the scene. EMS reports that pt has hx of confusion at baseline, diabetes and stroke. Pt is currently unable to answer questions appropriately during triage and is a very poor historian. BG 261.
[2023-07-02] MEDS: SODIUM CHLORIDE 0.9% 1,000 ML 1000 ML IV (09:11)
[2023-07-02 09:14] LABS: INR 1.2 (0.9-1.3); Prothrombin Time 13.2 SECONDS (9.4-12.5)
[2023-07-02 09:20] LABS: Alanine Aminotransferase 25 IU/L (<35); Albumin 3.4 g/dL (3.5-5.0); Alkaline Phosphatase 79 U/L (38-126); Aspartate Aminotransferase 31 IU/L (14-36); Bilirubin Total 0.8 mg/dL (0.2-1.3); Blood Urea Nitrogen 27 mg/dL (7-17); Carbon Dioxide 25 mmol/L (22-32); Chloride 102 mmol/L (98-107); Creatine Kinase 70 U/L (30-135); Estimated Glomerular Filt Rate > 60 mL/min (>60); Globulin 3.4 g/dL (1.7-4.1); Glucose 254 mg/dL (80-110); Sodium 136 mmol/L (137-145); Total Protein 6.8 g/dL (6.3-8.2)
[2023-07-02 09:25] LABS: HEMOLYSIS 55 (0-50)
[2023-07-02 09:26] LABS: Potassium 4.3 mmol/L (3.4-5.1)
--- NOTE | 2023-07-02 09:28 | PC.NURSE ---
Pt tolerated straight cath. Pericare done. 250cc clear tha urine out.
[2023-07-02 09:31] LABS: NT-proBNP (BNP-Adult 18+) 509 pg/mL (<125); Troponin I 0.017 ng/mL (0.01-0.034)
[2023-07-02 09:34] LABS: Appearance Urine UA CLEAR; Bilirubin Urine UA NEGATIVE (NEGATIVE); Color Urine UA YELLOW; Glucose Urine UA 2+ g/dL (Negative); Ketones Urine UA NEGATIVE (NEGATIVE); Leukocyte Esterase Urine UA NEGATIVE (NEGATIVE); Nitrite Urine UA NEGATIVE (Negative); Occult Blood Urine UA NEGATIVE (Negative); Protein Urine UA NEGATIVE (Negative); Specific Gravity Urine UA 1.025 (1.000-1.035); Urobilinogen Urine UA 0.2 E.U./dL (0.2)
[2023-07-02 09:52] LABS: Thyroid Stimulating Hormone 4.63 uIU/mL (0.47-4.68)
--- NOTE | 2023-07-02 09:53 | PC.NURSE ---
Pt's states that she is more confused than normal and pt has hx of myasthenia gravis.
[2023-07-02 10:10] LABS: Bacteria Urine Occasional (0-1); Culture Indicated Urine Cult Not Indicated; Hyaline Casts Urine 1-5/LPF; Mucus Urine 1+ (Negative); RBC Urine None Seen (0-5/HPF); Squamous Epithelial Cell Urine 0-1 /HPF (0-5/HPF); WBC Urine 0-1/HPF (0-5/HPF)
[2023-07-02 10:37] LABS: Ammonia (NH3) < 9 umol/L (9-30)
[2023-07-02] MEDS: IMMUNE GLOBULIN IV (10:58)
--- NOTE | 2023-07-02 11:43 | PC.NURSE ---
Addendum entered by Amrita Green CNA 07/02/23 13:48: 1330 IVIG rate increased to 2.5 mL/kg/hr Addendum entered by Amrita Green CNA 07/02/23 13:07: 1300 IGIV rate increased to 2mL/kg/hr Addendum entered by Amrita Green CNA 07/02/23 12:48: 1245 IG IV resumed @ 1.5mL/kg/hr Addendum entered by Amrita Green CNA 07/02/23 12:19: 1219 IG IV paused for MRI per Dr Cerda Addendum entered by Amrita Green CNA 07/02/23 12:13: 1200 IG IV rate increased to 1.5 mL/kg/hr Original Note: 1130 IG IV rate increasted to 1mL/kg/hr
--- NOTE | 2023-07-02 11:46 | DI.MRI.S_ITS ---
PROCEDURE: MR HEAD/BRAIN WO CON INDICATIONS: encephalopathy, hx myasthenia gravis TECHNIQUE: Non-contrast axial T1 spin echo, axial T2 fast spin echo, sagittal and axial FLAIR, coronal T2 fast spin echo, axial gradient echo, axial diffusion and ADC through the brain. COMPARISON: None. FINDINGS: Image quality: Excellent. CSF spaces: Ventricles appear symmetric in size and shape. Basal cisterns are patent. No extra-axial fluid collections. Brain: No intracranial bleeds or mass effects. There is cerebral volume loss for age. There are periventricular and deep white matter chronic small vessel ischemic changes. Brainstem appears normal. Diffusion-weighted images show no acute infarct. No chronic ischemic insults. Normal intravascular flow voids are present. Skull and face: Calvarial bone marrow is normal in signal. Orbits are normal. Sinuses: Sinuses and mastoids are clear. IMPRESSION: 1. No acute process. No recent infarct. 2. Volume loss and small vessel ischemic disease. Dictated by: Juan Farooq M.D. on 07/02/2023 at 12:48 Approved by: Juan Farooq M.D. on 07/02/2023 at 12:57
[2023-07-02] MEDS: LORazepam 2 MG/ML INJ 1 MG IV (12:06)
[2023-07-02 13:47] LABS: Adenovirus Not Detected (Not Detect); B. parapertussis Not Detected (Not Detecte); Bordetella pertussis Not Detected (Not Detect); Chlamydophila pneumoniae Not Detected (Not Detect); Coronavirus 229E Not Detected (Not Detect); Coronavirus HKU1 Not Detected (Not Detect); Coronavirus NL 63 Not Detected (Not Detect); Coronavirus OC43 Not Detected (Not Detect); Human Metapneumovirus Not Detected (Not Detect); Human Rhinovirus/Enterovirus Not Detected (Not Detect); Influenza A Not Detected (Not Detect); Influenza B Not Detected (Not Detect); Mycoplasma pneumoniae Not Detected (Not Detect); Parainfluenza Virus 1 Not Detected (Not Detect); Parainfluenza Virus 2 Not Detected (Not Detect); Parainfluenza Virus 3 Not Detected (Not Detect); Parainfluenza Virus 4 Not Detected (Not Detect); Respiratory Syncytial Virus Not Detected (Not Detect); SARS- CoV-2 Not Detected (Not Detecte)
[2023-07-02 13:58] LABS: Magnesium 1.6 mg/dL (1.6-2.3)
--- NOTE | 2023-07-02 14:41 | PC.NURSE ---
Addendum entered by Jelena Hamilton R.N. 07/02/23 17:03: Clarification: Bottle 2/2 IVIG 20 gm (to total ordered dose of 40 gm). Original Note: Admit Note Patient arrived to room 226 at 1410. Transferred to bed via slider board. Alert and oriented to self only, able to state name and . Calm and confused. Lungs clear bilaterally, SpO2 98%. SR with rate 60s. Denies pain. Changed brief, incontinent of urine, purewick placed as timur-area is macerated with yeast-like rash. Oriented pt to bed/tv/call light controls and to place, situation, and date. Bed alarm is on. Bottle 2/2 of IVIG increased to 3 ml/kg/hr at 1410, increased to 3.5 ml/kg/hr at 1440, and infusion completed at 1445.
[2023-07-02] MEDS: MAGNESIUM SULFATE 2 GM/50 ML PIGGYBACK IV (15:00)
--- NOTE | 2023-07-02 15:15 | PT.IIE ---
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) Hyperlipidemia, mixed (11/13/10) Hypertension Morbid obesity (11/13/10) Myasthenia gravis Panic disorder (11/13/10) SVT (supraventricular tachycardia) Tachycardia Unspecified essential hypertension (11/13/10) Physical Therapy Inpatient Evaluation/Re-Eval M1 PT/OT-IP Prior Functional Status Start: 07/02/23 15:49 Freq: NEEDED Status: Active Protocol: Document 07/02/23 15:15 AB (Rec: 07/02/23 16:06 [id number]) Medical Review Prior Functional Status Medical History Reviewed Yes Communication able to make needs known; with confusion Mobility and Gait pt stated that her spouse assists her at home but with was able to ambulate using 4WW with spouse holding on to her indoors but uses her power w/ c for outdoor mobility; pt unable to provide much info regarding home set up Social History Household Members spouse Living Arrangements House Number of Floors (Floors) Two Floors Number of Stairs To Enter/Railing? pt stays on main level of the house Home Environment Standard Height Toilet,Walk in Shower Home Equipment Front Wheel Walker,Four Wheel Walker,Manual Wheelchair,Power Wheelchair/Scooter Additional Social History Comment pt with a L side bed rail M2 PT-IP Current Condition Start: 07/02/23 15:49 Freq: NEEDED Status: Active Protocol: Document 07/02/23 15:15 AB (Rec: 07/02/23 16:06 AB [id number]) Physical Therapy Current Condition Current Condition Evaluation Date 07/02/23 Treatment Diagnosis MG; weakness; difficulty in walking Onset Date 07/02/23 M3 PT-IP Subjective Start: 07/02/23 15:49 Freq: NEEDED Status: Active Protocol: Document 07/02/23 15:15 AB (Rec: 07/02/23 16:06 AB [id number]) Subjective Physical Therapy Visit Type Type Initial Evaluation Visit Start Time 15:15 Visit Stop Time 15:47 Total Visit Minutes 32 Number of INTAKE CLINICIAN Visits 0 Physical Therapy Visit Comments Patient Comments agreeable to do PT M4 PT-IP Mobility and Gait Start: 07/02/23 15:49 Freq: NEEDED Status: Active Protocol: Document 07/02/23 15:15 AB (Rec: 07/02/23 16:06 AB [id number]) PT-Bed Mobility Assessment Supine to Sit Supine to Sit Maximum Assistance,2 Person Assistance,Head of Bed Elevated,Bedrails Scooting Scooting to Edge of Bed Maximum Assistance PT-Transfer Assessment Sit to and From Stand Sit to and from Stand Maximum Assistance,2 Person Assistance,Use of Upper Extremities Equipment Transfer Assistive Device Gait Belt,Front Wheeled Walker Orthotic/Prosthetic Devices or Brace: No Transfers Transfer Destination Chair Transfer Technique Stand Step Pivot Transfer Ability Level of Assist Maximum Assistance,2 Person Assistance,Use of Upper Extremities Comments Mobility Comments pt supine in bed. stated that she cannot move her legs and walk but agreed to do PT. obtained PLOF and home set up but pt with confusion and memory issues and unable to provide much info and some info obtained from EMR from previous hospital admissions. BP in supine: 180/73. pt completed supine to sit max A x 2 and max cues. HOB elevated ~ 30 deg. pt requiring max A with sitting balance with increase posterior trunk lean. positioned pt on EOB max A x2 and able to sit on EOB min A after repositioning. completed sit to stand max A and max cues. pt with increase posterior LE leaning against the bed. instructed pt to stand upright and use FWW for support. instructed pt to march in place and completed x 2 max A x 2 and max cues. presents with decrease BLE elevation. pt agreed to transfer to the chair and completed step transfer using FWW max a x 2 and max cues. positioned pt on the chair total A x 2. call light and table placed within reach. Left pt with nurse in room. PT-Balance Assessment Sitting Balance and Reactions Static Sitting Balance Ability Fair Dynamic Sitting Balance Ability Poor Standing Balance and Reactions Static Standing Balance Ability Poor Dynamic Standing Balance Ability Poor Device Used FWW M5 PT-IP Objective Assessments Start: 07/02/23 15:49 Freq: NEEDED Status: Active Protocol: Document 07/02/23 15:15 AB (Rec: 07/02/23 16:06 AB [id number]) Orientation Orientation/Cognition Level of Alertness Confusional State Orientation Name Safety Awareness Decreased Safety Awareness Memory Description 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,Penitentiary Impaired Gross Range of Motion Lower Extremity ROM Assessment Within Functional Limits Strength Lower Extremity Strength Assessment Left Impaired Hip 4-/5 Knee 3+/5 Muscle Tone Muscle Tone WNL Yes M6 PT-IP Treatment Start: 07/02/23 15:49 Freq: NEEDED Status: Active Protocol: Document 07/02/23 15:15 AB (Rec: 07/02/23 16:06 AB [id number]) Physical Therapy Treatment Education Education Provided Safety M7 PT-IP Assessment and Plan Start: 07/02/23 15:49 Freq: NEEDED Status: Active Protocol: Document 07/02/23 15:15 AB (Rec: 07/02/23 16:06 AB [id number]) PT Summary Assessment and Plan Potential Rehabilitation Potential Fair Status of Condition at Evaluation Evolving Summary Impairments Pain,ROM,Strength,Balance, Coordination,Sensation,Tone, Cognition,Bed Mobility, Transfers,Gait,Activity Tolerance Assessment Summary pt is a 73 y/o F who presented to the ED with increase confusion and weakness. per EMR, stated that pt was having difficulty moving around at home needing to medics to come and assist pt. pt admitted for MG crisis. pt requiring max a x 2 with bed mobility and transfers using fWW at this time and unable to ambulate. at this time, pt will require SNF rehab. will continue to assess progress. Goals Bed Mobility Goal Minimal Assistance Transfer Goal Minimal Assistance,Front Wheeled Walker Gait Goal Minimal Assistance,Front Wheel Walker Gait Distance 25 Other Goals improve bed mobility, transfers, ambulation CGA using LRAD 50 ft Days to Meet Goals 10 Frequency of Treatment Frequency Of Treatment Once a Day Treatment Plan Physical Therapy Treatment Plan Bed Mobility Training,Transfer Training,Gait Training, Therapeutic Exercise,Balance Retraining,Discharge Planning, Hot or Cold Pack,Neuromuscular Re-ed,Coordination Retraining Precautions Other Precautions falls Recommendations To Nursing Amount of Assist Needed 2 Person Assist Discharge Recommendations PT Discharge Recommendations Home with 06/01 Assist Available,Home Health,SNF Rehab,Home vs SNF Transportation Needs at Discharge Private Vehicle,Wheelchair/ Cabulance
--- NOTE | 2023-07-02 15:30 | P.HP_ITS ---
History of Present Illness History of Present Illness Date Patient Seen: 07/02/23 Chief complaint: Increased Weakness Narrative: Oksana Brown is a 73yo F with PMH of myasthenia gravis on chronic prednisone, seizure disorder on keppra, DM2 on insulin, TIA, anxiety, gastroparesis, HTN and HLD who presents with acute weakness and AMS. Patient is A/Ox1 so history is obtained from the ED note. Per her she was acutely weak today and unable to get out of bed or off the toilet on 2 separate occasions, prompting EMS to be called. She normally ambulates with a walker. In the ED, patient had global weakness and no focal deficits. Neurology consulted who recommended treating for possible myasthenic crisis with IVIG. MRI brain was normal. Patient is pleasant and calm. She is confused and thinks she is in [facility]. She knows her 's name is Syed. She has no complaints and denies CP, SOB, NV, abd pain or diarrhea. 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) Surgical History Status post hernia repair (05/14/16) Status post hysterectomy (05/14/16) Status post laparoscopic cholecystectomy History of third molar tooth extraction Social History household members: spouse Smoking Status: Former smoker alcohol intake: current Meds Home Medications and Allergies Home Medications Medication Instructions Recorded Confirmed Type Disabled Parking #1 ea 01/31/20 07/02/23 Rx NovaFine Pen Tips 32G x 6mm #3 ea 11/29/20 07/02/23 Rx lancets (Lancets,Thin) #200 ea 06/16/21 01/17/24 Rx aspirin 81 mg tablet,delayed 81 mg PO DAILY 06/28/22 07/02/23 History release clopidogrel 75 mg tablet 75 mg PO DAILY 06/28/22 07/02/23 History pantoprazole 40 mg tablet,delayed 40 mg PO DAILY PRN heartburn #180 06/28/22 07/02/23 Rx release tabs prednisone 20 mg tablet 20 mg PO DAILY #90 tabs 09/26/22 07/02/23 Rx blood sugar diagnostic (Blood #800 ea 11/01/22 07/02/23 Rx Glucose Test strips) metoprolol succinate 100 mg See Rx Instructions .Route 12/13/22 07/02/23 Rx tablet,extended release 24 hr .COMPLEX #180 tabs sertraline 100 mg tablet (Zoloft) 200 mg (2 x 100 mg) PO DAILY #180 01/10/23 07/02/23 Rx tabs insulin aspart U-100 100 unit/mL 10 - 30 unit (0.1 - 0.3 mL) SUBCUT 01/20/23 07/02/23 Rx (3 mL) subcutaneous pen (Novolog 3XD #15 mL FlexPen U-100 Insulin aspart) insulin glargine 100 unit/mL (3 See Rx Instructions .Route 01/28/23 07/02/23 Rx mL) subcutaneous pen (Lantus .COMPLEX #33 mL Solostar U-100 Insulin) nystatin 100,000 unit/gram topical 1 applic topical BID #30 grams 02/03/23 07/02/23 Rx powder insulin glargine 100 unit/mL (3 55 unit SUBCUT QAM 04/22/23 07/02/23 History mL) subcutaneous pen (Lantus Solostar U-100 Insulin) alprazolam 0.5 mg tablet See Rx Instructions .Route 05/22/23 07/02/23 Rx .COMPLEX #75 tabs gabapentin 600 mg tablet 600 mg PO Q8H PRN for neuropathic 06/24/23 07/02/23 Rx pain #90 tabs losartan 100 mg tablet 100 mg PO BID #180 tabs 06/27/23 07/02/23 Rx levetiracetam 750 mg tablet 750 mg PO BID 07/02/23 07/02/23 History Allergies Allergy/AdvReac Type Severity Reaction Status Date / Time Penicillins Allergy Severe HIVES Verified 03/15/22 14:14 naproxen Allergy Mild HIVES Verified 03/15/22 14:14 rosuvastatin Allergy Mild Verified 03/15/22 14:14 sulfamethoxazole Allergy Unknown Verified 03/15/22 14:14 [From BACTRIM] trimethoprim [From BACTRIM] Allergy Unknown Verified 03/15/22 14:14 simvastatin AdvReac Severe MYALGIA, Verified 03/15/22 14:14 MUSCLE WEAKNESS Sulfa (Sulfonamide AdvReac Severe MYALGIA, Verified 03/15/22 14:14 Antibiotics) MUSCLE WEAKNESS citalopram AdvReac Intermediate Tachycardia Verified 03/15/22 14:14 at night metoclopramide AdvReac Intermediate tremors, Verified 03/15/22 14:14 anxiety gets worse atorvastatin AdvReac Mild NAUSEA, Verified 03/15/22 14:14 FLU LIKE SYMPTOMS metoprolol [METOPROLOL] AdvReac Unknown NAUSEA Verified 03/15/22 14:14 VOMITING Review of Systems Review of Systems Narrative: All other systems reviewed with the patient and are negative unless otherwise stated. Exam Vital Signs (past 8 hours): - 07/02/23 08:47 07/02/23 08:51 07/02/23 08:51 Temperature Pulse Rate 82 75 Respiratory Rate 24 Blood Pressure 147/62 H Pulse Oximetry 95 98 Oxygen Delivery Method Oxygen Flow Rate 07/02/23 08:56 07/02/23 09:00 07/02/23 09:12 Temperature 98.6 F Pulse Rate 75 74 Respiratory Rate 22 24 Blood Pressure 147/62 H 122/56 L Pulse Oximetry 99 98 Oxygen Delivery Method Room Air Oxygen Flow Rate 07/02/23 09:12 07/02/23 09:30 07/02/23 09:30 Temperature Pulse Rate 74 73 Respiratory Rate 20 19 Blood Pressure 115/56 L Pulse Oximetry 98 95 Oxygen Delivery Method Oxygen Flow Rate 07/02/23 10:00 07/02/23 10:00 07/02/23 10:30 Temperature Pulse Rate 70 68 Respiratory Rate 20 20 Blood Pressure 123/60 Pulse Oximetry 98 96 Oxygen Delivery Method Oxygen Flow Rate 07/02/23 10:30 07/02/23 11:00 07/02/23 11:01 Temperature Pulse Rate 67 Respiratory Rate 22 Blood Pressure 131/60 136/61 Pulse Oximetry 97 Oxygen Delivery Method Oxygen Flow Rate 07/02/23 11:01 07/02/23 11:30 07/02/23 11:30 Temperature Pulse Rate 68 67 Respiratory Rate 19 20 Blood Pressure 135/63 Pulse Oximetry 97 96 Oxygen Delivery Method Oxygen Flow Rate 07/02/23 11:45 07/02/23 12:00 07/02/23 12:00 Temperature Pulse Rate 72 70 Respiratory Rate 20 21 Blood Pressure 147/69 H Pulse Oximetry 98 99 Oxygen Delivery Method Oxygen Flow Rate 07/02/23 12:15 07/02/23 12:47 07/02/23 12:48 Temperature Pulse Rate 66 66 Respiratory Rate 19 Blood Pressure 161/68 H Pulse Oximetry 96 95 Oxygen Delivery Method Oxygen Flow Rate 07/02/23 12:48 07/02/23 13:00 07/02/23 13:15 Temperature Pulse Rate 64 63 63 Respiratory Rate 21 20 Blood Pressure Pulse Oximetry 99 97 96 Oxygen Delivery Method Oxygen Flow Rate 07/02/23 13:30 07/02/23 13:45 07/02/23 14:36 Temperature 98.2 F Pulse Rate 65 64 68 Respiratory Rate 21 18 18 Blood Pressure 192/74 H Pulse Oximetry 98 97 99 Oxygen Delivery Method Oxygen Flow Rate 0 07/02/23 15:08 Temperature Pulse Rate Respiratory Rate Blood Pressure Pulse Oximetry Oxygen Delivery Method Room Air Oxygen Flow Rate Oxygen Delivery Method Room Air Oxygen Flow Rate 0 Narrative Exam Narrative: GEN: no acute distress, confused HEENT: moist mucous membranes, PERRL NECK: trachea midline, no JVD CV: regular rate and rhythm, systolic ejection murmur present PULM: clear bilaterally ABD: soft, nontender, nondistended, no organomegaly EXT: warm and well perfused with no edema NEURO: awake, alert, A/Ox1, no focal deficits Objective Labs 07/02/23 08:58 07/02/23 08:58 Labs: Laboratory Results - last 24 hr 07/02/23 07/02/23 07/02/23 08:58 09:25 10:15 WBC 17.5 H RBC 5.22 H Hgb 13.3 Hct 41.0 MCV 78.4 L MCH 25.4 L MCHC 32.4 RDW 16.8 H Plt Count 201 Neut % (Auto) 78.6 H Lymph % (Auto) 13.1 L [place] % (Auto) 5.6 Eos % (Auto) 2.0 Baso % (Auto) 0.7 Neut # (Auto) 80033 H Lymph # (Auto) 2300 [place] # (Auto) 1000 H Eos # (Auto) 300 Baso # (Auto) 100 PT 13.2 H INR 1.2 Sodium 136 L Potassium 4.3 Chloride 102 Carbon Dioxide 25 BUN 27 H Creatinine 0.73 Estimated GFR > 60 BUN/Creatinine Ratio 37.0 H Glucose 254 H Calcium 9.0 Magnesium 1.6 Total Bilirubin 0.8 AST 31 ALT 25 Alkaline Phosphatase 79 Ammonia < 9 L Total Creatine Kinase 70 Troponin I 0.017 NT-Pro-B Natriuret Pep 509 H Total Protein 6.8 Albumin 3.4 L Globulin 3.4 Albumin/Globulin Ratio 1.0 TSH 4.63 Urine Color Yellow Urine Appearance Clear Urine pH 5.0 Ur Specific [place] 1.025 Urine Protein Negative Urine Glucose (UA) 2+ H Urine Ketones Negative Urine Occult Blood Negative Urine Nitrate Negative Urine Bilirubin Negative Urine Urobilinogen 0.2 Ur Leukocyte Esterase Negative Urine RBC None seen Urine WBC 0-1/hpf Ur Squamous Epith Cells 0-1 /hpf Urine Bacteria Occasional (0-1) Hyaline Casts 1-5/lpf Urine Mucus 1+ H Ur Culture Indicated? Cult not indicated Chlamy pneumoniae PCR Adenovirus (PCR) B.parapertussis DNA PCR Coronavirus OC43 (PCR) Coronavirus HKU1 (PCR) Coronavirus 229E (PCR) SARS-CoV-2 (PCR) Coronavirus NL63 (PCR) Human Metapneumovir PCR Influenza Type A (PCR) Influenza Type B (PCR) M. pneumoniae (PCR) Parainfluenza 1 (PCR) Parainfluenza 2 (PCR) Parainfluenza 3 (PCR) Parainfluenza 4 (PCR) RSV (PCR) Entero/Rhino (PCR) 07/02/23 10:50 WBC RBC Hgb Hct MCV MCH MCHC RDW Plt Count Neut % (Auto) Lymph % (Auto) [place] % (Auto) Eos % (Auto) Baso % (Auto) Neut # (Auto) Lymph # (Auto) [place] # (Auto) Eos # (Auto) Baso # (Auto) PT INR Sodium Potassium Chloride Carbon Dioxide BUN Creatinine Estimated GFR BUN/Creatinine Ratio Glucose Calcium Magnesium Total Bilirubin AST ALT Alkaline Phosphatase Ammonia Total Creatine Kinase Troponin I NT-Pro-B Natriuret Pep Total Protein Albumin Globulin Albumin/Globulin Ratio TSH Urine Color Urine Appearance Urine pH Ur Specific [place] Urine Protein Urine Glucose (UA) Urine Ketones Urine Occult Blood Urine Nitrate Urine Bilirubin Urine Urobilinogen Ur Leukocyte Esterase Urine RBC Urine WBC Ur Squamous Epith Cells Urine Bacteria Hyaline Casts Urine Mucus Ur Culture Indicated? Chlamy pneumoniae PCR Not detected Adenovirus (PCR) Not detected B.parapertussis DNA PCR Not detected Coronavirus OC43 (PCR) Not detected Coronavirus HKU1 (PCR) Not detected Coronavirus 229E (PCR) Not detected SARS-CoV-2 (PCR) Not detected Coronavirus NL63 (PCR) Not detected Human Metapneumovir PCR Not detected Influenza Type A (PCR) Not detected Influenza Type B (PCR) Not detected M. pneumoniae (PCR) Not detected Parainfluenza 1 (PCR) Not detected Parainfluenza 2 (PCR) Not detected Parainfluenza 3 (PCR) Not detected Parainfluenza 4 (PCR) Not detected RSV (PCR) Not detected Entero/Rhino (PCR) Not detected Assessment & Plan Assessment & Plan narrative: # acute weakness 2/2 presumed myasthenic crisis -patient with global weakness and no focal deficits, CK normal -ED spoke with neurology who recommended empiric treatment with IVIG x5 days -PT/OT evals -continue daily prednisone 20mg # acute metabolic encephalopathy -patient more confused above baseline, per notes she was A/Ox3 a year ago -MRI negative for stroke, CT head negative -unclear etiology, will monitor # DM2 -continue lantus and SSI # seizure disorder -continue keppra # HTN -continue losartan and metoprolol # depression and anxiety -continue sertraline but hold xanax for now due to AMS # h/o TIA -continue DAPT Code status is DNR per prior records. DVT prophylaxis with Lovenox. Proxy is Syed. I have reviewed home meds and used all available resources to reconcile the home meds. Case discussed with ED physician/APC and patient will be admitted to the hospitalist service for further workup and management. This patient will be admitted as inpatient and will require greater than 2 midnights of hospital time to treat myasthenic crisis. Quality VTE Deep Vein Thrombosis/Pulmonary Embolism Present on Admission: No
[2023-07-02] MEDS: ENOXAPARIN 40 MG/0.4 ML SYRINGE SUBCUT (15:36)
[2023-07-02] MEDS: INSULIN GLARGINE 100 UNIT/ML 3ML PEN 40 UNIT SUBCUT (15:37)
--- NOTE | 2023-07-02 15:39 | DI.ECHO.S_ITS ---
[facility]---------+ [facility] +---------+ : : [address] [place] : : : : [id number] : : : : Phone: [phone] Echocardiogram Report + + :Name: VÍCTOR GRAF Study Date: 07/03/2023 Height: 65 in : :[facility] ReadingLocation: Weight: 211 lb : : Gender: Female BSA: 2.0 m2 : :: 1950 Age: 73 yrs BP: 158/75 mmHg: :Reason For Study: ASSESS AORTIC STENOSIS : :Ordering Physician: JOSE, : :WILLY Linares Performed By: Suzan Rust : :Referring: WILLY GARCIA : + + Interpretation Summary The left ventricle is normal in size. There is mild concentric left ventricular hypertrophy. The left ventricle is hyperdynamic. The ejection fraction is estimated to be 70-75%. There is no echo evidence for significant left ventricular outflow tract obstruction. The right ventricle is normal size. The right ventricular systolic function is normal. The aortic valve is moderately calcified. There is moderate to severely reduced leaflet mobility. The peak aortic velocity is 3.5 m/sec. The aortic valve mean gradient is 34 mmHg. The peak aortic velocity on the previous exam was 3.46 m/sec. The calculated aortic valve area is About 1 cm2. sev ratio: 0.37 There is moderate to severe aortic stenosis. There is mild tricuspid regurgitation. The right ventricular systolic pressure is estimated to be at least 39 mmHg based on an estimated right atrial pressure of 8 mm Hg. Procedure: A two-dimensional transthoracic echocardiogram with color flow and Doppler was performed. The study quality was technically difficult. Comparison is made with the echocardiogram of 05/23/2022. A contrast injection of Definity was performed to improve assessment of LV function. The heart rate ranged between 65-81 bpm during the study. Left Ventricle: The left ventricle is normal in size. There is mild concentric left ventricular hypertrophy. There is no echo evidence for significant left ventricular outflow tract obstruction. There is no thrombus. The ejection fraction is estimated to be 70-75%. The left ventricle is hyperdynamic. There are no focal wall motion abnormalities. MV E/A: 0.77. Right Ventricle: The right ventricle is normal size. The right ventricular systolic function is normal. Atria: The left atrial size is normal. There has been no significant change since the previous study. Right atrial size is normal. There is no Doppler evidence for an interatrial shunt. Mitral Valve: There is mild to moderate mitral annular calcification. No significant mitral valve stenosis. There is trace mitral regurgitation. Aortic Valve: The aortic valve is moderately calcified. There is moderate to severely reduced leaflet mobility. There is moderate to severe aortic stenosis. The peak aortic velocity is 3.5 m/sec. The aortic valve mean gradient is 34 mmHg. The calculated aortic valve area is About 1 cm2. The peak aortic velocity on the previous exam was 3.46 m/sec. No aortic regurgitation is present. Tricuspid Valve: There is mild tricuspid regurgitation. The right ventricular systolic pressure is estimated to be at least 39 mmHg based on an estimated right atrial pressure of 8 mm Hg. Pulmonic Valve: The pulmonic valve is not well seen, but is grossly normal. There is mild pulmonic regurgitation. Great Vessels: The aortic root is normal size. The dimensions of the ascending aorta are normal. The IVC is dilated (diameter is greater than 2.1 cm) yet it collapses greater than 50% with a sniff. This suggests a right atrial pressure of 8 mm Hg. Pericardium/ Pleura There is no pericardial effusion. There is no pleural effusion. MMode/2D Measurements & Calculations LVIDd: 4.8 cm LVOT diam: 2.0 cm LVIDs: 3.0 cm Ao root diam: 3.2 cm FS: 37.8 % asc Aorta Diam: 3.3 cm EPSS: 0.58 cm Ao Arch Diam (Prox Trans): 3.2 cm IVSd: 1.2 cm LVPWd: 1.3 cm LV [place]. diameter/BSA (cm/m^2): 2.4 LV sys. diameter/BSA (cm/m^2): 1.5 LA A2 area: 20.9 cm2 RA long axis: 4.8 cm LA A4 area: 17.2 cm2 RA area: 13.9 cm2 LA length (vol): 6.1 cm RA vol: 34.4 ml LA vol: 50.3 ml RA : 17.0 ml/m2 LA vol index: 24.8 ml/m2 IVC diam: 2.5 cm RVD1 (basal): 3.7 cm RVD2 (mid): 3.1 cm TAPSE: 1.7 cm Doppler Measurements & Calculations Ao V2 max: 353.2 cm/sec LVOT Max Yordan: 102.5 cm/sec Ao V2 mean: 267.3 cm/sec LV V1 max P.2 mmHg Ao max P.8 mmHg LV V1 VTI: 31.7 cm Ao mean P.8 mmHg TERRY(I,D): 1.1 cm2 Ao V2 VTI: 85.7 cm TERRY(V,D): 0.89 cm2 sev ratio: 0.37 TERRY indexed to BSA (cm^2/m^2): 0.56 MV E max yordan: 111.0 cm/sec TR max yrodan: 279.1 cm/sec MV A max yordan: 143.5 cm/sec TR max P.2 mmHg MV E/A: 0.77 PA V2 max: 107.6 cm/sec MV dec time: 0.32 sec PA V2 mean: 68.8 cm/sec PA mean P.2 mmHg PA pr(Accel): 34.5 mmHg SV(LVOT): 97.6 ml Reading Physician:10:30 AM
[2023-07-02 15:52] LABS: MRSA (Nasal) PCR Not Detected (Not Detect)
[2023-07-02] MEDS: INSULIN LISPRO 100 UNIT/ML 3ML VIAL SUBCUT ×2 (17:23→20:27)
[2023-07-02] MEDS: levETIRAcetam 250 MG TABLET 750 MG PO (20:22)
[2023-07-02] MEDS: METOPROLOL ER 50 MG TABLET 100 MG PO (20:23)
[2023-07-02] MEDS: GABAPENTIN 600 MG TABLET PO (20:24)
[2023-07-02] MEDS: LOSARTAN 50 MG TABLET 100 MG PO (20:24)
[2023-07-03] VITALS (15 sets, daily range): BP systolic 122–200; BP diastolic 57–84; PULSE 58–86; RESP 16–20; TEMP 36.4–37; O2SAT 93–99
[2023-07-03 04:58] LABS: Add Manual Diff / Slide Review NO; Basophils Absolute Auto 100 /uL (0-100); Basophils Percent Auto 0.7 % (0-2); Eosinophils Absolute Auto 300 /uL (0-450); Eosinophils Percent Auto 2.5 % (2-4); Hematocrit 41.1 % (36-46); Hemoglobin 13.4 g/dL (12.0-16.0); Lymphocytes Absolute Auto 1300 /uL (1100-4500); Lymphocytes Percent Auto 10.6 % (25-40); Mean Corpuscular HGB Conc 32.6 % (30-36); Mean Corpuscular Hemoglobin 25.6 PG (26-34); Mean Corpuscular Volume 78.4 fL (80-100); Monocytes Absolute Auto 600 /uL (0-900); Monocytes Percent Auto 4.8 % (3-14); Neutrophils Absolute Auto 10000 /uL (1500-7000); Neutrophils Percent Auto 81.4 % (50-75); Platelet Count 185 X10^3/uL (150-400); Red Blood Cell Count 5.24 X10^6/uL (4.0-5.2); Red Cell Distribution Width 16.5 % (11.6-14.8); White Blood Cell Count 12.2 X10^3/uL (4.5-11.0)
[2023-07-03 05:05] LABS: BUN Creatinine Ratio 20.3 (6-22); Blood Urea Nitrogen 12 mg/dL (7-17); Calcium 8.8 mg/dL (8.4-10.2); Carbon Dioxide 30 mmol/L (22-32); Chloride 104 mmol/L (98-107); Estimated Glomerular Filt Rate > 60 mL/min (>60); Glucose 119 mg/dL (80-110); HEMOLYSIS < 15 (0-50); Potassium 3.8 mmol/L (3.4-5.1); Sodium 137 mmol/L (137-145)
[2023-07-03] MEDS: GABAPENTIN 600 MG TABLET PO ×2 (09:22→20:23)
[2023-07-03] MEDS: METOPROLOL ER 50 MG TABLET 100 MG PO ×2 (09:22→20:23)
[2023-07-03] MEDS: ENOXAPARIN 40 MG/0.4 ML SYRINGE SUBCUT (09:22)
[2023-07-03] MEDS: predniSONE 20 MG TABLET PO (09:22)
[2023-07-03] MEDS: SERTRALINE 50 MG TABLET 200 MG PO (09:23)
[2023-07-03] MEDS: levETIRAcetam 250 MG TABLET 750 MG PO ×2 (09:23→20:22)
[2023-07-03] MEDS: CLOPIDOGREL 75 MG TABLET PO (09:23)
[2023-07-03] MEDS: ASPIRIN EC 81 MG TABLET PO (09:23)
[2023-07-03] MEDS: INSULIN GLARGINE 100 UNIT/ML 3ML PEN 40 UNIT SUBCUT (09:24)
[2023-07-03] MEDS: LOSARTAN 50 MG TABLET 100 MG PO ×2 (09:39→20:22)
[2023-07-03] MEDS: IMMUNE GLOBULIN IV (09:44)
--- NOTE | 2023-07-03 11:38 | OT.IP.EVAL ---
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) Hyperlipidemia, mixed (11/13/10) Hypertension Morbid obesity (11/13/10) Myasthenia gravis Panic disorder (11/13/10) SVT (supraventricular tachycardia) Tachycardia Unspecified essential hypertension (11/13/10) Surgical History (Last Reviewed 07/02/23 @ 13:16 by Julisa Cerda MD) History of third molar tooth extraction Status post hernia repair (05/14/16) Status post hysterectomy (05/14/16) Status post laparoscopic cholecystectomy Occupational Therapy Inpatient Evaluation/Re-Eval M1 PT/OT-IP Prior Functional Status Start: 07/03/23 12:19 Freq: NEEDED Status: Active Protocol: Document 07/03/23 10:45 [facility] (Rec: 07/03/23 12:54 [facility] [id number]) Medical Review Prior Functional Status Medical History Reviewed Yes Communication able to make needs known; with confusion Mobility and Gait pt stated that her spouse assists her at home but with was able to ambulate using 4WW with spouse holding on to her indoors but uses her power w/ c for outdoor mobility; pt unable to provide much info regarding home set up Activities of Daily Living and IADL's Pt states able to do basic ADl 's on her own and assist with IADl needs such as driving, meds, and bills. Prior Functional Level (Other details) Per pt, able to assist her but not able to do any lifting. Social History Household Members spouse Living Arrangements House Number of Floors (Floors) Two Floors Number of Stairs To Enter/Railing? pt stays on main level of the house Home Environment Standard Height Toilet,Walk in Shower Home Equipment Front Wheel Walker,Four Wheel Walker,Manual Wheelchair,Power Wheelchair/Scooter Additional Social History Comment pt with a L side bed rail M2 OT-IP Current Condition Start: 07/03/23 12:19 Freq: Status: Active Protocol: Document 07/03/23 10:45 [facility] (Rec: 07/03/23 12:54 [facility] [id number]) Occupational Therapy Current Condition Current Condition Evaluation Date 07/03/23 Treatment Diagnosis generalized weakness, AMS Diagnosis Onset Date 06/30/23 M3 OT- IP Subjective and Pain Start: 07/03/23 12:19 Freq: Status: Active Protocol: Document 07/03/23 10:45 [facility] (Rec: 07/03/23 12:54 [facility] [id number]) OT- Subjective Occupational Therapy Visit Type Type Initial Evaluation Visit Start Time 10:45 Visit Stop Time 11:38 Total Visit Minutes 53 Occupational Therapy Visit Comments Patient Comments Pt agreed to get up to use the bathroom. Patient/Caregiver Goals TO go home and insistent of not wanting to go to skilled rehab. OT Pain Assessment Pain When Pain Assessed At Rest Pain Present Pain Present Denied Pain M4 OT- IP ADL's Start: 07/03/23 12:19 Freq: Status: Active Protocol: Document 07/03/23 10:45 [facility] (Rec: 07/03/23 12:54 [facility] [id number]) OT [id number] Comments OT Self-Feeding Comments Not at meal time, would benefit from supervision as confused and does not have her glasses present in the hospital. OT ADL-Grooming Comments OT Grooming Comments Pt able to was her face after set-up of wash cloth. Pt not able to use the brush for her hair and kept thinking it was a toothbrush. OT ADL-Oral Care General Eval Oral Care Ability Minimal Assistance Areas of Assistance Retrieving/Set-Up of Items Comments Oral Care Comments Pt needing step by step cues for sequencing for task of oral care. OT ADL-Dressing General Eval Lower Body Dressing Ability Maximum Assistance Comments OT Dressing Comments Pt not able to bend over to get her socks or brief up over her feet and needing assist for LB dressing needs at this time. OT ADL-Toileting General Evaluation Toileting Ability Moderate Assistance,Maximum Assistance Areas Needing Assistance Manage Clothing,Perform Perineal Hygiene Comments OT Toileting Comments Assist for set-up and brief management needs and vc for completeness to wipe. Suggested if pt goes home to have the BSC next to the bed as pt states gets up every hour to urinate at home. OT ADL-Bathing Comments OT Bathing Comments Not performed. M5 OT- IP IADL's Start: 07/03/23 12:19 Freq: Status: Active Protocol: Document 07/03/23 10:45 [facility] (Rec: 07/03/23 12:54 [facility] [id number]) OT-Instrumental Activities of Daily Living Home Safety Awareness Awareness of Need for Assistance at Home Decreased Awareness Ability to Problem Solve Emergency Unable to Problem Solve Situations Home Safety Comments Pt is a bit confused at this time and needing step by step commands to process through basic ADL needs at this time. Medication Management Medication Management Caregiver Administers Money Management Money Management Caregiver Provides Assistance Meal Preparation Meal Preparation Caregiver Provides Assist M6 OT- IP Functional Cognition Start: 07/03/23 12:19 Freq: Status: Active Protocol: Document 07/03/23 10:45 [facility] (Rec: 07/03/23 12:54 [facility] [id number]) Cognitive Factors Limiting Selfcare Function Cognitive Ability Level of Alertness Alert,Confusional State Patient Orientation Name Attention Span Ability Capable of Focused Attention, Unable to Sustain Attention Ability to Follow Commands Able to Follow One Step Commands with Increased Time, Able to Follow One Step Commands with Repetition Memory Description 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,Working Impaired Safety Awareness Underestimates Need for Assistance Cognitive Comments Cognitive Assessment Comments Pt mainly orientated to name and having difficulty to get her words out at this time. Pt needing step by step commands to follow ADL needs. Pt getting confused and putting on toothpaste on the brush. Pt however does not have her glasses here and vision is blurry. OT- Vision and Hearing OT- Hearing Assessment OT- Hearing Assessment WFL OT- Vision Assessment Visual Acuity Glasses All The Time,No Vision Aides At Hospital Vision Assessment Comments Pt's eyelids are swollen and left eye much greater than right eye. Pt has blurred vision. M7 OT- IP Mobility and Balance Start: 07/03/23 12:19 Freq: Status: Active Protocol: Document 07/03/23 10:45 [facility] (Rec: 07/03/23 12:54 [facility] [id number]) OT- Bed Mobility Assessment Supine to Sit Supine to Sit Assist Moderate Assistance,Head of Bed Elevated,Bedrails Scooting Scooting to Edge of Bed Minimal Assistance OT-Transfer Assessment Sit to and From Stand Sit to and from Stand Minimal Assistance Transfers Transfer Ability Moderate Assistance Technique Transfer Destination Bed,Chair,Toilet Transfer Technique Stand Step Pivot Devices Transfer Assistive Devices Gait Belt,Front Wheeled Walker Comments Mobility Comments Pt having to use momentum and bed rail to assist to get up and at times falling back into posterior tilt and assist from falling backwards. BRIJESH to form high bed and able to transfer with MODA assist to help guide the FWW and for her balance. Pt seem to drag her RLE behind at times. Pt vision is blurry as does not have her glasses here in the hospital which is also affecting her mobility at this time. OT- Balance Assessment Sitting Balance and Reactions Static Sitting Balance Ability Fair Dynamic Sitting Balance Ability Poor Standing Balance and Reactions Static Standing Balance Ability Poor Dynamic Standing Balance Ability Poor M8 OT- IP Objective Assessments Start: 07/03/23 12:19 Freq: Status: Active Protocol: Document 07/03/23 10:45 [facility] (Rec: 07/03/23 12:54 [facility] [id number]) OT Gross Range of Motion Upper Extremity Range of Motion ROM Impairments grossly WFl OT Strength Comments Strength Comments BUE 4-/5 to 4/5 OT- Coordination Assessment Upper Extremity Finger to Nose Test Right UE Impaired Comments Coordination Comments Pt needing assist for set-up for needs. M9 OT- IP Assessment and Plan Start: 07/03/23 12:19 Freq: Status: Active Protocol: Document 07/03/23 10:45 [facility] (Rec: 07/03/23 12:54 [facility] [id number]) OT Summary Assessment and Plan Potential Rehabilitation Potential Good Analytic Complexity at Evaluation Moderate Summary OT Impairments Strength,Balance,Coordination, Functional Cognition, Functional Mobility,Self- Feeding,Grooming,Dressing, Toileting,Bathing,Toilet Transfers,Shower Transfers, Activity Tolerance Progress Towards Goals Slow Progress due to Medical Issues,Slow Progress due to Activity Tolerance,Slow Progress due to Cognition Assessment Summary Pt MOD complexity and main barriers are decreased balance , needing assist for ADL and mobility needs, vc for safety and sequencing for basic ADL needs as pt is a bit confused at this time. Pt also having difficulty with word finding. Pt insistent of going home but at this time pt would benefit from skilled rehab versus if pt progresses home with 06/01 assist and home health. Goals Self-Feeding Goal Independent Grooming Goal Independent Dressing Goal Independent Toileting Goal Independent Bathing Goal Standby Assistance Toilet Transfer Goal Independent Shower Transfer Goal Standby Assistance Days to Meet Goals 15 Frequency of Treatment Frequency Of Treatment Once a Day Treatment Plan OT Treatment Plan ADL Training,Functional Cognition Training,Functional Mobility,Patient/Family Education,Discharge Planning Other Treatment Recommendations and Next LB dressing with use of Treatment Focus equipment. Discharge Recommendations OT Discharge Recommendations SNF Rehab,Home vs SNF Other Discharge Recommendations Pending progress and ability for her to assist - possibly home with 24/7 assist and home health. Transportation Needs at Discharge Wheelchair/Cabulance
--- NOTE | 2023-07-03 11:38 | OT.IP.EVAL ---
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) Hyperlipidemia, mixed (11/13/10) Hypertension Morbid obesity (11/13/10) Myasthenia gravis Panic disorder (11/13/10) SVT (supraventricular tachycardia) Tachycardia Unspecified essential hypertension (11/13/10) Surgical History (Last Reviewed 07/02/23 @ 13:16 by Julisa Cerda MD) History of third molar tooth extraction Status post hernia repair (05/14/16) Status post hysterectomy (05/14/16) Status post laparoscopic cholecystectomy Occupational Therapy Inpatient Evaluation/Re-Eval M1 PT/OT-IP Prior Functional Status Start: 07/03/23 12:19 Freq: NEEDED Status: Active Protocol: Document 07/03/23 10:45 [facility] (Rec: 07/03/23 12:54 [facility] [id number]) Medical Review Prior Functional Status Medical History Reviewed Yes Communication able to make needs known; with confusion Mobility and Gait pt stated that her spouse assists her at home but with was able to ambulate using 4WW with spouse holding on to her indoors but uses her power w/ c for outdoor mobility; pt unable to provide much info regarding home set up Activities of Daily Living and IADL's Pt states able to do basic ADl 's on her own and assist with IADl needs such as driving, meds, and bills. Prior Functional Level (Other details) Per pt, able to assist her but not able to do any lifting. Social History Household Members spouse Living Arrangements House Number of Floors (Floors) Two Floors Number of Stairs To Enter/Railing? pt stays on main level of the house Home Environment Standard Height Toilet,Walk in Shower Home Equipment Front Wheel Walker,Four Wheel Walker,Manual Wheelchair,Power Wheelchair/Scooter Additional Social History Comment pt with a L side bed rail M2 OT-IP Current Condition Start: 07/03/23 12:19 Freq: Status: Active Protocol: Document 07/03/23 10:45 [facility] (Rec: 07/03/23 12:54 [facility] [id number]) Occupational Therapy Current Condition Current Condition Evaluation Date 07/03/23 Treatment Diagnosis Sepsis due to PNA, acute metabolic encephalopathy, acute respir failure Diagnosis Onset Date 06/30/23 M3 OT- IP Subjective and Pain Start: 07/03/23 12:19 Freq: Status: Active Protocol: Document 07/03/23 10:45 [facility] (Rec: 07/03/23 12:54 [facility] [id number]) OT- Subjective Occupational Therapy Visit Type Type Initial Evaluation Visit Start Time 10:45 Visit Stop Time 11:38 Total Visit Minutes 53 Occupational Therapy Visit Comments Patient Comments Pt agreed to get up to use the bathroom. Patient/Caregiver Goals TO go home and insistent of not wanting to go to skilled rehab. OT Pain Assessment Pain When Pain Assessed At Rest Pain Present Pain Present Denied Pain M4 OT- IP ADL's Start: 07/03/23 12:19 Freq: Status: Active Protocol: Document 07/03/23 10:45 [facility] (Rec: 07/03/23 12:54 [facility] [id number]) OT [id number] Comments OT Self-Feeding Comments Not at meal time, would benefit from supervision as confused and does not have her glasses present in the hospital. OT ADL-Grooming Comments OT Grooming Comments Pt able to wash her face after set-up of wash cloth. Pt not able to use the brush for her hair and kept thinking it was a toothbrush. OT ADL-Oral Care General Eval Oral Care Ability Minimal Assistance Areas of Assistance Retrieving/Set-Up of Items Comments Oral Care Comments Pt needing step by step cues for sequencing for task of oral care. OT ADL-Dressing General Eval Lower Body Dressing Ability Maximum Assistance Comments OT Dressing Comments Pt not able to bend over to get her socks or brief up over her feet and needing assist for LB dressing needs at this time. OT ADL-Toileting General Evaluation Toileting Ability Moderate Assistance,Maximum Assistance Areas Needing Assistance Manage Clothing,Perform Perineal Hygiene Comments OT Toileting Comments Assist for set-up and brief management needs and vc for completeness to wipe. Suggested if pt goes home to have the BSC next to the bed as pt states gets up every hour to urinate at home. OT ADL-Bathing Comments OT Bathing Comments Not performed. M5 OT- IP IADL's Start: 07/03/23 12:19 Freq: Status: Active Protocol: Document 07/03/23 10:45 [facility] (Rec: 07/03/23 12:54 [facility] [id number]) OT-Instrumental Activities of Daily Living Home Safety Awareness Awareness of Need for Assistance at Home Decreased Awareness Ability to Problem Solve Emergency Unable to Problem Solve Situations Home Safety Comments Pt is a bit confused at this time and needing step by step commands to process through basic ADL needs at this time. Medication Management Medication Management Caregiver Administers Money Management Money Management Caregiver Provides Assistance Meal Preparation Meal Preparation Caregiver Provides Assist M6 OT- IP Functional Cognition Start: 07/03/23 12:19 Freq: Status: Active Protocol: Document 07/03/23 10:45 [facility] (Rec: 07/03/23 12:54 [facility] [id number]) Cognitive Factors Limiting Selfcare Function Cognitive Ability Level of Alertness Alert,Confusional State Patient Orientation Name Attention Span Ability Capable of Focused Attention, Unable to Sustain Attention Ability to Follow Commands Able to Follow One Step Commands with Increased Time, Able to Follow One Step Commands with Repetition Memory Description 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,Working Impaired Safety Awareness Underestimates Need for Assistance Cognitive Comments Cognitive Assessment Comments Pt mainly orientated to name and having difficulty to get her words out at this time. Pt needing step by step commands to follow ADL needs. Pt getting confused and putting on toothpaste on the brush. Pt however does not have her glasses here and vision is blurry. OT- Vision and Hearing OT- Hearing Assessment OT- Hearing Assessment WFL OT- Vision Assessment Visual Acuity Glasses All The Time,No Vision Aides At Hospital Vision Assessment Comments Pt's eyelids are swollen and left eye much greater than right eye. Pt has blurred vision. M7 OT- IP Mobility and Balance Start: 07/03/23 12:19 Freq: Status: Active Protocol: Document 07/03/23 10:45 [facility] (Rec: 07/03/23 12:54 [facility] [id number]) OT- Bed Mobility Assessment Supine to Sit Supine to Sit Assist Moderate Assistance,Head of Bed Elevated,Bedrails Scooting Scooting to Edge of Bed Minimal Assistance OT-Transfer Assessment Sit to and From Stand Sit to and from Stand Minimal Assistance Transfers Transfer Ability Moderate Assistance Technique Transfer Destination Bed,Chair,Toilet Transfer Technique Stand Step Pivot Devices Transfer Assistive Devices Gait Belt,Front Wheeled Walker Comments Mobility Comments Pt having to use momentum and bed rail to assist to get up and at times falling back into posterior tilt and assist from falling backwards. BRIJESH to from high bed and able to transfer with MODA assist to help guide the FWW and for her balance. Pt seem to drag her RLE behind at times. Pt vision is blurry as does not have her glasses here in the hospital which is also affecting her mobility at this time. OT- Balance Assessment Sitting Balance and Reactions Static Sitting Balance Ability Fair Dynamic Sitting Balance Ability Poor Standing Balance and Reactions Static Standing Balance Ability Poor Dynamic Standing Balance Ability Poor M8 OT- IP Objective Assessments Start: 07/03/23 12:19 Freq: Status: Active Protocol: Document 07/03/23 10:45 [facility] (Rec: 07/03/23 12:54 [facility] [id number]) OT Gross Range of Motion Upper Extremity Range of Motion ROM Impairments grossly WFl OT Strength Comments Strength Comments BUE 4-/5 to 4/5 OT- Coordination Assessment Upper Extremity Finger to Nose Test Right UE Impaired Comments Coordination Comments Pt needing assist for set-up for needs. M9 OT- IP Assessment and Plan Start: 07/03/23 12:19 Freq: Status: Active Protocol: Document 07/03/23 10:45 [facility] (Rec: 07/03/23 12:54 [facility] [id number]) OT Summary Assessment and Plan Potential Rehabilitation Potential Good Analytic Complexity at Evaluation Moderate Summary OT Impairments Strength,Balance,Coordination, Functional Cognition, Functional Mobility,Self- Feeding,Grooming,Dressing, Toileting,Bathing,Toilet Transfers,Shower Transfers, Activity Tolerance Progress Towards Goals Slow Progress due to Medical Issues,Slow Progress due to Activity Tolerance,Slow Progress due to Cognition Assessment Summary Pt MOD complexity and main barriers are decreased balance , needing assist for ADL and mobility needs, vc for safety and sequencing for basic ADL needs as pt is a bit confused at this time. Pt also having difficulty with word finding. Pt insistent of going home but at this time pt would benefit from skilled rehab versus if pt progresses and able to assist-home with / assist and home health. Goals Self-Feeding Goal Independent Grooming Goal Independent Dressing Goal Independent Toileting Goal Independent Bathing Goal Standby Assistance Toilet Transfer Goal Independent Shower Transfer Goal Standby Assistance Days to Meet Goals 15 Frequency of Treatment Frequency Of Treatment Once a Day Treatment Plan OT Treatment Plan ADL Training,Functional Cognition Training,Functional Mobility,Patient/Family Education,Discharge Planning Other Treatment Recommendations and Next LB dressing with use of Treatment Focus equipment. Discharge Recommendations OT Discharge Recommendations SNF Rehab,Home vs SNF Other Discharge Recommendations Pending progress and ability for her to assist - possibly home with 24/ assist and home health. Transportation Needs at Discharge Wheelchair/Cabulance
[2023-07-03] MEDS: INSULIN LISPRO 100 UNIT/ML 3ML VIAL SUBCUT ×3 (12:25→21:55)
[2023-07-03] MEDS: ACETAMINOPHEN 325 MG TABLET 650 MG PO (13:54)
--- NOTE | 2023-07-03 14:43 | PT.IPTN ---
Current Diagnoses Myasthenia gravis with (acute) exacerbation (07/02/23) Physical Therapy Treatment Note M2 PT-IP Current Condition Start: 07/02/23 15:49 Freq: NEEDED Status: Active Protocol: Document 07/02/23 15:15 AB (Rec: 07/02/23 16:06 AB [id number]) Physical Therapy Current Condition Current Condition Evaluation Date 07/02/23 Treatment Diagnosis MG; weakness; difficulty in walking Onset Date 07/02/23 M3 PT-IP Subjective Start: 07/02/23 15:49 Freq: NEEDED Status: Active Protocol: Document 07/03/23 15:08 TS (Rec: 07/03/23 15:25 TS [id number]) Subjective Physical Therapy Visit Type Type Treatment Note Visit Start Time 14:43 Visit Stop Time 15:06 Total Visit Minutes 23 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 M4 PT-IP Mobility and Gait Start: 07/02/23 15:49 Freq: NEEDED Status: Active Protocol: Document 07/03/23 15:08 TS (Rec: 07/03/23 15:25 TS [id number]) PT-Bed Mobility Assessment Supine to Sit Supine to Sit Contact Guard Assistance,1 Person Assistance Scooting Scooting to Edge of Bed Minimal Assistance PT-Transfer Assessment Sit to and From Stand Sit to and from Stand Minimal Assistance,1 Person Assistance,Use of Upper Extremities Equipment Transfer Assistive Device Gait Belt,Front Wheeled Walker Orthotic/Prosthetic Devices or Brace: No Comments Mobility Comments Supine to sit CGA with HOB elevated 45D and BUE support to upright trunk. She scooted to EOB CGA. Sitting EOB pt tends to laterally lean to R side and has LOB x2 requiring Chito to stay upright. She performed sit to stand x3 Chito , pt has some posterior/ lateral lean to R side. She ambulated in room CGA/Chito with FWW ~30', continues to have a slight lean to R side and some buckling on RLE. Pt was left in chair, chair alarm on, all needs met. Gait Assessment Gait Gait Assistance Required: Contact Guard Assist,Minimum Assistance,1 Person Assist Distance (Feet) 30 Assistive Devices Orthotic/Prosthetic Devices or Brace: No Gait Deviations General Gait Pattern Decreased Stride Length, Decreased Feet Clearance, Lateral Trunk Lean,Step-to Gait,Wide Based Gait Factors Limiting Gait Function Factors Limiting Gait Function Decreased Activity Tolerance, Decreased Strength,Poor Balance,Poor Safety Awareness Comments Gait Comments See mobility comments PT-Balance Assessment Sitting Balance and Reactions Static Sitting Balance Ability Fair Dynamic Sitting Balance Ability Fair Standing Balance and Reactions Static Standing Balance Ability Fair Dynamic Standing Balance Ability Fair Device Used FWW M5 PT-IP Objective Assessments Start: 07/02/23 15:49 Freq: NEEDED Status: Active Protocol: Document 07/02/23 15:15 AB (Rec: 07/02/23 16:06 AB [id number]) Orientation Orientation/Cognition Level of Alertness Confusional State Orientation Name Safety Awareness Decreased Safety Awareness Memory Description 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,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 Gross Range of Motion Lower Extremity ROM Assessment Within Functional Limits Strength Lower Extremity Strength Assessment Left Impaired Hip 4-/5 Knee 3+/5 Muscle Tone Muscle Tone WNL Yes M6 PT-IP Treatment Start: 07/02/23 15:49 Freq: NEEDED Status: Active Protocol: Document 07/03/23 15:08 TS (Rec: 07/03/23 15:25 TS [id number]) Physical Therapy Treatment Education Education Provided Safety M7 PT-IP Assessment and Plan Start: 07/02/23 15:49 Freq: NEEDED Status: Active Protocol: Document 07/03/23 15:08 TS (Rec: 07/03/23 15:25 TS [id number]) PT Summary Assessment and Plan Potential Rehabilitation Potential Fair Summary Impairments Pain,ROM,Strength,Balance, Coordination,Sensation,Tone, Cognition,Bed Mobility, Transfers,Gait,Activity Tolerance Progress Towards Goals Slow Progress due to Medical Issues Assessment Summary Oksana made some progress today with her mobility today but remains limited. She progressed her bed mobility to CGA/Chito for LOB while sitting EOB. She required Chito for STS with use of FWW for posterior/lateral lean to R side. She progressed gait to ~ 30' CGA/Chito for some buckling of RLE. PT continues to recommend Home vs SNF at this time. Pt would benefit from rehab to progress strength, functional mobility and activity tolerance. Goals Bed Mobility Goal Minimal Assistance Transfer Goal Minimal Assistance,Front Wheeled Walker Gait Goal Minimal Assistance,Front Wheel Walker Gait Distance 25 Other Goals improve bed mobility, transfers, ambulation CGA using LRAD 50 ft Days to Meet Goals 10 Frequency of Treatment Frequency Of Treatment Once a Day Treatment Plan Physical Therapy Treatment Plan Bed Mobility Training,Transfer Training,Gait Training, Therapeutic Exercise,Balance Retraining,Discharge Planning, Hot or Cold Pack,Neuromuscular Re-ed,Coordination Retraining Precautions Other Precautions falls Recommendations To Nursing Amount of Assist Needed 1 Person Assist Discharge Recommendations PT Discharge Recommendations Home with 06/01 Assist Available,Home Health,SNF Rehab,Home vs SNF Transportation Needs at Discharge Private Vehicle,Wheelchair/ Cabulance
[2023-07-03] MEDS: QUETIAPINE 25 MG TABLET PO (14:57)
--- NOTE | 2023-07-03 17:15 | PM.PN.1 ---
Subjective Subjective Interval history: Patient intermittently agitated. Still confused. Improving with PT and able to walk more today. Exam Vital Signs (past 8 hours): - 07/03/23 09:22 07/03/23 09:39 07/03/23 12:24 Temperature 98.6 F Pulse Rate 73 86 75 Respiratory Rate 19 Blood Pressure 159/72 H 159/72 H 122/57 L Pulse Oximetry 99 Oxygen Flow Rate 0 07/03/23 12:26 07/03/23 16:00 Temperature 98.1 F Pulse Rate 75 69 Respiratory Rate 20 Blood Pressure 147/67 H Pulse Oximetry 95 Oxygen Flow Rate 0 Oxygen Delivery Method Room Air Oxygen Flow Rate 0 Narrative Exam Narrative: GEN: no acute distress, confused HEENT: moist mucous membranes, PERRL NECK: trachea midline, no JVD CV: regular rate and rhythm, systolic ejection murmur present PULM: clear bilaterally ABD: soft, nontender, nondistended, no organomegaly EXT: warm and well perfused with no edema NEURO: awake, alert, A/Ox1, no focal deficits Objective Labs 07/03/23 04:26 07/03/23 04:26 Labs: Laboratory Results - last 24 hr 07/03/23 04:26 WBC 12.2 H RBC 5.24 H Hgb 13.4 Hct 41.1 MCV 78.4 L MCH 25.6 L MCHC 32.6 RDW 16.5 H Plt Count 185 Neut % (Auto) 81.4 H Lymph % (Auto) 10.6 L [place] % (Auto) 4.8 Eos % (Auto) 2.5 Baso % (Auto) 0.7 Neut # (Auto) 26210 H Lymph # (Auto) 1300 [place] # (Auto) 600 Eos # (Auto) 300 Baso # (Auto) 100 Sodium 137 Potassium 3.8 Chloride 104 Carbon Dioxide 30 BUN 12 Creatinine 0.59 Estimated GFR > 60 BUN/Creatinine Ratio 20.3 Glucose 119 H D Calcium 8.8 Magnesium 2.0 PFSH Medical History CVA (cerebral vascular accident) Hypertension Tachycardia Myasthenia gravis SVT (supraventricular tachycardia) Diabetes type 2, uncontrolled (07/15/11) Gastroparesis due to DM (11/13/10) Hyperlipidemia, mixed (11/13/10) Unspecified essential hypertension (11/13/10) Morbid obesity (11/13/10) Panic disorder (11/13/10) 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) Surgical History Status post hernia repair (05/14/16) Status post hysterectomy (05/14/16) Status post laparoscopic cholecystectomy History of third molar tooth extraction Social History household members: spouse Smoking Status: Former smoker alcohol intake: current Assessment & Plan Assessment & Plan narrative: # acute weakness 2/2 presumed myasthenic crisis -patient with global weakness and no focal deficits, CK normal -ED spoke with neurology who recommended empiric treatment with IVIG x5 days -PT/OT eval rec SNF vs HH -continue daily prednisone 20mg # acute metabolic encephalopathy -patient more confused above baseline, per notes she was A/Ox3 a year ago -MRI negative for stroke, CT head negative -unclear etiology, will monitor # DM2 -continue lantus and SSI # seizure disorder -continue keppra # HTN -continue losartan and metoprolol # depression and anxiety -continue sertraline but hold xanax for now due to AMS # h/o TIA -continue DAPT Code status is DNR per prior records. DVT prophylaxis with Lovenox. Proxy is Syed. I have reviewed home meds and used all available resources to reconcile the home meds. Dispo: Will need to finish 5 days of IVIG to complete on 07/06. Continue PT to see if can return home vs SNF. Quality VTE Deep Vein Thrombosis/Pulmonary Embolism Present on Admission: No
[2023-07-03] MEDS: diazePAM 5 MG TABLET PO (17:33)
[2023-07-03] MEDS: HYDRALAZINE 20 MG/ML VIAL 10 MG IV (23:18)
[2023-07-04] VITALS (24 sets, daily range): BP systolic 108–184; BP diastolic 53–81; PULSE 62–83; RESP 16–20; TEMP 36.1–37; O2SAT 93–97
[2023-07-04 05:07] LABS: Basophils Absolute Auto 100 /uL (0-100); Eosinophils Absolute Auto 300 /uL (0-450); Lymphocytes Absolute Auto 1300 /uL (1100-4500)
[2023-07-04 05:10] LABS: Add Manual Diff / Slide Review NO; Basophils Percent Auto 0.9 % (0-2); Eosinophils Percent Auto 2.8 % (2-4); Hematocrit 39.4 % (36-46); Hemoglobin 12.9 g/dL (12.0-16.0); Lymphocytes Percent Auto 13.7 % (25-40); Mean Corpuscular HGB Conc 32.7 % (30-36); Mean Corpuscular Hemoglobin 25.3 PG (26-34); Mean Corpuscular Volume 77.4 fL (80-100); Monocytes Absolute Auto 700 /uL (0-900); Monocytes Percent Auto 7.2 % (3-14); Neutrophils Absolute Auto 7000 /uL (1500-7000); Neutrophils Percent Auto 75.4 % (50-75); Platelet Count 167 X10^3/uL (150-400); Red Blood Cell Count 5.09 X10^6/uL (4.0-5.2); Red Cell Distribution Width 16.2 % (11.6-14.8); White Blood Cell Count 9.3 X10^3/uL (4.5-11.0)
[2023-07-04 05:17] LABS: BUN Creatinine Ratio 25.5 (6-22); Blood Urea Nitrogen 13 mg/dL (7-17); Calcium 8.8 mg/dL (8.4-10.2); Carbon Dioxide 27 mmol/L (22-32); Chloride 105 mmol/L (98-107); Estimated Glomerular Filt Rate > 60 mL/min (>60); Glucose 189 mg/dL (80-110); HEMOLYSIS 23 (0-50); Potassium 3.6 mmol/L (3.4-5.1); Sodium 136 mmol/L (137-145)
[2023-07-04 05:20] LABS: Magnesium 1.9 mg/dL (1.6-2.3)
[2023-07-04] MEDS: INSULIN LISPRO 100 UNIT/ML 3ML VIAL SUBCUT ×4 (07:54→20:21)
[2023-07-04] MEDS: levETIRAcetam 250 MG TABLET 750 MG PO ×2 (08:28→20:19)
[2023-07-04] MEDS: ENOXAPARIN 40 MG/0.4 ML SYRINGE SUBCUT (08:28)
[2023-07-04] MEDS: predniSONE 20 MG TABLET PO (08:29)
[2023-07-04] MEDS: SERTRALINE 50 MG TABLET 200 MG PO (08:29)
[2023-07-04] MEDS: CLOPIDOGREL 75 MG TABLET PO (08:29)
[2023-07-04] MEDS: LOSARTAN 50 MG TABLET 100 MG PO ×2 (08:29→20:19)
[2023-07-04] MEDS: ASPIRIN EC 81 MG TABLET PO (08:30)
[2023-07-04] MEDS: METOPROLOL ER 50 MG TABLET 100 MG PO ×2 (08:30→20:20)
[2023-07-04] MEDS: INSULIN GLARGINE 100 UNIT/ML 3ML PEN 40 UNIT SUBCUT (08:31)
[2023-07-04] MEDS: IMMUNE GLOBULIN IV (09:23)
[2023-07-04 10:54] LABS: Hemoglobin A1C% w Est Avg Glu 8.4 % (4.0-6.0)
[2023-07-04] MEDS: NEO/POLYMIX B/DEX OPHTH SUSP 1 DROPS EYE-LEFT ×4 (12:14→20:20)
[2023-07-04] MEDS: HYDRALAZINE 20 MG/ML VIAL 10 MG IV (12:14)
[2023-07-04] MEDS: diphenhydrAMINE 25 MG TABLET PO ×2 (12:15→20:19)
--- NOTE | 2023-07-04 12:58 | PT.IPTN ---
Current Diagnoses Myasthenia gravis with (acute) exacerbation (07/02/23) Physical Therapy Treatment Note M2 PT-IP Current Condition Start: 07/02/23 15:49 Freq: NEEDED Status: Active Protocol: Document 07/02/23 15:15 AB (Rec: 07/02/23 16:06 AB [id number]) Physical Therapy Current Condition Current Condition Evaluation Date 07/02/23 Treatment Diagnosis MG; weakness; difficulty in walking Onset Date 07/02/23 M3 PT-IP Subjective Start: 07/02/23 15:49 Freq: NEEDED Status: Active Protocol: Document 07/04/23 13:28 TS (Rec: 07/04/23 13:42 TS [id number]) Subjective Physical Therapy Visit Type Type Treatment Note Visit Start Time 12:58 Visit Stop Time 13:24 Total Visit Minutes 26 Number of GLASS BENDER Visits 2 Physical Therapy Visit Comments Patient Comments Pt found resting in chair, pt is agreeable to PT. M4 PT-IP Mobility and Gait Start: 07/02/23 15:49 Freq: NEEDED Status: Active Protocol: Document 07/04/23 13:28 TS (Rec: 07/04/23 13:42 TS [id number]) PT-Transfer Assessment Sit to and From Stand Sit to and from Stand Contact Guard Assistance, Minimal Assistance,1 Person Assistance,Use of Upper Extremities Equipment Transfer Assistive Device Gait Belt,Front Wheeled Walker Orthotic/Prosthetic Devices or Brace: No Comments Mobility Comments Pt is impulsive to stand from chair before therapist has room setup. STS from chair Chito with use of FWW. She ambulated ~80' with FWW CGA/ Chito for poor balance, pt had x1LOB/buckling of RLE requiring Chito. Pt ambulated back to room, required seated rest break on bed. Pt reported some SOB, Spo2 96% on RA, pt cued for PLB. Pt agreed to ambulate more. Sit to stand from bed CGA with FWW. She ambulated ~80' CGA, required cues to keep FWW close and to stay inside it. Pt ambulated back to room, was left in chair with alarm on, all needs met, RN notified. Gait Assessment Gait Gait Assistance Required: Contact Guard Assist,Minimum Assistance,1 Person Assist Distance (Feet) 160 Assistive Devices Orthotic/Prosthetic Devices or Brace: No Gait Deviations General Gait Pattern Decreased Stride Length, Decreased Feet Clearance, Lateral Trunk Lean,Step-to Gait,Wide Based Gait Factors Limiting Gait Function Factors Limiting Gait Function Decreased Activity Tolerance, Decreased Strength,Poor Balance,Poor Safety Awareness Comments Gait Comments See mobility comments PT-Balance Assessment Sitting Balance and Reactions Static Sitting Balance Ability Fair Dynamic Sitting Balance Ability Fair Standing Balance and Reactions Static Standing Balance Ability Fair Dynamic Standing Balance Ability Fair Device Used FWW M5 PT-IP Objective Assessments Start: 07/02/23 15:49 Freq: NEEDED Status: Active Protocol: Document 07/02/23 15:15 AB (Rec: 07/02/23 16:06 AB [id number]) Orientation Orientation/Cognition Level of Alertness Confusional State Orientation Name Safety Awareness Decreased Safety Awareness Memory Description 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,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 Gross Range of Motion Lower Extremity ROM Assessment Within Functional Limits Strength Lower Extremity Strength Assessment Left Impaired Hip 4-/5 Knee 3+/5 Muscle Tone Muscle Tone WNL Yes M6 PT-IP Treatment Start: 07/02/23 15:49 Freq: NEEDED Status: Active Protocol: Document 07/04/23 13:28 TS (Rec: 07/04/23 13:42 TS [id number]) Physical Therapy Treatment Education Education Provided Safety M7 PT-IP Assessment and Plan Start: 07/02/23 15:49 Freq: NEEDED Status: Active Protocol: Document 07/04/23 13:28 TS (Rec: 07/04/23 13:42 TS [id number]) PT Summary Assessment and Plan Potential Rehabilitation Potential Fair Summary Impairments Pain,ROM,Strength,Balance, Coordination,Sensation,Tone, Cognition,Bed Mobility, Transfers,Gait,Activity Tolerance Progress Towards Goals Progressing Toward Goals Assessment Summary Oksana is making some progress with her mobility this session. She performed STS x2 w/FWW, x1 CGA and x1 Chito from lower surface of chair. She ambulated a total of ~160'CGA/ Chito, she continues to have some buckling on RLE this session x1. PT continues to recommend Home vs SNF at this time. Pt would require some assistance from spouse or other ig she would return home . Pt would benefit from SNF rehab to progress strength and activity tolerance before d/c home. Goals Bed Mobility Goal Minimal Assistance Transfer Goal Minimal Assistance,Front Wheeled Walker Gait Goal Minimal Assistance,Front Wheel Walker Gait Distance 25 Other Goals improve bed mobility, transfers, ambulation CGA using LRAD 50 ft Days to Meet Goals 10 Frequency of Treatment Frequency Of Treatment Once a Day Treatment Plan Physical Therapy Treatment Plan Bed Mobility Training,Transfer Training,Gait Training, Therapeutic Exercise,Balance Retraining,Discharge Planning, Hot or Cold Pack,Neuromuscular Re-ed,Coordination Retraining Precautions Other Precautions falls Recommendations To Nursing Amount of Assist Needed 1 Person Assist Discharge Recommendations PT Discharge Recommendations Home with 06/01 Assist Available,Home Health,SNF Rehab,Home vs SNF Transportation Needs at Discharge Private Vehicle,Wheelchair/ Cabulance
[2023-07-04] MEDS: diazePAM 5 MG TABLET PO ×2 (14:08→20:19)
--- NOTE | 2023-07-04 14:17 | OT.IPNOTE ---
Per nursing, pt just given Valium as pt getting agitated and continues to be confused.
--- NOTE | 2023-07-04 15:24 | CM.DANOTE ---
Addendum entered by FELICIA Hurst 07/04/23 16:01: Shady from [facility] confirms they are currently following pt for RN/PT/OT/TRAUMA SURGEON. waiting update if concerns to re-accept her back on their care. [facility]AYDEN Original Note: DCP Assessment Note Pt is a 73yo F here under INPT status following AMS/increased weakness/myasthenia gravis. Pt needs 5 days total of IVIG, complete on 07/06. Pt lives with spouse in [address] [facility] [address]. [facility] PT/OT rec SNf at this time. Per chart review, pt has increased confusion above baseline. Per chart review, she has had some confusion/agitation. Per PT, weakness is getting better but pt is losing her balance. FLANGER entered room and introduced self and role. pt sitting up in chair. Pt was pleasantly confused and easily redirected in our conversation. FLANGER had lengthy conversation with spouse, Syed (cell [phone]) about the dcp via phone. Syed reports she is slightly confused at baseline but not like this. Syed reports pt was [place] from here [place] 20[place] [facility] [place] it was a terrible experience. Syed reports pt was here May 22 in the ER and transferred to [facility]. From there, pt was dc'd to a SNF in [place], but spouse was upset because he thought they were sending her to [facility]. He reports [facility] had previously accepted her. Pt was there for approximately 3 weeks before dc home. Pt has been with [facility] since dc home and spouse reports he would like her to dc to SNF if possible for more intensive rehab. Spouse acknowledges that may not be an option and from his perspective, reports she needs to be able to transfer and ambulate with walker indep otherwise he cannot take her back. He reports he could hire [facility] folks to come assist them at home and halfway wants to avoid [facility] for as long as possible but reports her being safe is his number 1 priority. Spouse reports pt normally uses a walker at baseline and they have all the equipment for the home. Spouse reports no stairs into home. FLANGER reviewed barriers to placement including potential use of 100 medicare days/current Seroquel. Spouse expressed verbal understanding. Spouse would be agreeable to [facility] referral if [facility] cannot accept. Spouse asked to be kept closely updated. From Sendy at [facility], agreed to review, acceptance pending. Likely could not accept until Friday. Would need 24 hours without Seroquel and no behaviors at minimum. Likely will need a level 2 PASSR? FLANGER emailed Shady at [facility] to inquire if they could continue working with pt at dc if needed. Plan: pending acceptance, dc to [facility] when medically stable, likely not until Friday if [facility] able to accept. PASSR needed. Consider [facility] referral. Backup is home with [facility] pending acceptance/Spouse/CGs? CM team will continue to follow closely. FELICIA Hurst Discharge Planning/Care Management CM Discharge Assessment Start: 07/04/23 15:22 Freq: Status: Active Protocol: Document 07/04/23 15:22 (Rec: 07/04/23 15:24 [id number]) Discharge Planning Assessment Assigned Insulator Technician FELICIA Wesley DPOA/Assigned Designee Name Syed Brown, spouse Contact Information [phone] Advance Directives? Yes: POLST Advance Directives on File No History Provided By Significant Other,Medical Record Prior Living Arrangements House Household Members spouse Type of transporation used prior to Relies on Others admit Independent with ADL's No Is patient alert and oriented? No Needs Assistance With Bathing,Eating,Grooming,Meal Prep,Managing Medications,Home Chores / Shopping Comment Used [facility] in past DME Already Rented / Owned Bath Bench,FWW / Walker,Cane, Other Comment grab bars Patient/Family Preference Fdc Facility Barriers to Discharge Yes Comment pt's current confusion Discharge Plan Fdc Facility Referrals Initiated Fdc If patient plan is SNF: Has PASSR been No: hoping pt clears up completed? mentally prior to completing PASSR SNF/HH Preference [facility] or [facility] Has Agency SNF been contacted Yes Whiteboard Updated in Patient Room with Yes name and ext. # of Insulator Technician Review Status In Process Next Review Type Continued Stay Review
--- NOTE | 2023-07-04 15:39 | PM.PN.1 ---
Subjective Subjective Interval history: Patient more alert today. Less confused. Still with L eye swelling. Exam Vital Signs (past 8 hours): - 07/04/23 08:00 07/04/23 08:29 07/04/23 08:30 Temperature Pulse Rate 70 70 70 Respiratory Rate 20 Blood Pressure 173/74 H 184/80 H 184/80 H Pulse Oximetry 97 Oxygen Flow Rate 0 07/04/23 09:00 07/04/23 12:00 07/04/23 12:14 Temperature 98.6 F Pulse Rate 72 71 71 Respiratory Rate 20 Blood Pressure 181/77 H 181/77 H Pulse Oximetry 97 Oxygen Flow Rate 0 07/04/23 13:38 07/04/23 13:39 Temperature Pulse Rate Respiratory Rate Blood Pressure 108/53 L 108/53 L Pulse Oximetry Oxygen Flow Rate Oxygen Delivery Method Room Air Oxygen Flow Rate 0 Narrative Exam Narrative: GEN: no acute distress, less confused now HEENT: moist mucous membranes, PERRL NECK: trachea midline, no JVD CV: regular rate and rhythm, systolic ejection murmur present PULM: clear bilaterally ABD: soft, nontender, nondistended, no organomegaly EXT: warm and well perfused with no edema NEURO: awake, alert, A/Ox1, no focal deficits Objective Labs 07/04/23 04:59 07/04/23 04:59 Labs: Laboratory Results - last 24 hr 07/04/23 04:59 WBC 9.3 RBC 5.09 Hgb 12.9 Hct 39.4 MCV 77.4 L MCH 25.3 L MCHC 32.7 RDW 16.2 H Plt Count 167 Neut % (Auto) 75.4 H Lymph % (Auto) 13.7 L Person % (Auto) 7.2 Eos % (Auto) 2.8 Baso % (Auto) 0.9 Neut # (Auto) 7000 Lymph # (Auto) 1300 Person # (Auto) 700 Eos # (Auto) 300 Baso # (Auto) 100 Sodium 136 L Potassium 3.6 Chloride 105 Carbon Dioxide 27 BUN 13 Creatinine 0.51 L Estimated GFR > 60 BUN/Creatinine Ratio 25.5 H Glucose 189 H Hemoglobin A1c 8.4 H Calcium 8.8 Magnesium 1.9 PFSH Medical History CVA (cerebral vascular accident) Hypertension Tachycardia Myasthenia gravis SVT (supraventricular tachycardia) Diabetes type 2, uncontrolled (07/15/11) Gastroparesis due to DM (11/13/10) Hyperlipidemia, mixed (11/13/10) Unspecified essential hypertension (11/13/10) Morbid obesity (11/13/10) Panic disorder (11/13/10) 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) Surgical History Status post hernia repair (05/14/16) Status post hysterectomy (05/14/16) Status post laparoscopic cholecystectomy History of third molar tooth extraction Social History household members: spouse Smoking Status: Former smoker alcohol intake: current Assessment & Plan Assessment & Plan narrative: # acute weakness 2/2 presumed myasthenic crisis -patient with global weakness and no focal deficits, CK normal -ED spoke with neurology who recommended empiric treatment with IVIG x5 days -PT/OT eval rec SNF vs -continue daily prednisone 20mg # acute metabolic encephalopathy, improving -patient more confused above baseline, per notes she was A/Ox3 a year ago -MRI negative for stroke, CT head negative -unclear etiology, will monitor # DM2 -continue lantus and SSI # seizure disorder -continue keppra # HTN -continue losartan and metoprolol # depression and anxiety -continue sertraline but hold xanax for now due to AMS # h/o TIA -continue DAPT Code status is DNR per prior records. DVT prophylaxis with Lovenox. Proxy is Syed. I have reviewed home meds and used all available resources to reconcile the home meds. Dispo: Will need to finish 5 days of IVIG to complete on 07/06. Continue PT to see if can return home vs SNF. Quality VTE Deep Vein Thrombosis/Pulmonary Embolism Present on Admission: No
[2023-07-04] MEDS: diazePAM 10 MG/2 ML SYRINGE 5 MG IV (15:54)
--- NOTE | 2023-07-04 16:03 | PC.NURSE ---
pt has been confused this shift and has become progressively more agitated; she was given po valium and slept approx 30 minutes; she is now tearful and calling out at people at the desk; Dr Myers notified and pt given valium 5mg iv; report was given to Isabela TEJEDA who is assuming care of pt at this time
[2023-07-04] MEDS: GABAPENTIN 600 MG TABLET PO (20:19)
[2023-07-05] VITALS (12 sets, daily range): BP systolic 105–204; BP diastolic 51–77; PULSE 61–74; RESP 16–18; TEMP 36.1–37; O2SAT 95–99
[2023-07-05] MEDS: diazePAM 5 MG TABLET PO ×2 (04:34→20:13)
[2023-07-05] MEDS: GABAPENTIN 600 MG TABLET PO (04:34)
[2023-07-05] MEDS: QUETIAPINE 25 MG TABLET PO ×2 (04:34→20:14)
[2023-07-05] MEDS: diphenhydrAMINE 25 MG TABLET PO ×2 (04:34→20:13)
[2023-07-05 05:27] LABS: Add Manual Diff / Slide Review NO; Basophils Absolute Auto 100 /uL (0-100); Basophils Percent Auto 1.1 % (0-2); Eosinophils Absolute Auto 200 /uL (0-450); Eosinophils Percent Auto 2.6 % (2-4); Hematocrit 41.9 % (36-46); Hemoglobin 13.6 g/dL (12.0-16.0); Lymphocytes Absolute Auto 1900 /uL (1100-4500); Lymphocytes Percent Auto 22.5 % (25-40); Mean Corpuscular HGB Conc 32.5 % (30-36); Mean Corpuscular Hemoglobin 25.4 PG (26-34); Mean Corpuscular Volume 78.2 fL (80-100); Monocytes Absolute Auto 800 /uL (0-900); Monocytes Percent Auto 8.8 % (3-14); Neutrophils Absolute Auto 5600 /uL (1500-7000); Platelet Count 179 X10^3/uL (150-400); Red Blood Cell Count 5.35 X10^6/uL (4.0-5.2); Red Cell Distribution Width 16.4 % (11.6-14.8); White Blood Cell Count 8.6 X10^3/uL (4.5-11.0)
[2023-07-05 05:43] LABS: BUN Creatinine Ratio 30.2 (6-22); Blood Urea Nitrogen 19 mg/dL (7-17); Carbon Dioxide 23 mmol/L (22-32); Chloride 106 mmol/L (98-107); Estimated Glomerular Filt Rate > 60 mL/min (>60); Glucose 140 mg/dL (80-110); HEMOLYSIS < 15 (0-50); Potassium 3.6 mmol/L (3.4-5.1); Sodium 136 mmol/L (137-145)
[2023-07-05 06:02] LABS: Magnesium 1.9 mg/dL (1.6-2.3)
[2023-07-05] MEDS: NEO/POLYMIX B/DEX OPHTH SUSP 1 DROPS EYE-LEFT ×4 (09:20→20:28)
[2023-07-05] MEDS: CLOPIDOGREL 75 MG TABLET PO (09:21)
[2023-07-05] MEDS: ASPIRIN EC 81 MG TABLET PO (09:21)
[2023-07-05] MEDS: predniSONE 20 MG TABLET PO (09:21)
[2023-07-05] MEDS: ENOXAPARIN 40 MG/0.4 ML SYRINGE SUBCUT (09:21)
[2023-07-05] MEDS: levETIRAcetam 250 MG TABLET 750 MG PO ×2 (09:21→20:14)
[2023-07-05] MEDS: LOSARTAN 50 MG TABLET 100 MG PO ×2 (09:21→20:13)
[2023-07-05] MEDS: SERTRALINE 50 MG TABLET 200 MG PO (09:21)
[2023-07-05] MEDS: METOPROLOL ER 50 MG TABLET 100 MG PO ×2 (09:21→20:14)
[2023-07-05] MEDS: INSULIN LISPRO 100 UNIT/ML 3ML VIAL SUBCUT ×3 (09:23→18:19)
[2023-07-05] MEDS: INSULIN GLARGINE 100 UNIT/ML 3ML PEN 40 UNIT SUBCUT (09:25)
[2023-07-05] MEDS: ISOOSMOTIC VEHICLE IV (09:26)
[2023-07-05] MEDS: GLY IV (09:26)
[2023-07-05] MEDS: IMMUNE GLOBUL IV (09:26)
[2023-07-05] MEDS: IGA AVG IV (09:26)
--- NOTE | 2023-07-05 10:15 | PT.IPTN ---
Current Diagnoses Myasthenia gravis with (acute) exacerbation (07/02/23) Physical Therapy Treatment Note M2 PT-IP Current Condition Start: 07/02/23 15:49 Freq: NEEDED Status: Active Protocol: Document 07/02/23 15:15 AB (Rec: 07/02/23 16:06 AB [id number]) Physical Therapy Current Condition Current Condition Evaluation Date 07/02/23 Treatment Diagnosis MG; weakness; difficulty in walking Onset Date 07/02/23 M3 PT-IP Subjective Start: 07/02/23 15:49 Freq: NEEDED Status: Active Protocol: Document 07/05/23 10:48 TS (Rec: 07/05/23 11:07 TS [id number]) Subjective Physical Therapy Visit Type Type Treatment Note Visit Start Time 10:15 Visit Stop Time 10:43 Total Visit Minutes 28 Number of CAT HOOKER Visits 3 Physical Therapy Visit Comments Patient Comments Pt found with nursiing sitting on commode, transferred to bed with nursing, is agreeable ot PT. M4 PT-IP Mobility and Gait Start: 07/02/23 15:49 Freq: NEEDED Status: Active Protocol: Document 07/05/23 10:48 TS (Rec: 07/05/23 11:07 TS [id number]) PT-Transfer Assessment Sit to and From Stand Sit to and from Stand Contact Guard Assistance, Minimal Assistance,1 Person Assistance,Use of Upper Extremities Equipment Transfer Assistive Device Gait Belt,Front Wheeled Walker Orthotic/Prosthetic Devices or Brace: No Comments Mobility Comments BP sitting EOB 136/58 prior to mobility. Sit to stand from bed Chito with use of FWW, pt requires cues for pushing from bed with BUE support. BP in standing 119/70, pt reports some lightheadedness and feeling shaky, pt sat back EOB. Sit to stand from bed with FWW Chito, pt requires cues for sequencing. She ambulated in room ~25'CGA with use of FWW, pt demonstrates decreased step height/length and requires cues to stay close to FWW. Pt sat in chair for rest break, BP in sitting 135/57. She performed STS x2 from chair CGA with cues for pushing from arms of chair and bending at hips. She ambulated another ~25' in rooms CGA with FWW. Pt was left in chair with alarm on, all needs met, RN notified. Gait Assessment Gait Gait Assistance Required: Contact Guard Assist,1 Person Assist Distance (Feet) 50 Assistive Devices Assistive Device Gait Belt,Front Wheeled Walker Orthotic/Prosthetic Devices or Brace: No Gait Deviations General Gait Pattern Decreased Stride Length, Decreased Feet Clearance, Lateral Trunk Lean,Step-to Gait,Wide Based Gait Factors Limiting Gait Function Factors Limiting Gait Function Decreased Activity Tolerance, Decreased Strength,Poor Balance,Poor Safety Awareness Comments Gait Comments See mobility comments PT-Balance Assessment Sitting Balance and Reactions Static Sitting Balance Ability Fair Dynamic Sitting Balance Ability Fair Standing Balance and Reactions Static Standing Balance Ability Fair Dynamic Standing Balance Ability Fair Device Used FWW M5 PT-IP Objective Assessments Start: 07/02/23 15:49 Freq: NEEDED Status: Active Protocol: Document 07/02/23 15:15 AB (Rec: 07/02/23 16:06 AB [id number]) Orientation Orientation/Cognition Level of Alertness Confusional State Orientation Name Safety Awareness Decreased Safety Awareness Memory Description 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,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 Gross Range of Motion Lower Extremity ROM Assessment Within Functional Limits Strength Lower Extremity Strength Assessment Left Impaired Hip 4-/5 Knee 3+/5 Muscle Tone Muscle Tone WNL Yes M6 PT-IP Treatment Start: 07/02/23 15:49 Freq: NEEDED Status: Active Protocol: Document 07/05/23 10:48 TS (Rec: 07/05/23 11:07 TS [id number]) Physical Therapy Treatment Education Education Provided Safety M7 PT-IP Assessment and Plan Start: 07/02/23 15:49 Freq: NEEDED Status: Active Protocol: Document 07/05/23 10:48 TS (Rec: 07/05/23 11:07 TS [id number]) PT Summary Assessment and Plan Potential Rehabilitation Potential Fair Summary Impairments Pain,ROM,Strength,Balance, Coordination,Sensation,Tone, Cognition,Bed Mobility, Transfers,Gait,Activity Tolerance Progress Towards Goals Slow Progress due to Activity Tolerance Assessment Summary Oksana continues to require Chito/CGA for STS from bed/ chair. When provided cues for STS sequencing pt requires decreased assist. Due to memory and confusion she does not demonstrate carryover of STS sequencing. She ambulated 2x25' with rest break in between in room. She reports some lightheadedness with gait but did not seem to limit her in her mobility. She continues to demonstrate poor safety awareness with her gait , requires cues for keeping FWW close and not letting go of FWW before it is safe to do so. PT continues to recommend Home vs SNF at this time. Pt would benefit from SNF stay to improve strength and activity tolerance before d/c home. Per note spouse states pt would need to be Ind to return home. Goals Bed Mobility Goal Minimal Assistance Transfer Goal Minimal Assistance,Front Wheeled Walker Gait Goal Minimal Assistance,Front Wheel Walker Gait Distance 25 Other Goals improve bed mobility, transfers, ambulation CGA using LRAD 50 ft Days to Meet Goals 10 Frequency of Treatment Frequency Of Treatment Once a Day Treatment Plan Physical Therapy Treatment Plan Bed Mobility Training,Transfer Training,Gait Training, Therapeutic Exercise,Balance Retraining,Discharge Planning, Hot or Cold Pack,Neuromuscular Re-ed,Coordination Retraining Precautions Other Precautions falls Recommendations To Nursing Amount of Assist Needed 1 Person Assist Discharge Recommendations PT Discharge Recommendations Home with 06/01 Assist Available,Home Health,SNF Rehab,Home vs SNF Transportation Needs at Discharge Private Vehicle,Wheelchair/ Cabulance
--- NOTE | 2023-07-05 11:05 | CM.DPC ---
Addendum entered by Nancy Norton R.N. 07/05/23 15:30: Called Shirley back at [facility] to see if administration at her facility has reviewed. Stated, most of the concerns are her anxiety, that she has been receiving Valium, want to see if her behaviors will improve, ideally, would like her off the Seroquel, but will continue to review. Have referrals out to other facilities as mentioned. Addendum entered by Nancy Norton R.N. 07/05/23 14:59: Have not yet heard back from [facility]. Called patient's spouse, Syed. Updated him, and let him know that it is not yet determined if [facility] can accept. Asked him about other alternatives. Stated, I feel like I am having the same conversation that I had with Brianna yesterday. Let him know that this DC liaison planner is working on the case today, and should attempt to have back up plans. Notes from FELICIA Holder, had indicated that he did not want patient to go to [facility] . Spouse indicated, he does not want her to go to [place], if [facility] is the only option in , would be ok. Did discuss [facility] and [facility]. Did ask spouse about patient going home, since she had improved with therapy according to JENNIFER Nguyen. Spouse again indicated, I had this conversation yesterday, if she can take herself to the bathroom, and change her depends, she can go home. At this time, it is unclear if she can do these tasks, spouse was also encouraged to look into home caregivers. Let spouse know that this DC liaison planner will send referrals to [facility] and [facility]. He will continue to be updated. Did leave a message with Amrita at [facility]. Went ahead and emailed her the referral, since her fax does not work on the weekends. Called over at [facility]. It is unclear at this time who is in admissions. Nurse that answered phone is not sure who is doing admissions either, did fax over the referral. Will call [facility] [facility] again before this DC Hot End Operator leaves, and referrals are now out to [facility] and [facility]. Will also fax to [facility] as well, in case there are no other options. Original Note: DCP Cont: Patient has been more alert today, according to hospitalist, and is working with therapy. Barrier is that she is on Seroquel. Notes indicated, from FELICIA Holder, who conversed with spouse yesterday, that he is hoping she can go to [facility]. She is to have her last IVG injection tomorrow. Notes also indicate that patient had been to [facility], and another facility in [facility] [place], was horrible. Called Shirley at [facility]. She indicated that they are still reviewing patient. Asked her about the Seroquel. She stated this depends upon the diagnosis. If patient were to be on Seroquel, they would need a diagnosis such as depression, bipolar, can't be dementia or behavioral related. She should have an answer today, and this DC Hot End Operator can then update spouse. P: DCP to continue to follow and work on plan. Other option, if patient continues to improve with P.T, is for her to go back home with spouse, as long as she is able to walk with her walker, and she is also under [facility]. Nanyc Norton RN/Stationary Equipment Mechanic
[2023-07-05] MEDS: SODIUM CHLORIDE 0.9% 1,000 ML 100 ML IV ×2 (12:33→22:42)
[2023-07-05] MEDS: ACETAMINOPHEN 325 MG TABLET 650 MG PO (14:58)
[2023-07-05] MEDS: diazePAM 10 MG/2 ML SYRINGE 5 MG IV (15:33)
--- NOTE | 2023-07-05 17:18 | PM.PN.1 ---
Subjective Subjective Interval history: Patient doing better today. She is more lucid but still doesn't know the year. WELDER JOURNEYMAN working on SNF. Exam Vital Signs (past 8 hours): - 07/05/23 12:00 07/05/23 16:00 Temperature 97.3 F L 97.2 F L Pulse Rate 64 64 Respiratory Rate 16 16 Blood Pressure 105/51 L 185/69 H Pulse Oximetry 98 98 Oxygen Flow Rate 0 0 Oxygen Delivery Method Room Air Oxygen Flow Rate 0 Narrative Exam Narrative: GEN: no acute distress, less confused now HEENT: moist mucous membranes, PERRL NECK: trachea midline, no JVD CV: regular rate and rhythm, systolic ejection murmur present PULM: clear bilaterally ABD: soft, nontender, nondistended, no organomegaly EXT: warm and well perfused with no edema NEURO: awake, alert, A/Ox1, no focal deficits Objective Labs 07/05/23 05:00 07/05/23 05:00 Labs: Laboratory Results - last 24 hr 07/05/23 05:00 WBC 8.6 RBC 5.35 H Hgb 13.6 Hct 41.9 MCV 78.2 L MCH 25.4 L MCHC 32.5 RDW 16.4 H Plt Count 179 Neut % (Auto) 65.0 Lymph % (Auto) 22.5 L Penning[place] % (Auto) 8.8 Eos % (Auto) 2.6 Baso % (Auto) 1.1 Neut # (Auto) 5600 Lymph # (Auto) 1900 [place] # (Auto) 800 Eos # (Auto) 200 Baso # (Auto) 100 Sodium 136 L Potassium 3.6 Chloride 106 Carbon Dioxide 23 BUN 19 H Creatinine 0.63 Estimated GFR > 60 BUN/Creatinine Ratio 30.2 H Glucose 140 H Calcium 9.0 Magnesium 1.9 PFSH Medical History CVA (cerebral vascular accident) Hypertension Tachycardia Myasthenia gravis SVT (supraventricular tachycardia) Diabetes type 2, uncontrolled (07/15/11) Gastroparesis due to DM (11/13/10) Hyperlipidemia, mixed (11/13/10) Unspecified essential hypertension (11/13/10) Morbid obesity (11/13/10) Panic disorder (11/13/10) 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) Surgical History Status post hernia repair (05/14/16) Status post hysterectomy (05/14/16) Status post laparoscopic cholecystectomy History of third molar tooth extraction Social History household members: spouse Smoking Status: Former smoker alcohol intake: current Assessment & Plan Assessment & Plan narrative: # acute weakness 2/2 presumed myasthenic crisis -patient with global weakness and no focal deficits, CK normal -ED spoke with neurology who recommended empiric treatment with IVIG x5 days to finish on 07/06 -PT/OT eval rec SNF -continue daily prednisone 20mg # acute metabolic encephalopathy, improving -patient more confused above baseline, per notes she was A/Ox3 a year ago -MRI negative for stroke, CT head negative -unclear etiology, will monitor -seroquel nightly # DM2 -continue lantus and SSI # seizure disorder -continue keppra # HTN -continue losartan and metoprolol # depression and anxiety -continue sertraline but hold xanax for now due to AMS # h/o TIA -continue DAPT Code status is DNR per prior records. DVT prophylaxis with Lovenox. Proxy is Syed. I have reviewed home meds and used all available resources to reconcile the home meds. Dispo: Will need to finish 5 days of IVIG to complete on 07/06. WELDER JOURNEYMAN looking into SNF. Quality VTE Deep Vein Thrombosis/Pulmonary Embolism Present on Admission: No
[2023-07-05] MEDS: HYDRALAZINE 20 MG/ML VIAL 10 MG IV (21:20)
[2023-07-06] VITALS (8 sets, daily range): BP systolic 112–181; BP diastolic 56–69; PULSE 63–72; RESP 16–22; TEMP 35.9–36.6; O2SAT 94–99
[2023-07-06] MEDS: diazePAM 10 MG/2 ML SYRINGE 5 MG IV (01:37)
[2023-07-06 05:21] LABS: Add Manual Diff / Slide Review NO; Basophils Absolute Auto 100 /uL (0-100); Basophils Percent Auto 0.8 % (0-2); Eosinophils Absolute Auto 200 /uL (0-450); Eosinophils Percent Auto 1.5 % (2-4); Hematocrit 41.4 % (36-46); Hemoglobin 13.5 g/dL (12.0-16.0); Lymphocytes Absolute Auto 2400 /uL (1100-4500); Lymphocytes Percent Auto 23.7 % (25-40); Mean Corpuscular HGB Conc 32.7 % (30-36); Mean Corpuscular Hemoglobin 25.3 PG (26-34); Mean Corpuscular Volume 77.6 fL (80-100); Monocytes Absolute Auto 700 /uL (0-900); Monocytes Percent Auto 7.2 % (3-14); Neutrophils Absolute Auto 6800 /uL (1500-7000); Neutrophils Percent Auto 66.8 % (50-75); Platelet Count 194 X10^3/uL (150-400); Red Blood Cell Count 5.33 X10^6/uL (4.0-5.2); Red Cell Distribution Width 16.2 % (11.6-14.8); White Blood Cell Count 10.2 X10^3/uL (4.5-11.0)
[2023-07-06 05:24] LABS: BUN Creatinine Ratio 23.3 (6-22); Blood Urea Nitrogen 14 mg/dL (7-17); Calcium 8.9 mg/dL (8.4-10.2); Carbon Dioxide 24 mmol/L (22-32); Chloride 108 mmol/L (98-107); Estimated Glomerular Filt Rate > 60 mL/min (>60); Glucose 127 mg/dL (80-110); HEMOLYSIS < 15 (0-50); Potassium 3.5 mmol/L (3.4-5.1); Sodium 138 mmol/L (137-145)
[2023-07-06] MEDS: IMMUNE GLOBUL IV (09:09)
[2023-07-06] MEDS: GLY IV (09:09)
[2023-07-06] MEDS: ISOOSMOTIC VEHICLE IV (09:09)
[2023-07-06] MEDS: IGA AVG IV (09:09)
[2023-07-06] MEDS: levETIRAcetam 250 MG TABLET 750 MG PO ×2 (09:10→20:20)
[2023-07-06] MEDS: SERTRALINE 50 MG TABLET 200 MG PO (09:10)
[2023-07-06] MEDS: CLOPIDOGREL 75 MG TABLET PO (09:10)
[2023-07-06] MEDS: predniSONE 20 MG TABLET PO (09:11)
[2023-07-06] MEDS: LOSARTAN 50 MG TABLET 100 MG PO ×2 (09:11→20:20)
[2023-07-06] MEDS: ENOXAPARIN 40 MG/0.4 ML SYRINGE SUBCUT (09:11)
[2023-07-06] MEDS: METOPROLOL ER 50 MG TABLET 100 MG PO ×2 (09:11→20:20)
[2023-07-06] MEDS: ASPIRIN EC 81 MG TABLET PO (09:11)
[2023-07-06] MEDS: NEO/POLYMIX B/DEX OPHTH SUSP 1 DROPS EYE-LEFT ×2 (09:12→20:21)
[2023-07-06] MEDS: INSULIN GLARGINE 100 UNIT/ML 3ML PEN 40 UNIT SUBCUT (09:13)
--- NOTE | 2023-07-06 10:58 | CM.DPC ---
DCP Cont. Reviewed EMR and team rounds for status updates. Pt is slowly improving, however is not yet able to get out of bed by herself, needs mostly stand by assistance for toileting, and is still having word finding/delayed processing issues. She is still requiring PRN Valium for intermittent agitation, which is also baseline, she is using PRN Xanax for anxiety at home. Seroquel has been d/c'd. Per [facility], they want her to be off of the Seroquel for 24-hours prior to d/c in order to accept. Her last dose was yesterday at bedtime. They will review her again tomorrow morning for a final determination of acceptance or not, otherwise, pt will need to d/c home. Will continue to monitor and assist with final plan for disposition.
--- NOTE | 2023-07-06 11:44 | PT.IPTN ---
Current Diagnoses Myasthenia gravis with (acute) exacerbation (07/02/23) Physical Therapy Treatment Note M2 PT-IP Current Condition Start: 07/02/23 15:49 Freq: NEEDED Status: Active Protocol: Document 07/02/23 15:15 AB (Rec: 07/02/23 16:06 AB [id number]) Physical Therapy Current Condition Current Condition Evaluation Date 07/02/23 Treatment Diagnosis MG; weakness; difficulty in walking Onset Date 07/02/23 M3 PT-IP Subjective Start: 07/02/23 15:49 Freq: NEEDED Status: Active Protocol: Document 07/06/23 11:15 MB (Rec: 07/06/23 11:44 MB [id number]) Subjective Physical Therapy Visit Type Type Treatment Note Visit Start Time 11:15 Visit Stop Time 11:30 Total Visit Minutes 15 Number of RUG HOOKER Visits 0 Physical Therapy Visit Comments Patient Comments I'm not able to do anything now. Nsg just leaving and encouraging pt to get OOB for lunch. Finally she states, I' m only going to get up in the chair. M4 PT-IP Mobility and Gait Start: 07/02/23 15:49 Freq: NEEDED Status: Active Protocol: Document 07/06/23 11:15 MB (Rec: 07/06/23 11:44 MB [id number]) PT-Bed Mobility Assessment Supine to Sit Supine to Sit Contact Guard Assistance,1 Person Assistance,Head of Bed Elevated,Bedrails Scooting Scooting to Edge of Bed Contact Guard Assistance PT-Transfer Assessment Sit to and From Stand Sit to and from Stand Contact Guard Assistance, Minimal Assistance,1 Person Assistance,Use of Upper Extremities Equipment Transfer Assistive Device Gait Belt,Front Wheeled Walker Orthotic/Prosthetic Devices or Brace: No Comments Mobility Comments PT encourages pt to use the rail to help push to sit up and she states, no, I am not going to do that. Pt reaches for RW and PT holds it still. Pt with constant verbalizations, confusion and word-finding challenges throughout mobility and she is difficult to stay on task. Gait Assessment Gait Gait Assistance Required: Minimum Assistance,1 Person Assist Distance (Feet) 2 Assistive Devices Assistive Device Gait Belt,Front Wheeled Walker Orthotic/Prosthetic Devices or Brace: No Gait Deviations General Gait Pattern Decreased Stride Length, Decreased Feet Clearance, Narrow Based Gait,Step-to Gait Factors Limiting Gait Function Factors Limiting Gait Function Decreased Activity Tolerance, Decreased Strength,Poor Balance,Poor Safety Awareness Comments Gait Comments Pt with confusion today and hesitancy with all mobility. She perseverates on I'm not going to see him again and states she is referring to a doctor PT-Balance Assessment Sitting Balance and Reactions Static Sitting Balance Ability Fair Dynamic Sitting Balance Ability Fair Standing Balance and Reactions Static Standing Balance Ability Fair Dynamic Standing Balance Ability Poor Device Used FWW M5 PT-IP Objective Assessments Start: 07/02/23 15:49 Freq: NEEDED Status: Active Protocol: Document 07/02/23 15:15 AB (Rec: 07/02/23 16:06 AB [id number]) Orientation Orientation/Cognition Level of Alertness Confusional State Orientation Name Safety Awareness Decreased Safety Awareness Memory Description 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,Certified Massage Therapist Impaired Gross Range of Motion Lower Extremity ROM Assessment Within Functional Limits Strength Lower Extremity Strength Assessment Left Impaired Hip 4-/5 Knee 3+/5 Muscle Tone Muscle Tone WNL Yes M6 PT-IP Treatment Start: 07/02/23 15:49 Freq: NEEDED Status: Active Protocol: Document 07/05/23 10:48 TS (Rec: 07/05/23 11:07 TS [id number]) Physical Therapy Treatment Education Education Provided Safety M7 PT-IP Assessment and Plan Start: 07/02/23 15:49 Freq: NEEDED Status: Active Protocol: Document 07/06/23 11:15 MB (Rec: 07/06/23 11:44 MB [id number]) PT Summary Assessment and Plan Potential Rehabilitation Potential Fair Status of Condition at Evaluation Evolving Summary Impairments Strength,Balance,Cognition,Bed Mobility,Transfers,Gait, Activity Tolerance Progress Towards Goals Slow Progress due to Activity Tolerance Assessment Summary Pt does not appear to be moving as well as last date. She has confusion and word- finding trouble. She talks throughout treatment but does not communicate clearly what her concerns are. Goals Bed Mobility Goal Independent Transfer Goal Standby Assistance,Front Wheeled Walker Gait Goal Contact Guard Assistance,Front Wheel Walker Gait Distance 100 Days to Meet Goals 10 Frequency of Treatment Frequency Of Treatment Once a Day Treatment Plan Physical Therapy Treatment Plan Bed Mobility Training,Transfer Training,Gait Training, Therapeutic Exercise,Balance Retraining,Discharge Planning, Hot or Cold Pack,Neuromuscular Re-ed,Coordination Retraining Precautions Other Precautions falls Recommendations To Nursing Amount of Assist Needed 1 Person Assist Discharge Recommendations PT Discharge Recommendations SNF Rehab Transportation Needs at Discharge Wheelchair/Cabulance
--- NOTE | 2023-07-06 12:50 | P.PN_ITS ---
Subjective Subjective Date Patient Seen: 07/06/23 Interval history: Pt on day 5/5 IVIG for myasthenia crisis. Has significant word-finding difficulty which seems chronic. Also left eye has been protruding or swolen for unclear reason. Exam Vital Signs (past 8 hours): - 07/06/23 07:15 07/06/23 09:00 07/06/23 09:10 Temperature 97.8 F Pulse Rate 67 67 Respiratory Rate 17 Blood Pressure 150/59 H 112/56 L Pulse Oximetry 96 Oxygen Delivery Method Room Air Oxygen Flow Rate 0 07/06/23 09:11 07/06/23 09:11 07/06/23 11:11 Temperature 96.7 F L Pulse Rate 67 68 68 Respiratory Rate 20 Blood Pressure 112/56 L 112/56 L 133/58 L Pulse Oximetry 97 Oxygen Delivery Method Oxygen Flow Rate 0 Oxygen Delivery Method Room Air Oxygen Flow Rate 0 Narrative Exam Narrative: Gen: alert, NAD HEENT: PERRLA, mod left eye protrusion and unable to fully open eyelid on that side Lungs: clear CV: regular Ext: no edema Neuro: sev word-finding difficulties, oriented x 1, speech nl amplitude Objective Labs 07/06/23 04:55 07/06/23 04:55 Labs: Laboratory Results - last 24 hr 07/06/23 04:55 WBC 10.2 RBC 5.33 H Hgb 13.5 Hct 41.4 MCV 77.6 L MCH 25.3 L MCHC 32.7 RDW 16.2 H Plt Count 194 Neut % (Auto) 66.8 Lymph % (Auto) 23.7 L Cassia % (Auto) 7.2 Eos % (Auto) 1.5 L Baso % (Auto) 0.8 Neut # (Auto) 6800 Lymph # (Auto) 2400 Cassia # (Auto) 700 Eos # (Auto) 200 Baso # (Auto) 100 Sodium 138 Potassium 3.5 Chloride 108 H Carbon Dioxide 24 BUN 14 Creatinine 0.60 Estimated GFR > 60 BUN/Creatinine Ratio 23.3 H Glucose 127 H Calcium 8.9 PFSH Medical History CVA (cerebral vascular accident) Hypertension Tachycardia Myasthenia gravis SVT (supraventricular tachycardia) Diabetes type 2, uncontrolled (07/15/11) Gastroparesis due to DM (11/13/10) Hyperlipidemia, mixed (11/13/10) Unspecified essential hypertension (11/13/10) Morbid obesity (11/13/10) Panic disorder (11/13/10) 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) Surgical History Status post hernia repair (05/14/16) Status post hysterectomy (05/14/16) Status post laparoscopic cholecystectomy History of third molar tooth extraction Social History household members: spouse Smoking Status: Former smoker alcohol intake: current Assessment & Plan Assessment & Plan narrative: # acute weakness 2/2 presumed myasthenia crisis -patient with global weakness and no focal deficits, CK normal -brain MRI w/o acute finding -ED spoke with neurology who recommended empiric treatment with IVIG x5 days to finish on 07/06 -PT/OT eval rec SNF -continue daily prednisone 20mg (home regimen) # acute metabolic encephalopathy, improving -patient more confused above baseline, per notes she was A/Ox3 a year ago -MRI negative for stroke, CT head negative -unclear etiology, will monitor -d/c seroquel and diazepam started on admit # DM2 -continue lantus and SSI # seizure disorder -continue keppra # HTN -continue losartan and metoprolol # depression and anxiety -continue sertraline -takes alprazolam 0.5 mg prn for chronic anxiety which was resumed # h/o TIA -continue DAPT # left eye proptosis, presumed acute -etiology unclear, no related findings on brain MRI -nl TSH 07/02/23 -rec outpatient ophthamology evaluation Code status is DNR per prior records. DVT prophylaxis with Lovenox. Proxy is Syed. Dispo: Likely discharge tomorrow. WEB APPLICATIONS ARCHITECT looking into SNF vs home with . Quality VTE Deep Vein Thrombosis/Pulmonary Embolism Present on Admission: No
[2023-07-06] MEDS: ALPRAZolam 0.25 MG TABLET 0.5 MG PO ×3 (12:52→20:20)
[2023-07-06] MEDS: HALOPERIDOL 5 MG/ML VIAL 2 MG IV ×2 (13:25→13:50)
--- NOTE | 2023-07-06 14:28 | PC.NURSE ---
Physical therapist and this nurse encouraged patient to get up to chair for lunch, patient initially resistant but eventually agreed. Once in chair and eating lunch, pt started to become paranoid, refusing her lunchtime insulin dose. A second nurse was brought in to attempt administration of insulin, pt continued to refuse. After lunch, pt requested to use the bathroom and was helped to the bathroom by doctor of nursing practice, with use of FWW. Upon returning to the chair, pt started to become agitated, not wanting to stay seated in the chair or return to the bed, unable to explain what she wanted due to her word finding difficulty. This nurse offered pt her PRN dose of alprazolam, and patient seemed agreeable, taking half the dose of alprazolam before refusing the second half of the dose. Patient continued to become more agitated, insisting on standing but unable to state where she wanted to go. She was helped into the hallway with assistance of FWW, the assisted into a wheelchair for safety. Patient was wheeled around the unit to see if the change in scenery would help her to calm down. Upon returning to the hallway in front of her room, pt continued to become more agitated, insisting on going to her home, only and telling nursing staff to shut up. Patient would not let any staff near her. Kartik krishnan called, present, haldol ordered. Haldol administered with little change in patient condition. Second dose of haldol administered 20 min later. Patient calm enough to be wheeled into her room, and helped into bed. She is resting comfortably at this time, call light within reach, bed in low position, bed alarm activated.
[2023-07-06] MEDS: INSULIN LISPRO 100 UNIT/ML 3ML VIAL SUBCUT ×2 (17:26→20:35)
[2023-07-06] MEDS: GABAPENTIN 600 MG TABLET PO (20:20)
[2023-07-07] VITALS (12 sets, daily range): BP systolic 144–175; BP diastolic 47–69; PULSE 58–63; RESP 16–18; TEMP 35.9–36.6; O2SAT 95–97
[2023-07-07 05:30] LABS: BUN Creatinine Ratio 25.4 (6-22); Blood Urea Nitrogen 15 mg/dL (7-17); Calcium 9.1 mg/dL (8.4-10.2); Carbon Dioxide 25 mmol/L (22-32); Chloride 107 mmol/L (98-107); Estimated Glomerular Filt Rate > 60 mL/min (>60); Glucose 130 mg/dL (80-110); HEMOLYSIS < 15 (0-50); Potassium 3.3 mmol/L (3.4-5.1); Sodium 138 mmol/L (137-145)
[2023-07-07] MEDS: POTASSIUM CHLORIDE 20 MEQ TAB 40 MEQ PO (08:32)
[2023-07-07] MEDS: ENOXAPARIN 40 MG/0.4 ML SYRINGE SUBCUT (08:32)
[2023-07-07] MEDS: SERTRALINE 50 MG TABLET 200 MG PO (08:33)
[2023-07-07] MEDS: METOPROLOL ER 50 MG TABLET 100 MG PO ×2 (08:33→20:09)
[2023-07-07] MEDS: CLOPIDOGREL 75 MG TABLET PO (08:33)
[2023-07-07] MEDS: LOSARTAN 50 MG TABLET 100 MG PO ×2 (08:33→20:08)
[2023-07-07] MEDS: ALPRAZolam 0.25 MG TABLET PO (08:33)
[2023-07-07] MEDS: ASPIRIN EC 81 MG TABLET PO (08:34)
[2023-07-07] MEDS: GABAPENTIN 600 MG TABLET PO ×2 (08:34→20:08)
[2023-07-07] MEDS: levETIRAcetam 250 MG TABLET 750 MG PO ×2 (08:34→20:08)
[2023-07-07] MEDS: predniSONE 20 MG TABLET PO (08:34)
[2023-07-07] MEDS: INSULIN GLARGINE 100 UNIT/ML 3ML PEN 40 UNIT SUBCUT (08:35)
[2023-07-07] MEDS: NEO/POLYMIX B/DEX OPHTH SUSP 1 DROPS EYE-LEFT ×4 (08:35→20:10)
--- NOTE | 2023-07-07 10:14 | PT.IPTN ---
Current Diagnoses Myasthenia gravis with (acute) exacerbation (07/02/23) Physical Therapy Treatment Note M2 PT-IP Current Condition Start: 07/02/23 15:49 Freq: NEEDED Status: Active Protocol: Document 07/02/23 15:15 AB (Rec: 07/02/23 16:06 AB [id number]) Physical Therapy Current Condition Current Condition Evaluation Date 07/02/23 Treatment Diagnosis MG; weakness; difficulty in walking Onset Date 07/02/23 M3 PT-IP Subjective Start: 07/02/23 15:49 Freq: NEEDED Status: Active Protocol: Document 07/07/23 10:14 AW (Rec: 07/07/23 11:05 AW [id number]) Subjective Physical Therapy Visit Type Type Treatment Note Visit Start Time 09:56 Visit Stop Time 10:14 Total Visit Minutes 18 Notes co-treat with OT due to pt decreased alertness Number of WOOD PLANER Visits 0 Physical Therapy Visit Comments Patient Comments Pt is somnolent initially. Alertness improves slightly with mobility. M4 PT-IP Mobility and Gait Start: 07/02/23 15:49 Freq: NEEDED Status: Active Protocol: Document 07/07/23 10:14 AW (Rec: 07/07/23 11:05 AW [id number]) PT-Bed Mobility Assessment Supine to Sit Supine to Sit Maximum Assistance,2 Person Assistance,Head of Bed Elevated Scooting Scooting to Edge of Bed Maximum Assistance PT-Transfer Assessment Sit to and From Stand Sit to and from Stand Moderate Assistance,1 Person Assistance,2 Person Assistance ,Use of Upper Extremities Equipment Transfer Assistive Device Gait Belt,Front Wheeled Walker Transfers Transfer Destination Chair Transfer Technique Stand Step Pivot Transfer Ability Level of Assist Moderate Assistance Comments Mobility Comments Pt is near somnolent as PT and OT enter the room. She responds to some questions but appears to fall asleep mid- reply. She attempts to initiate moving her legs toward the right side of the bed but continues to fall asleep. PT and OT provide max assist for pt to sit EOB where alertness improves enough for pt to support herself in sitting. BP 143/65 HR 57. Pt attempts to stans with mod A x 2 but does not fully extend at hips or knees. She sits nearly immediately. Pt is attempting to respond to questions but struggles with word-finding and then apologizes for her communication challenges. PT asks her to take her time with word finding, allowing extra time. Pt continues to struggle . She stands again and PT cues wider CARISSA and anterior weight shift. Pt is able to take shuffling steps for transfer to chair but with quick approach to fatigue. After brief break, pt is able to stand once more with mod A from PT but only tolerates ~15 seconds before needing to sit again. PT departs as care continues with OT. Gait Assessment Gait Gait Assistance Required: Moderate Assistance Distance (Feet) 2 Assistive Devices Assistive Device Gait Belt,Front Wheeled Walker Gait Deviations General Gait Pattern Decreased Stride Length, Decreased Feet Clearance, Narrow Based Gait,Step-to Gait Factors Limiting Gait Function Factors Limiting Gait Function Decreased Activity Tolerance, Decreased Strength,Poor Balance,Poor Safety Awareness Comments Gait Comments Shuffling steps with relatively little elevation BLE for transfers only. PT-Balance Assessment Sitting Balance and Reactions Static Sitting Balance Ability Good Dynamic Sitting Balance Ability Fair Standing Balance and Reactions Static Standing Balance Ability Poor Dynamic Standing Balance Ability Poor Device Used FWW M5 PT-IP Objective Assessments Start: 07/02/23 15:49 Freq: NEEDED Status: Active Protocol: Document 07/02/23 15:15 AB (Rec: 07/02/23 16:06 AB [id number]) Orientation Orientation/Cognition Level of Alertness Confusional State Orientation Name Safety Awareness Decreased Safety Awareness Memory Description 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,Fpc Impaired Gross Range of Motion Lower Extremity ROM Assessment Within Functional Limits Strength Lower Extremity Strength Assessment Left Impaired Hip 4-/5 Knee 3+/5 Muscle Tone Muscle Tone WNL Yes M6 PT-IP Treatment Start: 07/02/23 15:49 Freq: NEEDED Status: Active Protocol: Document 07/07/23 10:14 AW (Rec: 07/07/23 11:05 AW [id number]) Physical Therapy Treatment Other Treatments Other Treatment Performed PT cues increased amplitude with movement but pt is unable to meaningfully respond. M7 PT-IP Assessment and Plan Start: 07/02/23 15:49 Freq: NEEDED Status: Active Protocol: Document 07/07/23 10:14 AW (Rec: 07/07/23 11:05 AW [id number]) PT Summary Assessment and Plan Summary Impairments Strength,Balance,Cognition,Bed Mobility,Transfers,Gait, Activity Tolerance Progress Towards Goals Slow Progress due to Medical Issues,Slow Progress due to Activity Tolerance Assessment Summary Oksana is near somnolent today but alertness does improve with activity. Pt continues to have word finding difficulties and PT is not able to ascertain whether this is her baseline. Pt requiring mod to max assist x 1-2 for transfers today and pt does not tolerate much more activity. PT recommending SNF for ongoing rehab services in a setting that can support her care needs. Goals Bed Mobility Goal Independent Transfer Goal Standby Assistance,Front Wheeled Walker Gait Goal Contact Guard Assistance,Front Wheel Walker Gait Distance 100 Days to Meet Goals 10 Frequency of Treatment Frequency Of Treatment Once a Day Treatment Plan Physical Therapy Treatment Plan Bed Mobility Training,Transfer Training,Gait Training, Therapeutic Exercise,Balance Retraining,Discharge Planning, Hot or Cold Pack,Neuromuscular Re-ed,Coordination Retraining Precautions Other Precautions falls Recommendations To Nursing Amount of Assist Needed 2 Person Assist Discharge Recommendations PT Discharge Recommendations SNF Rehab Transportation Needs at Discharge Wheelchair/Cabulance
--- NOTE | 2023-07-07 10:36 | PM.PN.1 ---
Subjective Subjective Interval history: Very sleepy, denies shortness of breath or pain. Was placed on some baseline medications yesterday including alprazolam. She did receive a dose of Haldol for agitation yesterday which may be affecting her to some degree today. Exam Vital Signs (past 8 hours): - 07/07/23 04:00 07/07/23 04:57 07/07/23 08:00 Temperature 96.7 F L 97.3 F L Pulse Rate 61 60 Respiratory Rate 18 16 Blood Pressure 172/69 H 158/60 H 162/47 H Pulse Oximetry 96 97 07/07/23 08:33 07/07/23 08:33 Temperature Pulse Rate 60 60 Respiratory Rate Blood Pressure 162/47 H 162/47 H Pulse Oximetry Oxygen Delivery Method Room Air Oxygen Flow Rate 0 Narrative Exam Narrative: Sleepy but answers questions. No acute distress. Lungs clear, normal rate and effort. Heart is regular, no murmur. Abdomen is soft, nontender. No leg edema. 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 -patient with global weakness and no focal deficits, CK normal -brain MRI w/o acute finding -ED spoke with neurology who recommended empiric treatment with IVIG x5 days to finish on 07/06 -PT/OT eval rec SNF -continue daily prednisone 20mg (home regimen) # Acute metabolic encephalopathy, improving. -patient more confused above baseline, per notes she was A/Ox3 a year ago -MRI negative for stroke, CT head negative -unclear etiology, will monitor -d/c seroquel and diazepam started on admit -we will wean her alprazolam about 20% today. We will avoid any other sedating medications. # DM2, POA and stable. -continue lantus and SSI # Seizure disorder, POA and stable. -continue keppra # HTN, POA and stable. -continue losartan and metoprolol # Depression and anxiety, POA and stable. -continue sertraline -takes alprazolam 0.5 mg prn for chronic anxiety which was resumed # h/o TIA, stable. -continue DAPT # Left eye proptosis, presumed acute and improving. -etiology unclear, no related findings on brain MRI -nl TSH 07/02/23 -rec outpatient ophthamology evaluation Code status is DNR per prior records. DVT prophylaxis with Lovenox. Proxy is Syed. Disposition is half-way facility, [facility]. Will likely be on July 08 as she is somewhat sedated today. Quality VTE Deep Vein Thrombosis/Pulmonary Embolism Present on Admission: No
--- NOTE | 2023-07-07 12:09 | CM.DPC ---
DCP Cont. Reviewed EMR and team rounds for status updates. Called [facility] re: review/acceptance status. They stated that since pt had IV valium yesterday, and IV Haldol, that she is not able to be accepted until 24-hours off of IV antipsychotics and benzodiazapines. Oral is ok for the scheduled alprazalam. Pt is also very somnolent today, remains in a confusional state. Most likely medically stable and ready to d/c tomorrow. Will contact [facility] early tomorrow am for clarifying acceptance.
--- NOTE | 2023-07-07 13:09 | PC.NURSE ---
LOC 1255 pt now more alert. Sitting up in recliner feeding herself some lunch. Denies any pain/discomfort and is without signs/symptoms of distress. Chair alarm on and call light in reach.
[2023-07-07] MEDS: INSULIN LISPRO 100 UNIT/ML 3ML VIAL SUBCUT (16:47)
[2023-07-07] MEDS: ALPRAZolam 0.25 MG TABLET 0.5 MG PO (18:30)
[2023-07-08] VITALS: BP 147/45; PULSE 59; RESP 20; TEMP 36.5; O2SAT 96
[2023-07-08 04:00] VITALS: BP 161/62; PULSE 64; RESP 16; TEMP 36.4; O2SAT 94
[2023-07-08 08:00] VITALS: BP 160/53; PULSE 61; RESP 18; TEMP 36.1; O2SAT 96
[2023-07-08] MEDS: ASPIRIN EC 81 MG TABLET PO (09:13)
[2023-07-08] MEDS: levETIRAcetam 250 MG TABLET 750 MG PO (09:13)
[2023-07-08] MEDS: SERTRALINE 50 MG TABLET 200 MG PO (09:13)
[2023-07-08] MEDS: ENOXAPARIN 40 MG/0.4 ML SYRINGE SUBCUT (09:14)
[2023-07-08] MEDS: CLOPIDOGREL 75 MG TABLET PO (09:14)
[2023-07-08] MEDS: PANTOPRAZOLE DR 40 MG TABLET PO (09:14)
[2023-07-08] MEDS: ALPRAZolam 0.25 MG TABLET PO ×2 (09:14→13:43)
[2023-07-08] MEDS: GABAPENTIN 600 MG TABLET PO (09:14)
[2023-07-08] MEDS: NEO/POLYMIX B/DEX OPHTH SUSP 1 DROPS EYE-LEFT ×2 (09:15→13:43)
[2023-07-08] MEDS: INSULIN GLARGINE 100 UNIT/ML 3ML PEN 40 UNIT SUBCUT (09:16)
[2023-07-08] MEDS: predniSONE 20 MG TABLET PO (09:17)
--- NOTE | 2023-07-08 10:26 | P.PN_ITS ---
Subjective Subjective Interval history: She is much improved, alert and oriented. She is pleasant. She feels at her baseline. She has had no incidents over the last day and a half. She is excited to begin her rehabilitation. Exam Vital Signs (past 8 hours): - 07/08/23 04:00 07/08/23 08:00 Temperature 97.6 F 96.9 F L Pulse Rate 64 61 Respiratory Rate 16 18 Blood Pressure 161/62 H 160/53 H Pulse Oximetry 94 96 Oxygen Flow Rate 0 Oxygen Delivery Method Room Air Oxygen Flow Rate 0 Narrative Exam Narrative: NAD, oriented with fluent speech. Lungs are clear, normal rate and effort. Heart is regular, systolic murmur is appreciated. Abdomen is flat and nontender. Extremities are free of edema, good pedal pulses. Objective Labs 07/06/23 04:55 07/07/23 04:35 [facility], [facility] Medical History CVA (cerebral vascular accident) Hypertension Tachycardia Myasthenia gravis SVT (supraventricular tachycardia) Diabetes type 2, uncontrolled (07/15/11) Gastroparesis due to DM (11/13/10) Hyperlipidemia, mixed (11/13/10) Unspecified essential hypertension (11/13/10) Morbid obesity (11/13/10) Panic disorder (11/13/10) 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) Surgical History Status post hernia repair (05/14/16) Status post hysterectomy (05/14/16) Status post laparoscopic cholecystectomy History of third molar tooth extraction Social History household members: spouse Smoking Status: Former smoker alcohol intake: current Assessment & Plan Assessment & Plan narrative: # Acute weakness 2/2 presumed myasthenia crisis, present on admission and improving. -patient with global weakness and no focal deficits, CK normal -brain MRI w/o acute finding -ED spoke with neurology who recommended empiric treatment with IVIG x5 days to finish on 07/06 -PT/OT eval rec SNF -continue daily prednisone 20mg (home regimen) # Acute metabolic encephalopathy, resolved. -patient more confused above baseline, per notes she was A/Ox3 a year ago -MRI negative for stroke, CT head negative -unclear etiology, will monitor -no seroquel or diazepam for day and a half. -we will wean her alprazolam about 20% July 07. We will avoid any other sedating medications. -she has much better and appears to be at baseline. # DM2, POA and stable. -continue lantus and SSI # Seizure disorder, POA and stable. -continue keppra # HTN, POA and stable. -continue losartan and metoprolol # Depression and anxiety, POA and stable. -continue sertraline -takes alprazolam 0.5 mg prn for chronic anxiety which was resumed # h/o TIA, stable. -continue DAPT # Left eye proptosis, presumed acute and improving. -etiology unclear, no related findings on brain MRI - TSH 07/02/23 -rec outpatient ophthamology evaluation DISPO: She appears to be stable as not had any additional medications in over a day and a half. She is alert and oriented and cooperative today. Code status is DNR per prior records. DVT prophylaxis with Lovenox. Proxy is Syed. Quality VTE Deep Vein Thrombosis/Pulmonary Embolism Present on Admission: No
--- NOTE | 2023-07-08 10:38 | OT.IP.TRT ---
Current Diagnoses Myasthenia gravis with (acute) exacerbation (07/02/23) Occupational Therapy Treatment Note M2 OT-IP Current Condition Start: 07/03/23 12:19 Freq: Status: Active Protocol: Document 07/03/23 10:45 [facility] (Rec: 07/03/23 12:54 [facility] [id number]) Occupational Therapy Current Condition Current Condition Evaluation Date 07/03/23 Treatment Diagnosis Sepsis due to PNA, acute metabolic encephalopathy, acute respir failure Diagnosis Onset Date 06/30/23 M3 OT- IP Subjective and Pain Start: 07/03/23 12:19 Freq: Status: Active Protocol: Document 07/08/23 12:03 [facility] (Rec: 07/08/23 12:11 [facility] [id number]) OT- Subjective Occupational Therapy Visit Type Type Treatment Note Visit Start Time 10:00 Visit Stop Time 10:38 Occupational Therapy Visit Comments Patient Comments Pt needing encouragement and then agreed to shower. Patient/Caregiver Goals TO get better. OT Pain Assessment Pain When Pain Assessed At Rest Pain Present Pain Present Denied Pain M4 OT- IP ADL's Start: 07/03/23 12:19 Freq: Status: Active Protocol: Document 07/08/23 12:03 [facility] (Rec: 07/08/23 12:11 [facility] [id number]) OT ADL-Grooming General Evaluation Grooming Ability Standby Assistance Comments OT Grooming Comments Able to do while seated in the recliner. OT ADL-Oral Care General Eval Oral Care Ability Standby Assistance Areas of Assistance Retrieving/Set-Up of Items OT ADL-Dressing General Eval Lower Body Dressing Ability Maximum Assistance Areas Needing Assistance Socks Comments OT Dressing Comments Pt needing assist to sabrina brief and socks. OT ADL-Bathing Bathing Type Bathing Type Shower General Evaluation Bathing Ability Maximal Assistance Areas Needing Assistance Wash/Dry Back,Wash/Dry Perineal Area,Wash/Dry Lower Extremities Comments OT Bathing Comments Pt able to wash after cues her face, chest, arms , and top on her legs. M5 OT- IP IADL's Start: 07/03/23 12:19 Freq: Status: Active Protocol: Document 07/03/23 10:45 [facility] (Rec: 07/03/23 12:54 [facility] [id number]) OT-Instrumental Activities of Daily Living Home Safety Awareness Awareness of Need for Assistance at Home Decreased Awareness Ability to Problem Solve Emergency Unable to Problem Solve Situations Home Safety Comments Pt is a bit confused at this time and needing step by step commands to process through basic ADL needs at this time. Medication Management Medication Management Caregiver Administers Money Management Money Management Caregiver Provides Assistance Meal Preparation Meal Preparation Caregiver Provides Assist M6 OT- IP Functional Cognition Start: 07/03/23 12:19 Freq: Status: Active Protocol: Document 07/08/23 12:03 [facility] (Rec: 07/08/23 12:11 [facility] [id number]) Cognitive Factors Limiting Selfcare Function Cognitive Ability Level of Alertness Alert,Confusional State Cognitive Comments Cognitive Assessment Comments Pt needing vc to be able to assist for showering needs and reminders for completeness. Pt needing safety cues to use her hands to push up from the surface sitting on when coming to stand and to lean forwards while standing as tends to lean on her heels. M7 OT- IP Mobility and Balance Start: 07/03/23 12:19 Freq: Status: Active Protocol: Document 07/08/23 12:03 [facility] (Rec: 07/08/23 12:11 [facility] [id number]) OT-Transfer Assessment Sit to and From Stand Sit to and from Stand Moderate Assistance Transfers Transfer Ability Moderate Assistance,1 Person Assistance,2 Person Assistance Technique Transfer Destination Chair,Toilet Transfer Technique Stand Step Pivot Devices Transfer Assistive Devices Gait Belt,Front Wheeled Walker Comments Mobility Comments Pt needing 1-2 MODA to transfer from BSC, to rolling shower chair to recliner. OT- Balance Assessment Sitting Balance and Reactions Static Sitting Balance Ability Fair Dynamic Sitting Balance Ability Fair Standing Balance and Reactions Static Standing Balance Ability Poor Dynamic Standing Balance Ability Poor M8 OT- IP Objective Assessments Start: 07/03/23 12:19 Freq: Status: Active Protocol: Document 07/03/23 10:45 [facility] (Rec: 07/03/23 12:54 [facility] [id number]) OT Gross Range of Motion Upper Extremity Range of Motion ROM Impairments grossly WFl OT Strength Comments Strength Comments BUE 4-/5 to 4/5 OT- Coordination Assessment Upper Extremity Finger to Nose Test Right UE Impaired Comments Coordination Comments Pt needing asisst for set-up for needs. M9 OT- IP Assessment and Plan Start: 07/03/23 12:19 Freq: Status: Active Protocol: Document 07/08/23 12:03 [facility] (Rec: 07/08/23 12:11 [facility] [id number]) OT Summary Assessment and Plan Potential Rehabilitation Potential Good Analytic Complexity at Evaluation Moderate Summary OT Impairments Strength,Balance,Coordination, Functional Cognition, Functional Mobility,Dressing, Toileting,Bathing,Toilet Transfers,Shower Transfers, Activity Tolerance Progress Towards Goals Progressing Toward Goals Assessment Summary Pt able to participate in showering today and more alert and able to follow concrete commands for ADL and mobility needs. Pt to go to skilled rehab. Goals Self-Feeding Goal Independent Grooming Goal Independent Dressing Goal Independent Toileting Goal Independent Bathing Goal Standby Assistance Toilet Transfer Goal Independent Shower Transfer Goal Standby Assistance Days to Meet Goals 20 Frequency of Treatment Frequency Of Treatment Once a Day Treatment Plan OT Treatment Plan ADL Training,Functional Cognition Training,Functional Mobility,Patient/Family Education,Discharge Planning Other Treatment Recommendations and Next LB dressing with use of Treatment Focus equipment. Discharge Recommendations OT Discharge Recommendations SNF Rehab Transportation Needs at Discharge Wheelchair/Cabulance
--- NOTE | 2023-07-08 10:45 | PT.IPTN ---
Current Diagnoses Myasthenia gravis with (acute) exacerbation (07/02/23) Physical Therapy Treatment Note M2 PT-IP Current Condition Start: 07/02/23 15:49 Freq: NEEDED Status: Active Protocol: Document 07/02/23 15:15 AB (Rec: 07/02/23 16:06 AB [id number]) Physical Therapy Current Condition Current Condition Evaluation Date 07/02/23 Treatment Diagnosis MG; weakness; difficulty in walking Onset Date 07/02/23 M3 PT-IP Subjective Start: 07/02/23 15:49 Freq: NEEDED Status: Active Protocol: Document 07/08/23 10:45 AB (Rec: 07/08/23 11:27 AB [id number]) Subjective Physical Therapy Visit Type Type Treatment Note Visit Start Time 10:45 Visit Stop Time 10:56 Total Visit Minutes 11 Number of POSITION DESCRIPTION MANAGER Visits 0 Physical Therapy Visit Comments Patient Comments agreeable to do PT M4 PT-IP Mobility and Gait Start: 07/02/23 15:49 Freq: NEEDED Status: Active Protocol: Document 07/08/23 10:45 AB (Rec: 07/08/23 11:27 AB [id number]) PT-Transfer Assessment Sit to and From Stand Sit to and from Stand Moderate Assistance,Maximum Assistance,1 Person Assistance ,Use of Upper Extremities Equipment Transfer Assistive Device Gait Belt,Front Wheeled Walker Orthotic/Prosthetic Devices or Brace: No Comments Mobility Comments pt sitting on the chair and just finished OT but agreeable to do PT. pt completed sit to stand mod to max A and max cues and ambulated ~ 8 ft using FWW mod A and max cues and with chair follow. pt presents with a shuffling gait with cued to increase LE elevation and step length. pt refused further ambulation but agreed to stay up on the chair. positioned pt on the chair. call light and table placed within reach. Gait Assessment Gait Gait Assistance Required: Moderate Assistance,1 Person Assist Distance (Feet) 8 Able to Maintain Weight Bearing Status Yes During Gait Assistive Devices Assistive Device Gait Belt,Front Wheeled Walker Orthotic/Prosthetic Devices or Brace: No Gait Deviations General Gait Pattern Decreased Stride Length, Decreased Feet Clearance,Step- to Gait Factors Limiting Gait Function Factors Limiting Gait Function Decreased Activity Tolerance, Decreased Strength,Limited Range of Motion,Poor Balance, Poor Safety Awareness M5 PT-IP Objective Assessments Start: 07/02/23 15:49 Freq: NEEDED Status: Active Protocol: Document 07/02/23 15:15 AB (Rec: 07/02/23 16:06 AB [id number]) Orientation Orientation/Cognition Level of Alertness Confusional State Orientation Name Safety Awareness Decreased Safety Awareness Memory Description 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,Retirement Impaired Gross Range of Motion Lower Extremity ROM Assessment Within Functional Limits Strength Lower Extremity Strength Assessment Left Impaired Hip 4-/5 Knee 3+/5 Muscle Tone Muscle Tone WNL Yes M6 PT-IP Treatment Start: 07/02/23 15:49 Freq: NEEDED Status: Active Protocol: Document 07/08/23 10:45 AB (Rec: 07/08/23 11:27 AB [id number]) Physical Therapy Treatment Education Education Provided Safety M7 PT-IP Assessment and Plan Start: 07/02/23 15:49 Freq: NEEDED Status: Active Protocol: Document 07/08/23 10:45 AB (Rec: 07/08/23 11:27 AB [id number]) PT Summary Assessment and Plan Potential Rehabilitation Potential Fair Summary Impairments Pain,ROM,Strength,Balance, Coordination,Sensation,Tone, Cognition,Bed Mobility, Transfers,Gait,Activity Tolerance Progress Towards Goals Slow Progress due to Medical Issues,Slow Progress due to Activity Tolerance Assessment Summary pt progressing slowly with mobility requiring mod to max A using FWW for transfers and able to ambulate mod A using FWW but only tolerated ~ 8 ft. pt will require SNF rehab to improve mobility. Goals Bed Mobility Goal Independent Transfer Goal Standby Assistance,Front Wheeled Walker Gait Goal Contact Guard Assistance,Front Wheel Walker Gait Distance 100 Days to Meet Goals 10 Frequency of Treatment Frequency Of Treatment Once a Day Treatment Plan Physical Therapy Treatment Plan Bed Mobility Training,Transfer Training,Gait Training, Therapeutic Exercise,Balance Retraining,Discharge Planning, Hot or Cold Pack,Neuromuscular Re-ed,Coordination Retraining Precautions Other Precautions falls Recommendations To Nursing Amount of Assist Needed 1 Person Assist Discharge Recommendations PT Discharge Recommendations SNF Rehab Transportation Needs at Discharge Wheelchair/Cabulance
--- NOTE | 2023-07-08 11:02 | PC.NURSE ---
Addendum entered by Darby Huynh R.N. 07/08/23 15:14: Report called to [facility]. Addendum entered by Darby Huynh R.N. 07/08/23 13:08: Patient up to try and have a bowel movement but unsuccessful. She is sitting in her chair with the bed alarm on now. Original Note: Patient is confused at baseline. She is pleasant and cooperative with care. Given po medications crushed in vanilla pudding, she tolerated this well. She is a one person assist with walker and gaitbelt. Patient has been awake all morning with her sunglasses on that she wears at home. Her eye drops were put in, left eye protrudes some, but patient denies discomfort. She took her lovenox injections without difficulty and her insulin. Patient was just showered with the help of OT and [employer]. She is resting comfortably and will have lunch here in a bit.
[2023-07-08] MEDS: INSULIN LISPRO 100 UNIT/ML 3ML VIAL SUBCUT (11:53)
--- NOTE | 2023-07-08 12:49 | CM.DPC ---
DCP Cont. Reviewed EMR and team rounds for status updates. Coordinated with [facility] all morning, they can accept. Transport will be at 3:15pm, updated Hospitalist and RN. Will fax medlist and [facility] once the discharge order is in. Updated spouse in the room. No further DCP needs are identified at this time.
--- NOTE | 2023-07-08 13:19 | PM.DS.1 ---
History of Present Illness History of Present Illness Chief complaint: Increased Weakness Narrative: Oksana Brown is a 73yo F with PMH of myasthenia gravis on chronic prednisone, seizure disorder on keppra, DM2 on insulin, TIA, anxiety, gastroparesis, HTN and HLD who presents with acute weakness and AMS. Patient is A/Ox1 so history is obtained from the ED note. Per her she was acutely weak today and unable to get out of bed or off the toilet on 2 separate occasions, prompting EMS to be called. She normally ambulates with a walker. In the ED, patient had global weakness and no focal deficits. Neurology consulted who recommended treating for possible myasthenic crisis with IVIG. MRI brain was normal. Patient is pleasant and calm. She is confused and thinks she is in [facility]. She knows her 's name is Syed. She has no complaints and denies CP, SOB, NV, abd pain or diarrhea. Discharge Providers Provider Date of admission: 07/02/23 13:10 Discharge Date: 07/08/23 Primary care physician: Jose Clement MD Consults: 07/02/23 13:24 Consult to Occupational Therapy Evaluate & Treat Comment: Physician Instructions: Evaluate and treat Consult to Physical Therapy Evaluate & Treat Comment: Physician Instructions: Evaluate and Treat Discharge provider: Richard Gomez MD Summary Hospital Course Discharge Diagnosis: # Acute weakness 2/2 presumed myasthenia crisis, present on admission and improving. -patient with global weakness and no focal deficits, CK normal -brain MRI w/o acute finding -ED spoke with neurology who recommended empiric treatment with IVIG x5 days to finish on 07/06 -PT/OT eval rec SNF -continue daily prednisone 20mg (home regimen) # Acute metabolic encephalopathy, resolved. -patient more confused above baseline, per notes she was A/Ox3 a year ago -MRI negative for stroke, CT head negative -unclear etiology, will monitor -no seroquel or diazepam for day and a half. -we weaned her alprazolam about 20% July 07. We will avoid any other sedating medications. -she has much better and appears to be at baseline. # DM2, POA and stable. -continue lantus and SSI # Seizure disorder, POA and stable. -continue keppra # HTN, POA and stable. -continue losartan and metoprolol # Depression and anxiety, POA and stable. -continue sertraline -takes alprazolam 0.5 mg prn for chronic anxiety which was resumed # h/o TIA, stable. -continue DAPT # Left eye proptosis, presumed acute and improving. -etiology unclear, no related findings on brain MRI -nl TSH 07/02/23 -[facility] outpatient ophthamology evaluation Hospital Course: The patient was admitted and discussed with Neurology. She was treated with IVIG for 5 days and completed therapy on July 06. She did have some difficulties with agitation and was treated for 1 day with Seroquel and Valium. These agents were stopped and her home alprazolam was restarted after discussion with her . She appeared to be somewhat over-sedated on July 07 from alprazolam and her doses reduced to just 0.25 mg t.i.d. at 8 in the morning, noon and 1700. Her HS dose was eliminated. This was 0.5 mg. MRI had been completed early in her admission and was unremarkable. Other medications were continued forward from her outpatient regimen. On the day of discharge she was doing well, mentally alert and felt that she was at her baseline and was motivated to start rehabilitation. Status at Discharge Cognitive/behavioral status at discharge: oriented Functional status at discharge: uses cane/walker Overall status at discharge: patient is progressing back to baseline Time Spent with Patient Time spent: Greater than 30 minutes Exam Vital Signs (past 8 hours): - 07/08/23 08:00 Temperature 96.9 F L Pulse Rate 61 Respiratory Rate 18 Blood Pressure 160/53 H Pulse Oximetry 96 Oxygen Flow Rate 0 Oxygen Delivery Method Room Air Oxygen Flow Rate 0 Narrative Exam Narrative: NAD, oriented with fluent speech. Lungs are clear, normal rate and effort. Heart is regular, systolic murmur is appreciated. Abdomen is flat and nontender. Extremities are free of edema, good pedal pulses. Objective Imaging CT scan - head: Radiologist's impression: IMPRESSION: No acute intracranial pathology. MRI - head: Radiologist's impression: IMPRESSION: 1. No acute process. No recent infarct. 2. Volume loss and small vessel ischemic disease. Chest x-ray: Radiologist's impression: IMPRESSION: No acute cardiopulmonary abnormality is seen. 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 # Acute metabolic encephalopathy, resolved. # DM2, POA and stable. # Seizure disorder, POA and stable. # HTN, POA and stable. # Depression and anxiety, POA and stable. # h/o TIA, stable. # Left eye proptosis, presumed acute and improving. Plan of Treatment: Discharge to [facility] for rehabilitation including physical therapy and occupational therapy. We will need a outpatient ophthalmology appointment to follow up on left eye proptosis. The patient will also require primary care follow-up within the next 2 weeks. Discharge Plan Discharge Plan Transfer to: [facility] Under care of provider: Dr Dale Provider Discharge Comment: She is at baseline and medically stable for discharge. Discharge orders & Medications Discharge Orders: Discharge (Order); Ordered 07/08/23 Ordered By: Richard Gomez Prescriptions: New gabapentin [Neurontin] 600 mg Tablet 600 mg PO BID Qty: 60 2RF alprazolam 0.25 mg Tablet 0.25 mg PO TID Qty: 30 0RF Rx Instructions: Take at 0800, 1200, 1700. neomycin-polymyxin B-dexameth 3.5mg/mL-10,000 unit/mL-0.1 % Drops,Suspension 1 drops EYE-LEFT QID Qty: 30 0RF insulin lispro [Humalog U-100 Insulin] 100 unit/mL Solution 0 unit SUBCUT ACHS Qty: 20 1RF insulin glargine [Lantus Solostar U-100 Insulin] 100 unit/mL (3 mL) Insulin Pen 40 unit SUBCUT DAILY Qty: 10 1RF Continued (DME) Blood Glucose Test Strip See Rx Instructions .ROUTE .MEDSUPPLY Qty: 800 11RF Rx Instructions: Use Accucheck Guide Test Strips to check blood sugar 10x a day, in conjunction with insulin injections 7-10x a day metoprolol succinate 100 mg tablet extended release 24 hr See Rx Instructions .ROUTE .COMPLEX Qty: 180 0RF Dose Instruction: TAKE 1 TABLET BY MOUTH TWICE DAILY Rx Instructions: TAKE 1 TABLET BY MOUTH TWICE DAILY sertraline [Zoloft] 100 mg tablet 200 mg PO DAILY Qty: 180 3RF alprazolam 0.5 mg tablet See Rx Instructions .ROUTE .COMPLEX Qty: 75 1RF Dose Instruction: TAKE 1 TO 2 TABLETS BY MOUTH THREE TIMES DAILY NEEDED FOR ANXIETY Rx Instructions: TAKE 1/2 TABLET AT BREAKFAST, 1/2 TABLET AT LUNCH, 1 TABLET AT DINNER, 1 TABLET AT BEDTIME EVERY DAY. losartan 100 mg tablet 100 mg PO BID Qty: 180 0RF (DME) lancets [Lancets,Thin] Misc See Rx Instructions .ROUTE .MEDSUPPLY Qty: 200 5RF Rx Instructions: use to check blood sugar 7x a day in conjunction w insulin admin 7x a day- generic please (DME) NovaFine Pen Tips 32G x 6mm 100 package See Rx Instructions .ROUTE .MEDSUPPLY Qty: 3 2RF Rx Instructions: Use to test blood glucose 4 times daily pantoprazole 40 mg tablet,delayed release (DR/EC) 40 mg PO DAILY PRN (Reason: heartburn) Qty: 180 3RF clopidogrel 75 mg tablet 75 mg PO DAILY aspirin 81 mg tablet,delayed release (DR/EC) 81 mg PO DAILY prednisone 20 mg tablet 20 mg PO DAILY Qty: 90 0RF levetiracetam 750 mg tablet 750 mg PO BID Discontinued insulin aspart U-100 [Novolog FlexPen U-100 Insulin] 100 unit/mL (3 mL) insulin pen 10 - 30 unit SUBCUT 3XD Qty: 15 0RF nystatin 100,000 unit/gram powder 1 applic topical BID Qty: 30 0RF Rx Instructions: Apply to affected area twice daily until resolved (DME) Disabled Parking Qty: 1 0RF Rx Instructions: Patient qualifies for disabled parking as per the attached form. insulin glargine [Lantus Solostar U-100 Insulin] 100 unit/mL (3 mL) insulin pen 57 unit SUBCUT QAM Patient Comments: [NO ORIGINAL SIG] gabapentin 600 mg tablet 600 mg PO BID Medication counseling provided by Pharmacist: No Follow up/Referrals: Jose Clement MD [Primary Care Provider] - Discharge Health Status Multidrug resistant organism: No MDRO Diet/Activity/Treatments Diet: Carb-consistent/Diabetic Liquid consistency: Normal/Thin Food texture: Regular [facility] Reason for rehabilitation: Recovery r/t decondition Rehab type: Physical therapy and Occupational therapy Discharge Data Primary Care Provider: Jose Clement Quality VTE Deep Vein Thrombosis/Pulmonary Embolism Present on Admission: No
--- NOTE | 2023-07-11 11:56 | PC.NURSE ---
1130--pt extubated and placed on hi flow nasal cannula 50%fio2 50l; fentanyl drip was discontinued; pt calm and cooperative; restraints removed; precedex drip remains on; OG tube pulled along with ETT
== END 2023-07-08 15:30 | DRG 56 ==
LOC: ED 12:34 → AC 13:11 → ICU 13:23 → AC 07-05 07:21
PROVIDERS: Admitting Provider Student in an Organized Health Care Education/Training Program; Emergency Provider Emergency Medicine; PCP Family Medicine; Referring Provider Emergency Medicine; Visit Provider Student in an Organized Health Care Education/Training Program
DX: G70.01 Myasthenia gravis with (acute) exacerbation (principal); G93.41 Metabolic encephalopathy; E11.9 Type 2 diabetes mellitus without complications; G40.909 Epilepsy, unspecified, not intractable, without status epilepticus; F32.A Depression, unspecified; F41.9 Anxiety disorder, unspecified; Z66 Do not resuscitate; I10 Essential (primary) hypertension; R45.1 Restlessness and agitation; H05.20 Unspecified exophthalmos; Z79.02 Long term (current) use of antithrombotics/antiplatelets; Z86.73 Personal history of transient ischemic attack (TIA), and cerebral infarction without residual deficits; Z87.891 Personal history of nicotine dependence; Z79.52 Long term (current) use of systemic steroids; Z79.4 Long term (current) use of insulin
CPT/HCPCS: 36415; 51701; 70450; 70551; 71045; 80048; 80053; 81001; 82140; 82550; 82962; 83036; 83735; 83880; 84443; 84484; 85025; 85610; 87633; 87797; 96374; 96375; 97116; 97163; 97166; 97530; 97535; 99285; C8929; J0360; J1568; J1630; J1650; J1815; J2060; J3360; J3475; Q9957

== ENCOUNTER → 2023-07-23 13:07 | Outpatient (ROUT) | payer MEDICARE, OTHER, SELFPAY ==
[2023-07-02 14:17] VITALS: BMI 35.2
[2023-07-23 13:14] LABS: Add Manual Diff / Slide Review NO; Basophils Absolute Auto 100 /uL (0-100); Basophils Percent Auto 0.5 % (0-2); Eosinophils Absolute Auto 200 /uL (0-450); Hematocrit 50.1 % (36-46); Hemoglobin 15.9 g/dL (12.0-16.0); Lymphocytes Absolute Auto 2400 /uL (1100-4500); Mean Corpuscular HGB Conc 31.7 % (30-36); Mean Corpuscular Hemoglobin 25.6 PG (26-34); Mean Corpuscular Volume 80.8 fL (80-100); Monocytes Absolute Auto 1000 /uL (0-900); Neutrophils Absolute Auto 13500 /uL (1500-7000); Neutrophils Percent Auto 78.5 % (50-75); Platelet Count 203 X10^3/uL (150-400); Red Blood Cell Count 6.21 X10^6/uL (4.0-5.2); Red Cell Distribution Width 16.7 % (11.6-14.8); White Blood Cell Count 17.1 X10^3/uL (4.5-11.0)
[2023-07-23 13:29] LABS: Alanine Aminotransferase 40 IU/L (<35); Albumin 3.4 g/dL (3.5-5.0); Albumin Globulin Ratio 0.9 (1.0-2.8); Alkaline Phosphatase 100 U/L (38-126); Aspartate Aminotransferase 105 IU/L (14-36); BUN Creatinine Ratio 27.5 (6-22); Bilirubin Total 0.7 mg/dL (0.2-1.3); Blood Urea Nitrogen 100 mg/dL (7-17); Carbon Dioxide 27 mmol/L (22-32); Chloride 115 mmol/L (98-107); Estimated Glomerular Filt Rate 13 mL/min (>60); Glucose 228 mg/dL (80-110); HEMOLYSIS < 15 (0-50); Potassium 4.6 mmol/L (3.4-5.1); Sodium 153 mmol/L (137-145); Total Protein 7.4 g/dL (6.3-8.2)
== END ==
PROVIDERS: PCP Family Medicine; Visit Provider Nurse Practitioner
DX: I47.10 Supraventricular tachycardia, unspecified (principal); F41.0 Panic disorder [episodic paroxysmal anxiety]; R41.841 Cognitive communication deficit; Z86.73 Personal history of transient ischemic attack (TIA), and cerebral infarction without residual deficits
CPT/HCPCS: 80053; 85025

== ENCOUNTER 2023-07-23 14:49 | Inpatient (IN) | payer MEDICARE, OTHER, SELFPAY ==
[2023-07-02 14:17] VITALS: BMI 35.2
[2023-07-23] VITALS (12 sets, daily range): BP systolic 95–143; BP diastolic 55–76; PULSE 73–88; RESP 14–88; TEMP 35.5–36.4; O2SAT 96–100; BMI 32.5; BMI 31.4
--- NOTE | 2023-07-23 15:02 | DI.CT.S_ITS ---
PROCEDURE: CT HEAD/BRAIN WO CON INDICATIONS: AMS TECHNIQUE: Noncontrast 4.5 mm thick angled axial sections acquired from the foramen magnum to the vertex, with coronal and sagittal reformats. For radiation dose reduction, the following was used: automated exposure control, adjustment of mA and/or kV according to patient size. COMPARISON: [facility], CT, CT HEAD/BRAIN WO CON, 07/02/2023, 9:07. FINDINGS: Image quality: Diagnostic. CSF spaces: Basal cisterns are patent. No extra-axial fluid collections. The ventricles are symmetric in size and shape. Brain: No intracranial bleeds or masses. There is cerebral volume loss for age, with resultant ventricular and sulcal prominence. There are periventricular and deep white matter chronic small vessel ischemic changes. There is intracranial internal carotid artery atherosclerosis. Skull and face: Calvarium and visualized facial bones appear intact, without suspicious lesions. Sinuses: Visualized sinuses and mastoids are clear. IMPRESSION: No acute intracranial pathology. Dictated by: Juan Farooq M.D. on 07/23/2023 at 15:47 Approved by: Juan Farooq M.D. on 07/23/2023 at 15:48
--- NOTE | 2023-07-23 15:02 | DI.RAD.S_ITS ---
PROCEDURE: XR CHEST 1V INDICATIONS: AMS TECHNIQUE: One view of the chest was acquired. COMPARISON: [facility], CR, XR CHEST 1V, 07/02/2023, 8:50. FINDINGS: Surgical changes and devices: None. Lungs and pleura: Lungs are clear. No pleural effusions or pneumothorax. Mediastinum: Mediastinal contours appear normal. Heart size is normal. Bones and chest wall: No suspicious bony lesions. Overlying soft tissues appear unremarkable. IMPRESSION: No acute cardiopulmonary abnormality is seen. Dictated by: Juan Farooq M.D. on 07/23/2023 at 15:56 Approved by: Juan Farooq M.D. on 07/23/2023 at 15:56
--- NOTE | 2023-07-23 15:05 | ED_ITS ---
HPI - Altered Mental Status General Chief Complaint: Weakness Stated Complaint: lithargic x2 days Time Seen by Provider: 07/23/23 14:51 History of Present Illness HPI narrative: 73-year-old female with history of myasthenia gravis, dementia, anxiety, coronary disease, insulin-dependent diabetes presents by EMS from [facility] for 2 days of lethargy. At [facility] took labs that showed leukocytosis and elevated creatinine and sent the patient in for evaluation. Patient's baseline status is awake, confused, but interactive with staff. On arrival patient is somnolent, arouses easily to touch and voice, but is only oriented to self and quickly falls back to sleep. Related Data Home Medications Medication Instructions Recorded Confirmed aspirin 81 mg tablet,delayed 81 mg PO DAILY 06/28/22 07/02/23 release clopidogrel 75 mg tablet 75 mg PO DAILY 06/28/22 07/02/23 levetiracetam 750 mg tablet 750 mg PO BID 07/02/23 07/02/23 Previous Rx's Medication Instructions Recorded NovaFine Pen Tips 32G x 6mm #3 ea 11/29/20 lancets (Lancets,Thin) #200 ea 11/29/20 pantoprazole 40 mg tablet,delayed 40 mg PO DAILY PRN heartburn #180 06/28/22 release tabs prednisone 20 mg tablet 20 mg PO DAILY #90 tabs 09/26/22 blood sugar diagnostic (Blood #800 ea 11/01/22 Glucose Test strips) metoprolol succinate 100 mg See Rx Instructions .Route 12/13/22 tablet,extended release 24 hr .COMPLEX #180 tabs sertraline 100 mg tablet (Zoloft) 200 mg (2 x 100 mg) PO DAILY #180 01/10/23 tabs alprazolam 0.5 mg tablet See Rx Instructions .Route 05/22/23 .COMPLEX #75 tabs losartan 100 mg tablet 100 mg PO BID #180 tabs 06/27/23 alprazolam 0.25 mg tablet 0.25 mg PO TID #30 tabs 07/08/23 gabapentin 600 mg tablet 600 mg PO BID #60 tabs 07/08/23 (Neurontin) insulin glargine 100 unit/mL (3 40 unit (0.4 mL) SUBCUT DAILY #10 07/08/23 mL) subcutaneous pen (Lantus mL Solostar U-100 Insulin) insulin lispro 100 unit/mL 0 unit (0 mL) SUBCUT ACHS #20 mL 07/08/23 subcutaneous solution (Humalog U-100 Insulin) [id number] 3.5 1 drops EYE-LEFT QID #30 mL 07/08/23 mg/mL-10,000 unit/mL-0.1% eye drops Allergies Allergy/AdvReac Type Severity Reaction Status Date / Time Penicillins Allergy Severe HIVES Verified 03/15/22 14:14 naproxen Allergy Mild HIVES Verified 03/15/22 14:14 rosuvastatin Allergy Mild Verified 03/15/22 14:14 sulfamethoxazole Allergy Unknown Verified 03/15/22 14:14 [From BACTRIM] trimethoprim [From BACTRIM] Allergy Unknown Verified 03/15/22 14:14 simvastatin AdvReac Severe MYALGIA, Verified 03/15/22 14:14 MUSCLE WEAKNESS Sulfa (Sulfonamide AdvReac Severe MYALGIA, Verified 03/15/22 14:14 Antibiotics) MUSCLE WEAKNESS citalopram AdvReac Intermediate Tachycardia Verified 03/15/22 14:14 at night metoclopramide AdvReac Intermediate tremors, Verified 03/15/22 14:14 anxiety gets worse atorvastatin AdvReac Mild NAUSEA, Verified 03/15/22 14:14 FLU LIKE SYMPTOMS metoprolol [METOPROLOL] AdvReac Unknown NAUSEA Verified 03/15/22 14:14 VOMITING Review of Systems Review of Systems Narrative: Unable to obtain Patient History Medical History CVA (cerebral vascular accident) Hypertension Tachycardia Myasthenia gravis SVT (supraventricular tachycardia) Diabetes type 2, uncontrolled (07/15/11) Gastroparesis due to DM (11/13/10) Hyperlipidemia, mixed (11/13/10) Unspecified essential hypertension (11/13/10) Morbid obesity (11/13/10) Panic disorder (11/13/10) 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) Surgical History Status post hernia repair (05/14/16) Status post hysterectomy (05/14/16) Status post laparoscopic cholecystectomy History of third molar tooth extraction Social History household members: spouse Smoking Status: Former smoker alcohol intake: current Smoking Status: Former smoker tobacco type: cigarettes alcohol intake frequency: 0-2 drinks per day Substance Use Type: does not use Exam Initial Vital Signs Initial Vital Signs: Vital Signs Pulse Rate 88 07/23/23 15:13 Respiratory Rate 20 07/23/23 15:13 Blood Pressure 121/65 07/23/23 15:13 Pulse Oximetry 100 07/23/23 15:13 Oxygen Delivery Method Room Air 07/23/23 15:13 Const: Somnolent, ill-appearing, debilitated Cardiac: regular rate, regular rhythm RESP: unlabored, clear bilaterally, no wheezing GI: Atraumatic, soft, nontender Skin: Warm, Dry, intact, no rashes Neuro: AO x1, moves upper extremities Course Orders Ordered: ED Orders 07/23/23 15:02 CT head/brain wo con Stat XR chest 1V Stat Arterial Blood Gas Stat EKG-12 Lead Stat 07/23/23 15:07 Complete Blood Count AUTO DIFF Stat Comprehensive Metabolic Panel Stat Lactate (Lactic Acid) Stat Procalcitonin Stat Prothrombin Time INR Stat Troponin & CK Cardiac Panel Stat 07/23/23 15:18 Covid-19 + FLU A/B + RSV - PCR Stat Ictotest Urine Stat Urinalysis and Microscopic Stat Urine Culture Stat 07/23/23 15:43 Blood Culture Stat 07/23/23 16:21 CT abdomen pelvis wo con Stat Acetaminophen (Acetaminophen 325 Mg Tablet) 650 mg PO Q6H PRN PRN Reason: Fever/Mild Pain (1-3) Aspirin (Aspirin Ec 81 Mg Tablet) 81 mg PO DAILY TRICIA Clopidogrel Bisulfate (Clopidogrel 75 Mg Tablet) 75 mg PO DAILY TRICIA Gabapentin (Gabapentin 600 Mg Tablet) 600 mg PO BID TRICIA Heparin Sodium (Porcine) (Heparin 5,000 Unit/Ml Vial) 5,000 unit SUBCUT BID TRICIA Hydromorphone HCl (Hydromorphone 0.5 Mg Inj) 0.5 mg IV Q2H PRN PRN Reason: Pain, Severe (7-10) Lactated Ringer's (Lactated Ringers) 2,100 mls @ 700 mls/hr IV NOW ONE Stop: 07/23/23 18:01 Last Admin: 07/23/23 15:53 Dose: 700 mls/hr Documented By: RUDI Dextrose ([id number]) 100 mls @ 1,200 mls/hr IV PRN PRN PRN Reason: Hypoglycemia Cefepime HCl 1 gm/ Sodium (Chloride) 100 mls @ 200 mls/hr IV Q12H [facility] Sodium Chloride (Normal Saline 0.45%) 1,000 mls @ 125 mls/hr IV CONT TRICIA Insulin Glargine (Insulin Glargine 100 Unit/Ml 3ml Pen) 20 unit SUBCUT 0800 TRICIA Insulin Human Lispro (Insulin Lispro 100 Unit/Ml 3ml Vial) 0 unit SUBCUT ACHS TRICIA; Protocol Levetiracetam (Levetiracetam 250 Mg Tablet) 750 mg PO BID TRICIA Naloxone HCl (Naloxone 0.4 Mg/Ml Vial) 0.2 mg IV Q2MIN PRN PRN Reason: Opiate Reversal Ondansetron HCl (Ondansetron 4 Mg/2 Ml Inj) 4 mg IV Q4HR PRN PRN Reason: Nausea And Vomiting Pantoprazole Sodium (Pantoprazole Dr 40 Mg Tablet) 40 mg PO DAILY PRN PRN Reason: heartburn Sertraline HCl (Sertraline 50 Mg Tablet) 200 mg PO DAILY [facility] Vancomycin HCl (Vancomycin Per Pharmacy) 1 request MISC NOW ONE Stop: 07/23/23 17:05 Discontinued Medications Vancomycin HCl/Dextrose (Vancomycin) 1,500 mg in 300 mls @ 200 mls/hr IV NOW ONE Stop: 07/23/23 16:34 Last Admin: 07/23/23 16:26 Dose: 200 mls/hr Documented By: GINGER Cefepime HCl 2 gm/ Sodium (Chloride) 100 mls @ 200 mls/hr IV NOW ONE Stop: 07/23/23 15:06 Last Infusion: 07/23/23 16:26 Dose: Infused Documented By: Admin: 07/23/23 15:53 Dose: 200 mls/hr Documented By: RUDI Vital Signs Vital signs: Vital Signs - 8 hr 07/23/23 15:13 07/23/23 15:20 07/23/23 15:21 Pulse Rate 88 83 Respiratory Rate 20 25 H Blood Pressure 121/65 120/58 L Pulse Oximetry 100 96 Oxygen Delivery Method Room Air 07/23/23 15:21 07/23/23 15:30 07/23/23 15:31 Pulse Rate 83 86 87 Respiratory Rate 26 H 52 H 88 H Blood Pressure Pulse Oximetry 98 96 96 Oxygen Delivery Method 07/23/23 15:31 07/23/23 16:00 07/23/23 16:00 Pulse Rate 84 Respiratory Rate 42 H Blood Pressure 103/55 L 95/66 Pulse Oximetry 97 Oxygen Delivery Method 07/23/23 16:36 07/23/23 16:37 07/23/23 16:37 Pulse Rate 79 79 Respiratory Rate Blood Pressure 136/58 L Pulse Oximetry 97 96 Oxygen Delivery Method MDM - Altered Mental Status Differential Diagnosis Differential diagnosis: Likely altered mental status, delirium and dementia Lab Data 07/23/23 15:07 07/23/23 15:07 Labs: Lab Results 07/23/23 07/23/23 Range/Units 15:07 15:18 WBC 19.5 H (4.5-11.0) X10^3/uL RBC 6.66 H (4.0-5.2) X10^6/uL Hgb 17.3 H (12.0-16.0) g/dL Hct 54.2 H (36-46) % MCV 81.3 (80-100) fL MCH 25.9 L (26-34) PG MCHC 31.9 (30-36) % RDW 17.0 H (11.6-14.8) % Plt Count 208 (150-400) X10^3/uL Neut % (Auto) 78.4 H (50-75) % Lymph % (Auto) 13.5 L (25-40) % [place] % (Auto) 6.6 (3-14) % Eos % (Auto) 1.0 L (2-4) % Baso % (Auto) 0.5 (0-2) % Neut # (Auto) 83991 H (0060-1976) /uL Lymph # (Auto) 2600 (2747-9607) /uL [place] # (Auto) 1300 H (0-900) /uL Eos # (Auto) 200 (0-450) /uL Baso # (Auto) 100 (0-100) /uL PT 12.9 H (9.4-12.5) SECONDS INR 1.1 (0.9-1.3) Sodium 154 H (137-145) mmol/L Potassium 4.7 (3.4-5.1) mmol/L Chloride 116 H (98-107) mmol/L Carbon Dioxide 27 (22-32) mmol/L BUN 103 H (7-17) mg/dL Creatinine 3.97 H (0.52-1.04) mg/dL Estimated GFR 11 L (>60) mL/min BUN/Creatinine Ratio 25.9 H (6-22) Glucose 199 H (80-110) mg/dL Lactate 2.1 (0.7-2.1) mmol/L Calcium 10.6 H (8.4-10.2) mg/dL Total Bilirubin 0.8 (0.2-1.3) mg/dL AST 119 H (14-36) IU/L ALT 51 H (<35) IU/L Alkaline Phosphatase 117 (38-126) U/L Total Creatine Kinase 1438 H (30-135) U/L Troponin I 0.060 H (0.01-0.034) ng/mL Total Protein 9.0 H (6.3-8.2) g/dL Albumin 4.0 (3.5-5.0) g/dL Globulin 5.0 H (1.7-4.1) g/dL Albumin/Globulin Ratio 0.8 L (1.0-2.8) Procalcitonin 0.61 H (<0.5) ng/mL Urine Color Yellow Urine Appearance Cloudy Urine pH 5.0 (4.5-8.0) Ur Specific [place] >=1.030 H (1.000-1.035) Urine Protein Negative (Negative) Urine Glucose (UA) 1+ H (Negative) g/dL Urine Ketones Negative (NEGATIVE) Urine Occult Blood 1+ H (Negative) Urine Nitrate Positive H (Negative) Urine Bilirubin 1+ H (NEGATIVE) Ur Bilirubin Confirm TNP Urine Urobilinogen 0.2 (0.2) E.U./dL Ur Leukocyte Esterase 2+ H (NEGATIVE) Urine RBC 1-5/hpf (0-5/HPF) Urine WBC >100/hpf H (0-5/HPF) Ur Squamous Epith Cells >30 /hpf H D (0-5/HPF) Urine Bacteria Many (>30) H (None) Ur Culture Indicated? Specimen cultured Vol Urine Centrifuged 10ml (spun) SARS-CoV-2 (PCR) Negative (Negative) Influenza A (RT-PCR) Flu a negative (NEGATIVE) Influenza B (RT-PCR) Flu b negative (NEGATIVE) RSV (PCR) Negative (Negative) MDM Narrative Medical decision making narrative: Very ill-appearing patient presenting for decreased mental status from jail. Based on leukocytosis and borderline low blood pressures measured at nursing facility sepsis bundle ordered with blood cultures, fluids, IV antibiotics. We will empirically cover with vancomycin and cefepime. Laboratory work is reviewed, there is leukocytosis present, however patient has chronic leukocytosis and it was approximately at previous levels. Creatinine 3.97, baseline is less than 1. GFR 11. Cleary placed and despite receiving 2 L fluid bolus patient only made a scant amount of dark urine. Patient's polst form states DNR/comfort measures I spoke with patient's sister and her via cell phone. Goals of care discussion had with patient's , I stated that we would try to find a reversible cause of patient's new renal failure, however if renal failure did not improve and she did not make urine then the next step would be dialysis. Patient's adamantly declined dialysis stating that it would not be what she wanted and he was not interested in pursuing dialysis against her wishes. I do believe patient is approaching end of life and ongoing goals of care discussion should be had with . Patient will be admitted for further treatment of her condition. Discharge Plan Departure Patient Disposition: Admitted As Inpatient Clinical Impression: Acute renal failure, Altered mental status, Urinary tract infection Admit Date/Time: 07/23/23 16:55 Admit Provider: Kristopher Myers
[2023-07-23 15:22] LABS: Add Manual Diff / Slide Review NO; Basophils Absolute Auto 100 /uL (0-100); Basophils Percent Auto 0.5 % (0-2); Eosinophils Absolute Auto 200 /uL (0-450); Hematocrit 54.2 % (36-46); Hemoglobin 17.3 g/dL (12.0-16.0); Lymphocytes Absolute Auto 2600 /uL (1100-4500); Lymphocytes Percent Auto 13.5 % (25-40); Mean Corpuscular HGB Conc 31.9 % (30-36); Mean Corpuscular Hemoglobin 25.9 PG (26-34); Mean Corpuscular Volume 81.3 fL (80-100); Monocytes Absolute Auto 1300 /uL (0-900); Monocytes Percent Auto 6.6 % (3-14); Neutrophils Absolute Auto 15300 /uL (1500-7000); Neutrophils Percent Auto 78.4 % (50-75); Platelet Count 208 X10^3/uL (150-400); Red Blood Cell Count 6.66 X10^6/uL (4.0-5.2); White Blood Cell Count 19.5 X10^3/uL (4.5-11.0)
[2023-07-23 15:24] LABS: INR 1.1 (0.9-1.3); Prothrombin Time 12.9 SECONDS (9.4-12.5)
[2023-07-23 15:28] LABS: Lactate (Lactic Acid) 2.1 mmol/L (0.7-2.1)
[2023-07-23 15:29] LABS: Alanine Aminotransferase 51 IU/L (<35); Albumin Globulin Ratio 0.8 (1.0-2.8); Alkaline Phosphatase 117 U/L (38-126); Aspartate Aminotransferase 119 IU/L (14-36); BUN Creatinine Ratio 25.9 (6-22); Bilirubin Total 0.8 mg/dL (0.2-1.3); Blood Urea Nitrogen 103 mg/dL (7-17); Calcium 10.6 mg/dL (8.4-10.2); Carbon Dioxide 27 mmol/L (22-32); Chloride 116 mmol/L (98-107); Creatine Kinase 1438 U/L (30-135); Estimated Glomerular Filt Rate 11 mL/min (>60); Glucose 199 mg/dL (80-110); Potassium 4.7 mmol/L (3.4-5.1); Sodium 154 mmol/L (137-145)
[2023-07-23 15:35] LABS: HEMOLYSIS < 15 (0-50)
[2023-07-23] MEDS: LACTATED RINGERS 2,100 ML 700 ML IV (15:53)
[2023-07-23] MEDS: CEFEPIME 2 GM in SODIUM CHLORIDE 0.9% 100 ML IV (15:53)
[2023-07-23 15:58] LABS: Bilirubin Urine UA 1+ (NEGATIVE); Color Urine UA YELLOW; Glucose Urine UA 1+ g/dL (Negative); Ketones Urine UA NEGATIVE (NEGATIVE); Leukocyte Esterase Urine UA 2+ (NEGATIVE); Nitrite Urine UA POSITIVE (Negative); Occult Blood Urine UA 1+ (Negative); Protein Urine UA NEGATIVE (Negative); Specific Gravity Urine UA >=1.030 (1.000-1.035); Urobilinogen Urine UA 0.2 E.U./dL (0.2)
[2023-07-23 16:01] LABS: Influenza A - CEPHEID Flu A NEGATIVE (NEGATIVE); Influenza B - CEPHEID Flu B NEGATIVE (NEGATIVE); Respiratory Syncytial Virus Negative (Negative)
[2023-07-23 16:02] LABS: Appearance Urine UA CLOUDY
[2023-07-23 16:06] LABS: COVID-19 CEPHEID 4-PLEX PCR Negative (Negative)
[2023-07-23 16:17] LABS: Bacteria Urine Many (>30); Culture Indicated Urine Specimen Cultured; RBC Urine 1-5/HPF (0-5/HPF); Squamous Epithelial Cell Urine >30 /HPF (0-5/HPF); Urine Volume 10mL (spun); WBC Urine >100/HPF (0-5/HPF)
--- NOTE | 2023-07-23 16:21 | DI.CT.S_ITS ---
PROCEDURE: CT ABDOMEN PELVIS WO CON INDICATIONS: NEW RENAL FAILURE/UTI TECHNIQUE: Axial sections were acquired from the lung bases to the pubic symphysis. Coronal and sagittal reformats were performed. For radiation dose reduction, the following was used: automated exposure control, adjustment of mA and/or kV according to patient size. COMPARISON: [facility], CT, CT ABDOMEN PELVIS W CON, 04/22/2023, 8:28. FINDINGS: Image quality: Diagnostic. Lower Chest: No significant findings. URINARY: Right Kidney: No stones or hydronephrosis. Right Ureter: No hydroureter. Left Kidney: No stones or hydronephrosis. Left Ureter: No hydroureter. Bladder: A Cleary catheter is present. Urinary bladder is decompressed. ABDOMEN: Liver: No contour-deforming solid mass. Gallbladder: Surgically absent Biliary ducts: No biliary dilation. Pancreas: No ductal dilation. Spleen: Size is within normal limits. Adrenal Glands: No adrenal nodules. Stomach and Bowel: Normal colonic caliber, without significant wall thickening. Normal appendix. Peritoneum: No abnormal intraperitoneal fluid. No free air. Ventral Wall: 60 mm fat containing anterior abdominal wall hernia. 40 mm fat containing umbilical hernia which contains the tip of the appendix. Abdominal Nodes: No enlarged retroperitoneal or mesenteric lymph nodes. Vessels: Aorta and inferior vena cava are normal in size. PELVIS: Pelvic Organs: Unremarkable. Pelvic Nodes: Unremarkable. Miscellaneous: No inguinal hernias are seen. Bones: Unremarkable. IMPRESSION: 1. No evidence of urinary tract calcification or obstruction. 2. Normal appendix. 3. Fat containing hernias as above. Dictated by: Juan Farooq M.D. on 07/23/2023 at 16:43 Approved by: Juan Farooq M.D. on 07/23/2023 at 16:47
[2023-07-23] MEDS: VANCOMYCIN 1,500 MG/300 ML PIGGYBACK 200 MG IV (16:26)
[2023-07-23 16:44] LABS: Procalcitonin 0.61 ng/mL (<0.5)
[2023-07-23 16:54] LABS: Reflexed Lactate in 2 Hours Y
--- NOTE | 2023-07-23 17:14 | P.HP_ITS ---
History of Present Illness History of Present Illness Date Patient Seen: 07/23/23 Chief complaint: lithargic x2 days Narrative: Oksana Brown is a 73yo F with PMH of myasthenia gravis on chronic prednisone, seizure disorder on keppra, DM2 on insulin, TIA, anxiety, gastroparesis, HTN and HLD who presents with altered mental status. Sent from [facility]. Patient unable to give history and left to [place] ferry and not answering phone. Per ED handoff she was brought in by EMS for decreased mentation. Found to be severely dry and have renal failure with Cr 3.97, severe hypernatremia with Na 154, and be septic with WBC 19 and procal 0.61 from UTI. who is POA ok with IVF and abx to see how she does, but no aggressive measures and if she is not improving to pursue comfort care. She is DNR. Patient briefly responds to questions but keeps eyes closed and uses one word answered. She reponds no to if she is in pain. 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) Surgical History Status post hernia repair (05/14/16) Status post hysterectomy (05/14/16) Status post laparoscopic cholecystectomy History of third molar tooth extraction Social History household members: spouse Smoking Status: Former smoker alcohol intake: current Meds Home Medications and Allergies Home Medications Medication Instructions Recorded Confirmed Type NovaFine Pen Tips 32G x 6mm #3 ea 11/29/20 07/23/23 Rx lancets (Lancets,Thin) #200 ea 11/29/20 07/23/23 Rx aspirin 81 mg tablet,delayed 81 mg PO DAILY 06/28/22 07/23/23 History release clopidogrel 75 mg tablet 75 mg PO DAILY 06/28/22 07/23/23 History pantoprazole 40 mg tablet,delayed 40 mg PO DAILY PRN heartburn #180 06/28/22 07/23/23 Rx release tabs prednisone 20 mg tablet 20 mg PO DAILY #90 tabs 09/26/22 07/23/23 Rx blood sugar diagnostic (Blood #800 ea 11/01/22 07/23/23 Rx Glucose Test strips) sertraline 100 mg tablet (Zoloft) 200 mg (2 x 100 mg) PO DAILY #180 01/10/23 07/23/23 Rx tabs losartan 100 mg tablet 100 mg PO BID #180 tabs 06/27/23 07/23/23 Rx levetiracetam 750 mg tablet 750 mg PO BID 07/02/23 07/23/23 History alprazolam 0.25 mg tablet 0.25 mg PO TID #30 tabs 07/08/23 07/23/23 Rx gabapentin 600 mg tablet 600 mg PO BID #60 tabs 07/08/23 07/23/23 Rx (Neurontin) insulin glargine 100 unit/mL (3 40 unit (0.4 mL) SUBCUT DAILY #10 07/08/23 07/23/23 Rx mL) subcutaneous pen (Lantus mL Solostar U-100 Insulin) insulin lispro 100 unit/mL 0 unit (0 mL) SUBCUT ACHS #20 mL 07/08/23 07/23/23 Rx subcutaneous solution (Humalog U-100 Insulin) [id number] 3.5 1 drops EYE-LEFT QID #30 mL 07/08/23 07/23/23 Rx mg/mL-10,000 unit/mL-0.1% eye drops metoprolol succinate 100 mg 100 mg PO BID 07/23/23 07/23/23 History tablet,extended release 24 hr Allergies Allergy/AdvReac Type Severity Reaction Status Date / Time Penicillins Allergy Severe HIVES Verified 03/15/22 14:14 naproxen Allergy Mild HIVES Verified 03/15/22 14:14 rosuvastatin Allergy Mild Verified 03/15/22 14:14 sulfamethoxazole Allergy Unknown Verified 03/15/22 14:14 [From BACTRIM] trimethoprim [From BACTRIM] Allergy Unknown Verified 03/15/22 14:14 simvastatin AdvReac Severe MYALGIA, Verified 03/15/22 14:14 MUSCLE WEAKNESS Sulfa (Sulfonamide AdvReac Severe MYALGIA, Verified 03/15/22 14:14 Antibiotics) MUSCLE WEAKNESS citalopram AdvReac Intermediate Tachycardia Verified 03/15/22 14:14 at night metoclopramide AdvReac Intermediate tremors, Verified 03/15/22 14:14 anxiety gets worse atorvastatin AdvReac Mild NAUSEA, Verified 03/15/22 14:14 FLU LIKE SYMPTOMS metoprolol [METOPROLOL] AdvReac Unknown NAUSEA Verified 03/15/22 14:14 VOMITING Review of Systems Review of Systems Narrative: All other systems reviewed with the patient and are negative unless otherwise stated. Exam Vital Signs (past 8 hours): - 07/23/23 15:13 07/23/23 15:20 07/23/23 15:21 Pulse Rate 88 83 Respiratory Rate 20 25 H Blood Pressure 121/65 120/58 L Pulse Oximetry 100 96 Oxygen Delivery Method Room Air 07/23/23 15:21 07/23/23 15:30 07/23/23 15:31 Pulse Rate 83 86 87 Respiratory Rate 26 H 52 H 88 H Blood Pressure Pulse Oximetry 98 96 96 Oxygen Delivery Method 07/23/23 15:31 07/23/23 16:00 07/23/23 16:00 Pulse Rate 84 Respiratory Rate 42 H Blood Pressure 103/55 L 95/66 Pulse Oximetry 97 Oxygen Delivery Method 07/23/23 16:36 07/23/23 16:37 07/23/23 16:37 Pulse Rate 79 79 Respiratory Rate Blood Pressure 136/58 L Pulse Oximetry 97 96 Oxygen Delivery Method Oxygen Delivery Method Room Air Narrative Exam Narrative: GEN: awakens to voice but keeps eyes closed, ill-appearing HEENT: moist mucous membranes, PERRL NECK: trachea midline, no JVD CV: regular rate and rhythm, systolic ejection murmur present PULM: clear bilaterally ABD: soft, nontender, nondistended, no organomegaly EXT: warm and well perfused with no edema NEURO: somnolent, no focal deficits Objective Labs 07/23/23 15:07 07/23/23 15:07 Labs: Laboratory Results - last 24 hr 07/23/23 07/23/23 15:07 15:18 WBC 19.5 H RBC 6.66 H Hgb 17.3 H Hct 54.2 H MCV 81.3 MCH 25.9 L MCHC 31.9 RDW 17.0 H Plt Count 208 Neut % (Auto) 78.4 H Lymph % (Auto) 13.5 L [place] % (Auto) 6.6 Eos % (Auto) 1.0 L Baso % (Auto) 0.5 Neut # (Auto) 30226 H Lymph # (Auto) 2600 [place] # (Auto) 1300 H Eos # (Auto) 200 Baso # (Auto) 100 PT 12.9 H INR 1.1 Sodium 154 H Potassium 4.7 Chloride 116 H Carbon Dioxide 27 BUN 103 H Creatinine 3.97 H Estimated GFR 11 L BUN/Creatinine Ratio 25.9 H Glucose 199 H Lactate 2.1 Calcium 10.6 H Total Bilirubin 0.8 AST 119 H ALT 51 H Alkaline Phosphatase 117 Total Creatine Kinase 1438 H Troponin I 0.060 H Total Protein 9.0 H Albumin 4.0 Globulin 5.0 H Albumin/Globulin Ratio 0.8 L Procalcitonin 0.61 H Urine Color Yellow Urine Appearance Cloudy Urine pH 5.0 Ur Specific [place] >=1.030 H Urine Protein Negative Urine Glucose (UA) 1+ H Urine Ketones Negative Urine Occult Blood 1+ H Urine Nitrate Positive H Urine Bilirubin 1+ H Ur Bilirubin Confirm TNP Urine Urobilinogen 0.2 Ur Leukocyte Esterase 2+ H Urine RBC 1-5/hpf Urine WBC >100/hpf H Ur Squamous Epith Cells >30 /hpf H D Urine Bacteria Many (>30) H Ur Culture Indicated? Specimen cultured Vol Urine Centrifuged 10ml (spun) SARS-CoV-2 (PCR) Negative Influenza A (RT-PCR) Flu a negative Influenza B (RT-PCR) Flu b negative RSV (PCR) Negative Assessment & Plan Assessment & Plan narrative: # acute sepsis -WBC 19, procal 0.61. Source likely UTI given >100 WBC in urine -follow-up blood and urine cultures -cefepime and vanc ordered # DENNYS -Cr 3.97, up from 0.97 two weeks ago -likely prerenal with hypernatremia -continue IVF -bustamante placed in ED # acute metabolic encephalopathy -patient intermittently disoriented, likely due to sepsis, DENNYS, and dehydration -monitor for improvement # hypernatremia -Na 154 -1/2 NS IVF # DM2 -continue lantus and SSI # seizure disorder -continue keppra # HTN -hold losartan and metoprolol due to sepsis # depression and anxiety -continue sertraline but hold xanax for now due to AMS # h/o TIA -continue DAPT Code status is DNR. If patient not improving, ok with comfort care. DVT prophylaxis with heparin. Proxy is Syed. I have reviewed home meds and used all available resources to reconcile the home meds. Case discussed with ED physician/APC and patient will be admitted to the hospitalist service for further workup and management. This patient will be admitted as inpatient and will require greater than 2 midnights of hospital time to treat sepsis, DENNYS, AMS.
[2023-07-23 17:50] LABS: Lactate 2HR (Lactic Acid Rflx) 2.6 mmol/L (0.7-2.1)
[2023-07-23] MEDS: SODIUM CHLORIDE 0.45% 1,000 ML 125 ML IV (18:18)
[2023-07-23] MEDS: GABAPENTIN 600 MG TABLET PO (20:37)
[2023-07-23] MEDS: levETIRAcetam 250 MG TABLET 750 MG PO (20:45)
[2023-07-23] MEDS: HEPARIN 5,000 UNIT/ML VIAL 5000 UNIT SUBCUT (20:49)
[2023-07-23] MEDS: NYSTATIN POWDER 15GM 1 APPLIC TOP (22:20)
[2023-07-24 00:42] VITALS: BP 144/62; PULSE 75; RESP 16; TEMP 36.3; O2SAT 100
[2023-07-24] MEDS: SODIUM CHLORIDE 0.45% 1,000 ML 125 ML IV ×2 (02:36→12:57)
[2023-07-24 04:43] VITALS: BP 131/60; PULSE 71; RESP 16; TEMP 36.1; O2SAT 100
[2023-07-24 08:00] VITALS: BP 149/60; PULSE 57; RESP 20; TEMP 36.4; O2SAT 96; O2SAT 98
[2023-07-24] MEDS: ASPIRIN EC 81 MG TABLET PO (09:30)
[2023-07-24] MEDS: SERTRALINE 50 MG TABLET 200 MG PO (09:30)
[2023-07-24] MEDS: HEPARIN 5,000 UNIT/ML VIAL 5000 UNIT SUBCUT (09:30)
--- NOTE | 2023-07-24 10:57 | DIET.CONS ---
Dietary Consultation Note Admission Date: 07/23/2023 16:55 Assessment: 73F admitted with altered mental status and found to have renal failure and sepsis. RD consulted d/t to MNA of 7. Oksana is unable to fully participate in today's assessment, though does state that she is not eating much recently. MNA indicated moderate reduced PO and mild dementia. She has PMH of myasthenia gravis on chronic prednisone, seizure disorder, and T2Dm with insulin and gastroparesis. Recent hgA1c of 8.4% indicating likely hyperglycemia. Recent BG since admission in range at 169 and 128 mg/dl. wt hx indicates 22% loss over 3 months (106.6kg to 83kg) -- Severe. NFPE indicates mild wasting of temples and slight boxed shoulders. Cr: 3.97H GFR: 11 NA 154H Cl: 116H Currently on clear liq diet. Ht: 162.56 cm Wt: 83.2 kg BMI: 31.4 UBW: Last BM: () MNA: 7 Tyler Score: 14 Diet: 07/23/23 Dinner Clear Liquid Diet Diet Modifications: Labs: RBC 6.66 X10^6/uL (4.0-5.2) H 07/23/23 15:07 Hgb 17.3 g/dL (12.0-16.0) H 07/23/23 15:07 Hct 54.2 % (36-46) H 07/23/23 15:07 Creatinine 3.97 mg/dL (0.52-1.04) H 07/23/23 15:07 Lactate 2.6 mmol/L (0.7-2.1) H 07/23/23 17:20 Nutrition Diagnosis: Acute moderate protein calorie malnutrition r/t inadequate calorie intake aeb 22% weight loss over 3 months and mild wasting of temples and shoulders. -The patient is at much higher risk for medical and surgical complications because of their malnutrition. This increases the difficulty and complexity of medical and surgical interventions and increases the chances of poor outcomes such as morbidity and mortality. Interventions: Will continue to monitor PO. No PO as of yet due to new admit. Protein considerations with renal insufficiencies. EER: 2000-2100kcals (25kcal/kg per BMI) 65-70g PRO (0.8g/kg per renal insufficiencies) Monitoring/Evaluations: RD f/u 2-4 days. Electronically Signed by: Ivette Pederson 07/24/23 10:57 [facility] [address] [id number]
[2023-07-24 11:19] VITALS: BP 122/60; PULSE 79; RESP 20; TEMP 36.4; O2SAT 98
--- NOTE | 2023-07-24 14:54 | PM.PN.1 ---
Subjective Subjective Interval history: Patient a little more alert today, but still somnolent. Had a 20 min discussion with Syed about poor prognosis given renal failure and sepsis. agreed that patient would be poor rehab candidate and therefore hospice would be the best path moving forward. Comfort orders placed. Exam Vital Signs (past 8 hours): - 07/24/23 08:00 07/24/23 08:00 07/24/23 11:19 Temperature 97.5 F L 97.5 F L Pulse Rate 57 L 79 Respiratory Rate 20 20 Blood Pressure 149/60 H 122/60 Pulse Oximetry 98 96 98 Oxygen Delivery Method Room Air Oxygen Delivery Method Room Air Oxygen Flow Rate 1 Narrative Exam Narrative: GEN: awakens to voice but keeps eyes closed, ill-appearing HEENT: moist mucous membranes, PERRL NECK: trachea midline, no JVD CV: regular rate and rhythm, systolic ejection murmur present PULM: clear bilaterally ABD: soft, nontender, nondistended, no organomegaly EXT: warm and well perfused with no edema NEURO: somnolent, no focal deficits Objective Labs 07/23/23 15:07 07/23/23 15:07 Labs: Laboratory Results - last 24 hr 07/23/23 07/23/23 07/23/23 15:07 15:18 17:20 WBC 19.5 H RBC 6.66 H Hgb 17.3 H Hct 54.2 H MCV 81.3 MCH 25.9 L MCHC 31.9 RDW 17.0 H Plt Count 208 Neut % (Auto) 78.4 H Lymph % (Auto) 13.5 L [place] % (Auto) 6.6 Eos % (Auto) 1.0 L Baso % (Auto) 0.5 Neut # (Auto) 35866 H Lymph # (Auto) 2600 [place] # (Auto) 1300 H Eos # (Auto) 200 Baso # (Auto) 100 PT 12.9 H INR 1.1 Sodium 154 H Potassium 4.7 Chloride 116 H Carbon Dioxide 27 BUN 103 H Creatinine 3.97 H Estimated GFR 11 L BUN/Creatinine Ratio 25.9 H Glucose 199 H Lactate 2.1 2.6 H Calcium 10.6 H Total Bilirubin 0.8 AST 119 H ALT 51 H Alkaline Phosphatase 117 Total Creatine Kinase 1438 H Troponin I 0.060 H Total Protein 9.0 H Albumin 4.0 Globulin 5.0 H Albumin/Globulin Ratio 0.8 L Procalcitonin 0.61 H Urine Color Yellow Urine Appearance Cloudy Urine pH 5.0 Ur Specific [place] >=1.030 H Urine Protein Negative Urine Glucose (UA) 1+ H Urine Ketones Negative Urine Occult Blood 1+ H Urine Nitrate Positive H Urine Bilirubin 1+ H Ur Bilirubin Confirm TNP Urine Urobilinogen 0.2 Ur Leukocyte Esterase 2+ H Urine RBC 1-5/hpf Urine WBC >100/hpf H Ur Squamous Epith Cells >30 /hpf H D Urine Bacteria Many (>30) H Ur Culture Indicated? 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 # acute sepsis -WBC 19, procal 0.61. Source likely UTI given >100 WBC in urine -follow-up blood and urine cultures -cefepime and vanc ordered -stopped abx due to comfort measures # DENNYS -Cr 3.97, up from 0.97 two weeks ago -likely prerenal with hypernatremia -bustamante placed in ED # acute metabolic encephalopathy -patient intermittently disoriented, likely due to sepsis, DENNYS, and dehydration # hypernatremia -Na 154 -/ NS IVF -stopped fluids due to comfort care # DM2 -continue lantus and SSI # seizure disorder -continue keppra # HTN -hold losartan and metoprolol due to sepsis # depression and anxiety -continue sertraline but hold xanax for now due to AMS # h/o TIA -continue DAPT Code status is DNR. DVT prophylaxis with heparin. Proxy is Syed. Dispo: Now comfort care and hospice referrals being placed. Likely back to SNF on hospice in 1-2 days. Quality VTE Deep Vein Thrombosis/Pulmonary Embolism Present on Admission: No
--- NOTE | 2023-07-24 15:46 | CM.DANOTE ---
Initial DCP Assessment Note Pt is a 73 yo female, resident of [facility] although currently being cared for at [facility], presents w/acute sepsis sec to UTI with DENNYS, PMH includes myasthenia gravis on chronic prednisone, seizure disorder on keppra, DM2 on insulin, TIA, anxiety, gastroparesis, HTN and HLD PCP: Jose Clement Payer: [facility]/[place] According to conversation with Dr Myers, lengthy conversation held with spouse Syed who agreeable to comfort focused care with referral to Hospice at this time. Met w/spouse to introduce role and review discharge plan. Spouse explains that before patient's last admission to , she was able to walk with her walker, make it to the BR, change her depends as needed. Spouse relied on caregivers on [facility] to help patient during the day and weekdays, he would assist patient at night and on the weekends. Spouse reports that patient now requires full care that he cannot give at home. Discussed a return to [facility] under private payment with Hospice services covered by patient's [facility]. Spouse agreeable and able to pay privately. Cost of room and board at [facility] is approx $460 per day and one month deposit is required- encouraged spouse to discuss this directly with the business dept at [facility] and he agreed. Referral faxed to [facility]. Rendon from Raven at [facility] that MCR would pay for approx 7 days at [facility] and then patient/spouse would be required to pay privately. [facility] suggested that once patient returns, their social service staff can discuss private payment agreement with spouse. Plan: Discharge back to [facility] anticipated; [facility] coverage x7 days then transition to private payment with [facility] services to help manage end of life care. CM team following closely for coordination of discharge plan. FELICIA White Discharge Planning/Care Management CM Discharge Assessment Start: 07/24/23 15:40 Freq: Status: Active Protocol: Document 07/24/23 15:40 MIYA (Rec: 07/24/23 15:46 MIYA [id number]) Discharge Planning Assessment Assigned Cycle Director FELICIA Valencia DPOA/Assigned Designee Name Syed Brown, spouse Contact Information [phone] Advance Directives? Yes: POLST Advance Directives on File No History Provided By Significant Other,Medical Record Has Patient been admitted in last 30 Yes days? Comment Here [id number] Prior Living Arrangements Skilled Nurse Facility Household Members other Type of transporation used prior to Relies on Others admit Facility Name Admitted From: [facility] Willing to Return to Facility? Yes Independent with ADL's No Is patient alert and oriented? No Comment Total care Patient/Family Preference Custodial Facility Barriers to Discharge No Discharge Plan Custodial Facility Transportation Arrangement W/c vs BLS Referrals Initiated Custodial Additional Comment With comfort focus, [facility] referral made Medicare Choice List Provided Yes SNF/HH Preference Return to [facility] Has Agency SNF been contacted Yes Whiteboard Updated in Patient Room with Yes name and ext. # of Cycle Director
[2023-07-24 18:23] VITALS: BP 140/62; PULSE 83; RESP 18; TEMP 36.9; O2SAT 99
[2023-07-24 20:23] VITALS: BP 142/72; PULSE 90; RESP 16; TEMP 36; O2SAT 99
[2023-07-24] MEDS: ACETAMINOPHEN 325 MG TABLET 650 MG PO (22:43)
[2023-07-25] MEDS: ONDANSETRON 4 MG ODT PO (00:33)
[2023-07-25] MEDS: BISACODYL 10 MG SUPP PR (01:31)
[2023-07-25] MEDS: MORPHINE 10 MG/0.5 ML ORAL SYRINGE PO (01:46)
[2023-07-25 08:31] VITALS: BP 122/70; PULSE 96; RESP 16; TEMP 36.7; O2SAT 96
[2023-07-25 11:50] VITALS: BP 160/77; PULSE 108; RESP 16; TEMP 36.1; O2SAT 95
--- NOTE | 2023-07-25 13:12 | CM.DPNOTE ---
Addendum entered by FELICIA Whelan 07/25/23 13:31: ADD: BLS form completed, signed by Dr Myers. Face sheet, POLST and BLS form ready for BLS crew Friday. Original Note: DCP Cont Spoke w/spouse this morning to review DCP; explained that [facility] expects to get MCR reimbursement for approx 7 days, although, MCR will not pay for both rehab cost and hospice. Spouse would like to prioritize hospice services ABDIRASHID and will pay privately for SNF room and board. Updated Sendy at [facility], patient scheduled to return Friday. Spouse can visit the business office Friday. Updated Svitlana at [facility]; patient has been scheduled for start of care Friday between [phone]. According to NIKHIL Nur, BLS transport is appropriate. Scheduled this BLS transport for milk pickup driver Friday 2, 0900 Spouse updated on plan, explained that there is likely to be an out of pocket cost for BLS transport, spouse states understanding and he remains agreeable to plan. MIYA
--- NOTE | 2023-07-25 14:42 | P.PN_ITS ---
Subjective Subjective Interval history: Patient comfortable. Hospice to open on 07/28 at [facility]. Exam Vital Signs (past 8 hours): - 07/25/23 08:31 Temperature 98.1 F Pulse Rate 96 H Respiratory Rate 16 Blood Pressure 122/70 Pulse Oximetry 96 Oxygen Flow Rate 0 Oxygen Delivery Method Room Air Oxygen Flow Rate 0 Narrative Exam Narrative: GEN: confused, somnolent HEENT: moist mucous membranes, PERRL NECK: trachea midline, no JVD CV: regular rate and rhythm, systolic ejection murmur present PULM: clear bilaterally ABD: soft, nontender, nondistended, no organomegaly EXT: warm and well perfused with no edema NEURO: somnolent, no focal deficits Objective Labs 07/23/23 15:07 07/23/23 15:07 [facility] Medical History CVA (cerebral vascular accident) Hypertension Tachycardia Myasthenia gravis SVT (supraventricular tachycardia) Diabetes type 2, uncontrolled (07/15/11) Gastroparesis due to DM (11/13/10) Hyperlipidemia, mixed (11/13/10) Unspecified essential hypertension (11/13/10) Morbid obesity (11/13/10) Panic disorder (11/13/10) 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 # acute sepsis -WBC 19, procal 0.61. Source likely UTI given >100 WBC in urine -follow-up blood and urine cultures -cefepime and vanc ordered -stopped abx due to comfort measures # DENNYS -Cr 3.97, up from 0.97 two weeks ago -likely prerenal with hypernatremia -bustamante placed in ED, will continue for comfort reasons # acute metabolic encephalopathy -patient intermittently disoriented, likely due to sepsis, DENNYS, and dehydration # hypernatremia -Na 154 -1/2 NS IVF -stopped fluids due to comfort care # DM2 -stopped lantus and SSI # seizure disorder -continue keppra # HTN -hold losartan and metoprolol due to sepsis # depression and anxiety -continue sertraline but hold xanax for now due to AMS # h/o TIA -continue DAPT Code status is DNR. Proxy is Syed. Dispo: Hospice can open at [facility] on 07/28. Quality VTE Deep Vein Thrombosis/Pulmonary Embolism Present on Admission: No
[2023-07-25] MEDS: SENNOSIDES 8.6 MG TABLET 17.2 MG PO (20:01)
--- NOTE | 2023-07-26 07:21 | P.PN_ITS ---
Subjective Subjective Interval history: Patient's sister at bedside. Questions were answered. Patient comfortable. Exam Vital Signs (past 8 hours): Oxygen Delivery Method Room Air Oxygen Flow Rate 0 Narrative Exam Narrative: GEN: confused, somnolent HEENT: moist mucous membranes, PERRL NECK: trachea midline, no JVD CV: regular rate and rhythm, systolic ejection murmur present PULM: clear bilaterally ABD: soft, nontender, nondistended, no organomegaly EXT: warm and well perfused with no edema NEURO: somnolent, no focal deficits Objective Labs 07/23/23 15:07 07/23/23 15:07 [facility] Medical History CVA (cerebral vascular accident) Hypertension Tachycardia Myasthenia gravis SVT (supraventricular tachycardia) Diabetes type 2, uncontrolled (07/15/11) Gastroparesis due to DM (11/13/10) Hyperlipidemia, mixed (11/13/10) Unspecified essential hypertension (11/13/10) Morbid obesity (11/13/10) Panic disorder (11/13/10) 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 # acute sepsis -WBC 19, procal 0.61. Source likely UTI given >100 WBC in urine -follow-up blood and urine cultures -cefepime and vanc ordered -stopped abx due to comfort measures # DENNYS -Cr 3.97, up from 0.97 two weeks ago -likely prerenal with hypernatremia -bustamante placed in ED, will continue for comfort reasons # acute metabolic encephalopathy -patient intermittently disoriented, likely due to sepsis, DENNYS, and dehydration # hypernatremia -Na 154 -1/2 NS IVF -stopped fluids due to comfort care # DM2 -stopped lantus and SSI # seizure disorder -continue keppra # HTN -hold losartan and metoprolol due to sepsis # depression and anxiety -continue sertraline but hold xanax for now due to AMS # h/o TIA -continue DAPT Code status is DNR. Proxy is Syed. Dispo: Hospice can open at SNF on 07/28. Quality VTE Deep Vein Thrombosis/Pulmonary Embolism Present on Admission: No
[2023-07-26] MEDS: SENNOSIDES 8.6 MG TABLET 17.2 MG PO (09:46)
[2023-07-26] MEDS: ONDANSETRON 4 MG ODT PO (09:46)
[2023-07-26] MEDS: MORPHINE 10 MG/0.5 ML ORAL SYRINGE PO (09:46)
[2023-07-26 10:54] VITALS: BP 152/74; PULSE 117; RESP 20; TEMP 36.2; O2SAT 96
[2023-07-26] MEDS: LORazepam 2 MG/ML ORAL SOL 1 MG SL (11:04)
--- NOTE | 2023-07-26 14:17 | CM.DPC ---
DCP Cont. Reviewed EMR and team rounds for status updates. No changes. Plan remains for pt to d/c Thursday 07/27 back to [facility] via BLS at 9:00am, [facility] will open care between 10-11:00am. No further needs indicated for assistance today.
--- NOTE | 2023-07-26 14:21 | CM.DPC ---
DCP Cont. Reviewed EMR and team rounds for status updates. No changes. Plan remains for pt to d/c Thursday 07/27 back to [facility] via BLS at 9:00am, [facility] will open care between 10-11:00am. No further needs indicated for assistance today.
[2023-07-27 08:42] VITALS: BP 157/74; PULSE 130; RESP 16; TEMP 36.1; O2SAT 93
--- NOTE | 2023-07-27 13:19 | PM.PN.1 ---
Subjective Subjective Interval history: Patient comfortable. Hospice to open on 07/[address] [facility]. Exam Vital Signs (past 8 hours): - 07/27/23 07:00 07/27/23 08:42 Temperature 96.9 F L Pulse Rate 130 H Respiratory Rate 16 Blood Pressure 157/74 H Pulse Oximetry 93 Oxygen Delivery Method Room Air Oxygen Flow Rate 0 Oxygen Delivery Method Room Air Oxygen Flow Rate 0 Narrative Exam Narrative: GEN: confused, somnolent HEENT: moist mucous membranes, PERRL NECK: trachea midline, no JVD CV: regular rate and rhythm, systolic ejection murmur present PULM: clear bilaterally ABD: soft, nontender, nondistended, no organomegaly EXT: warm and well perfused with no edema NEURO: somnolent, no focal deficits Objective Labs 07/23/23 15:07 07/23/23 15:07 [facility] Medical History CVA (cerebral vascular accident) Hypertension Tachycardia Myasthenia gravis SVT (supraventricular tachycardia) Diabetes type 2, uncontrolled (07/15/11) Gastroparesis due to DM (11/13/10) Hyperlipidemia, mixed (11/13/10) Unspecified essential hypertension (11/13/10) Morbid obesity (11/13/10) Panic disorder (11/13/10) 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 # acute sepsis -WBC 19, procal 0.61. Source likely UTI given >100 WBC in urine, culture w/ e. coli. blood culture no growth. -cefepime and vanc ordered initially but stopped abx due to comfort measures after discussion. # DENNYS -Cr 3.97, up from 0.97 two weeks ago -likely prerenal with hypernatremia -bustamante placed in ED, will continue for comfort reasons # acute metabolic encephalopathy -patient intermittently disoriented, likely due to sepsis/hypernatremia, DENNYS, and dehydration # hypernatremia -Na 154 -1/2 NS IVF -stopped fluids due to comfort care # DM2 -stopped lantus and SSI due to comfort # seizure disorder -continue keppra # HTN -held losartan and metoprolol due to sepsis, continue to hold today. # depression and anxiety -continue sertraline but hold xanax for now due to AMS # h/o TIA -continue DAPT Code status is DNR. Proxy is Syed. Dispo: Hospice can open at [facility] on 07/28. Quality VTE Deep Vein Thrombosis/Pulmonary Embolism Present on Admission: No
[2023-07-27] MEDS: LORazepam 2 MG/ML ORAL SOL 1 MG SL (20:16)
[2023-07-27] MEDS: ATROPINE 1% OPHTH 2 DROPS SL ×2 (20:21→23:28)
[2023-07-28] MEDS: ATROPINE 1% OPHTH 2 DROPS SL ×2 (06:59→07:53)
[2023-07-28] MEDS: MORPHINE 10 MG/0.5 ML ORAL SYRINGE PO (07:41)
[2023-07-28] MEDS: LORazepam 2 MG/ML ORAL SOL 1 MG SL (07:45)
--- NOTE | 2023-07-28 08:02 | P.DS_ITS ---
History of Present Illness History of Present Illness Date Patient Seen: 07/28/23 Chief complaint: lithargic x2 days Narrative: Oksana Brown is a 73yo F with PMH of myasthenia gravis on chronic prednisone, seizure disorder on keppra, DM2 on insulin, TIA, anxiety, gastroparesis, HTN and HLD who presents with altered mental status. Sent from [facility]. Patient unable to give history and [place] ferry and not answering phone. Per ED handoff she was brought in by EMS for decreased mentation. Found to be severely dry and have renal failure with Cr 3.97, severe hypernatremia with Na 154, and be septic with WBC 19 and procal 0.61 from UTI. who is POA ok with IVF and abx to see how she does, but no aggressive measures and if she is not improving to pursue comfort care. She is DNR. Patient briefly responds to questions but keeps eyes closed and uses one word answered. She reponds no to if she is in pain. Discharge Providers Provider Date of admission: 07/23/23 16:55 Discharge Date: 07/28/23 Primary care physician: Jose Clement MD Consults: 07/23/23 17:07 Consult to [facility] Human Factors Advisor Lead Routine Comment: may pursue hospice 07/23/23 18:29 Consult to Dietitian, Adult Routine Comment: Reason For Exam: assessed at high risk on MNA 07/24/23 14:41 Consult to Discharge Planning Routine Comment: Consult to Hospice Referral Urgent Comment: Discharge provider: Adebayo Del Castillo DO Summary Hospital Course Discharge Diagnosis: # acute sepsis -WBC 19, procal 0.61. Source likely UTI given >100 WBC in urine, culture w/ e. coli. blood culture no growth. -cefepime and vanc ordered initially but stopped abx due to comfort measures after discussion. # DENNYS -Cr 3.97, up from 0.97 two weeks ago -likely prerenal with hypernatremia -bustamante placed in ED, will continue for comfort reasons # acute metabolic encephalopathy -patient intermittently disoriented, likely due to sepsis/hypernatremia, DENNYS, and dehydration # hypernatremia -Na 154 -1/2 NS IVF -stopped fluids due to comfort care # DM2 -stopped lantus and SSI due to comfort # seizure disorder -continue keppra # HTN -held losartan and metoprolol due to sepsis, continue to hold today. # depression and anxiety -continue sertraline but hold xanax for now due to AMS # h/o TIA -continue DAPT Exam Vital Signs (past 8 hours): Oxygen Delivery Method Room Air Oxygen Flow Rate 0 Objective Labs 07/23/23 15:07 07/23/23 15:07 [facility] Medical History CVA (cerebral vascular accident) Hypertension Tachycardia Myasthenia gravis SVT (supraventricular tachycardia) Diabetes type 2, uncontrolled (07/15/11) Gastroparesis due to DM (11/13/10) Hyperlipidemia, mixed (11/13/10) Unspecified essential hypertension (11/13/10) Morbid obesity (11/13/10) Panic disorder (11/13/10) 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) Surgical History Status post hernia repair (05/14/16) Status post hysterectomy (05/14/16) Status post laparoscopic cholecystectomy History of third molar tooth extraction Social History household members: other Smoking Status: Former smoker alcohol intake: current Discharge Plan Discharge Plan Patient Disposition: Home Provider Discharge Comment: 73 F admitted with hypernatremia, possible sepsis. Elected for comfort care and transition to hospice. Home medications were adjusted to reflect change to comfort measures. She may be unable to take oral pills, but if able these are listed as continued to maximize comfort. Discharge orders & Medications Prescriptions: New atropine 1 % Drops 2 drp sublingual Q2HR PRN (Reason: Secretions) Qty: 5 0RF bisacodyl 10 mg Suppository 10 mg WA DAILY PRN (Reason: Constipation) Qty: 14 0RF lorazepam [Lorazepam Intensol] 2 mg/mL Concentrate 1 mg sublingual Q1HR PRN (Reason: agitation/anxiety) Qty: 30 0RF morphine concentrate 10 mg/0.5 mL Syringe 10 mg PO Q1H PRN (Reason: Pain/Dyspnea) Qty: 50 0RF nystatin [Nystop] 100,000 unit/gram Powder 1 applic topical BID PRN (Reason: Rash) Qty: 30 0RF polyvinyl alcohol [Artificial Tears (polyvin alc)] 1.4 % Drops 2 drp EYE-BOTH Q2HR PRN (Reason: Dry Eye(S)) Qty: 15 0RF Continued pantoprazole 40 mg tablet,delayed release (DR/EC) 40 mg PO DAILY PRN (Reason: heartburn) Qty: 180 3RF levetiracetam 750 mg tablet 750 mg PO BID gabapentin [Neurontin] 600 mg Tablet 600 mg PO BID Qty: 60 2RF neomycin-polymyxin B-dexameth 3.5mg/mL-10,000 unit/mL-0.1 % Drops,Suspension 1 drops EYE-LEFT QID Qty: 30 0RF Discontinued (DME) Blood Glucose Test Strip See Rx Instructions .ROUTE .MEDSUPPLY Qty: 800 11RF Rx Instructions: Use Accucheck Guide Test Strips to check blood sugar 10x a day, in conjunction with insulin injections 7-10x a day sertraline [Zoloft] 100 mg tablet 200 mg PO DAILY Qty: 180 3RF losartan 100 mg tablet 100 mg PO BID Qty: 180 0RF (DME) lancets [Lancets,Thin] Misc See Rx Instructions .ROUTE .MEDSUPPLY Qty: 200 5RF Rx Instructions: use to check blood sugar 7x a day in conjunction w insulin admin 7x a day- generic please (DME) NovaFine Pen Tips 32G x 6mm 100 package See Rx Instructions .ROUTE .MEDSUPPLY Qty: 3 2RF Rx Instructions: Use to test blood glucose 4 times daily clopidogrel 75 mg tablet 75 mg PO DAILY aspirin 81 mg tablet,delayed release (DR/EC) 81 mg PO DAILY prednisone 20 mg tablet 20 mg PO DAILY Qty: 90 0RF alprazolam 0.25 mg Tablet 0.25 mg PO TID Qty: 30 0RF Rx Instructions: Take at 0800, 1200, 1700. insulin lispro [Humalog U-100 Insulin] 100 unit/mL Solution 0 unit SUBCUT ACHS Qty: 20 1RF Patient Comments: 0-150: 2 units, 151-200: 3 units, 201-250: 4 units, 251-300: 5 units, 301- 350: 6 units (per [facility] med list) insulin glargine [Lantus Solostar U-100 Insulin] 100 unit/mL (3 mL) Insulin Pen 40 unit SUBCUT DAILY Qty: 10 1RF metoprolol succinate 100 mg tablet extended release 24 hr 100 mg PO BID Follow up/Referrals: Jose Clement MD [Primary Care Provider] - Diet/Activity/Treatments Diet: Diet as Tolerated Activity: No restrictions Visit Report/Discharge Packet Stand Alone Forms: Patient Portal/API, Stroke Signs & Symptoms Discharge Data Primary Care Provider: Jose Clement Quality VTE Deep Vein Thrombosis/Pulmonary Embolism Present on Admission: No
--- NOTE | 2023-07-28 08:13 | PM.DDS.1 ---
Discharge Summary History of Illness Narrative: Per admitting provider, Oksana Brown is a 73yo F with PMH of myasthenia gravis on chronic prednisone, seizure disorder on keppra, DM2 on insulin, TIA, anxiety, gastroparesis, HTN and HLD who presents with altered mental status. Sent from [facility]. Patient unable to give history and [place] ferry and not answering phone. Per ED handoff she was brought in by EMS for decreased mentation. Found to be severely dry and have renal failure with Cr 3.97, severe hypernatremia with Na 154, and be septic with WBC 19 and procal 0.61 from UTI. who is POA ok with IVF and abx to see how she does, but no aggressive measures and if she is not improving to pursue comfort care. She is DNR. Patient briefly responds to questions but keeps eyes closed and uses one word answered. She reponds no to if she is in pain. Hospital Course Date of Admission: 07/23/23 16:55 Primary care provider: Jose Clement MD Consults: 07/23/23 17:07 Consult to [facility] - [facility] Routine Comment: may pursue hospice 07/23/23 18:29 Consult to Dietitian, Adult Routine Comment: Reason For Exam: assessed at high risk on MNA 07/24/23 14:41 Consult to Discharge Planning Routine Comment: Consult to Hospice Referral Urgent Comment: Discharge provider: Adebayo Del Castillo D.O. Discharge Diagnosis: # acute sepsis # DENNYS # acute metabolic encephalopathy # hypernatremia # DM2 # seizure disorder # HTN # depression and anxiety # h/o TIA Hospital Course: This is a 73 year old female with PMH of myasthenia gravis, seizure disorder, HTN, DM2, prior TIA who presented with acute encephalopathy, DENNYS, hypernatremia due to dehydration and sepsis from likely acute cystitis. Quickly after admission family elected for transition to change focus to comfort after a goals of care discussion. Fluids and antibiotics were stopped. Hospice was arranged for the morning of 07/28, and the patient was scheduled for transfer to [facility], however the patient shortly before transfer at 0800 on 07/28/2023. Time spent: < 30 minutes. [facility] 07/23/23 15:07 07/23/23 15:07
--- NOTE | 2023-07-28 08:19 | CM.DPNOTE ---
Cancelled BLS transport and spoke to Clary at [facility]. Carly Mcgarry, [facility] Assist.
--- NOTE | 2023-07-28 09:29 | CM.DPC ---
DCP Per MD, pt still comfort measures and wrote discharge orders for pt to d/c back to [facility] via BLS and [facility] to open today [id number]. Per RN, pt just around 0810 right now. SW called [facility] and updated on pt expiring and they will cancel their RN SOC today at 1000. [facility] plans to reach out to spouse and sister this morning to provide grief support and resources. ADRIÁN Carroll called Ambulance and cancelled 0900 transport for today and updated them on pt expiring. TARA called [facility] and updated their admissions on pt expiring and not discharging to their facility today. [employer] helping to coordinate transport of the body to home selected. updated. Amy Dunbar MSW
== END 2023-07-28 12:20 | disposition expired | DRG 871 ==
LOC: ED 15:20 → AC 17:15
PROVIDERS: Admitting Provider Student in an Organized Health Care Education/Training Program; Emergency Provider Emergency Medicine; PCP Family Medicine; Referring Provider Emergency Medicine; Visit Provider Student in an Organized Health Care Education/Training Program
DX: A41.9 Sepsis, unspecified organism (principal); G93.41 Metabolic encephalopathy; N17.9 Acute kidney failure, unspecified; E44.0 Moderate protein-calorie malnutrition; N30.00 Acute cystitis without hematuria; I47.10 Supraventricular tachycardia, unspecified; E11.9 Type 2 diabetes mellitus without complications; G40.909 Epilepsy, unspecified, not intractable, without status epilepticus; I10 Essential (primary) hypertension; F32.A Depression, unspecified; E86.0 Dehydration; R65.20 Severe sepsis without septic shock; F41.9 Anxiety disorder, unspecified; Z86.73 Personal history of transient ischemic attack (TIA), and cerebral infarction without residual deficits; Z51.5 Encounter for palliative care; Z66 Do not resuscitate; Z87.891 Personal history of nicotine dependence; Z68.31 Body mass index [BMI] 31.0-31.9, adult; F41.0 Panic disorder [episodic paroxysmal anxiety]; R41.841 Cognitive communication deficit
CPT/HCPCS: 0241U; 36415; 70450; 71045; 74176; 80053; 81001; 82550; 82962; 83605; 84145; 84484; 85025; 85610; 87040; 87086; 87186; 93005; 93010; 94762; 96365; 96367; 99285; J0692; J1644; J7050